=== PATIENT | male | born 1985 | race Two or more races ===

== ENCOUNTER 2020-07-20 07:38 | Outpatient (REF) | payer OTHER, SELFPAY ==
[2020-07-20 08:25] LABS: COVID-19 Test Negative (Negative); IDNOW Serial# 55D5AD1C
== END 2020-07-20 07:39 | disposition home or self-care (01) ==
LOC: HO.LAB 07:38
PROVIDERS: Visit Provider Internal Medicine
DX: Z20.822 Contact with and (suspected) exposure to COVID-19 (principal)
CPT/HCPCS: 36415; 87635; C9803

== ENCOUNTER 2021-06-01 09:24 | Emergency (ER) | payer OTHER, SELFPAY ==
--- NOTE | ~2021-06-01 | XR_ITS ---
EXAMINATION: XR FOOT, LEFT CLINICAL INFORMATION: Great toe wound COMPARISON: None TECHNIQUE: AP, lateral, and oblique views of the left foot. FINDINGS: There is flexion deformity of all DIP joints. No fracture, dislocation seen. The ankle mortise and subtalar joints are normal. There is diffuse osteopenia. There is moderate dorsal foot soft tissue swelling. XR/XR foot LT min 3V IMPRESSION: Moderate dorsal foot soft tissue swelling Diffuse osteopenia with moderate flexion deformity DIP joints of all digits. No visible acute fracture or dislocation seen.
[2021-06-01 09:58] VITALS: BP 124/92; PULSE 102; RESP 17; TEMP 37.2; O2SAT 96; BMI 23.4
--- NOTE | 2021-06-01 11:55 | ED_ITS ---
HPI - General Adult General Chief complaint: Extremity Problem Stated complaint: Foot pain Time Seen by Provider: 06/01/21 09:36 Source: family Mode of arrival: wheelchair Limitations: physical limitation History of Present Illness HPI narrative: Patient is a 36-year-old male with a history of spastic quadriplegic cerebral palsy, and epilepsy. Patient presents to the emergency department with his father, in addition to patient's sister who is involved in his care and available via telephone during exam. There is concern of increased muscle spasms over the past 2 days and patient appearing uncomfortable. In addition, there is report of a pressure ulcer to the left great toe for about 2 weeks. Reports that this has happened in the past due to footwear, and they have been alleviating pressure from the tip of the toe. He denies report of fever, has is temperature taken daily at the [facility]. Denies sick contacts or COVID-19 exposure. They do report a history of urinary tract infections, though they are infrequent, denies any odor or abnormal urinary concerns Related Data Home Medications Medication Instructions Recorded Confirmed baclofen See Rx Instructions INTRATHECAL 02/23/20 03/16/21 DAILY carbamazepine 100 mg chewable See Rx Instructions PO TID tab 02/23/20 03/16/21 tablet cyclobenzaprine 10 mg tablet 10 mg PO TID PRN 02/23/20 03/16/21 phenytoin sodium extended 100 mg 100 mg PO TID 02/23/20 03/16/21 capsule Previous Rx's Medication Instructions Recorded docusate sodium 100 mg capsule 200 mg PO BID #120 cap 01/18/21 polyethylene glycol 3350 17 gram 17 g PO DAILY 90 Days #90 ea 02/28/21 oral powder packet (Miralax) doxycycline monohydrate 100 mg 100 mg PO BID 7 Days #14 cap 06/01/21 capsule prednisone 20 mg tablet 40 mg PO DAILY 5 Days #10 tab 06/01/21 sodium di- and 1 tab PO QID 5 Days #20 tab 06/01/21 monophosphate-potassium phos monobasic 250 mg tablet (Phosphorous) Allergies Allergy/AdvReac Type Severity Reaction Status Date / Time Penicillins Allergy Mild UNKNOWN Verified 03/16/21 11:46 penicillin V Allergy Unknown Hives Verified 03/16/21 11:46 Review of Systems Review of Systems: Obtained by father and sister, patient non-verbal. Constitutional: No fever or shaking chills. Cardiovascular: No clutching of the chest, or pedal edema Respiratory: No increased work of breathing, cough, or sputum production. Gastrointestinal: No anorexia, vomiting ,constipation or diarrhea. No blood in stool. Genitourinary: No urinary frequency or motor. Musculoskeletal: Immobile, wheelchair-bound. Skin: Right great toe ulcer. [facility] Past Medical History Attestation statement: The following information was validated with the patient. (With patient's family) Source: old records reviewed and obtained from family Medical History Constipation Epilepsy Presence of intrathecal baclofen pump Spastic quadriplegic cerebral palsy Surgical History No pertinent past surgical history Social History Social History Housing: House Alcohol intake: never Patient Tobacco Use Status: Never used Tobacco Second Hand Smoke Exposure: No Use of substances other than those prescribed or required for medical reasons: No Advance Directives: No service: No Current occupational status: disabled Physical Exam ED Vital Signs: Vital Signs - 24 hr 06/01/21 09:58 06/01/21 13:05 06/01/21 14:02 Temperature 99.0 F 98.9 F Pulse Rate 102 H 94 Respiratory Rate 17 20 Blood Pressure 124/92 H Pulse Oximetry 96 95 06/01/21 16:00 Temperature 98.7 F Pulse Rate 95 Respiratory Rate 16 Blood Pressure 135/99 H Pulse Oximetry 97 BMI result Body Mass Index 23.4 Vital signs have been reviewed and appeared to be correct. Blood pressure with diastolic elevation 124/92 Heart rate had elevated at 102, 94 on repeat.? Respiration rate normal. Temperature normal.? Oxygen saturation normal. Appearance: Unable to assess orientation, non-verbal. No acute distress.? Eyes: Pupils equal, round and reactive to light.? ENT: Pharynx normal.?? Neck: Normal inspection.? Neck supple.?? CVS: Heart sounds normal. Normal heart rate and rhythm.? Pulses normal.?? Respiratory: No respiratory distress.? Lung sounds clear to auscultation bilaterally?? Abdomen: Soft and non-tender. Normoactive bowel sounds. No pulsatile mass.?RLQ inplanted device; baclofen pump without erythema, warmth, swelling.? Skin: Skin warm and dry.? Normal skin color.? Normal skin turgor.??Left great toe with dark red ulceration, 0.5cm round, with erythema and warmth of the left great toe and extending down the base to metatarsal Extremities: No lower extremity edema.? Neuro: Moves all extremities spontaneously. No focal neuro deficits. Non- ambulatory. Course Course Course Narrative: Patient is a 36-year-old male, nonverbal, presenting for evaluation of increased muscle spasticity and concern for left great toe ulcer. Will obtain CBC to evaluate for leukocytosis/ anemia, CMP to evaluate for abnormal electrolytes /abnormal renal function/ abnormal hepatic function. Uric acid level to assess for gout, inflammatory markers; sed rate and CRP. Urinalysis to evaluate for infection. X-ray of the left foot to exclude osteomyelitis. Patient is afebrile, mildly tachycardic with heart rate 102 though I suspect that this is secondary to pain and do not suspect sepsis at this time. However, will obtain blood cultures and lactic acid at this time. Reevaluation(s) Reevaluation #1: Based on history and physical exam I am concerned for cellulitis of the left foot great toe, given he has an allergy to penicillin will treat with doxycycline twice a day for 7 days. Unlikely to be osteomyelitis as he has no leukocytosis, he is afebrile, and no concern for osteomyelitis on x-ray. CBC is unremarkable no leukocytosis or anemia. ESR is 2, CRP is elevated 5.34 and Uric acid is low at 2.9, advise possibility of gout therefore will treat additionally with prednisone. Phosphorus is low at 2.5, will provide oral replacement. Calcium is normal. Magnesium is normal. Lactic acid is normal at 1.0. Urinalysis without concern for infection. COVID-19 testing was negative. I spoke with patient's father and his sister regarding findings, advised of treatment for cellulitis and possible gout and will need to follow up with primary care provider. Discussed reasons to return to the emergency department. Patient's father and sister are agreeable with plan of care all questions were answered. Time: 16:12 Medical Decision Making Medical Records Medical records reviewed: Yes I reviewed the patient's medical records. Lab Data Lab results reviewed: Yes I reviewed the patient's lab results. Result diagrams: 06/01/21 14:21 06/01/21 14:21 Labs: Lab Results 06/01/21 06/01/21 06/01/21 Range/Units 13:03 14:21 14:21 WBC 8.8 (4.8-10.8) X10*3/uL RBC 4.89 (4.60-5.80) X10*6/uL Hgb 14.0 (14.0-18.0) g/dl Hct 42.5 (42.0-52.0) % MCV 86.9 (80.0-98.0) fL MCH 28.6 (27.0-33.0) pg MCHC 32.9 (31.0-36.0) g/dl RDW 12.9 (11.0-16.0) % Plt Count 304 (160-400) X10*3/uL MPV 9.6 (9.4-12.4) fL Immature Gran % (Auto) 0.2 (0.0-0.4) % Neut % (Auto) 75.9 H (45-73) % Lymph % (Auto) 16.4 L (20-40) % [place] % (Auto) 7.2 (2-11) % Eos % (Auto) 0.0 (0-4) % Baso % (Auto) 0.3 (0-2) % Lymph # (Auto) 1.5 (1.2-4.9) X10*3/uL [place] # (Auto) 0.6 (0.1-1.2) X10*3/uL Eos # (Auto) 0.0 (0.0-0.4) X10*3/uL Baso # (Auto) 0.0 (0.0-0.2) X10*3/uL Abs Immat Gran (auto) 0.02 (0.00-0.03) X10*3/uL Absolute Neuts (auto) 6.7 (2.0-8.3) x10*3/uL Absolute Nucleated RBC 0.000 (0.0-0.012) X10*3/uL Nucleated RBC % (auto) 0.0 (0.0-0.2) /100WBC ESR 2 (0-15) MM/HR Sodium (135-145) mmol/L Potassium (3.3-5.1) mmol/L Chloride (96-108) mmol/L Carbon Dioxide (22-29) mmol/L Anion Gap (12-20) BUN (9-16) mg/dL Creatinine (0.5-1.4) mg/dL Estim Creat Clear Calc Estimated GFR Random Glucose (60-115) mg/dL Lactic Acid (0.5-2.0) mmol/L Uric Acid (3.4-7.0) mg/dL Calcium (8.4-10.2) mg/dL Phosphorus (2.7-4.5) mg/dL Magnesium (1.6-2.6) mg/dL Total Bilirubin (0.0-1.0) mg/dL AST (5-37) U/L ALT (0-40) U/L Alkaline Phosphatase (39-117) U/L C-Reactive Protein (< or = 0.50) mg/dL Total Protein (6.5-8.0) g/dL Albumin (3.5-5.0) g/dL Urine Color YELLOW Urine Appearance HAZY Urine pH 6.0 (5.0-8.0) Ur Specific [place] >= 1.030 H (1.005-1.025) Urine Protein 1+ H (NEG-TRACE) MG/DL Urine Glucose (UA) NEG (NEG) MG/DL Urine Ketones >=80 (NEG) MG/DL Urine Blood NEG (NEG) Urine Nitrite NEG (NEG) Ur Leukocyte Esterase NEG (NEG) Urine RBC 5-9 H (0) /HPF Urine WBC 1-4 (0-4) /HPF Ur Squamous Epith Cells 2+ /LPF Urine Bacteria TRACE /LPF Urine Mucus 1+ /LPF COVID-19 (JEANNINE) (Negative) COVID-19 Clin Com 06/01/21 06/01/21 06/01/21 Range/Units 14:21 14:21 14:21 WBC (4.8-10.8) X10*3/uL RBC (4.60-5.80) X10*6/uL Hgb (14.0-18.0) g/dl Hct (42.0-52.0) % MCV (80.0-98.0) fL MCH (27.0-33.0) pg MCHC (31.0-36.0) g/dl RDW (11.0-16.0) % Plt Count (160-400) X10*3/uL MPV (9.4-12.4) fL Immature Gran % (Auto) (0.0-0.4) % Neut % (Auto) (45-73) % Lymph % (Auto) (20-40) % [place] % (Auto) (2-11) % Eos % (Auto) (0-4) % Baso % (Auto) (0-2) % Lymph # (Auto) (1.2-4.9) X10*3/uL [place] # (Auto) (0.1-1.2) X10*3/uL Eos # (Auto) (0.0-0.4) X10*3/uL Baso # (Auto) (0.0-0.2) X10*3/uL Abs Immat Gran (auto) (0.00-0.03) X10*3/uL Absolute Neuts (auto) (2.0-8.3) x10*3/uL Absolute Nucleated RBC (0.0-0.012) X10*3/uL Nucleated RBC % (auto) (0.0-0.2) /100WBC ESR (0-15) MM/HR Sodium 138 (135-145) mmol/L Potassium 3.9 (3.3-5.1) mmol/L Chloride 103 (96-108) mmol/L Carbon Dioxide 20 L (22-29) mmol/L Anion Gap 19 (12-20) BUN 13 (9-16) mg/dL Creatinine 0.61 (0.5-1.4) mg/dL Estim Creat Clear Calc 116.1 Estimated GFR > 60 Random Glucose 90 (60-115) mg/dL Lactic Acid 1.0 (0.5-2.0) mmol/L Uric Acid 2.9 L (3.4-7.0) mg/dL Calcium 9.6 (8.4-10.2) mg/dL Phosphorus 2.5 L (2.7-4.5) mg/dL Magnesium 2.2 (1.6-2.6) mg/dL Total Bilirubin 0.6 (0.0-1.0) mg/dL AST 30 (5-37) U/L ALT 31 (0-40) U/L Alkaline Phosphatase 61 (39-117) U/L C-Reactive Protein 5.34 H (< or = 0.50) mg/dL Total Protein 7.4 (6.5-8.0) g/dL Albumin 4.4 (3.5-5.0) g/dL Urine Color Urine Appearance Urine pH (5.0-8.0) Ur Specific [place] (1.005-1.025) Urine Protein (NEG-TRACE) MG/DL Urine Glucose (UA) (NEG) MG/DL Urine Ketones (NEG) MG/DL Urine Blood (NEG) Urine Nitrite (NEG) Ur Leukocyte Esterase (NEG) Urine RBC (0) /HPF Urine WBC (0-4) /HPF Ur Squamous Epith Cells /LPF Urine Bacteria /LPF Urine Mucus /LPF COVID-19 (JEANNINE) Negative (Negative) COVID-19 Clin Com See Note 06/01/21 Range/Units 14:21 WBC (4.8-10.8) X10*3/uL RBC (4.60-5.80) X10*6/uL Hgb (14.0-18.0) g/dl Hct (42.0-52.0) % MCV (80.0-98.0) fL MCH (27.0-33.0) pg MCHC (31.0-36.0) g/dl RDW (11.0-16.0) % Plt Count (160-400) X10*3/uL MPV (9.4-12.4) fL Immature Gran % (Auto) (0.0-0.4) % Neut % (Auto) (45-73) % Lymph % (Auto) (20-40) % [place] % (Auto) (2-11) % Eos % (Auto) (0-4) % Baso % (Auto) (0-2) % Lymph # (Auto) (1.2-4.9) X10*3/uL [place] # (Auto) (0.1-1.2) X10*3/uL Eos # (Auto) (0.0-0.4) X10*3/uL Baso # (Auto) (0.0-0.2) X10*3/uL Abs Immat Gran (auto) (0.00-0.03) X10*3/uL Absolute Neuts (auto) (2.0-8.3) x10*3/uL Absolute Nucleated RBC (0.0-0.012) X10*3/uL Nucleated RBC % (auto) (0.0-0.2) /100WBC ESR (0-15) MM/HR Sodium (135-145) mmol/L Potassium (3.3-5.1) mmol/L Chloride (96-108) mmol/L Carbon Dioxide (22-29) mmol/L Anion Gap (12-20) BUN (9-16) mg/dL Creatinine (0.5-1.4) mg/dL Estim Creat Clear Calc Estimated GFR Random Glucose (60-115) mg/dL Lactic Acid (0.5-2.0) mmol/L Uric Acid (3.4-7.0) mg/dL Calcium Cancelled (8.4-10.2) mg/dL Phosphorus Cancelled (2.7-4.5) mg/dL Magnesium (1.6-2.6) mg/dL Total Bilirubin (0.0-1.0) mg/dL AST (5-37) U/L ALT (0-40) U/L Alkaline Phosphatase (39-117) U/L C-Reactive Protein (< or = 0.50) mg/dL Total Protein (6.5-8.0) g/dL Albumin (3.5-5.0) g/dL Urine Color Urine Appearance Urine pH (5.0-8.0) Ur Specific [place] (1.005-1.025) Urine Protein (NEG-TRACE) MG/DL Urine Glucose (UA) (NEG) MG/DL Urine Ketones (NEG) MG/DL Urine Blood (NEG) Urine Nitrite (NEG) Ur Leukocyte Esterase (NEG) Urine RBC (0) /HPF Urine WBC (0-4) /HPF Ur Squamous Epith Cells /LPF Urine Bacteria /LPF Urine Mucus /LPF COVID-19 (JEANNINE) (Negative) COVID-19 Clin Com Imaging Data left foot XR: Radiologist's impression: IMPRESSION: Moderate dorsal foot soft tissue swelling ? Diffuse osteopenia with moderate flexion deformity DIP joints of all digits. ? No visible acute fracture or dislocation seen. Discharge Plan Discharge Clinical Impression: Cellulitis of foot, Spastic quadriplegic cerebral palsy, Acquired hypophosph atemia Patient Disposition: Home, Self-Care Instructions: Cellulitis (ED), Hypophosphatemia (ED) Additional Instructions: Given given a new prescription for doxycycline this is an antibiotic to take twice a day for 7 days for treatment of cellulitis of the left foot. The area has been marked with a skin marker. As we discussed, there is a possibility of gout, therfore you were given a prescription for prednisone, this is a steroid, to take daily for 5 days. You should contact your primary care provider to schedule a follow-up appointment in 1-2 days for follow-up and evaluation. May return to the emergency department with any concerns of new or worsening symptoms. In addition, phosphorus level was low, therefore you were given oral replacement to take 4 times daily. Prescriptions: New Phosphorous 250 mg tablet 1 tab PO QID 5 Days Qty: 20 0RF doxycycline monohydrate 100 mg capsule 100 mg PO BID 7 Days Qty: 14 0RF prednisone 20 mg tablet 40 mg PO DAILY 5 Days Qty: 10 0RF No Action carbamazepine 100 mg tablet,chewable See Rx Instructions PO TID 0RF Rx Instructions: 4 tab in am, 3 tab in PM, 4 tab at HD PO 3 times a day; phenytoin sodium extended 100 mg capsule 100 mg PO TID 0RF baclofen 20,000 mcg/20mL (1,000 mcg/mL) solution See Rx Instructions intrathecal DAILY 0RF Rx Instructions: total of 8ml per day intrathecal daily; administer over 24 hrs cyclobenzaprine 10 mg tablet 10 mg PO TID PRN0RF docusate sodium 100 mg capsule 200 mg PO BID Qty: 120 2RF polyethylene glycol 3350 [Miralax] 17 gram powder in packet 17 g PO DAILY 90 Days Qty: 90 3RF Rx Instructions: 1 packet mixed with 8 ounces of fluid Orally Once a day
[2021-06-01 13:05] VITALS: TEMP 37.2
[2021-06-01 13:11] LABS: Appearance Urine HAZY; Color Urine YELLOW; Glucose Urine UA NEG (NEG); Leukocyte Esterase Urine NEG (NEG); Nitrite Urine NEG (NEG); Specific Gravity - Urine >= 1.030 (1.005-1.025); UACC Culture Trigger NO; Urine Blood NEG (NEG); Urine Ketones >=80 MG/DL (NEG); Urine Protein 1+ MG/DL (NEG-TRACE)
[2021-06-01 13:20] LABS: Bacteria Urine TRACE /LPF; Mucus Urine 1+ /LPF; Squamous Epithelial Cell Urine 2+ /LPF
[2021-06-01 14:02] VITALS: PULSE 94; RESP 20; O2SAT 95
[2021-06-01] MEDS: Acetaminophen 325 MG TABLET 650 MG PO (14:03)
[2021-06-01] MEDS: Ibuprofen 600 MG TABLET PO (14:04)
--- NOTE | 2021-06-01 14:24 | PC.NURSE ---
Pt difficult stick, labs obtained by this RN.sent. Unable to obtain second set of bld cx. d/t lack of blood flow when attempting labs. Dad at bedside. Pt asleep when resting, appears comfortable although medicated as charted
[2021-06-01 14:25] LABS: MANUAL DIFF FLAG NO
[2021-06-01 14:30] LABS: Basophils Percent Auto 0.3 % (0-2); Hematocrit 42.5 % (42.0-52.0); Imm Gran Abs Auto 0.02 X10*3/uL (0.00-0.03); Imm Gran Pct Auto 0.2 % (0.0-0.4); Lymphocytes Absolute Auto 1.5 X10*3/uL (1.2-4.9); Lymphocytes Percent Auto 16.4 % (20-40); Mean Corpuscular HGB Conc 32.9 g/dl (31.0-36.0); Mean Corpuscular Hemoglobin 28.6 pg (27.0-33.0); Mean Corpuscular Volume 86.9 fL (80.0-98.0); Mean Platelet Volume 9.6 fL (9.4-12.4); Monocytes Absolute Auto 0.6 X10*3/uL (0.1-1.2); Monocytes Percent Auto 7.2 % (2-11); Neutrophils Absolute Auto 6.7 x10*3/uL (2.0-8.3); Neutrophils Percent Auto 75.9 % (45-73); Platelet Count 304 X10*3/uL (160-400); Red Blood Count 4.89 X10*6/uL (4.60-5.80); Red Cell Distribution Width 12.9 % (11.0-16.0); White Blood Count 8.8 X10*3/uL (4.8-10.8)
[2021-06-01 14:42] LABS: COVID-19 Test Negative (Negative)
[2021-06-01 15:12] LABS: Erythrocyte Sedimentation Rate 2 MM/HR (0-15)
[2021-06-01 15:27] LABS: Alanine Aminotransferase 31 U/L (0-40); Albumin Level 4.4 g/dL (3.5-5.0); Alkaline Phosphatase 61 U/L (39-117); Anion Gap 19 (12-20); Aspartate Amino Transferase 30 U/L (5-37); Bilirubin Total 0.6 mg/dL (0.0-1.0); Blood Urea Nitrogen 13 mg/dL (9-16); C Reactive Protein 5.34 mg/dL (< or = 0.50); Calcium 9.6 mg/dL (8.4-10.2); Carbon Dioxide 20 mmol/L (22-29); Chloride 103 mmol/L (96-108); Creatinine Clr Calc Pharmacy 116.1; Estimated Glomerular Filt Rate > 60; Glucose Random 90 mg/dL (60-115); Magnesium 2.2 mg/dL (1.6-2.6); Phosphorus 2.5 mg/dL (2.7-4.5); Potassium 3.9 mmol/L (3.3-5.1); Sodium 138 mmol/L (135-145); Total Protein 7.4 g/dL (6.5-8.0); Uric Acid 2.9 mg/dL (3.4-7.0)
[2021-06-01 16:00] VITALS: BP 135/99; PULSE 95; RESP 16; TEMP 37.1; O2SAT 97
[2021-06-01] MEDS: Sodium,Potassium Phosphates POWD.PACK 1 PACKET PO (16:30)
== END 2021-06-01 16:35 | disposition home or self-care (01) ==
PROVIDERS: Nurse Practitioner Family; Emergency Provider Emergency Medicine; PCP Internal Medicine
DX: L03.116 Cellulitis of left lower limb (principal); M79.672 Pain in left foot; G80.0 Spastic quadriplegic cerebral palsy; E83.31 Familial hypophosphatemia; Z20.822 Contact with and (suspected) exposure to COVID-19; G40.909 Epilepsy, unspecified, not intractable, without status epilepticus; Z97.8 Presence of other specified devices; Z99.3 Dependence on wheelchair
CPT/HCPCS: 36415; 73630; 80053; 81001; 83605; 83735; 84100; 84550; 85025; 85652; 86140; 87040; 87635; 99284

== ENCOUNTER 2021-06-23 22:23 | Emergency (ER) | payer OTHER, SELFPAY ==
--- NOTE | ~2021-06-23 | CT_ITS ---
EXAMINATION: CT ABDOMEN AND PELVIS WITHOUT CONTRAST CLINICAL INFORMATION: Abdominal pain. Rule out small bowel obstruction. COMPARISON: Previous CT and [facility] March 2019 TECHNIQUE: Multidetector volumetric imaging was performed from the superior aspect of the liver through the pubic symphysis. Sagittal and coronal reformatted images were obtained on the technologist's workstation. This CT examination was performed using dose optimization techniques as appropriate, variously including the following: *Automated exposure control *Adjustment of mA and/or kV according to patient size (this includes techniques or standardized protocols for targeted exams where dose is matched to indication/reason for exam; i.e. extremities or head) *Use of iterative reconstruction technique DLP: 582 mGy-cm FINDINGS: LUNG BASES: The visualized lung bases are unremarkable. LIVER, GALLBLADDER, AND BILIARY TREE: The liver is normal in size, shape, and attenuation. No focal hepatic lesion or biliary ductal dilatation is present. The gallbladder is upper normal in size. There are gallstones. PANCREAS: Unremarkable. SPLEEN: Unremarkable. ADRENAL GLANDS: Unremarkable. KIDNEYS AND URETERS: The kidneys are normal in size, shape, and attenuation. No hydronephrosis, hydroureter, or calculi seen. No perinephric stranding. BLADDER: Unremarkable. GASTROINTESTINAL TRACT: The colon is dilated and filled with stool suggestive of severe constipation and fecal impaction. No evidence of small bowel obstruction is seen. The appendix is normal. The stomach is normal. ABDOMINAL WALL: There is a battery in the right lower quadrant abdominal wall and lead in the thoracic and lumbar spinal canal LYMPH NODES: Normal. VASCULAR: Unremarkable. PELVIC VISCERA: Unremarkable. OSSEOUS STRUCTURES: There is severe thoracolumbar scoliosis. There are gracile appearing bones. There are contractures of the hips CT/CT abdomen pelvis wo con IMPRESSION: Severe constipation and fecal impaction. No evidence of small bowel obstruction. Gallstones. Fleischner guidelines were followed.
--- NOTE | ~2021-06-23 | XR_ITS ---
EXAMINATION: XR FOOT, LEFT CLINICAL INFORMATION: Great toe infection COMPARISON: Previous x-ray most recent May 2021 TECHNIQUE: AP, lateral, and oblique views of the left foot. FINDINGS: There is a contracture of the foot. Bones are osteopenic. No fracture, dislocation or x-ray evidence of osteomyelitis is seen. No soft tissue foreign body is seen. XR/XR foot LT 2V IMPRESSION: Osteopenia and contracture. No change from prior exam.
[2021-06-24 00:14] VITALS: BP 132/88; PULSE 91; RESP 20; TEMP 36.8; O2SAT 94; BMI 23.4
[2021-06-24 06:12] VITALS: BP 154/99; PULSE 91; RESP 18; O2SAT 96
[2021-06-24 07:33] VITALS: BP 171/140; PULSE 110; RESP 19; TEMP 36.6; O2SAT 92
--- NOTE | 2021-06-24 07:34 | ED_ITS ---
HPI - General Adult General Chief complaint: General Medical Stated complaint: gen med Time Seen by Provider: 06/24/21 07:34 Source: patient and family ( Father) Mode of arrival: ambulatory Limitations: no limitations History of Present Illness HPI narrative: 36-year-old male with history of spastic quadriplegic cerebral palsy, patient is all was wheelchair ridden cared by his father and his sister, patient is on chronic baclofen pump. Patient was brought by his family because increase muscle spasm and patient in apparent discomfort, patient was seen recently in the emergency department had left great toe infection was started on doxycycline and father thinks it improved. father not sure of the baclofen pump is functioning are not. Related Data Home Medications Medication Instructions Recorded Confirmed baclofen See Rx Instructions INTRATHECAL 02/23/20 06/07/21 DAILY carbamazepine 100 mg chewable See Rx Instructions PO TID tab 02/23/20 06/07/21 tablet cyclobenzaprine 10 mg tablet 10 mg PO TID PRN 02/23/20 06/07/21 phenytoin sodium extended 100 mg 100 mg PO TID 02/23/20 06/07/21 capsule Previous Rx's Medication Instructions Recorded polyethylene glycol 3350 17 gram 17 g PO DAILY 90 Days #90 ea 02/28/21 oral powder packet (Miralax) prednisone 20 mg tablet 40 mg PO DAILY 5 Days #10 tab 06/01/21 sodium di- and 1 tab PO QID 5 Days #20 tab 06/01/21 monophosphate-potassium phos monobasic 250 mg tablet (Phosphorous) docusate sodium 100 mg capsule 200 mg PO BID #120 cap 06/06/21 doxycycline monohydrate 100 mg 100 mg PO BID 3 Days #6 cap 06/07/21 capsule Allergies Allergy/AdvReac Type Severity Reaction Status Date / Time Penicillins Allergy Mild UNKNOWN Verified 06/07/21 17:19 penicillin V Allergy Unknown Hives Verified 06/07/21 17:19 Review of Systems Review of Systems: Yes Unobtainable due to mental condition PMFSH Past Medical History Medical History Constipation Epilepsy Presence of intrathecal baclofen pump Spastic quadriplegic cerebral palsy Surgical History No pertinent past surgical history Social History Social History Housing: House Alcohol intake: unknown Patient Tobacco Use Status: Never used Tobacco Second Hand Smoke Exposure: No Use of substances other than those prescribed or required for medical reasons: Unable to respond Advance Directives: No Advance Directives Information Provided: Yes service: No Current occupational status: disabled Physical Exam ED Vital Signs: Vital Signs - 24 hr 06/24/21 00:14 06/24/21 06:12 06/24/21 07:33 Temperature 98.2 F 97.9 F Pulse Rate 91 91 110 H Respiratory Rate 20 18 19 Blood Pressure 132/88 154/99 H 171/140 H Pulse Oximetry 94 96 92 BMI result Body Mass Index 23.4 vital signs have been reviewed as appeared to be correct. Blood pressure elevated ( patient is uncomfortable). Heart rate elevated (patient in apparent discomfort ). Respiration rate normal. Temperature normal. Oxygen saturation normal. Appearance: Alert. acute distress and increase spastic contractions. Head: Normal external exam. Normocephalic. Atraumatic. No Solorzano signs noted. No raccoon eyes noted Eyes: PERRLA. EOMI. Conjunctiva and sclera normal. Eyelids normal. ENT: TM's Normal. Pharynx normal. Uvula midline. Moist mucous membranes. No trismus noted. No drooling noted. No muffled voice noted. Neck: Normal inspection. Neck supple. FROM. No adenopathy. Thyroid Normal. No meningeal signs. No neck mass noted. CVS: Normal heart rate and rhythm. Heart sound normal. No murmurs noted. Pulses normal throughout. Respiratory: No respiratory distress. Painless inspiration. Breath sounds normal. No wheezes/rales/rhonchi noted. Chest nontender. No accessory muscle usage noted or decreased air movement noted. Abdomen: Soft and nontender. Bowel sounds normal in all 4 quadrants. No distention noted. No organomegaly noted. No visible injury noted. Back: No CVA tenderness. Full range of motion noted. Skin: Skin warm and dry. Normal skin color. Normal skin turgor. No rashes/lesions/lacerations noted. Extremities: No lower extremity edema. mild left great toe tenderness and mild erythema , no swelling or deformity. Neuro: chronic spastic contractions Course Course Course Narrative: assessment and plan. 36-year-old male with cerebral palsy spastic quadriplegia came in for increases spasm. 1. Patient is on baclofen pump which was interrogated in the emergency department the pump is functioning. Patient was instructed to follow up with his doctor in [place] may need an increase of baclofen. 2. Patient show no evidence of infection. 3. Severe constipation on the CT patient received milk of magnesia and enema and will discharge. Medical Decision Making Lab Data Lab results reviewed: Yes I reviewed the patient's lab results. Result diagrams: 06/24/21 08:34 06/24/21 08:38 Labs: Lab Results 06/24/21 06/24/21 06/24/21 Range/Units 08:34 08:34 08:38 WBC 8.1 (4.8-10.8) X10*3/uL RBC 5.12 (4.60-5.80) X10*6/uL Hgb 14.5 (14.0-18.0) g/dl Hct 44.6 (42.0-52.0) % MCV 87.1 (80.0-98.0) fL MCH 28.3 (27.0-33.0) pg MCHC 32.5 (31.0-36.0) g/dl RDW 12.8 (11.0-16.0) % Plt Count 341 (160-400) X10*3/uL MPV 10.2 (9.4-12.4) fL Immature Gran % (Auto) 0.2 (0.0-0.4) % Neut % (Auto) 71.8 (45-73) % Lymph % (Auto) 21.4 (20-40) % [place] % (Auto) 5.8 (2-11) % Eos % (Auto) 0.6 (0-4) % Baso % (Auto) 0.2 (0-2) % Lymph # (Auto) 1.7 (1.2-4.9) X10*3/uL [place] # (Auto) 0.5 (0.1-1.2) X10*3/uL Eos # (Auto) 0.1 (0.0-0.4) X10*3/uL Baso # (Auto) 0.0 (0.0-0.2) X10*3/uL Abs Immat Gran (auto) 0.02 (0.00-0.03) X10*3/uL Absolute Neuts (auto) 5.8 (2.0-8.3) x10*3/uL Absolute Nucleated RBC 0.000 (0.0-0.012) X10*3/uL Nucleated RBC % (auto) 0.0 (0.0-0.2) /100WBC Sodium 143 (135-145) mmol/L Potassium 4.3 (3.3-5.1) mmol/L Chloride 107 (96-108) mmol/L Carbon Dioxide 23 (22-29) mmol/L Anion Gap 17 (12-20) BUN 13 (9-16) mg/dL Creatinine 0.60 (0.5-1.4) mg/dL Estim Creat Clear Calc 118.0 Estimated GFR > 60 Random Glucose 89 (60-115) mg/dL Lactic Acid 1.1 (0.5-2.0) mmol/L Calcium 9.8 (8.4-10.2) mg/dL Total Bilirubin 0.3 (0.0-1.0) mg/dL Direct Bilirubin 0.2 (0.0-0.5) mg/dL AST 20 (5-37) U/L ALT 26 (0-40) U/L Alkaline Phosphatase 68 (39-117) U/L Total Protein 7.3 (6.5-8.0) g/dL Albumin 4.4 (3.5-5.0) g/dL Lipase 19 (8-78) U/L Urine Color Urine Appearance Urine pH (5.0-8.0) Ur Specific [place] (1.005-1.025) Urine Protein (NEG-TRACE) MG/DL Urine Glucose (UA) (NEG) MG/DL Urine Ketones (NEG) MG/DL Urine Blood (NEG) Urine Nitrite (NEG) Ur Leukocyte Esterase (NEG) 06/24/21 Range/Units 11:36 WBC (4.8-10.8) X10*3/uL RBC (4.60-5.80) X10*6/uL Hgb (14.0-18.0) g/dl Hct (42.0-52.0) % MCV (80.0-98.0) fL MCH (27.0-33.0) pg MCHC (31.0-36.0) g/dl RDW (11.0-16.0) % Plt Count (160-400) X10*3/uL MPV (9.4-12.4) fL Immature Gran % (Auto) (0.0-0.4) % Neut % (Auto) (45-73) % Lymph % (Auto) (20-40) % [place] % (Auto) (2-11) % Eos % (Auto) (0-4) % Baso % (Auto) (0-2) % Lymph # (Auto) (1.2-4.9) X10*3/uL [place] # (Auto) (0.1-1.2) X10*3/uL Eos # (Auto) (0.0-0.4) X10*3/uL Baso # (Auto) (0.0-0.2) X10*3/uL Abs Immat Gran (auto) (0.00-0.03) X10*3/uL Absolute Neuts (auto) (2.0-8.3) x10*3/uL Absolute Nucleated RBC (0.0-0.012) X10*3/uL Nucleated RBC % (auto) (0.0-0.2) /100WBC Sodium (135-145) mmol/L Potassium (3.3-5.1) mmol/L Chloride (96-108) mmol/L Carbon Dioxide (22-29) mmol/L Anion Gap (12-20) BUN (9-16) mg/dL Creatinine (0.5-1.4) mg/dL Estim Creat Clear Calc Estimated GFR Random Glucose (60-115) mg/dL Lactic Acid (0.5-2.0) mmol/L Calcium (8.4-10.2) mg/dL Total Bilirubin (0.0-1.0) mg/dL Direct Bilirubin (0.0-0.5) mg/dL AST (5-37) U/L ALT (0-40) U/L Alkaline Phosphatase (39-117) U/L Total Protein (6.5-8.0) g/dL Albumin (3.5-5.0) g/dL Lipase (8-78) U/L Urine Color YELLOW Urine Appearance CLEAR Urine pH 5.5 (5.0-8.0) Ur Specific [place] 1.025 (1.005-1.025) Urine Protein NEG (NEG-TRACE) MG/DL Urine Glucose (UA) NEG (NEG) MG/DL Urine Ketones 5 (NEG) MG/DL Urine Blood NEG (NEG) Urine Nitrite NEG (NEG) Ur Leukocyte Esterase NEG (NEG) Imaging Data Left foot x-ray: Attestation: I personally reviewed and interpreted this imaging study as follows: Radiologist's impression: Osteopenia and contracture. No change from prior exam. Discharge Plan Discharge Clinical Impression: Spastic quadriplegic cerebral palsy, Constipation Patient Disposition: Home, Self-Care Instructions: Constipation (DC) Additional Instructions: come back if symptoms persist. Prescriptions: No Action carbamazepine 100 mg tablet,chewable See Rx Instructions PO TID 0RF Rx Instructions: 4 tab in am, 3 tab in PM, 4 tab at HD PO 3 times a day; phenytoin sodium extended 100 mg capsule 100 mg PO TID 0RF baclofen 20,000 mcg/20mL (1,000 mcg/mL) solution See Rx Instructions intrathecal DAILY 0RF Rx Instructions: total of 8ml per day intrathecal daily; administer over 24 hrs cyclobenzaprine 10 mg tablet 10 mg PO TID PRN0RF docusate sodium 100 mg capsule 200 mg PO BID Qty: 120 2RF Phosphorous 250 mg tablet 1 tab PO QID 5 Days Qty: 20 0RF prednisone 20 mg tablet 40 mg PO DAILY 5 Days Qty: 10 0RF polyethylene glycol 3350 [Miralax] 17 gram powder in packet 17 g PO DAILY 90 Days Qty: 90 3RF Rx Instructions: 1 packet mixed with 8 ounces of fluid Orally Once a day doxycycline monohydrate 100 mg capsule 100 mg PO BID 3 Days Qty: 6 0RF Rx Instructions: Take 1 capsule BID for 3 MORE DAYS (total of 10 days) Referrals: Physician,Unknown J [Primary Care Provider] - 2 days
[2021-06-24 08:42] LABS: MANUAL DIFF FLAG NO
[2021-06-24 08:54] LABS: Lactic Acid 1.1 mmol/L (0.5-2.0)
[2021-06-24 09:02] LABS: Basophils Percent Auto 0.2 % (0-2); Eosinophils Absolute Auto 0.1 X10*3/uL (0.0-0.4); Eosinophils Percent Auto 0.6 % (0-4); Hematocrit 44.6 % (42.0-52.0); Hemoglobin 14.5 g/dl (14.0-18.0); Imm Gran Abs Auto 0.02 X10*3/uL (0.00-0.03); Imm Gran Pct Auto 0.2 % (0.0-0.4); Lymphocytes Absolute Auto 1.7 X10*3/uL (1.2-4.9); Lymphocytes Percent Auto 21.4 % (20-40); Mean Corpuscular HGB Conc 32.5 g/dl (31.0-36.0); Mean Corpuscular Hemoglobin 28.3 pg (27.0-33.0); Mean Corpuscular Volume 87.1 fL (80.0-98.0); Mean Platelet Volume 10.2 fL (9.4-12.4); Monocytes Absolute Auto 0.5 X10*3/uL (0.1-1.2); Monocytes Percent Auto 5.8 % (2-11); Neutrophils Absolute Auto 5.8 x10*3/uL (2.0-8.3); Neutrophils Percent Auto 71.8 % (45-73); Platelet Count 341 X10*3/uL (160-400); Red Blood Count 5.12 X10*6/uL (4.60-5.80); Red Cell Distribution Width 12.8 % (11.0-16.0); White Blood Count 8.1 X10*3/uL (4.8-10.8)
[2021-06-24] MEDS: diazePAM 5 MG TABLET PO (09:02)
[2021-06-24] MEDS: Morphine Sulfate 2 MG/ML CARTRIDGE 1 MG IVPUSH ×2 (09:03→10:05)
[2021-06-24 09:05] LABS: Alanine Aminotransferase 26 U/L (0-40); Albumin Level 4.4 g/dL (3.5-5.0); Alkaline Phosphatase 68 U/L (39-117); Anion Gap 17 (12-20); Aspartate Amino Transferase 20 U/L (5-37); Bilirubin Direct 0.2 mg/dL (0.0-0.5); Bilirubin Total 0.3 mg/dL (0.0-1.0); Blood Urea Nitrogen 13 mg/dL (9-16); Calcium 9.8 mg/dL (8.4-10.2); Carbon Dioxide 23 mmol/L (22-29); Chloride 107 mmol/L (96-108); Estimated Glomerular Filt Rate > 60; Glucose Random 89 mg/dL (60-115); Lipase 19 U/L (8-78); Potassium 4.3 mmol/L (3.3-5.1); Sodium 143 mmol/L (135-145); Total Protein 7.3 g/dL (6.5-8.0)
[2021-06-24 11:48] LABS: Appearance Urine CLEAR; Color Urine YELLOW; Glucose Urine UA NEG (NEG); Leukocyte Esterase Urine NEG (NEG); Nitrite Urine NEG (NEG); PH 5.5 (5.0-8.0); Specific Gravity - Urine 1.025 (1.005-1.025); Urine Blood NEG (NEG); Urine Ketones 5 MG/DL (NEG); Urine Protein NEG (NEG-TRACE)
[2021-06-24] MEDS: Milk of Magnesia 30 ML ORAL.SUSP PO (13:09)
[2021-06-24] MEDS: Mineral OiL enema 133 ML ENEMA PR (13:30)
== END 2021-06-24 14:40 | disposition home or self-care (01) ==
PROVIDERS: Emergency Provider Emergency Medicine
DX: G80.0 Spastic quadriplegic cerebral palsy (principal); K59.00 Constipation, unspecified; Z97.8 Presence of other specified devices
CPT/HCPCS: 36415; 73620; 74176; 80048; 80076; 81003; 83605; 83690; 85025; 96374; 96376; 99284; J2270

== ENCOUNTER 2021-06-25 08:14 | Outpatient (REF) | payer OTHER, SELFPAY ==
[2021-06-25 08:52] LABS: MANUAL DIFF FLAG NO
[2021-06-25 09:03] LABS: Basophils Percent Auto 0.3 % (0-2); Eosinophils Absolute Auto 0.1 X10*3/uL (0.0-0.4); Eosinophils Percent Auto 0.9 % (0-4); Hematocrit 46.9 % (42.0-52.0); Hemoglobin 14.7 g/dl (14.0-18.0); Imm Gran Abs Auto 0.02 X10*3/uL (0.00-0.03); Imm Gran Pct Auto 0.3 % (0.0-0.4); Lymphocytes Absolute Auto 2.1 X10*3/uL (1.2-4.9); Lymphocytes Percent Auto 29.9 % (20-40); Mean Corpuscular HGB Conc 31.3 g/dl (31.0-36.0); Mean Corpuscular Hemoglobin 28.2 pg (27.0-33.0); Mean Platelet Volume 9.7 fL (9.4-12.4); Monocytes Absolute Auto 0.4 X10*3/uL (0.1-1.2); Monocytes Percent Auto 6.3 % (2-11); Neutrophils Absolute Auto 4.3 x10*3/uL (2.0-8.3); Neutrophils Percent Auto 62.3 % (45-73); Platelet Count 317 X10*3/uL (160-400); Red Blood Count 5.21 X10*6/uL (4.60-5.80); Red Cell Distribution Width 13.1 % (11.0-16.0); White Blood Count 6.9 X10*3/uL (4.8-10.8)
[2021-06-25 09:25] LABS: Alanine Aminotransferase 26 U/L (0-40); Albumin Level 4.3 g/dL (3.5-5.0); Alkaline Phosphatase 80 U/L (39-117); Anion Gap 22 (12-20); Aspartate Amino Transferase 22 U/L (5-37); Bilirubin Total 0.5 mg/dL (0.0-1.0); Calcium 9.2 mg/dL (8.4-10.2); Carbon Dioxide 18 mmol/L (22-29); Chloride 106 mmol/L (96-108); Estimated Glomerular Filt Rate > 60; Sodium 142 mmol/L (135-145)
[2021-06-25 09:26] LABS: Blood Urea Nitrogen 16 mg/dL (9-16); Cholesterol 142 mg/dL; HDL Cholesterol 48 mg/dL; LDL Cholesterol Calculated 77 mg/dl; Total Protein 7.2 g/dL (6.5-8.0); Triglycerides 89 mg/dL
[2021-06-25 09:37] LABS: Glucose Fasting 54 mg/dL (60-99)
[2021-06-25 09:44] LABS: Vitamin D 25-OH Total 20.6 ng/mL (>30)
[2021-06-25 10:09] LABS: Carbamazepine Tegretol 5.9 mcg/mL (5.0-12.0)
[2021-06-25 11:27] LABS: Phenytoin Dilantin 7.1 ug/mL (10.0-20.0)
== END 2021-06-25 08:15 | disposition home or self-care (01) ==
LOC: HO.LAB 08:14
PROVIDERS: PCP Internal Medicine; Visit Provider Internal Medicine
DX: Z00.00 Encounter for general adult medical examination without abnormal findings (principal); G40.909 Epilepsy, unspecified, not intractable, without status epilepticus; I10 Essential (primary) hypertension; E78.00 Pure hypercholesterolemia, unspecified; E55.9 Vitamin D deficiency, unspecified
CPT/HCPCS: 36415; 80053; 80061; 80156; 80185; 82306; 84443; 85025

== ENCOUNTER 2021-07-07 08:41 | Outpatient (REF) | payer OTHER, SELFPAY ==
[2021-07-07 09:02] LABS: Appearance Urine CLEAR; Color Urine YELLOW; Glucose Urine UA NEG (NEG); Leukocyte Esterase Urine NEG (NEG); Nitrite Urine NEG (NEG); PH 5.5 (5.0-8.0); Specific Gravity - Urine >= 1.030 (1.005-1.025); Urine Blood NEG (NEG); Urine Ketones NEG (NEG); Urine Protein NEG (NEG-TRACE)
== END 2021-07-07 08:42 | disposition home or self-care (01) ==
LOC: HO.LNP 08:41
PROVIDERS: Visit Provider Internal Medicine
DX: Z00.00 Encounter for general adult medical examination without abnormal findings (principal); I10 Essential (primary) hypertension; G40.909 Epilepsy, unspecified, not intractable, without status epilepticus
CPT/HCPCS: 81003

== ENCOUNTER 2021-07-30 07:21 | Outpatient (REF) | payer OTHER, SELFPAY ==
[2021-07-30 10:01] LABS: Phenytoin Dilantin 9.6 ug/mL (10.0-20.0)
== END 2021-07-30 07:22 | disposition home or self-care (01) ==
LOC: HO.LAB 07:21
PROVIDERS: PCP Internal Medicine; Visit Provider Psychiatry & Neurology Neurology
DX: R56.9 Unspecified convulsions (principal); Z79.899 Other long term (current) drug therapy
CPT/HCPCS: 36415; 80185

== ENCOUNTER 2021-11-30 20:00 | Outpatient (REF) | payer OTHER, SELFPAY ==
[2021-12-01 10:52] LABS: Appearance Urine Clear; Color Urine Yellow; Glucose Urine UA Negative (Negative); Leukocyte Esterase Urine Negative (Negative); Nitrite Urine Negative (Negative); PH 6.5 (5.0-8.0); Specific Gravity - Urine 1.025 (1.005-1.025); Urine Blood Negative (Negative); Urine Ketones Negative (Negative); Urine Protein Trace mg/dL (Neg-Trace)
== END 2021-11-30 20:01 | disposition home or self-care (01) ==
LOC: HO.10HDLNP 20:00
PROVIDERS: Visit Provider Physician Assistant
DX: R30.0 Dysuria (principal)
CPT/HCPCS: 81003

== ENCOUNTER 2022-03-25 08:02 | Outpatient (REF) | payer OTHER, SELFPAY ==
[2022-03-25 08:20] LABS: MANUAL DIFF FLAG NO
[2022-03-25 08:59] LABS: Basophils Percent Auto 0.5 % (0-2); Eosinophils Absolute Auto 0.1 X10*3/uL (0.0-0.4); Eosinophils Percent Auto 2.1 % (0-4); Hematocrit 42.8 % (42.0-52.0); Hemoglobin 14.1 g/dl (14.0-18.0); Imm Gran Abs Auto 0.01 X10*3/uL (0.00-0.03); Imm Gran Pct Auto 0.2 % (0.0-0.4); Lymphocytes Absolute Auto 1.8 X10*3/uL (1.2-4.9); Lymphocytes Percent Auto 41.1 % (20-40); Mean Corpuscular HGB Conc 32.9 g/dl (31.0-36.0); Mean Corpuscular Hemoglobin 28.8 pg (27.0-33.0); Mean Corpuscular Volume 87.3 fL (80.0-98.0); Monocytes Absolute Auto 0.3 X10*3/uL (0.1-1.2); Neutrophils Absolute Auto 2.1 x10*3/uL (2.0-8.3); Neutrophils Percent Auto 49.1 % (45-73); Platelet Count 238 X10*3/uL (160-400); Red Cell Distribution Width 12.9 % (11.0-16.0); White Blood Count 4.3 X10*3/uL (4.8-10.8)
[2022-03-25 09:19] LABS: Carbamazepine Tegretol 14.1 mcg/mL (5.0-12.0); Phenytoin Dilantin 8.1 ug/mL (10.0-20.0)
[2022-03-25 09:44] LABS: Alanine Aminotransferase 21 U/L (0-40); Albumin Level 4.4 g/dL (3.5-5.0); Alkaline Phosphatase 57 U/L (39-117); Anion Gap 13 (12-20); Aspartate Amino Transferase 16 U/L (5-37); Bilirubin Total 0.3 mg/dL (0.0-1.0); Blood Urea Nitrogen 13 mg/dL (9-16); C Reactive Protein 0.26 mg/dL (< or = 0.50); Calcium 9.3 mg/dL (8.4-10.2); Carbon Dioxide 25 mmol/L (22-29); Chloride 104 mmol/L (96-108); Estimated Glomerular Filt Rate > 60; Glucose Random 85 mg/dL (60-115); Potassium 4.2 mmol/L (3.3-5.1); Rheumatoid Factor < 13.0 IU/mL (<15.0); Sodium 138 mmol/L (135-145); TSH reflex Free T4 1.36 uIU/mL (0.32-4.0); Vitamin D 25-OH Total 25.1 ng/mL (>30)
[2022-03-25 09:53] LABS: Erythrocyte Sedimentation Rate 2 MM/HR (0-15)
[2022-03-27 12:39] LABS: Cyclic Citrullinated Peptide <16 UNITS
[2022-03-29 14:59] LABS: Anti Nuclear Antibody Pattern Nuclear, Nucleolar; Anti Nuclear Antibody Screen POSITIVE (NEGATIVE)
== END 2022-03-25 08:03 | disposition home or self-care (01) ==
LOC: HO.LAB 08:02
PROVIDERS: PCP Internal Medicine; Visit Provider Internal Medicine
DX: Z00.00 Encounter for general adult medical examination without abnormal findings (principal); E55.9 Vitamin D deficiency, unspecified; G40.909 Epilepsy, unspecified, not intractable, without status epilepticus; G80.0 Spastic quadriplegic cerebral palsy; M06.9 Rheumatoid arthritis, unspecified
CPT/HCPCS: 36415; 80053; 80156; 80185; 82306; 84443; 85025; 85652; 86038; 86039; 86140; 86200; 86431

== ENCOUNTER → 2022-06-30 08:37 | Outpatient (BNVA) | payer OTHER, SELFPAY | PROVIDERS: PCP Internal Medicine; Visit Provider Student in an Organized Health Care Education/Training Program | DX: R76.8 Other specified abnormal immunological findings in serum (principal) | CPT/HCPCS: 99202 ==

== ENCOUNTER 2022-07-01 08:05 | Outpatient (REF) | payer OTHER, SELFPAY ==
--- NOTE | ~2022-07-01 | XR_ITS ---
EXAMINATION: XR FOOT, RIGHT CLINICAL INFORMATION: Rheumatoid arthritis. COMPARISON: None available. TECHNIQUE: AP, lateral, and oblique views of the right foot. FINDINGS: Bony mineralization is mildly diminished. There are flexion contractures noted to varying degrees of each of the toes. There is a pes planus configuration. No fracture, dislocation or right ankle joint effusion is seen. No focal bone erosion is seen. There is mild swelling of the heel soft tissues, without gas or foreign body. XR/XR foot LT min 3V IMPRESSION: 1. Flexion contractures are seen of the toes. 2. There is a pes planus configuration. 3. No fracture, dislocation or right ankle joint effusion is seen. 4. No focal bone erosion is seen. 5. There is soft tissue swelling at the heel. EXAMINATION: XR FOOT, LEFT CLINICAL INFORMATION: Rheumatoid arthritis. COMPARISON: Radiographs dated 06/24/2021. TECHNIQUE: AP, lateral, and oblique views of the left foot. FINDINGS: Bony mineralization is diminished. As with the contralateral side, there are varying flexion contractures noted of the toes. A pes planus configuration is noted. There is no fracture, dislocation or left ankle joint effusion. No focal bone erosion is seen. There is mild swelling in the posterior soft tissues. IMPRESSION: 1. At the contralateral side, flexion contractures is seen of the left toes. 2. There is a pes planus configuration. 3. No fracture, dislocation or right ankle joint effusion is seen. 4. No focal bone erosion is seen. 5. There is swelling of the posterior soft tissues.
--- NOTE | ~2022-07-01 | XR_ITS ---
EXAMINATION: XR FOOT, RIGHT CLINICAL INFORMATION: Rheumatoid arthritis. COMPARISON: None available. TECHNIQUE: AP, lateral, and oblique views of the right foot. FINDINGS: Bony mineralization is mildly diminished. There are flexion contractures noted to varying degrees of each of the toes. There is a pes planus configuration. No fracture, dislocation or right ankle joint effusion is seen. No focal bone erosion is seen. There is mild swelling of the heel soft tissues, without gas or foreign body. XR/XR foot RT min 3V IMPRESSION: 1. Flexion contractures are seen of the toes. 2. There is a pes planus configuration. 3. No fracture, dislocation or right ankle joint effusion is seen. 4. No focal bone erosion is seen. 5. There is soft tissue swelling at the heel. EXAMINATION: XR FOOT, LEFT CLINICAL INFORMATION: Rheumatoid arthritis. COMPARISON: Radiographs dated 06/24/2021. TECHNIQUE: AP, lateral, and oblique views of the left foot. FINDINGS: Bony mineralization is diminished. As with the contralateral side, there are varying flexion contractures noted of the toes. A pes planus configuration is noted. There is no fracture, dislocation or left ankle joint effusion. No focal bone erosion is seen. There is mild swelling in the posterior soft tissues. IMPRESSION: 1. At the contralateral side, flexion contractures is seen of the left toes. 2. There is a pes planus configuration. 3. No fracture, dislocation or right ankle joint effusion is seen. 4. No focal bone erosion is seen. 5. There is swelling of the posterior soft tissues.
== END 2022-07-01 08:06 | disposition home or self-care (01) ==
LOC: HO.LAB 08:05
PROVIDERS: Visit Provider Student in an Organized Health Care Education/Training Program
DX: M06.9 Rheumatoid arthritis, unspecified (principal)
CPT/HCPCS: 73630

== ENCOUNTER 2022-07-04 12:05 | Outpatient (REF) | payer OTHER, SELFPAY ==
[2022-07-04 12:40] LABS: MANUAL DIFF FLAG NO
[2022-07-04 12:50] LABS: Basophils Percent Auto 0.4 % (0-2); Eosinophils Absolute Auto 0.1 X10*3/uL (0.0-0.4); Eosinophils Percent Auto 2.7 % (0-4); Hematocrit 41.7 % (42.0-52.0); Hemoglobin 13.7 g/dl (14.0-18.0); Imm Gran Abs Auto 0.01 X10*3/uL (0.00-0.03); Imm Gran Pct Auto 0.2 % (0.0-0.4); Lymphocytes Absolute Auto 2.4 X10*3/uL (1.2-4.9); Lymphocytes Percent Auto 46.5 % (20-40); Mean Corpuscular HGB Conc 32.9 g/dl (31.0-36.0); Mean Corpuscular Hemoglobin 28.8 pg (27.0-33.0); Mean Corpuscular Volume 87.8 fL (80.0-98.0); Mean Platelet Volume 9.6 fL (9.4-12.4); Monocytes Absolute Auto 0.4 X10*3/uL (0.1-1.2); Monocytes Percent Auto 7.6 % (2-11); Neutrophils Absolute Auto 2.2 x10*3/uL (2.0-8.3); Neutrophils Percent Auto 42.6 % (45-73); Platelet Count 319 X10*3/uL (160-400); Red Blood Count 4.75 X10*6/uL (4.60-5.80); Red Cell Distribution Width 13.2 % (11.0-16.0); White Blood Count 5.2 X10*3/uL (4.8-10.8)
[2022-07-04 13:20] LABS: Carbamazepine Tegretol 12.9 mcg/mL (5.0-12.0); Phenytoin Dilantin 9.4 ug/mL (10.0-20.0)
[2022-07-04 13:31] LABS: Erythrocyte Sedimentation Rate 2 MM/HR (0-15)
[2022-07-04 15:07] LABS: Alanine Aminotransferase 26 U/L (0-40); Albumin Level 4.2 g/dL (3.5-5.0); Alkaline Phosphatase 63 U/L (39-117); Anion Gap 11 (12-20); Aspartate Amino Transferase 20 U/L (5-37); Bilirubin Total 0.4 mg/dL (0.0-1.0); Blood Urea Nitrogen 12 mg/dL (9-16); C Reactive Protein 0.35 mg/dL (< or = 0.50); Calcium 9.3 mg/dL (8.4-10.2); Carbon Dioxide 27 mmol/L (22-29); Chloride 107 mmol/L (96-108); Estimated Glomerular Filt Rate > 60; Glucose Random 74 mg/dL (60-115); Potassium 4.6 mmol/L (3.3-5.1); Sodium 140 mmol/L (135-145); Total Protein 6.7 g/dL (6.5-8.0); Uric Acid 2.5 mg/dL (3.4-7.0)
[2022-07-04 15:41] LABS: Anion Gap 13 (12-20); Carbon Dioxide 24 mmol/L (22-29); Chloride 107 mmol/L (96-108); Potassium 4.9 mmol/L (3.3-5.1); Sodium 139 mmol/L (135-145)
[2022-07-05 04:48] LABS: HBS Num1 0.33 mIU/mL (0-7.99); HBc Num1 0.11 S/CO (0.00-0.79); HBsAGNum1 0.29 S/CO (0.00-0.99); Hepatitis B Core Antibody Nonreactive (Nonreactive); Hepatitis B Surface Antigen Negative (Negative); ~Hepatitis A Antibody IgM Nonreactive (Nonreactive); ~Hepatitis B Surface Antibody NONREACTIVE (Nonreactive); ~Hepatitis C Antibody Nonreactive (Nonreactive)
[2022-07-06 12:04] LABS: Complement C3 119 mg/dL (82-185)
[2022-07-06 13:47] LABS: Cardiolipin IgG Ab <2.0 GPL-U/mL; Cardiolipin IgM Ab <2.0 MPL-U/mL
[2022-07-06 13:53] LABS: Anti DNA DS Antibody <1 IU/mL; Antibody to SS-A Antigen <1.0 NEG AI (<1.0 NEG); Antibody to SS-B Antigen <1.0 NEG AI (<1.0 NEG); SM/Ribonucleoprotein Ab <1.0 NEG AI (<1.0 NEG); Smith Protein <1.0 NEG AI (<1.0 NEG)
[2022-07-07 06:34] LABS: TS Negative Control Passed; TS Panel A 0; TS Panel B 0; TS Positive Control Passed; TSpotTB Negative (Negative)
[2022-07-09 18:04] LABS: DNAds, Crithidia Antibody Negative (Negative)
[2022-07-09 20:38] LABS: Beta-2 Glycoprotein IgA <2.0 U/mL (<20.0); Beta-2 Glycoprotein IgG <2.0 U/mL (<20.0); Beta-2 Glycoprotein IgM <2.0 U/mL (<20.0)
[2022-07-12 06:18] LABS: Hexagonal Phase Neutralization Negative (Negative); PTT (LAC) Screen 43 sec (<=40)
[2022-07-18 23:18] LABS: Centromere Protein A Ab <11 SI (<11); Centromere Protein B Ab <11 SI (<11); Fibrillarin Ab <11 SI (<11); PM SCL 100 Ab <11 SI (<11); PM SCL 75 Ab <11 SI (<11); RNA Polymerase III RP11 Ab <11 SI (<11); RNA Polymerase III RP155 Ab <11 SI (<11); SCL-70 Extractable Nuclear Ab <11 SI (<11); Th-To Ab <11 SI (<11); U1 SNRNP RNP 70KD <11 SI (<11); U1 SNRNP RNP A <11 SI (<11); U1 SNRNP RNP C <11 SI (<11)
== END 2022-07-04 12:06 | disposition home or self-care (01) ==
LOC: HO.LAB 12:05
PROVIDERS: Absent Provider Psychiatry & Neurology Neurology; PCP Internal Medicine; Visit Provider Student in an Organized Health Care Education/Training Program
DX: Z11.7 Encounter for testing for latent tuberculosis infection (principal); Z11.59 Encounter for screening for other viral diseases; M06.9 Rheumatoid arthritis, unspecified; M32.9 Systemic lupus erythematosus, unspecified; M34.9 Systemic sclerosis, unspecified; D68.61 Antiphospholipid syndrome; M25.541 Pain in joints of right hand; R56.9 Unspecified convulsions
CPT/HCPCS: 36415; 80051; 80053; 80156; 80185; 82550; 84182; 84550; 85025; 85597; 85613; 85652; 85730; 86140; 86146; 86147; 86160; 86225; 86235; 86255; 86481; 86704; 86706; 86709; 86803; 87340

== ENCOUNTER 2022-07-20 14:43 | Outpatient (REF) | payer OTHER, SELFPAY | END 2022-07-20 14:44 | disposition home or self-care (01) | LOC: HO.LAB 14:43 | PROVIDERS: PCP Internal Medicine; Visit Provider Surgery | DX: L02.811 Cutaneous abscess of head [any part, except face] (principal); B95.62 Methicillin resistant Staphylococcus aureus infection as the cause of diseases classified elsewhere | CPT/HCPCS: 10061; 87070; 87077; 87186; 87205; 99202 ==

== ENCOUNTER → 2022-08-09 08:08 | Outpatient (BNVA) | payer OTHER, SELFPAY | PROVIDERS: PCP Internal Medicine; Visit Provider Student in an Organized Health Care Education/Training Program | DX: R76.8 Other specified abnormal immunological findings in serum (principal); G80.0 Spastic quadriplegic cerebral palsy; Z79.631 Long term (current) use of antimetabolite agent | CPT/HCPCS: 99212 ==

== ENCOUNTER 2022-11-18 09:56 | Outpatient (REF) | payer OTHER, SELFPAY ==
[2022-11-18 10:15] LABS: MANUAL DIFF FLAG NO
[2022-11-18 11:19] LABS: Basophils Percent Auto 0.5 % (0-2); Eosinophils Absolute Auto 0.1 X10*3/uL (0.0-0.4); Eosinophils Percent Auto 2.6 % (0-4); Hematocrit 40.9 % (42.0-52.0); Hemoglobin 13.3 g/dl (14.0-18.0); Imm Gran Abs Auto 0.01 X10*3/uL (0.00-0.03); Imm Gran Pct Auto 0.2 % (0.0-0.4); Lymphocytes Absolute Auto 1.7 X10*3/uL (1.2-4.9); Lymphocytes Percent Auto 39.6 % (20-40); Mean Corpuscular HGB Conc 32.5 g/dl (31.0-36.0); Mean Corpuscular Hemoglobin 30.6 pg (27.0-33.0); Mean Platelet Volume 10.5 fL (9.4-12.4); Monocytes Absolute Auto 0.3 X10*3/uL (0.1-1.2); Monocytes Percent Auto 7.7 % (2-11); Neutrophils Absolute Auto 2.1 x10*3/uL (2.0-8.3); Neutrophils Percent Auto 49.4 % (45-73); Platelet Count 284 X10*3/uL (160-400); Red Blood Count 4.35 X10*6/uL (4.60-5.80); Red Cell Distribution Width 12.7 % (11.0-16.0); White Blood Count 4.2 X10*3/uL (4.8-10.8)
[2022-11-18 11:59] LABS: Alanine Aminotransferase 35 U/L (0-40); Albumin Level 4.4 g/dL (3.5-5.0); Alkaline Phosphatase 58 U/L (39-117); Anion Gap 13 (12-20); Aspartate Amino Transferase 24 U/L (5-37); Bilirubin Total 0.3 mg/dL (0.0-1.0); Blood Urea Nitrogen 6 mg/dL (9-16); C Reactive Protein 0.47 mg/dL (< or = 0.50); Calcium 9.5 mg/dL (8.4-10.2); Carbon Dioxide 27 mmol/L (22-29); Chloride 104 mmol/L (96-108); Cholesterol 148 mg/dL; Estimated Glomerular Filt Rate > 60; Glucose Fasting 97 mg/dL (60-99); HDL Cholesterol 48 mg/dL; LDL Cholesterol Calculated 85 mg/dl; Potassium 3.8 mmol/L (3.3-5.1); Sodium 140 mmol/L (135-145); Total Protein 7.3 g/dL (6.5-8.0); Triglycerides 78 mg/dL
[2022-11-18 12:03] LABS: Vitamin D 25-OH Total 49.9 ng/mL (>30)
[2022-11-18 12:07] LABS: Erythrocyte Sedimentation Rate 1 MM/HR (0-15)
== END 2022-11-18 09:57 | disposition home or self-care (01) ==
LOC: HO.LAB 09:56
PROVIDERS: PCP Internal Medicine; Visit Provider Student in an Organized Health Care Education/Training Program
DX: Z00.00 Encounter for general adult medical examination without abnormal findings (principal); E78.00 Pure hypercholesterolemia, unspecified; M06.00 Rheumatoid arthritis without rheumatoid factor, unspecified site; E55.9 Vitamin D deficiency, unspecified; Z79.631 Long term (current) use of antimetabolite agent
CPT/HCPCS: 36415; 80053; 80061; 82306; 84443; 85025; 85652; 86140

== ENCOUNTER 2022-11-22 08:00 | Outpatient (AMB) | payer OTHER, SELFPAY ==
--- NOTE | 2022-11-22 08:07 | MHC.OFFVIS ---
Intake Vital Signs 11/22/22 08:07 Height 5 ft Intake Visit Reasons: RA Intake Note: Pt seen today for RA follow up. Fleet Administrative Assistant Required: No Accompanied by: Parents Allergies penicillin V Allergy (Unknown, Verified 11/22/22 08:09) Hives Medication List - Last Reconciled 11/22/22 by Rebecca Aggarwal MD [ADULT BRIEFS (Medium) - 8 units/day As directed up to 8 units per day] baclofen 20 mg PO QID PRN 30 days carbamazepine 4 tab in am, 3 tab in PM, 4 tab at HS PO 3 times a day; cholecalciferol (vitamin D3) 50 mcg PO DAILY 90 days [DISPOSABLE GLOVES (large) As directed] ibuprofen 200 mg PO Q6H PRN miscellaneous medical supply Disposable Gloves- Size: Large miscellaneous medical supply Disposable Under Pads miscellaneous medical supply Adult Briefs- Size:X-large- 8XDay phenytoin sodium extended 100 mg PO TID polyethylene glycol 3350 (Miralax) 17 grams PO DAILY 90 days starch (thickening) (Thick-It oral powder) Mix with all drinks throughout the day as needed orally sulfasalazine 1 g (2 x 500 mg) PO BID [UNDERPADS As directed] HPI HPI Comments History of Present Illness Details 37-year-old spastic quadriplegic cerebral palsy male with seronegative RA returns for follow-up. Has been taking sulfasalazine 2 tabs twice daily for the last 3 months. According to patient's family they believe that he has not been having joint pain, swelling or stiffness. Initial history: This is a 37-year-old male with spastic quadriplegic cerebral palsy who presents for evaluation of diffuse joint pain. Persist her about 1 year ago patient started having episodes of stiffness of his hands, he would flex his elbows, wrists and hands. She also noticed swelling and redness of his knees. They have been giving him ibuprofen with some improvement. He went to the emergency room last year after a wound to his left big toe. At that time he was prescribed antibiotics and prednisone with significant improvement. Her sister patient's PMR specialist told them that patient might have rheumatoid arthritis. There is no known family history of autoimmune rheumatic disease. [facility] Medical History Constipation Epilepsy Presence of intrathecal baclofen pump SARS-CoV-2 positive (~08/16/21) Scalp abscess Spastic quadriplegic cerebral palsy Surgical History History of incision and drainage Social History Housing: House Alcohol intake: current Alcohol intake frequency: does not drink Patient Tobacco Use Status: Never used Tobacco e-Cigarette/Vaping Use: Never Used Second Hand Smoke Exposure: No service: No Current occupational status: disabled Cognitive needs: Yes Hearing needs: No Vision needs: No Review of Systems Const Details: ROS is obtained from patient's family Musc Denies arthralgias, Denies joint swelling and Denies stiffness Physical Exam Const Other: Quadriplegic in a wheelchair Resp Effort & Inspection: normal respiratory effort Extrem Other: Patient is spastic quadriplegic in a wheelchair. Flexion contracture of his elbows, wrists, hands, fingers, feet Wrists are nontender to palpation today. Ankles are not warm or tender to palpation Normal nailfold capillaroscopy Assessment & Plan Assessment & Plan (1) Seronegative rheumatoid arthritis: Comment: -ve RF -ve CCP dx 08/2022 SSZ 08/29 effective MTX couldn't be used as there is concern of reduced efficacy of phenytoin went folic acid is given Code(s): M06.00 - Rheumatoid arthritis without rheumatoid factor, unspecified site Plan: This is a 37-year-old spastic quadriplegic cerebral palsy male with seronegative RA who returns for follow-up with his family. On sulfasalazine 1000 mg Twice daily. There is no synovitis on exam. RA well controlled. Continue sulfasalazine 1000 mg Twice daily Infectious screening: Hepatitis panel and T spot -ve 2022 Labs before next visit in 3 minutes (2) GARFIELD positive: Code(s): R76.8 - Other specified abnormal immunological findings in serum Plan: Positive GARFIELD 1-80 in a nucleolar pattern but comprehensive sub serology is negative and no signs of overlap with other connective tissue diseases. Plan I spent 12 minutes reviewing patient's chart, evaluating patient, ordering diagnostic workup, counseling patient's family and documenting in the chart Orders: Orders Comprehensive Met. Panel 3 Months M06.00 - Rheumatoid arthritis without rheumatoid factor, unspecified site C Reactive Protein 3 Months M06.00 - Rheumatoid arthritis without rheumatoid factor, unspecified site Complete Blood Count Auto Diff 3 Months M06.00 - Rheumatoid arthritis without rheumatoid factor, unspecified site Erythrocyte Sedimentation Rate 3 Months M06.00 - Rheumatoid arthritis without rheumatoid factor, unspecified site Coding Level of Care Code Est Pt Level 3 (77297) Diagnoses Seronegative rheumatoid arthritis M06.00 GARFIELD positive R76.8
== END 2022-11-22 08:23 | disposition home or self-care (01) ==
PROVIDERS: PCP Internal Medicine; Visit Provider Student in an Organized Health Care Education/Training Program
DX: M06.00 Rheumatoid arthritis without rheumatoid factor, unspecified site (principal); R76.8 Other specified abnormal immunological findings in serum
CPT/HCPCS: 99213

== ENCOUNTER → 2022-11-22 08:00 | Outpatient (BNVA) | payer OTHER, SELFPAY | PROVIDERS: PCP Internal Medicine; Visit Provider Student in an Organized Health Care Education/Training Program | DX: M06.00 Rheumatoid arthritis without rheumatoid factor, unspecified site (principal); R76.8 Other specified abnormal immunological findings in serum | CPT/HCPCS: 99212 ==

== ENCOUNTER 2023-01-17 14:22 | Outpatient (AMB) | payer OTHER, SELFPAY ==
--- NOTE | 2023-01-17 14:27 | MHC.OFFWIV ---
Intake Vital Signs 01/17/23 14:31 Height 5 ft BMI Reason not done Patient refused/unable BP 108/62 Blood Pressure Location Lt brachial Position Sitting Pulse 73 Pulse Source Pulse Oximeter Temp 97.0 F Temp Source Temporal Artery Scan Pulse Oximetry (%) 97 Oxygen Delivery Method Room Air Intake Visit Reasons: EP, cyst on back of neck Intake Note: pt is here for c/o cyst on back of neck Patient Tobacco Use Status: Never used Tobacco Allergies penicillin V Allergy (Unknown, Verified 01/17/23 14:28) Hives Do you need a note to return to daycare/school/sports/work: Yes HPI HPI Comments History of Present Illness Details This is a 37-year-old male with a past medical history of rheumatoid arthritis, cerebral palsy, dysphasia with cognitive disabilities presenting with his father for evaluation of a painful lesion on the back of his neck that has been present over the past 5 days. The patient's father, who provides the history, states that he has developed these abscesses several times before requiring incision and drainage. The father is not worried about his mentation, behavior and denies any fevers or chills. [facility] Medical History Scalp abscess SARS-CoV-2 positive (~08/16/21) Presence of intrathecal baclofen pump Constipation Epilepsy Spastic quadriplegic cerebral palsy Surgical History History of incision and drainage Social History Housing: House Alcohol intake: current Alcohol intake frequency: does not drink Patient Tobacco Use Status: Never used Tobacco e-Cigarette/Vaping Use: Never Used Second Hand Smoke Exposure: No service: No Current occupational status: disabled Cognitive needs: Yes Hearing needs: No Vision needs: No Review of Systems Const Details: ROS not possible to detail as this patient is non.verbal. Physical Exam Vital Signs: Last Vital Signs Temp 97.0 F 01/17/23 14:31 Pulse 73 01/17/23 14:31 BP 108/62 01/17/23 14:31 Pulse Ox 97 01/17/23 14:31 Oxygen Delivery Method Room Air 01/17/23 14:31 Patient is afebrile, calm and amenable to examination and procedure. Const General: cooperative, healthy appearing, comfortable and well groomed; No no acute distress Orientation/consciousness: Other orientation findings (non.verbal) Limitations: other limitations (cognitive delays) Skin Other: there is a 2.5cm x 2.0cm indurated raised flesh.colored lesion at the base of the posterior neck, right side with central crusting and central fluctuance; no active exudates. Office Procedures Incision and Drainage Incision and drainage performed by: Tania Vogt Informed consent given: Yes (by father) Consent signed: No Time out checklist: patient, procedure, site marked/identified, positioning of patient, supplies available, allergies confirmed and team agrees on procedure Time out staff in room: No (performed by provider only) Time out verified: Yes Location: posterior neck Anesthesia: local (2% lidocaine) Incision with: #11 blade Drainage quality: minimal-none (moderate purulent discharge expressed; 1/4 packing placed) Culture taken: No Lesion: fluctuance and induration Hemostasis: pressure Cavity management: irrigated Dressing: gauze Patient tolerated procedure: well Complications: No Additional details: Patient's father will bring the patient back for removal of the gauze packing and a reevaluation of this abscess in 48 - 72 hours. Assessment & Plan Assessment & Plan (1) Abscess of neck: Code(s): L02.11 - Cutaneous abscess of neck Plan: Patient will return in 48-72 hours for removal of the gauze packing and he will be prescribed Bactrim to take twice daily. The father is in agreement with this plan of care. Medications: New sulfamethoxazole-trimethoprim 800-160 mg (Bactrim DS) 1 tab PO BID 10 tabs 0RF Coding Level of Care Code Est Pt Level 4 (50131) Diagnoses Abscess of neck L02.11 Time Spent (min) 30
[2023-01-17 14:31] VITALS: BP 108/62; PULSE 73; TEMP 36.1; O2SAT 97
== END 2023-01-17 16:02 | disposition home or self-care (01) ==
PROVIDERS: PCP Internal Medicine; Visit Provider Physician Assistant
DX: L02.11 Cutaneous abscess of neck (principal)
CPT/HCPCS: 10061; 99214

== ENCOUNTER 2023-01-19 09:22 | Outpatient (AMB) | payer OTHER, SELFPAY ==
[2023-01-19 11:32] VITALS: BP 120/70; PULSE 91; O2SAT 91
--- NOTE | 2023-01-19 11:32 | MHC.OFFWIV ---
Intake Vital Signs 01/19/23 11:32 Height 5 ft BP 120/70 Blood Pressure Location Rt brachial Position Sitting Pulse 91 Pulse Source Pulse Oximeter Pulse Oximetry (%) 91 L Oxygen Delivery Method Room Air Intake Visit Reasons: EP, follow up cyst on back of neck-waiting room Intake Note: pt is here today for EP f/u cyst on back Patient Tobacco Use Status: Never used Tobacco Allergies penicillin V Allergy (Unknown, Verified 01/19/23 11:37) Hives HPI HPI Comments History of Present Illness Details This is a 37-year-old male who presents to the office today for wound check. He was seen at the walk-in clinic on 01/17/2023 for an abscess on the back of his neck. He had the abscess incised and drained 2 days ago and they were instructed to follow-up here for packing removal and wound check. Patient's parents have not noticed any behavioral changes or fever/ chills. He is still taking the antibiotics as prescribed. [facility] Medical History Scalp abscess SARS-CoV-2 positive (~08/16/21) Presence of intrathecal baclofen pump Constipation Epilepsy Spastic quadriplegic cerebral palsy Surgical History History of incision and drainage Social History Housing: House Alcohol intake: current Alcohol intake frequency: does not drink Patient Tobacco Use Status: Never used Tobacco e-Cigarette/Vaping Use: Never Used Second Hand Smoke Exposure: No service: No Current occupational status: disabled Cognitive needs: Yes Hearing needs: No Vision needs: No Review of Systems Const All systems reviewed & are unremarkable except as noted in HPI and below Reports no additional complaints Eyes Reports no additional complaints ENT Reports no additional complaints Card Reports no additional complaints Resp Reports no additional complaints GI Reports no additional complaints Reports no additional complaints Musc Reports no additional complaints Skin/Breast Reports system reviewed and no additional complaints, except as documented Neuro Reports no additional complaints Psych Reports no additional complaints Endo Reports no additional complaints Michael/Lymph Reports no additional complaints Aller/Immun Reports no additional complaints Physical Exam Vital Signs: Last Vital Signs Pulse 91 01/19/23 11:32 BP 120/70 01/19/23 11:32 Pulse Ox 91 L 01/19/23 11:32 Oxygen Delivery Method Room Air 01/19/23 11:32 Const Other: Vital signs reviewed. Constitutional: Non-toxic appearing. No acute distress. Well-developed and well-nourished. HEENT: Normocephalic and atraumatic. Tympanic membranes without erythema, edema, or bulging bilaterally. External auditory canals without erythema or edema bilaterally. Moist mucous membranes. No pharyngeal erythema or exudates. Skin: Open abscess at the back of his neck with purulent drainage. Neck: Full and painless range of motion. No cervical lymphadenopathy. Cardio: Regular rate and rhythm. No murmurs, gallops, or rubs. No lower extremity edema. No JVD. Pulmonary: No respiratory distress. No accessory muscle usage. Clear to auscultation bilaterally without wheezing, crackles, or rhonchi. Gastrointestinal: Soft, nontender, and nondistended in all 4 quadrants. Normoactive bowel sounds in all 4 quadrants. Genitourinary: No CVA tenderness. Musculoskeletal: Normal range of motion in joints throughout the body. No deformity or other signs of injury. Neuro: Alert and oriented x4. Cranial nerves 2-12 grossly intact. No focal deficits appreciated. Psych: Normal mood and affect. Assessment & Plan Assessment & Plan (1) Abscess of neck: Code(s): L02.11 - Cutaneous abscess of neck Plan This is a 37-year-old male presenting to the office with his parents for a wound check. He had an incision and drainage of an abscess of his neck 2 days ago. The dressing was removed and the packing was removed. The abscess still appears to be draining with a moderate amount of purulent drainage. I applied more gauze packing to allow the abscess to continue to draing and then applied gauze and Tegaderm over the wound. I recommended that they come back to the walk-in clinic in 72 hours for packing removal and wound check but they would prefer not to come back due to the prolonged wait time. I informed the parents that they can remove the packing on their own in 72 hours. If the abscess still appears to be draining, I recommended they come back for more gauze packing. If the abscess and the drainage appeared to have improved, I recommended they just continue with the oral antibiotic and complete the course. If he starts to develop any fever/chills or behavioral changes, they can always come back for further evaluation and management. Patient's parents verbalized their understanding and they are in agreement with the plan. Coding Level of Care Code Est Pt Level 3 (21623) Diagnoses Abscess of neck L02.11
== END 2023-01-19 12:10 | disposition home or self-care (01) ==
PROVIDERS: PCP Internal Medicine; Visit Provider Physician Assistant Medical
DX: L02.11 Cutaneous abscess of neck (principal)
CPT/HCPCS: 99024

== ENCOUNTER 2023-01-22 09:20 | Outpatient (AMB) | payer OTHER, SELFPAY ==
[2023-01-22 10:43] VITALS: BP 122/78; PULSE 92; TEMP 36.8; O2SAT 94
--- NOTE | 2023-01-22 10:43 | AM.OFFWIN_ITS ---
Intake Vital Signs 01/22/23 10:43 Height 5 ft BMI Reason not done Patient refused/unable BP 122/78 Blood Pressure Location Rt brachial Position Sitting Pulse 92 Pulse Source Pulse Oximeter Temp 98.3 F Temp Source Temporal Artery Scan Pulse Oximetry (%) 94 Oxygen Delivery Method Room Air Intake Visit Reasons: EP wound check/Packing cyst (Lobby) Intake Note: pt is here for wound check Patient Tobacco Use Status: Never used Tobacco Allergies penicillin V Allergy (Unknown, Verified 01/22/23 11:13) Hives Medication List - Last Reconciled 01/22/23 by Ismael Cooley MD [ADULT BRIEFS (Medium) - 8 units/day As directed up to 8 units per day] baclofen 20 mg PO QID PRN 30 days carbamazepine 4 tab in am, 3 tab in PM, 4 tab at HS PO 3 times a day; cholecalciferol (vitamin D3) 50 mcg PO DAILY 90 days [DISPOSABLE GLOVES (large) As directed] ibuprofen 200 mg PO Q6H PRN miscellaneous medical supply Disposable Gloves- Size: Large miscellaneous medical supply Disposable Under Pads miscellaneous medical supply Adult Briefs- Size:X-large- 8XDay phenytoin sodium extended 100 mg PO TID polyethylene glycol 3350 (Miralax) 17 grams PO DAILY 90 days starch (thickening) (Thick-It oral powder) Mix with all drinks throughout the day as needed orally sulfasalazine 1,000 mg (2 x 500 mg) PO BID [UNDERPADS As directed] Do you need a note to return to daycare/school/sports/work: Yes HPI EP wound check/Packing cyst (Lobby) HPI Details 37-year-old male presents to the office for a sick visit. Patient has cerebral palsy, wheelchair bound and the his mother is giving history. Patient had a balloon drained and a packing gauze was inserted Sunday last. He is here for a wound check. The gauze has fallen off. [facility] Medical History Scalp abscess SARS-CoV-2 positive (~08/16/21) Presence of intrathecal baclofen pump Constipation Epilepsy Spastic quadriplegic cerebral palsy Surgical History History of incision and drainage Social History Housing: House Alcohol intake: current Alcohol intake frequency: does not drink Patient Tobacco Use Status: Never used Tobacco e-Cigarette/Vaping Use: Never Used Second Hand Smoke Exposure: No service: No Current occupational status: disabled Cognitive needs: Yes Hearing needs: No Vision needs: No Physical Exam Vital Signs: Last Vital Signs Temp 98.3 F 01/22/23 10:43 Pulse 92 01/22/23 10:43 BP 122/78 01/22/23 10:43 Pulse Ox 94 01/22/23 10:43 Oxygen Delivery Method Room Air 01/22/23 10:43 Skin Other: Neck: Posterior surface: Wound area is healing. No induration or pain. No discharge from the open area. Assessment & Plan Assessment & Plan (1) Abscess of neck: Code(s): L02.11 - Cutaneous abscess of neck Plan: Continue antibiotic use. Keep the area dry. Coding Level of Care Code Est Pt Level 3 (99652) Diagnoses Abscess of neck L02.11
== END 2023-01-22 11:20 | disposition home or self-care (01) ==
PROVIDERS: PCP Internal Medicine; Visit Provider Internal Medicine
DX: L02.11 Cutaneous abscess of neck (principal)
CPT/HCPCS: 99024

== ENCOUNTER 2023-02-10 09:59 | Outpatient (REF) | payer OTHER, SELFPAY ==
[2023-02-10 10:13] LABS: MANUAL DIFF FLAG NO
[2023-02-10 11:16] LABS: Basophils Percent Auto 0.4 % (0-2); Eosinophils Absolute Auto 0.2 X10*3/uL (0.0-0.4); Eosinophils Percent Auto 3.6 % (0-4); Hematocrit 38.1 % (42.0-52.0); Hemoglobin 11.9 g/dl (14.0-18.0); Imm Gran Abs Auto 0.01 X10*3/uL (0.00-0.03); Imm Gran Pct Auto 0.2 % (0.0-0.4); Lymphocytes Absolute Auto 1.7 X10*3/uL (1.2-4.9); Lymphocytes Percent Auto 38.9 % (20-40); Mean Corpuscular HGB Conc 31.2 g/dl (31.0-36.0); Mean Corpuscular Hemoglobin 30.1 pg (27.0-33.0); Mean Corpuscular Volume 96.5 fL (80.0-98.0); Mean Platelet Volume 10.4 fL (9.4-12.4); Monocytes Absolute Auto 0.4 X10*3/uL (0.1-1.2); Monocytes Percent Auto 8.1 % (2-11); Neutrophils Absolute Auto 2.2 x10*3/uL (2.0-8.3); Neutrophils Percent Auto 48.8 % (45-73); Platelet Count 256 X10*3/uL (160-400); Red Blood Count 3.95 X10*6/uL (4.60-5.80); Red Cell Distribution Width 13.6 % (11.0-16.0); White Blood Count 4.5 X10*3/uL (4.8-10.8)
[2023-02-10 11:58] LABS: Alanine Aminotransferase 24 U/L (0-40); Albumin Level 4.1 g/dL (3.5-5.0); Alkaline Phosphatase 46 U/L (39-117); Anion Gap 10 (12-20); Aspartate Amino Transferase 21 U/L (5-37); Bilirubin Total 0.3 mg/dL (0.0-1.0); Blood Urea Nitrogen 14 mg/dL (9-16); C Reactive Protein 0.24 mg/dL (< or = 0.50); Carbon Dioxide 26 mmol/L (22-29); Chloride 110 mmol/L (96-108); Estimated Glomerular Filt Rate > 60; Glucose Random 83 mg/dL (60-115); Potassium 3.9 mmol/L (3.3-5.1); Sodium 142 mmol/L (135-145); Total Protein 6.7 g/dL (6.5-8.0)
[2023-02-10 13:25] LABS: Erythrocyte Sedimentation Rate 2 MM/HR (0-15)
== END 2023-02-10 10:00 | disposition home or self-care (01) ==
LOC: HO.LAB 09:59
PROVIDERS: PCP Internal Medicine; Visit Provider Student in an Organized Health Care Education/Training Program
DX: M06.00 Rheumatoid arthritis without rheumatoid factor, unspecified site (principal)
CPT/HCPCS: 36415; 80053; 85025; 85652; 86140

== ENCOUNTER 2023-02-14 08:23 | Outpatient (AMB) | payer OTHER, SELFPAY ==
--- NOTE | 2023-02-14 08:27 | MHC.OFFVIS ---
Intake Vital Signs 02/14/23 08:29 Height 5 ft Temp 97.0 F Temp Source Skin Intake Visit Reasons: RA Intake Note: Pt last seen 11/22/22, presents today for follow up and test results. Sulfasalazine 1000mg bid Servomechanism Designer Required: No Accompanied by: Dad, Sister Allergies penicillin V Allergy (Unknown, Verified 02/14/23 08:32) Hives Medication List - Last Reconciled 02/14/23 by Rebecca Aggarwal MD [ADULT BRIEFS (Medium) - 8 units/day As directed up to 8 units per day] baclofen 20 mg PO QID PRN 30 days carbamazepine 4 tab in am, 3 tab in PM, 4 tab at HS PO 3 times a day; cholecalciferol (vitamin D3) 50 mcg PO DAILY 90 days [DISPOSABLE GLOVES (large) As directed] ibuprofen 200 mg PO Q6H PRN miscellaneous medical supply Disposable Gloves- Size: Large miscellaneous medical supply Disposable Under Pads miscellaneous medical supply Adult Briefs- Size:X-large- 8XDay phenytoin sodium extended 100 mg PO TID polyethylene glycol 3350 (Miralax) 17 grams PO DAILY 90 days starch (thickening) (Thick-It oral powder) Mix with all drinks throughout the day as needed orally sulfasalazine 1,000 mg (2 x 500 mg) PO BID [UNDERPADS As directed] HPI HPI Comments History of Present Illness Details 37-year-old spastic quadriplegic cerebral palsy male with seronegative RA returns for follow-up who with his father and sister. On sulfasalazine 1000 mg Twice daily.. According to patient's family they believe that he has not been having significant joint pain, swelling or stiffness. He takes ibuprofen 200 mg every 1 or 2 weeks. Per sister she mentions that times patient's feet change color into white and blue. Initial history: This is a 37-year-old male with spastic quadriplegic cerebral palsy who presents for evaluation of diffuse joint pain. Persist her about 1 year ago patient started having episodes of stiffness of his hands, he would flex his elbows, wrists and hands. She also noticed swelling and redness of his knees. They have been giving him ibuprofen with some improvement. He went to the emergency room last year after a wound to his left big toe. At that time he was prescribed antibiotics and prednisone with significant improvement. Her sister patient's PMR specialist told them that patient might have rheumatoid arthritis. There is no known family history of autoimmune rheumatic disease. [facility] Medical History Scalp abscess SARS-CoV-2 positive (~08/16/21) Presence of intrathecal baclofen pump Constipation Epilepsy Spastic quadriplegic cerebral palsy Surgical History History of incision and drainage Social History Housing: House Alcohol intake: current Alcohol intake frequency: does not drink Patient Tobacco Use Status: Never used Tobacco e-Cigarette/Vaping Use: Never Used Second Hand Smoke Exposure: No service: No Current occupational status: disabled Cognitive needs: Yes Hearing needs: No Vision needs: No Review of Systems Const Details: ROS is obtained from patient's family Musc Denies arthralgias, Denies joint swelling and Denies stiffness Physical Exam Vital Signs: Last Vital Signs Temp 97.0 F 02/14/23 08:29 Const Other: Quadriplegic in a wheelchair Resp Effort & Inspection: normal respiratory effort Extrem Other: Patient is spastic quadriplegic in a wheelchair. Flexion contracture of his elbows, wrists, hands, fingers, feet Wrists are nontender to palpation today. Ankles are not warm or tender to palpation. Negative MCP squeeze test. Negative MTP squeeze test Normal nailfold capillaroscopy Assessment & Plan Assessment & Plan (1) Seronegative rheumatoid arthritis: Comment: -ve RF -ve CCP dx 08/2022 SSZ 08/29 effective MTX couldn't be used as there is concern of reduced efficacy of phenytoin went folic acid is given Code(s): M06.00 - Rheumatoid arthritis without rheumatoid factor, unspecified site Plan: This is a 37-year-old spastic quadriplegic cerebral palsy male with seronegative RA who returns for follow-up with his family. On sulfasalazine 1000 mg Twice daily. There is no synovitis on exam. RA well controlled. Continue sulfasalazine 1000 mg Twice daily Infectious screening: Hepatitis panel and T spot -ve 2022 Labs before next visit in 3 months (2) GARFIELD positive: Code(s): R76.8 - Other specified abnormal immunological findings in serum Plan: Positive GARFIELD 1-80 in a nucleolar pattern but comprehensive sub serology is negative and no signs of overlap with other connective tissue diseases. Patient's sister mentions that patient's toes change color in to white and blue in the cold. I explained that this can be Raynaud's phenomenon. I asked sister to take pictures. Keep feet warm Plan I spent 26 minutes reviewing patient's chart, evaluating patient, ordering diagnostic workup, counseling patient's family and documenting in the chart Orders: Orders Complete Blood Count Auto Diff 3 Months M06.00 - Rheumatoid arthritis without rheumatoid factor, unspecified site C Reactive Protein 3 Months M06.00 - Rheumatoid arthritis without rheumatoid factor, unspecified site Erythrocyte Sedimentation Rate 3 Months M06.00 - Rheumatoid arthritis without rheumatoid factor, unspecified site Comprehensive Met. Panel 3 Months M06.00 - Rheumatoid arthritis without rheumatoid factor, unspecified site Coding Level of Care Code Est Pt Level 4 (78237) Diagnoses Seronegative rheumatoid arthritis M06.00 GARFIELD positive R76.8
[2023-02-14 08:29] VITALS: TEMP 36.1
== END 2023-02-14 08:47 | disposition home or self-care (01) ==
PROVIDERS: PCP Internal Medicine; Visit Provider Student in an Organized Health Care Education/Training Program
DX: M06.00 Rheumatoid arthritis without rheumatoid factor, unspecified site (principal); R76.8 Other specified abnormal immunological findings in serum
CPT/HCPCS: 99214

== ENCOUNTER → 2023-02-14 08:23 | Outpatient (BNVA) | payer OTHER, SELFPAY | PROVIDERS: PCP Internal Medicine; Visit Provider Student in an Organized Health Care Education/Training Program | DX: M06.00 Rheumatoid arthritis without rheumatoid factor, unspecified site (principal); R76.8 Other specified abnormal immunological findings in serum | CPT/HCPCS: 99212 ==

== ENCOUNTER 2023-03-15 08:45 | Outpatient (AMB) | payer OTHER, SELFPAY ==
[2023-03-15 08:52] VITALS: BP 118/76; PULSE 64; O2SAT 95
--- NOTE | 2023-03-15 08:52 | A.OFFPC_ITS ---
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 Accompanied by: Self / Same As Patient Allergies penicillin V Allergy (Unknown, Verified 03/15/23 09:20) Hives Medication List - Last Reconciled 03/15/23 by Williams Cotter MD [ADULT BRIEFS (Medium) - 8 units/day As directed up to 8 units per day] baclofen 20 mg PO QID PRN 30 days carbamazepine 4 tab in am, 3 tab in PM, 4 tab at HS PO 3 times a day; cholecalciferol (vitamin D3) 50 mcg PO DAILY 90 days [DISPOSABLE GLOVES (large) As directed] ibuprofen 200 mg PO Q6H PRN miscellaneous medical supply Disposable Gloves- Size: Large miscellaneous medical supply Disposable Under Pads miscellaneous medical supply Adult Briefs- Size:X-large- 8XDay phenytoin sodium extended 100 mg PO TID polyethylene glycol 3350 (Miralax) 17 grams PO DAILY 90 days starch (thickening) (Thick-It oral powder) Mix with all drinks throughout the day as needed orally sulfasalazine 1,000 mg (2 x 500 mg) PO BID [UNDERPADS As directed] Tobacco use date assessed: 03/15/23 Dental Screening Dental Screen Date: 03/15/23 Did you have a dental visit in the last 12 months?: Yes Did you have a dental problem in the last 6 months where you did not have access to dental care?: No Was dental information given to patient?: Patient has dentist HPI Annual Exam HPI Details Patient is brought in today for his annual physical examination His information is obtained primarily from his family members as patient is unable to communicate His family states that he's had loose stools/diarrhea for the past 2 weeks or more States that his loose stool was initially brownish but has been clear and watery lately and he has about 1 to 2 episodes of loose stools a day His family states that he often appears to be in pain lately over his abdomen and his stomach feels distended when they try to examine his stomach Patient has not had any nausea or vomiting States that he's had a mild cold lately, with his nose draining clear mucus at times He's had no fever lately and has not had any fever or chills He does not appear to have had any headaches, chest pains or increased SOB lately Has had no follow up labs done recently [facility] Medical History (Updated 03/15/23 @ 09:47 by Williams Cotter MD) Seronegative rheumatoid arthritis Scalp abscess SARS-CoV-2 positive (~08/16/21) Presence of intrathecal baclofen pump Constipation Epilepsy Spastic quadriplegic cerebral palsy Surgical History History of incision and drainage Social History Housing: House Alcohol intake: current Alcohol intake frequency: does not drink Patient Tobacco Use Status: Never used Tobacco e-Cigarette/Vaping Use: Never Used Second Hand Smoke Exposure: No service: No Current occupational status: disabled Cognitive needs: Yes Hearing needs: No Vision needs: No Questionnaire PHQ-9 Over the last 2 weeks, how often have you been bothered by any of the following problems? 1. Little interest or pleasure in doing things: not at all 2. Feeling down, depressed, or hopeless: not at all 3. Trouble falling or staying asleep, or sleeping too much: not at all 4. Feeling tired or having little energy: not at all 5. Poor appetite or overeating: not at all 6. Feeling bad about yourself - or that you are a failure or have let yourself or your family down: not at all 7. Trouble concentrating on things, such as reading the newspaper or watching television: not at all 8. Moving or speaking so slowly that other people could have noticed. Or the opposite - being so fidgety or restless that you have been moving around a lot more than usual: not at all 9. Thoughts that you would be better off or of hurting yourself in some way: not at all Total score: 0 Depression Screening Interpretation: Negative Depression Screening Done: Yes 90404 - PHQ-9 Billing: Yes Source: Developed by Drs. Quan Quinn, Magdalena Hyman, Paul Shipley and colleagues, with an educational deana from [employer]. Thrive Questionnaire Date Thrive assessed: 12/07/23 I am a: Parent/Caregiver What is your living situation today?: I have a steady place to live Within the past 12 months, did the food you bought not last and you didn't have the money to get more?: Never true Within the past 12 months, did you worry whether your food would run out before you got money to buy more?: Never true Do you have trouble paying for medicines?: No Do you have trouble getting transportation to medical appointments?: No Do you have trouble paying your heating and electricity bill?: No Do you have trouble taking care of your child, family member or friend?: No Do you have trouble with day-to-day activities such as bathing, preparing meals, shopping, managing finances, etc.?: No Are you currently unemployed and looking for a job?: No Are you interested in more education?: No Please select the resources that you would like help with: None Currently or been in a relationship where the following occur: no concerns reported AUDIT C Alcohol Use Questionnaire (AUDIT-C) 1. How often do you have a drink containing alcohol?: Never Total Score: 0 Score Reviewed/Action Taken: Yes CURT-7 AMB Questionnaire CURT-7 Date CURT - 7 assessed: 03/15/23 Feeling nervous, anxious, or on edge: 0 = Not at all Not being able to stop or control worryin = Not at all Worrying too much about different things: 0 = Not at all Trouble relaxin = Not at all Being so restless that it is hard to sit still: 0 = Not at all Becoming easily annoyed or irritable: 0 = Not at all Feeling afraid as if something awful might happen: 0 = Not at all Total CURT-7 score (0-4 normal; 5-9 mild; 10-14 moderate; 15-21 severe): 0 Source: Developed by Drs. Quan Quinn, Magdalena Hyman, Paul Shipley and colleagues, with an educational deana from [employer]. Review of Systems Const Details: ROS is limited and obtained primarily from patient's family as patient is unable to provide any information due to his significant cognitive impairment Denies chills, Denies fever(s) and Denies headache(s) Eyes Denies eye discharge ENT Denies dysphagia, Denies headache(s), Denies hearing loss, Reports nasal congestion, Reports nasal discharge, Denies sinus pain and Denies sore throat Card Denies chest pain, Denies palpitations and Denies dyspnea Resp Denies cough and Denies dyspnea GI Reports abdominal pain (on and off), Denies hematochezia, Denies dysphagia, Denies heartburn, Reports diarrhea (over past 2 weeks), Reports loose stools (over past 2 weeks), Denies nausea and Denies vomiting Denies dysuria Musc Denies arthralgias and Denies joint swelling Neuro Denies headache(s) Endo Denies palpitations Physical exam (Primary Care) Vital Signs: Last Vital Signs Pulse 64 03/15/23 08:52 BP 118/76 03/15/23 08:52 Pulse Ox 95 03/15/23 08:52 Oxygen Delivery Method Room Air 03/15/23 08:52 Tobacco/Smoking Status: Tobacco use Status Tobacco use date assessed 03/15/23 03/15/23 08:59 Patient Tobacco Use Status Never used Tobacco 03/15/23 08:59 e-Cigarette/Vaping Use Never Used 03/15/23 08:59 PHQ-9: PHQ-9 Score PHQ-9: Total score 0 03/15/23 09:23 Depression Screening Interpretation: Negative Thrive Assessment: Date of Thrive Assessment Date Thrive assessed 03/15/23 03/15/23 08:59 Currently or been in a relationship where the following occur: no concerns reported Const Other: Physical exam is limited due to patient's wheelchair-bound condition and inability to cooperate with exam - has significant cognitive impairment General: no acute distress Orientation/consciousness: Other orientation findings ((+) significant cognitive impairment) Limitations: physical limitations and wheelchair HENMT Ears: TM's normal bilaterally and EAC's normal General nose exam: Nasal discharge present clear Throat: Yes posterior oropharynx normal and Yes tonsils normal Neck Neck: Yes no lymphadenopathy Resp Auscultation: no crackles, no rales, rhonchi (occasional) upper bilaterally and no wheezes Cardio Rate: regular rate Rhythm: regular rhythm Heart sounds: no murmurs GI Palpation (GI): Soft to palpation, no guarding and not rigid Back/Spine/Pelvis Other: Wheelchair-bound Skin Rashes: no rashes Neuro Other: (+) significant cognitive impairment - unable to assess neurologically Extrem Other: (+) spastic and atrophic upper and lower extremities; no joint swelling noted General: Yes no pedal edema Results Reviewed Results Reviewed: Laboratory Tests 02/10/23 10:12 WBC 4.5 L Hgb 11.9 L Hct 38.1 L Plt Count 256 ESR 2 Sodium 142 Potassium 3.9 Creatinine 0.57 Estimated GFR > 60 Random Glucose 83 Calcium 9.0 AST 21 ALT 24 C-Reactive Protein 0.24 Assessment and Plan Assessment & Plan (1) Annual physical exam: Code(s): Z00.00 - Encounter for general adult medical examination without abnormal findings Plan: Check labs Results of some of his labs done a few weeks ago reviewed (2) Diarrhea: Code(s): R19.7 - Diarrhea, unspecified Qualifiers: Diarrhea type: unspecified type Qualified Code(s): R19.7 - Diarrhea, unspecified Plan: Will send patient for some additional labs as well as stool work ups ANDREA for further evaluation (3) Abdominal distention: Code(s): R14.0 - Abdominal distension (gaseous) Plan: Will send him for abdominal x-rays for further evaluation (4) Respiratory infection: Code(s): J98.8 - Other specified respiratory disorders Plan: Will send patient for a viral respiratory panel and chest x-rays for further evaluation Will consider Abx Tx depending on how his labs and imaging studies come out (5) Spastic quadriplegic cerebral palsy: Code(s): G80.0 - Spastic quadriplegic cerebral palsy Plan: Continue Baclofen 10 mg QID PRN; patient also has an intrathecal Baclofen pump and continues to follow up with the intrathecal clinic and with neurosurgery in [place] ([facility]) regularly (6) Epilepsy: Code(s): G40.909 - Epilepsy, unspecified, not intractable, without status epilepticus Qualifiers: Epilepsy type: unspecified Intractability: not intractable Status epilepticus: without status epilepticus Qualified Code(s): G40.909 - Epilepsy, unspecified, not intractable, without status epilepticus Plan: Continue Carbamazepine 100 mg 4 tablets daily in AM, 3 tablets daily in PM and 4 tablets daily at night AND Dilantin ER 100 mg TID Will check his serum levels of Phenytoin and Tegretol for follow up Follow up with neurology as scheduled (7) Seronegative rheumatoid arthritis: Comment: -ve RF -ve CCP dx 08/2022 SSZ 08/29 effective MTX couldn't be used as there is concern of reduced efficacy of phenytoin went folic acid is given Code(s): M06.00 - Rheumatoid arthritis without rheumatoid factor, unspecified site Plan: Continue Sulfasalazine 500 mg 2 tablets BID - per rheumatology, appears to be doing well on Rx Follow up with rheumatology as scheduled (8) Dysphagia: Code(s): R13.10 - Dysphagia, unspecified Qualifiers: Dysphagia type: unspecified Qualified Code(s): R13.10 - Dysphagia, unspecified Plan: Swallow evaluation done at [facility] a few months ago reportedly came back normal but he was recommended to have his liquids thickened as a precautionary measure Rx for Thick-It powder to use with all of his daily oral liquids as needed / as instructed is refilled today Plan Follow up in 6 months Orders: Orders Complete Blood Count Auto Diff 03/15/23 R14.0 - Abdominal distension (gaseous), R19.7 - Diarrhea, unspecified Comprehensive Met. Panel 03/15/23 R14.0 - Abdominal distension (gaseous), R19.7 - Diarrhea, unspecified Magnesium 03/15/23 E83.42 - Hypomagnesemia Endomysial IgA rflx Titer 03/15/23 R14.0 - Abdominal distension (gaseous), R19.7 - Diarrhea, unspecified Immunoglobulin A 03/15/23 R14.0 - Abdominal distension (gaseous), R19.7 - Diarrhea, unspecified Transglutaminase Ab IgG 03/15/23 R14.0 - Abdominal distension (gaseous), R19.7 - Diarrhea, unspecified Giardia Ag Stool EIA 03/15/23 R14.0 - Abdominal distension (gaseous), R19.7 - Diarrhea, unspecified Routine Culture w Gram Stain 03/15/23 R14.0 - Abdominal distension (gaseous), R19.7 - Diarrhea, unspecified XR chest 2V 03/15/23 J98.8 - Other specified respiratory disorders IRON PROFILE 03/15/23 D50.9 - Iron deficiency anemia, unspecified Vitamin B12 and Folate 03/15/23 E53.8 - Deficiency of other specified B group vitamins TSH reflex Free T4 03/15/23 G80.0 - Spastic quadriplegic cerebral palsy, R19.7 - Diarrhea, unspecified, R76.8 - Other specified abnormal immunological findings in serum Vitamin D 25-OH Total 03/15/23 E55.9 - Vitamin D deficiency, unspecified Phenytoin Dilantin 03/15/23 G40.909 - Epilepsy, unspecified, not intractable, without status epilepticus Carbamazepine Tegretol 03/15/23 G40.909 - Epilepsy, unspecified, not intractable, without status epilepticus Hemoglobin A1c 03/15/23 R73.9 - Hyperglycemia, unspecified XR abdomen 3V 03/15/23 R14.0 - Abdominal distension (gaseous), R19.7 - Diarrhea, unspecified Ova and Parasite 03/15/23 R14.0 - Abdominal distension (gaseous), R19.7 - Diarrhea, unspecified Leukocytes Stool Qualitative 03/15/23 R14.0 - Abdominal distension (gaseous), R19.7 - Diarrhea, unspecified SARS-CoV2/FLU/RSV 03/15/23 J98.8 - Other specified respiratory disorders, R19.7 - Diarrhea, unspecified Medications: Refilled starch (thickening) (Thick-It oral powder) Mix with all drinks throughout the day as needed orally 6,120 grams 12RF dysphagia/aspiration G40.909 - Epilepsy, unspecified, not intractable, without status epilepticus, G80.0 - Spastic quadriplegic cerebral palsy, R13.10 - Dysphagia, unspecified Coding Level of Care Code Est Pt Prev Care 40-64y(24309) Diagnoses Annual physical exam Z00.00 Diarrhea, unspecified type R19.7 Diarrhea type: unspecified type Abdominal distention R14.0 Respiratory infection J98.8 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 Nonintractable epilepsy without status epilepticus, unspecified epilepsy type G40.909 Epilepsy type: unspecified Intractability: not intractable Status epilepticus: without status epilepticus Seronegative rheumatoid arthritis M06.00 Dysphagia, unspecified type R13.10 Dysphagia type: unspecified
== END 2023-03-15 09:48 | disposition home or self-care (01) ==
PROVIDERS: Visit Provider Internal Medicine
DX: Z00.00 Encounter for general adult medical examination without abnormal findings (principal); G80.0 Spastic quadriplegic cerebral palsy; G40.909 Epilepsy, unspecified, not intractable, without status epilepticus; M06.00 Rheumatoid arthritis without rheumatoid factor, unspecified site; R19.7 Diarrhea, unspecified; R14.0 Abdominal distension (gaseous); J98.8 Other specified respiratory disorders; R13.10 Dysphagia, unspecified
CPT/HCPCS: 99396

== ENCOUNTER 2023-03-15 09:56 | Outpatient (REF) | payer OTHER, SELFPAY ==
[2023-03-15 10:35] LABS: MANUAL DIFF FLAG NO
[2023-03-15 11:20] LABS: Influenza A PCR NEGATIVE (Negative); Influenza B PCR NEGATIVE (Negative); Resp Syncy Virus RNA Qual PCR NEGATIVE (Negative); SARS COV2 PCR INHOUSE POSITIVE (Negative)
[2023-03-15 11:27] LABS: Basophils Percent Auto 0.5 % (0-2); Eosinophils Absolute Auto 0.2 X10*3/uL (0.0-0.4); Eosinophils Percent Auto 3.9 % (0-4); Hematocrit 40.2 % (42.0-52.0); Hemoglobin 12.9 g/dl (14.0-18.0); Imm Gran Abs Auto 0.01 X10*3/uL (0.00-0.03); Imm Gran Pct Auto 0.3 % (0.0-0.4); Lymphocytes Absolute Auto 1.5 X10*3/uL (1.2-4.9); Lymphocytes Percent Auto 37.4 % (20-40); Mean Corpuscular HGB Conc 32.1 g/dl (31.0-36.0); Mean Corpuscular Volume 93.5 fL (80.0-98.0); Mean Platelet Volume 10.4 fL (9.4-12.4); Monocytes Absolute Auto 0.3 X10*3/uL (0.1-1.2); Monocytes Percent Auto 8.8 % (2-11); Neutrophils Absolute Auto 1.9 x10*3/uL (2.0-8.3); Neutrophils Percent Auto 49.1 % (45-73); Platelet Count 289 X10*3/uL (160-400); Red Cell Distribution Width 12.6 % (11.0-16.0); White Blood Count 3.9 X10*3/uL (4.8-10.8)
[2023-03-15 11:34] LABS: Estimated Average Glucose 71 mg/dL; Hemoglobin A1c % 4.1 % (<6.0)
[2023-03-15 11:49] LABS: Alanine Aminotransferase 26 U/L (0-40); Albumin Level 4.2 g/dL (3.5-5.0); Alkaline Phosphatase 65 U/L (39-117); Anion Gap 11 (12-20); Aspartate Amino Transferase 24 U/L (5-37); Bilirubin Total 0.3 mg/dL (0.0-1.0); Blood Urea Nitrogen 11 mg/dL (9-16); Calcium 9.2 mg/dL (8.4-10.2); Carbon Dioxide 26 mmol/L (22-29); Chloride 106 mmol/L (96-108); Estimated Glomerular Filt Rate > 60; Glucose Random 92 mg/dL (60-115); Iron 116 mcg/dL (45-160); Magnesium 2.2 mg/dL (1.6-2.6); Percent Iron Saturation 64 % (15-50); Potassium 4.2 mmol/L (3.3-5.1); Sodium 139 mmol/L (135-145); Total Iron Binding Capacity 180 mcg/dL (228-428); Total Protein 7.1 g/dL (6.5-8.0); Unsaturated Iron Binding 64 ug/dL
[2023-03-15 11:58] LABS: Carbamazepine Tegretol 10.6 mcg/mL (5.0-12.0); Phenytoin Dilantin 9.4 ug/mL (10.0-20.0)
[2023-03-15 12:08] LABS: TSH reflex Free T4 1.51 uIU/mL (0.32-4.0); Vitamin D 25-OH Total 51.1 ng/mL (>30)
[2023-03-15 12:34] LABS: Vitamin B12 760 pg/mL (200-900)
[2023-03-19 13:29] LABS: Immunoglobulin A 198 mg/dL (47-310)
[2023-03-20 18:35] LABS: Transglutaminase Ab IgG 1.1 U/mL
[2023-03-21 13:53] LABS: Endomysial IgA Antibody Negative (Negative)
== END 2023-03-15 09:57 | disposition home or self-care (01) ==
LOC: HO.LAB 09:56
PROVIDERS: PCP Internal Medicine; Visit Provider Internal Medicine
DX: R19.7 Diarrhea, unspecified (principal); R14.0 Abdominal distension (gaseous); J98.8 Other specified respiratory disorders; E55.9 Vitamin D deficiency, unspecified; E53.8 Deficiency of other specified B group vitamins; R76.8 Other specified abnormal immunological findings in serum; G80.0 Spastic quadriplegic cerebral palsy; G40.909 Epilepsy, unspecified, not intractable, without status epilepticus; E83.42 Hypomagnesemia; D50.9 Iron deficiency anemia, unspecified; R73.9 Hyperglycemia, unspecified; Z11.52 Encounter for screening for COVID-19
CPT/HCPCS: 0241U; 80053; 80156; 80185; 82306; 82607; 82746; 82784; 83036; 83540; 83735; 84443; 85025; 86231; 86364

== ENCOUNTER 2023-03-20 12:49 | Outpatient (REF) | payer OTHER, SELFPAY ==
[2023-03-20 13:51] LABS: Leukocytes Stool Qualitative NEGATIVE (NEGATIVE)
== END 2023-03-20 12:50 | disposition home or self-care (01) ==
LOC: HO.LNP 12:49
PROVIDERS: Visit Provider Internal Medicine
DX: R19.7 Diarrhea, unspecified (principal); R14.0 Abdominal distension (gaseous)
CPT/HCPCS: 87177; 87209; 89055

== ENCOUNTER 2023-04-18 13:43 | Emergency (ER) | payer OTHER, SELFPAY | END 2023-04-18 15:31 | disposition left against medical advice (07) | PROVIDERS: Emergency Provider Emergency Medicine; PCP Internal Medicine | DX: R19.7 Diarrhea, unspecified (principal); Z53.21 Procedure and treatment not carried out due to patient leaving prior to being seen by health care provider ==

== ENCOUNTER 2023-04-18 14:27 | Outpatient (AMB) | payer OTHER, SELFPAY ==
--- NOTE | 2023-04-18 14:36 | MHC.OFFWIV ---
Intake Vital Signs 04/18/23 14:38 Height 5 ft BMI Reason not done Patient refused/unable BP 100/62 Blood Pressure Location Lt femoral Position Sitting Pulse 102 H Pulse Source Pulse Oximeter Temp 99.8 F Temp Source Temporal Artery Scan Pulse Oximetry (%) 91 L Oxygen Delivery Method Room Air Intake Visit Reasons: EP, mucus in stool Patient Tobacco Use Status: Never used Tobacco Allergies penicillin V Allergy (Unknown, Verified 04/18/23 14:36) Hives HPI EP, mucus in stool HPI Details 38-year-old male comes to the office for a sick visit. He has spastic quadriplegia and cerebral palsy. Patient is brought in via wheelchair by his family members. They reporting change in bowel habit over the past week. Patient has had slimy stool. Family member had a video of the same. Whitish coating on the stool. Appetite is normal. He is sleeping well. Does not appear to be agitated and is at baseline state. [facility], [facility] Medical History (Updated 03/15/23 @ 09:47 by Williams Cotter MD) Seronegative rheumatoid arthritis Scalp abscess SARS-CoV-2 positive (~08/16/21) Presence of intrathecal baclofen pump Constipation Epilepsy Spastic quadriplegic cerebral palsy Surgical History History of incision and drainage Social History Housing: House Alcohol intake: current Alcohol intake frequency: does not drink Patient Tobacco Use Status: Never used Tobacco e-Cigarette/Vaping Use: Never Used Second Hand Smoke Exposure: No Advance Directives: No Advance Directives Information Provided: No service: No Current occupational status: disabled Cognitive needs: Yes Hearing needs: No Vision needs: No Physical Exam Vital Signs: Last Vital Signs Temp 99.8 F 04/18/23 14:38 Pulse 102 H 04/18/23 14:38 BP 100/62 04/18/23 14:38 Pulse Ox 91 L 04/18/23 14:38 Oxygen Delivery Method Room Air 04/18/23 14:38 Const Other: Wheelchair-bound. Does not respond to any verbal commands. GI Other: Abdomen: Bowel sounds are well heard. No areas of tenderness. Assessment & Plan Assessment & Plan (1) Abdominal distention: Code(s): R14.0 - Abdominal distension (gaseous) Plan: X-ray and blood work ordered. Change in stool pattern could be due to a variety of things. Will rule out infection. If symptoms worsen a GI consult may be warranted. Orders: Orders XR abdomen 1V Today R14.0 - Abdominal distension (gaseous) Basic Metabolic Panel Today R14.0 - Abdominal distension (gaseous) Complete Blood Count no Diff Today R14.0 - Abdominal distension (gaseous) Erythrocyte Sedimentation Rate Today R14.0 - Abdominal distension (gaseous) Thyroid Stimulating Hormone Today R14.0 - Abdominal distension (gaseous) Coding Level of Care Code Est Pt Level 3 (77323) Diagnoses Abdominal distention R14.0
[2023-04-18 14:38] VITALS: BP 100/62; PULSE 102; TEMP 37.7; O2SAT 91
== END 2023-04-18 15:35 | disposition home or self-care (01) ==
PROVIDERS: PCP Internal Medicine; Visit Provider Internal Medicine
DX: R14.0 Abdominal distension (gaseous) (principal)
CPT/HCPCS: 99213

== ENCOUNTER 2023-04-18 15:23 | Outpatient (REF) | payer OTHER, SELFPAY ==
--- NOTE | ~2023-04-18 | XR_ITS ---
EXAMINATION: XR ABDOMEN KUB CLINICAL INDICATION: Abdominal distention. COMPARISON: Abdomen radiograph from 03/31/2019. Abdomen CT from 06/24/2021. TECHNIQUE: AP view of the abdomen. FINDINGS: Again noted is gaseous distention of loops of bowel. There is prominent fecal material in the colon and extending to the rectum, suspicious for constipation. Note that abdomen CT from 06/24/2021 was interpreted as having features of constipation. No evidence of pneumatosis intestinalis or pneumoperitoneum. No radiographic evidence of urinary tract calculi. Chronic dextroscoliosis of the thoracolumbar spine. Dysplastic pelvic bones. 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 No acute osseous injury. XR/XR abdomen 1V IMPRESSION: There is gaseous distention of bowel. This was worse on the abdomen CT from 06/24/2021. Prominent fecal material in the colon and rectum suggests likelihood of constipation. No overt bowel obstruction. No pneumoperitoneum.
[2023-04-18 17:49] LABS: Hematocrit 37.4 % (42.0-52.0); Hemoglobin 11.9 g/dl (14.0-18.0); Mean Corpuscular HGB Conc 31.8 g/dl (31.0-36.0); Mean Corpuscular Hemoglobin 29.8 pg (27.0-33.0); Mean Corpuscular Volume 93.5 fL (80.0-98.0); Mean Platelet Volume 10.1 fL (9.4-12.4); Platelet Count 328 X10*3/uL (160-400); Red Cell Distribution Width 13.3 % (11.0-16.0); White Blood Count 7.9 X10*3/uL (4.8-10.8)
[2023-04-18 18:24] LABS: Anion Gap 13 (12-20); Blood Urea Nitrogen 9 mg/dL (9-16); Calcium 9.3 mg/dL (8.4-10.2); Carbon Dioxide 25 mmol/L (22-29); Chloride 107 mmol/L (96-108); Estimated Glomerular Filt Rate > 60; Glucose Random 107 mg/dL (60-115); Potassium 3.2 mmol/L (3.3-5.1); Sodium 142 mmol/L (135-145)
[2023-04-18 18:34] LABS: Thyroid Stimulating Hormone 3.04 uIU/mL (0.32-4.0)
[2023-04-18 19:03] LABS: Erythrocyte Sedimentation Rate 5 MM/HR (0-15)
== END 2023-04-18 15:24 | disposition home or self-care (01) ==
LOC: HO.HMGCX 15:23
PROVIDERS: PCP Internal Medicine; Visit Provider Internal Medicine
DX: R14.0 Abdominal distension (gaseous) (principal)
CPT/HCPCS: 36415; 74018; 80048; 84443; 85027; 85652

== ENCOUNTER 2023-04-28 09:48 | Outpatient (AMB) | payer OTHER, SELFPAY ==
--- NOTE | 2023-04-28 09:49 | AM.OFFWIN_ITS ---
Intake Vital Signs 04/28/23 09:50 Height 5 ft BMI Reason not done Patient refused/unable BP 102/62 Blood Pressure Location Lt brachial Position Sitting Pulse 76 Pulse Source Pulse Oximeter Temp 97.8 F Temp Source Oral Pulse Oximetry (%) 98 Intake Visit Reasons: EST/pink eye? (lobby) Intake Note: pt is here for c/o possible pink eye Patient Tobacco Use Status: Never used Tobacco Allergies penicillin V Allergy (Unknown, Verified 04/28/23 10:00) Hives Medication List - Last Reconciled 04/28/23 by Delia Lopez CNP [ADULT BRIEFS (Medium) - 8 units/day As directed up to 8 units per day] baclofen 20 mg PO QID PRN 30 days carbamazepine 4 tab in am, 3 tab in PM, 4 tab at HS PO 3 times a day; cholecalciferol (vitamin D3) 50 mcg PO DAILY 90 days [DISPOSABLE GLOVES (large) As directed] ibuprofen 200 mg PO Q6H PRN miscellaneous medical supply Disposable Gloves- Size: Large miscellaneous medical supply Disposable Under Pads miscellaneous medical supply Adult Briefs- Size:X-large- 8XDay phenytoin sodium extended 100 mg PO TID polyethylene glycol 3350 (Miralax) 17 grams PO DAILY 90 days quetiapine 25 mg PO BEDTIME starch (thickening) (Thick-It oral powder) Mix with all drinks 3 to 5 times throughout the day as needed orally sulfasalazine 1,000 mg (2 x 500 mg) PO BID [UNDERPADS As directed] ziprasidone HCl 80 mg PO BID Do you need a note to return to daycare/school/sports/work: No HPI HPI Comments History of Present Illness Details 38-year-old male comes to the office to be cleared to return to [facility] after being treated 1 week for reported bilateral pink eye. Patient is brought in by his family via wheelchair. He has spastic quadriplegia and cerebral palsy. Family member reports client has normal appetite, has been sleeping well, normal bowel movements, and no further eye irritation or drainage. [facility] Medical History Seronegative rheumatoid arthritis Scalp abscess SARS-CoV-2 positive (~08/16/21) Presence of intrathecal baclofen pump Constipation Epilepsy Spastic quadriplegic cerebral palsy Surgical History History of incision and drainage Social History Housing: House Alcohol intake: current Alcohol intake frequency: does not drink Patient Tobacco Use Status: Never used Tobacco e-Cigarette/Vaping Use: Never Used Second Hand Smoke Exposure: No service: No Current occupational status: disabled Cognitive needs: Yes Hearing needs: No Vision needs: No Review of Systems Const All systems reviewed & are unremarkable except as noted in HPI and below Physical Exam Vital Signs: Last Vital Signs Temp 97.8 F 04/28/23 09:50 Pulse 76 04/28/23 09:50 BP 102/62 04/28/23 09:50 Pulse Ox 98 04/28/23 09:50 Const Other: Wheelchair-bound. Does not respond to any verbal commands. Eyes Eyelids: Yes eyelids normal Conjunctivae: conjunctivae normal Sclerae: sclerae normal Corneas: corneas normal GI Other: Abdomen: Bowel sounds are well heard. No areas of tenderness. Assessment & Plan Assessment & Plan (1) Conjunctivitis due to adenovirus, both eyes: Code(s): B30.1 - Conjunctivitis due to adenovirus Plan: 38 year old male with cerebral palsy and wheel chair gallegos seen today in walk in clinic to be cleared to return to group care after 1 week treatment with bilateral conjunctivitis. Family member endorses patient is eating well, sleeping well, and having normal bowel movements. Patient is non verbal, e yelids, conjunctive, and sclera with no redness, swelling, or discharge. Abdomen soft, non tender w/ normal bowel sounds. Patient has been medically cleared to return to group care, note written and provided to family member. Coding Level of Care Code Est Pt Level 2 (96088) Diagnoses Conjunctivitis due to adenovirus, both eyes B30.1
[2023-04-28 09:50] VITALS: BP 102/62; PULSE 76; TEMP 36.6; O2SAT 98
== END 2023-04-28 13:03 | disposition home or self-care (01) ==
PROVIDERS: PCP Internal Medicine; Visit Provider Nurse Practitioner Acute Care
DX: B30.1 Conjunctivitis due to adenovirus (principal)
CPT/HCPCS: 99051; 99212

== ENCOUNTER 2023-04-30 13:21 | Outpatient (AMB) | payer OTHER, SELFPAY ==
[2023-04-30 13:55] VITALS: BP 110/70; PULSE 72; O2SAT 97
--- NOTE | 2023-04-30 13:55 | MHC.OFFWIV ---
Intake Vital Signs 04/30/23 13:55 Height 5 ft BMI Reason not done Patient refused/unable BP 110/70 Blood Pressure Location Lt brachial Position Sitting Pulse 72 Pulse Source Pulse Oximeter Pulse Oximetry (%) 97 Intake Visit Reasons: EP Bumps on back of head/painful Intake Note: pt is here for c.o bumps on back of head, pt states they are painful. Patient Tobacco Use Status: Never used Tobacco Allergies penicillin V Allergy (Unknown, Verified 04/30/23 13:59) Hives Do you need a note to return to daycare/school/sports/work: Yes HPI EP Bumps on back of head/painful HPI Details 38 yr old male, quadriplegic and in a wheelchair, brought to the office by his mother and a male counselor camp. Mother is reporting, he has an infection in the scalp. She reports patient is agitated at times [facility] Medical History Seronegative rheumatoid arthritis Scalp abscess SARS-CoV-2 positive (~08/16/21) Presence of intrathecal baclofen pump Constipation Epilepsy Spastic quadriplegic cerebral palsy Surgical History History of incision and drainage Social History Housing: House Alcohol intake: current Alcohol intake frequency: does not drink Patient Tobacco Use Status: Never used Tobacco e-Cigarette/Vaping Use: Never Used Second Hand Smoke Exposure: No service: No Current occupational status: disabled Cognitive needs: Yes Hearing needs: No Vision needs: No Physical Exam Vital Signs: Last Vital Signs Pulse 72 04/30/23 13:55 BP 110/70 04/30/23 13:55 Pulse Ox 97 04/30/23 13:55 Const Other: Pt is sleeping. Not responding to verbal or touch stimuli ( this is baseline) Neck Other: Anterior cervical and submandibular lymphnodes are palpable on the right side Skin Other: Scalp: Occipital area, 4 mc erythmeatous area, no pustules. Assessment & Plan Assessment & Plan (1) Cellulitis of scalp: Code(s): L03.811 - Cellulitis of head [any part, except face] Plan: Bactrim antibiotic called in. IF sx do not improve, to follow up here. Coding Level of Care Code Est Pt Level 3 (21127) Diagnoses Cellulitis of scalp L03.811
== END 2023-04-30 15:08 | disposition home or self-care (01) ==
PROVIDERS: PCP Internal Medicine; Visit Provider Internal Medicine
DX: L03.811 Cellulitis of head [any part, except face] (principal)
CPT/HCPCS: 99213

== ENCOUNTER 2023-05-16 08:20 | Outpatient (AMB) | payer OTHER, SELFPAY ==
--- NOTE | 2023-05-16 08:24 | A.OFFVIS_ITS ---
Intake Vital Signs 3 05/16/23 08:30 Height 5 ft Intake Visit Reasons: Abdominal distension, Diarrhea Intake Note: New patient for abdominal distension, diarrhea. Patient cc: BM with drool, constipation, gasses, swallowing problems with liquid and some acid reflex. City Councilman Required: No City Councilman Name: [facility] Interpeter Accompanied by: Mother Allergies penicillin V Allergy (Unknown, Verified 05/16/23 08:24) Hives HPI Abdominal distension, Diarrhea 2 HPI0 Details 38-year-old male here for initial evalua tion of bloating and diarrhea. He is referred by Williams Cotter of [facility] primary care. PMX Epilepsy Seronegative rheumatoid arthritis Intrathecal baclofen pump Cerebral palsy with spastic quadriplegia History of cellulitis great left toe History of constipation Cellulitis of the scalp Dysphagia Parallel it ileus-multiple episodes since 2008 * SURGICAL HISTORY Intrathecal pump insertion Incision and drainage of scalp abscess Sigmoid plexi Colonoscopy-2019, Konrad= normal Exploratory laparotomy x2 * ALLERGIES Penicillin * [facility] LABS: Laboratory Tests 03/15/23 03/15/23 04/18/23 10:34 10:34 17:00 WBC Hgb Hct 37.4 L MCV 93.5 MCH 29.8 Sodium 142 Potassium 3.2 L Estimated GFR > 60 Total Bilirubin 0.3 AST 24 ALT 26 Alkaline Phosphata se 65 TSH 1.51 04/18/23 04/18/23 17:00 17:00 WBC 7.9 Hgb 11.9 L Hct MCV MCH Sodium Potassium Estimated GFR Total Bilirubin AST ALT Alkaline Phosphata se TSH 3.04 COLONOSCOPY IN 2019, KON[facility] (PATIENT WAS AN INPATIENT FOR AN ILEUS AT THE TIME) Findings: Terminal Ileum Not evaluated Cecum Partially evaluated due to unprepped colon Ascending Colon Partially evaluated due to unprepped colon Transverse Colon - Partially evaluated due to unprepped colon Descending Colon Partially evaluated due to unprepped colon Sigmoid Colon Moderate diverticulosis and Partially evaluated due to unprepped colon Rectum Normal Ano-rectum - Small internal hemorrhoids Colon preparation: Poor since procedure was performed with no prep Impression and Post Procedure Diagnosis: Colonoscopy Findings: Moderate amount of solid and semi solid stool throughout the colon which was flushed and suctioned. Random biopsies were obtained from the colon. Moderate diverticulosis seen in the sigmoid colon Small hemorrhoids on antegrade withdrawl. Plan: Await pathology results Start on a clear liquid diet today and advance diet as tolerated. Miralax 17 gram twice daily for a week and then once a day. Repeat Colonoscopy not indicated since patient is bed bound due to cerebral palsy. Above findings were reviewed with the patient's dad. BIOPSIES SHOWED: Colon, random, biopsy: Colonic mucosa within normal limits. TODAY'S VISIT [place] #Kassidy Jones The patient is accompanied by his mother who is the primary caregiver in [place] speaking. He usually uses Miralax for CIC. His mother tries to give him a lot of vegetables in his pureed food. He also avoids red meats and eats a lot of yogurt. He still has a LOT of bloating. About 2 weeks ago he started having more difficulty with BM's and also was passing a lot of mucus rectally. He was seen at the Urgent Care at our [facility] location and he was sent to the ER here. In the past senna has been used, and this worked, but it caused him a lot of cramping. They have also used dulcolax suppositories when he does not have BM's for 5 days. This also will cause cramping. He has a brother who also has CP but has no troubles with his BM's. No FHX of CRC or stomach cancer. Will start with Linzess to address the cramping and the CIC. At the next appointment consider repeating his TSH since it was creeping up to the upper of the normal limit to see if there is any possibility of thyroid disease contributing to the severe constipation. Might want to also add a thyroid peroxidase antibody test. ROV 2 weeks. [facility] Medical History (Updated 05/16/23 @ 08:53 by ORION Ramirez) Diarrhea Constipation Respiratory infection Abscess of neck Scalp abscess Cellulitis of scalp Arthralgia COVID-19 Cellulitis of great toe of left foot Encounter for medical clearance for patient hold Annual physical exam Small bowel obstruction due to adhesions Paralytic ileus Seronegative rheumatoid arthritis SARS-CoV-2 positive (~08/16/21) Presence of intrathecal baclofen pump Epilepsy Spastic quadriplegic cerebral palsy Surgical History H/O colonoscopy History of intestinal surgery H/O exploratory laparotomy History of incision and drainage Social History Housing: House Alcohol intake: current Alcohol intake frequency: does not drink Patient Tobacco Use Status: Never used Tobacco e-Cigarette/Vaping Use: Never Used Second Hand Smoke Exposure: No service: No Current occupational status: disabled Cognitive needs: Yes Hearing needs: No Vision needs: No Review of Systems Const Denies fatigue, Denies fever(s), Denies night sweats, Denies poor appetite, Reports weakness and Denies weight loss ENT Reports Normal hearing present, Denies dental pain, Denies dysphagia, Denies hearing loss, Denies mouth pain, Denies odynophagia, Denies throat swelling, Denies tongue swelling and Reports other (Dentition adequate) Card Reports no additional complaints Resp Reports no additional complaints GI Details: Denies abdominal pain, Denies melena, Reports bloating, Denies hematochezia, Reports constipation, Reports GI cramping, Denies dysphagia, Denies excessive flatus, Denies early satiety, Denies heartburn, Denies diarrhea, Denies nausea, Denies odynophagia, Denies vomiting and Denies hematemesis Musc Reports atrophy, Reports deformity and Reports limited range of motion Skin/Breast Denies pruritus, Denies lesions, Denies rash and Denies jaundice Neuro Reports Normal hearing present, Reports lack of coordination, Reports Sensory deficit (Neuro) and Reports weakness Endo Denies fatigue Aller/Immun Denies throat swelling and Denies tongue swelling Physical Exam Const General: cooperative, no acute distress, well developed and well groomed Nutritional Appearance: average body habitus and well nourished Orientation/consciousness: oriented to person, oriented to place and oriented to time Limitations: language barrier, physical limitations, wheelchair and other limitations (Legally blind and nonverbal) HEENT Head: Yes normocephalic and Yes atraumatic Eyes General: appearance normal, both eyes and all related structures Pupils: Equal, round and reactive pupils present Neck Neck: Yes normal visual inspection and Yes no lymphadenopathy Thyroid: Thyroid normal Resp Effort & Inspection: normal respiratory effort and able to speak in complete sentences Auscultation: clear to auscultation bilaterally Cardio Rate: regular rate Rhythm: regular rhythm Heart sounds: Normal, physiologic split S2 sound present Peripheral pulses: radial pulses present and posterior tibial pulses present GI Inspection: Yes distended (Mild this time) and No Abdominal panniculus present Palpation (GI): Soft to palpation, nontender, no guarding, not rigid and No hepatosplenomegaly present Percussion: Yes normal to percussion Auscultation: normal bowel sounds Rectal Exam - Male: Yes deferred Abdomen image: 2 1. Surgical scar Skin General skin exam: no rashes or lesions noted, turgor normal, skin not dry, no jaundice, No spider nevi and no striae Rashes: no rashes Nails: normal Neuro General: oriented to person, oriented to place and oriented to time Cranial nerves: Yes Equal, round and reactive pupils present and Yes Normal hearing present Sensory Exam: Sensory deficit (Neuro) Extrem Other: contractures of all 4 limbs ovarian degrees General: No clubbing, No cyanosis, No edema and Yes muscle atrophy Psych Appearance: grossly normal and well kempt Mental Status: other Speech and movement: Mute speech present Affect: normal affect Attitude: cooperative Thought process: Other thought process findings present Thought content: other Insight: Poor insight present (Psych) Judgement: Poor judgement present (Psych) Results Reviewed Results Reviewed: Laboratory Tests 03/15/23 03/15/23 04/18/23 10:34 10:34 17:00 WBC Hgb Hct 37.4 L MCV 93.5 MCH 29.8 Sodium 142 Potassium 3.2 L Estimated GFR > 60 Total Bilirubin 0.3 AST 24 ALT 26 Alkaline Phosphatase 65 TSH 1.51 04/18/23 04/18/23 17:00 17:00 WBC 7.9 Hgb 11.9 L Hct MCV MCH Sodium Potassium Estimated GFR Total Bilirubin AST ALT Alkaline Phosphatase TSH 3.04 COLONOSCOPY IN [facility] [place] (PATIENT WAS AN INPATIENT FOR AN ILEUS AT THE TIME) Findings: Terminal Ileum Not evaluated Cecum Partially evaluated due to unprepped colon Ascending Colon Partially evaluated due to unprepped colon Transverse Colon - Partially evaluated due to unprepped colon Descending Colon Partially evaluated due to unprepped colon Sigmoid Colon Moderate diverticulosis and Partially evaluated due to unprepped colon Rectum Normal Ano-rectum - Small internal hemorrhoids Colon preparation: Poor since procedure was performed with no prep Impression and Post Procedure Diagnosis: Colonoscopy Findings: Moderate amount of solid and semi solid stool throughout the colon which was flushed and suctioned. Random biopsies were obtained from the colon. Moderate diverticulosis seen in the sigmoid colon Small hemorrhoids on antegrade withdrawl. Plan: Await pathology results Start on a clear liquid diet today and advance diet as tolerated. Miralax 17 gram twice daily for a week and then once a day. Repeat Colonoscopy not indicated since patient is bed bound due to cerebral palsy. Above findings were reviewed with the patient's dad. BIOPSIES SHOWED: Colon, random, biopsy: Colonic mucosa within normal limits Assessment & Plan Assessment & Plan (1) Abdominal distention: Code(s): R14.0 - Abdominal distension (gaseous) (2) Spastic quadriplegic cerebral palsy: Code(s): G80.0 - Spastic quadriplegic cerebral palsy (3) Paralytic ileus: Comment: Multiple recurring from [id number] Code(s): K56.0 - Paralytic ileus (4) Small bowel obstruction due to adhesions: Comment: Two thousand nine, with laparoscopy x2 any adhesions removed including a central band adhesion Code(s): K56.50 - Intestinal adhesions [bands], unspecified as to partial versus complete obstruction (5) Legally blind: Code(s): H54.8 - Legal blindness, as defined in [place] (6) Nonverbal: Code(s): R47.01 - Aphasia (7) Chronic idiopathic constipation: Code(s): K59.04 - Chronic idiopathic constipation Plan [place] #Kassidy Live This is a fairly complex patient who has a long history going back to 2009 of paralytic ileus and near bowel obstructions with a couple of laparoscopies and at least 1 sigmoid a plexi. He was seen for the same and another ileus [place] [address] Gillette and at that time had an unremarkable colonoscopy. Obviously has many things contribute to this probably including genetics (since his mother also suffers from constipation), immobility, inability to drink well due to dysphagia or to chew/eat high-fiber foods. The patient is accompanied by his mother who is the primary caregiver in [place] speaking. He usually uses Miralax for CIC. This obviously isn't working very well since he still go many days in between bowel movements. It is also very difficult to give to him because of his dysphagia of liquids. His mother tries to give him a lot of vegetables in his pureed food. He also avoids red meats and eats a lot of yogurt. He still has a LOT of bloating. In the past senna has been used, and this worked, but it caused him a lot of cramping. They have also used dulcolax suppositories when he does not have BM's for 5 days. This also will cause cramping. About 2 weeks ago he started having more difficulty with BM's and also was passing a lot of mucus rectally. He was seen at the Urgent Care at our [facility] location and he was sent to the ER here. He has a brother who also has CP but has no troubles with his BM's. No FHX of CRC or stomach cancer. Will start with Linzess to address the cramping and the CIC. At the next appointment consider repeating his TSH since it was creeping up to the upper of the normal limit to see if there is any possibility of thyroid disease contributing to the severe constipation. Might want to also add a thyroid peroxidase antibody test. ROV 2 weeks. Medications: New 2 linaclotide (Linzess) 72 mcg PO QAM 30 caps 3RF K59.04 - Chronic idiopathic constipation Coding Level of Care Code New Pt Level 3 (74116) Diagnoses Abdominal distention R14.0 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 Paralytic ileus K56.0 Small bowel obstruction due to adhesions K56.50 Legally blind H54.8 Nonverbal R47.01 Chronic idiopathic constipation K59.04
== END 2023-05-16 09:03 | disposition home or self-care (01) ==
PROVIDERS: PCP Internal Medicine; Visit Provider Nurse Practitioner
DX: R14.0 Abdominal distension (gaseous) (principal); G80.0 Spastic quadriplegic cerebral palsy; K56.0 Paralytic ileus; K56.50 Intestinal adhesions [bands], unspecified as to partial versus complete obstruction; H54.8 Legal blindness, as defined in USA; R47.01 Aphasia; K59.04 Chronic idiopathic constipation
CPT/HCPCS: 99203

== ENCOUNTER → 2023-05-16 08:20 | Outpatient (BNVA) | payer OTHER, SELFPAY | PROVIDERS: PCP Internal Medicine; Visit Provider Nurse Practitioner | DX: K56.0 Paralytic ileus (principal); K56.50 Intestinal adhesions [bands], unspecified as to partial versus complete obstruction; K59.04 Chronic idiopathic constipation; R14.0 Abdominal distension (gaseous); R47.01 Aphasia; H54.8 Legal blindness, as defined in USA; G80.0 Spastic quadriplegic cerebral palsy | CPT/HCPCS: 99202 ==

== ENCOUNTER 2023-05-30 08:05 | Outpatient (AMB) | payer OTHER, SELFPAY ==
[2023-05-30 08:09] VITALS: BP 106/53; PULSE 63
--- NOTE | 2023-05-30 08:09 | A.OFFVIS_ITS ---
Intake Vital Signs 05/30/23 08:09 Height 5 ft BMI Reason not done Patient refused/unable BP 106/53 L Blood Pressure Location Lt brachial Position Sitting Pulse 63 Pulse Source Pulse Oximeter Intake Visit Reasons: 2 week follow up Intake Note: Pt presents to the office today for a 2 week follow up. Pts sister states that he had a very large bowel movement on sunday but has not had one since then. Pt sister denies any vomiting. Accompanied by: Sister Allergies penicillin V Allergy (Unknown, Verified 05/30/23 08:13) Hives HPI 2 week follow up HPI Details Assessment & Plan (1) Abdominal distention: Code(s): R14.0 - Abdominal distension (gaseous) (2) Spastic quadriplegic cerebral palsy: Code(s): G80.0 - Spastic quadriplegic cerebral palsy (3) Paralytic ileus: Comment: Multiple recurring from [id number] Code(s): K56.0 - Paralytic ileus (4) Small bowel obstruction due to adhes ions: Comment: Two thousand nine, with laparoscopy x2 any adhesions removed including a central band adhesion Code(s): K56.50 - Intestinal adhesions [bands], unspecified as to partial versus complete obstruction (5) Legally blind: Code(s): H54.8 - Legal blindness, as defined in [place] (6) Nonverbal: Code(s): R47.01 - Aphasia (7) Chronic idiopathic constipation: Code(s): K59.04 - Chronic idiopathic constipation Plan [place] #Kassidy Live This is a fairly complex patient who has a long history going back to 2008 of paralytic ileus and near bowel obstructions with a couple of laparoscopies and at least 1 sigmoid a plexi. He was seen for the same and another ileus in [address] Gillette and at that time had an unremarkable colonoscopy. Obviously has many things contribute to this probably including genetics (since his mother also suffers from constipation), immobility, inability to drink well due to dysphagia or to chew/eat high-fiber foods. The patient is accompanied by his mother who is the primary caregiver in [place] speaking. He usually uses Miralax for CIC. This obviously isn't working very well since he still go many days in between bowel movements. It is also very difficult to give to him because of his dysphagia of liquids. His mother tries to give him a lot of vegetables in his pureed food. He also avoids red meats and eats a lot of yogurt. He still has a LOT of bloating. In the past senna has been used, and this worked, but it caused him a lot of cramping. They have also used dulcolax suppositories when he does not have BM's for 5 days. This also will cause cramping. About 2 weeks ago he started having more difficulty with BM's and also was passing a lot of mucus rectally. He was seen at the Urgent Care at our [facility] location and he was sent to the ER here. He has a brother who also has CP but has no troubles with his BM's. No FHX of CRC or stomach cancer. Will start with Linzess to address the cramping and the CIC. At the next appointment consider repeating his TSH since it was creeping up to the upper of the normal limit to see if there is any possibility of thyroid disease contributing to the severe constipation. Might want to also add a thyroid peroxidase antibody test. ROV 2 weeks. Medications: New linaclotide (Linze ss) 72 mcg PO QAM 30 caps 3RF K59.04 - Chronic i diopathic constipa tion TODAY'S VISIT [place] #family member translates - sister primary caregiver. With the Linzess 72mcg he did not move his bowels well. He had one extremely lar ge BM but it was formed and not overly hard. He seems to be tolerating the medicine w/o any non verbal signs of cramping or upset stomach. They try their best to give him water in the morning, sometimes it is more difficult given his behavoral variablities. Increase Linzess to 145mcg and ROV 2 weeks. [facility] Medical History Diarrhea Constipation Respiratory infection Abscess of neck Scalp abscess Cellulitis of scalp Arthralgia COVID-19 Cellulitis of great toe of left foot Encounter for medical clearance for patient hold Annual physical exam Small bowel obstruction due to adhesions Paralytic ileus Seronegative rheumatoid arthritis SARS-CoV-2 positive (~08/16/21) Presence of intrathecal baclofen pump Epilepsy Spastic quadriplegic cerebral palsy Surgical History H/O colonoscopy History of intestinal surgery H/O exploratory laparotomy History of incision and drainage Social History Housing: House Alcohol intake: current Alcohol intake frequency: does not drink Patient Tobacco Use Status: Never used Tobacco e-Cigarette/Vaping Use: Never Used Second Hand Smoke Exposure: No service: No Current occupational status: disabled Cognitive needs: Yes Hearing needs: No Vision needs: No Review of Systems Const Denies fatigue, Denies fever(s), Denies night sweats, Denies poor appetite and Denies weight loss Eyes Reports loss of vision ENT Reports Normal hearing present, Denies dental pain, Denies dysphagia, Denies hearing loss, Denies mouth pain, Denies odynophagia, Denies throat swelling, Denies tongue swelling and Reports other (Dentition adequate) Card Reports no additional complaints Resp Reports no additional complaints GI Details: Denies abdominal pain, Denies melena, Reports bloating, Denies hematochezia, Reports constipation, Denies GI cramping, Denies dysphagia, Denies excessive flatus, Denies early satiety, Denies heartburn, Denies diarrhea, Denies nausea, Denies odynophagia, Denies vomiting and Denies hematemesis Musc Reports atrophy, Reports deformity, Reports arthralgias and Reports limited range of motion Skin/Breast Details: Reported decubitus on buttocks Denies pruritus, Denies lesions, Denies rash and Denies jaundice Neuro Reports Normal hearing present, Denies Abnormal speech present, Reports lack of coordination, Reports loss of vision and Reports Sensory deficit (Neuro) Endo Denies fatigue Aller/Immun Denies throat swelling and Denies tongue swelling Physical Exam Vital Signs: Last Vital Signs Pulse 63 05/30/23 08:09 BP 106/53 L 05/30/23 08:09 Const General: cooperative, no acute distress, well developed and well groomed Nutritional Appearance: average body habitus and well nourished Orientation/consciousness: oriented to person, oriented to place and oriented to time Limitations: language barrier, physical limitations, wheelchair and other limitations HEENT Head: Yes normocephalic and Yes atraumatic Eyes General: appearance normal, both eyes and all related structures Pupils: Equal, round and reactive pupils present Neck Neck: Yes normal visual inspection and Yes no lymphadenopathy Thyroid: Thyroid normal Resp Effort & Inspection: normal respiratory effort and able to speak in complete sentences Auscultation: clear to auscultation bilaterally Cardio Rate: regular rate Rhythm: regular rhythm Heart sounds: Normal, physiologic split S2 sound present Peripheral pulses: radial pulses present and posterior tibial pulses present GI Inspection: No distended and No Abdominal panniculus present Palpation (GI): Soft to palpation, nontender, no guarding, not rigid and No hepatosplenomegaly present Percussion: Yes normal to percussion Auscultation: normal bowel sounds Rectal Exam - Male: Yes deferred Skin General skin exam: no rashes or lesions noted, turgor normal, skin not dry, no jaundice, No spider nevi and no striae Rashes: no rashes Nails: normal Neuro General: oriented to person, oriented to place and oriented to time Cranial nerves: Yes Equal, round and reactive pupils present and Yes Normal hearing present Speech: No Abnormal speech present Sensory Exam: Sensory deficit (Neuro) Extrem General: Yes clubbing, No cyanosis, No edema and Yes Dysmorphic Psych Appearance: well kempt Mental Status: other Speech and movement: Other speech and movement exam findings present (Psych) Affect: Other affect and mood findings present Attitude: Other attitude/behavior findings present (Psych) Thought process: Other thought process findings present Thought content: other Insight: Poor insight present (Psych) Judgement: Poor judgement present (Psych) Assessment & Plan Assessment & Plan (1) Chronic idiopathic constipation: Code(s): K59.04 - Chronic idiopathic constipation (2) Small bowel obstruction due to adhesions: Comment: Two thousand nine, with laparoscopy x2 any adhesions removed including a central band adhesion Code(s): K56.50 - Intestinal adhesions [bands], unspecified as to partial versus complete obstruction (3) Paralytic ileus: Comment: Multiple recurring from [id number] Code(s): K56.0 - Paralytic ileus (4) Legally blind: Code(s): H54.8 - Legal blindness, as defined in [place] (5) Spastic quadriplegic cerebral palsy: Code(s): G80.0 - Spastic quadriplegic cerebral palsy Plan [place] #family member translates - sister primary caregiver. With the Linzess 72mcg he did not move his bowels well. He had one extremely large BM but it was formed and not overly hard. He seems to be tolerating the medicine w/o any non verbal signs of cramping or upset stomach. They try their best to give him water in the morning, sometimes it is more difficult given his behavoral variablities. Increase Linzess to 145mcg and ROV 2 weeks. Medications: New linaclotide (Linzess) 145 mcg PO QAM 30 caps 3RF K56.0 - Paralytic ileus, K56.50 - Intestinal adhesions [bands], unspecified as to partial versus complete obstruction, K59.04 - Chronic idiopathic constipation On Hold linaclotide (Linzess) Hold Comment: Doctor's Order 72 mcg PO QAM 30 caps 3RF K59.04 - Chronic idiopathic constipation Coding Level of Care Code Est Pt Level 3 (83515) Diagnoses Chronic idiopathic constipation K59.04 Small bowel obstruction due to adhesions K56.50 Paralytic ileus K56.0 Legally blind H54.8 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
== END 2023-05-30 08:34 | disposition home or self-care (01) ==
PROVIDERS: PCP Internal Medicine; Visit Provider Nurse Practitioner
DX: K59.04 Chronic idiopathic constipation (principal); K56.50 Intestinal adhesions [bands], unspecified as to partial versus complete obstruction; K56.0 Paralytic ileus; H54.8 Legal blindness, as defined in USA; G80.0 Spastic quadriplegic cerebral palsy
CPT/HCPCS: 99213

== ENCOUNTER → 2023-05-30 08:05 | Outpatient (BNVA) | payer OTHER, SELFPAY | PROVIDERS: PCP Internal Medicine; Visit Provider Nurse Practitioner | DX: K59.04 Chronic idiopathic constipation (principal); K56.50 Intestinal adhesions [bands], unspecified as to partial versus complete obstruction; K56.0 Paralytic ileus; H54.8 Legal blindness, as defined in USA; G80.0 Spastic quadriplegic cerebral palsy | CPT/HCPCS: 99212 ==

== ENCOUNTER 2023-06-02 07:41 | Outpatient (REF) | payer OTHER, SELFPAY ==
[2023-06-02 07:58] LABS: MANUAL DIFF FLAG NO
[2023-06-02 09:10] LABS: Basophils Percent Auto 0.7 % (0-2); Eosinophils Absolute Auto 0.2 X10*3/uL (0.0-0.4); Eosinophils Percent Auto 3.3 % (0-4); Hematocrit 38.1 % (42.0-52.0); Imm Gran Abs Auto 0.02 X10*3/uL (0.00-0.03); Imm Gran Pct Auto 0.4 % (0.0-0.4); Lymphocytes Absolute Auto 1.7 X10*3/uL (1.2-4.9); Lymphocytes Percent Auto 37.1 % (20-40); Mean Corpuscular HGB Conc 31.5 g/dl (31.0-36.0); Mean Corpuscular Hemoglobin 29.9 pg (27.0-33.0); Mean Corpuscular Volume 94.8 fL (80.0-98.0); Mean Platelet Volume 9.9 fL (9.4-12.4); Monocytes Absolute Auto 0.4 X10*3/uL (0.1-1.2); Monocytes Percent Auto 9.8 % (2-11); Neutrophils Absolute Auto 2.2 x10*3/uL (2.0-8.3); Neutrophils Percent Auto 48.7 % (45-73); Platelet Count 280 X10*3/uL (160-400); Red Blood Count 4.02 X10*6/uL (4.60-5.80); Red Cell Distribution Width 14.6 % (11.0-16.0); White Blood Count 4.5 X10*3/uL (4.8-10.8)
[2023-06-02 09:33] LABS: Alanine Aminotransferase 28 U/L (0-40); Albumin Level 3.9 g/dL (3.5-5.0); Alkaline Phosphatase 53 U/L (39-117); Anion Gap 11 (12-20); Aspartate Amino Transferase 16 U/L (5-37); Bilirubin Total 0.2 mg/dL (0.0-1.0); Blood Urea Nitrogen 12 mg/dL (9-16); C Reactive Protein 0.34 mg/dL (< or = 0.50); Calcium 9.2 mg/dL (8.4-10.2); Carbon Dioxide 27 mmol/L (22-29); Chloride 107 mmol/L (96-108); Estimated Glomerular Filt Rate > 60; Glucose Random 83 mg/dL (60-115); Potassium 3.9 mmol/L (3.3-5.1); Sodium 141 mmol/L (135-145); Total Protein 6.4 g/dL (6.5-8.0)
[2023-06-02 10:29] LABS: Erythrocyte Sedimentation Rate 3 MM/HR (0-15)
== END 2023-06-02 07:42 | disposition home or self-care (01) ==
LOC: HO.LAB 07:41
PROVIDERS: PCP Internal Medicine; Visit Provider Student in an Organized Health Care Education/Training Program
DX: M06.00 Rheumatoid arthritis without rheumatoid factor, unspecified site (principal)
CPT/HCPCS: 36415; 80053; 85025; 85652; 86140

== ENCOUNTER 2023-06-05 08:24 | Outpatient (AMB) | payer OTHER, SELFPAY ==
[2023-06-05 08:27] VITALS: BP 108/64; TEMP 36.6
--- NOTE | 2023-06-05 08:27 | A.OFFVIS_ITS ---
Intake Vital Signs 06/05/23 08:27 Height 5 ft BMI Reason not done Patient refused/unable BP 108/64 Blood Pressure Location Rt brachial Position Sitting Temp 97.9 F Temp Source Skin Intake Visit Reasons: RA Intake Note: Patient last seen 02/14/23 presents today for follow up and test results. He is accompanied by his father who is requesting refill for sulfasalazine. 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 On sulfasalazine 1000 mg Twice daily. Per patient's father, he states that patient has not been having significant joint pain, swelling or stiffness. Patient is in good spirits today Initial history: This is a 37-year-old male with spastic quadriplegic cerebral palsy who presents for evaluation of diffuse joint pain. Persist her about 1 year ago patient started having episodes of stiffness of his hands, he would flex his elbows, wrists and hands. She also noticed swelling and redness of his knees. They have been giving him ibuprofen with some improvement. He went to the emergency room last year after a wound to his left big toe. At that time he was prescribed antibiotics and prednisone with significant improvement. Her sister patient's PMR specialist told them that patient might have rheumatoid arthritis. There is no known family history of autoimmune rheumatic disease. [facility] Medical History Diarrhea Constipation Respiratory infection Abscess of neck Scalp abscess Cellulitis of scalp Arthralgia COVID-19 Cellulitis of great toe of left foot Encounter for medical clearance for patient hold Annual physical exam Small bowel obstruction due to adhesions Paralytic ileus Seronegative rheumatoid arthritis SARS-CoV-2 positive (~08/16/21) Presence of intrathecal baclofen pump Epilepsy Spastic quadriplegic cerebral palsy Surgical History H/O colonoscopy History of intestinal surgery H/O exploratory laparotomy History of incision and drainage Social History Housing: House Alcohol intake: current Alcohol intake frequency: does not drink Patient Tobacco Use Status: Never used Tobacco e-Cigarette/Vaping Use: Never Used Second Hand Smoke Exposure: No service: No Current occupational status: disabled Cognitive needs: Yes Hearing needs: No Vision needs: No Review of Systems Const Details: ROS is obtained from patient's family Musc Denies arthralgias, Denies joint swelling and Denies stiffness Physical Exam Vital Signs: Last Vital Signs Temp 97.9 F 06/05/23 08:27 BP 108/64 06/05/23 08:27 Const Other: Quadriplegic in a wheelchair Resp Effort & Inspection: normal respiratory effort Extrem Other: Patient is spastic quadriplegic in a wheelchair. Flexion contracture of his elbows, wrists, hands, fingers, feet Wrists are nontender to palpation today. Knees are not warm, swollen or tender, Ankles are not warm or tender to palpation. Negative MCP squeeze test. 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 On sulfasalazine 1000 mg Twice daily. There is no synovitis on exam. RA well controlled. Continue sulfasalazine 1000 mg Twice daily Infectious screening: Hepatitis panel and T spot -ve 2022 Labs before next visit in 4 months (2) GARFIELD positive: Code(s): R76.8 - Other specified abnormal immunological findings in serum Plan: Positive GARFIELD 1-80 in a nucleolar pattern but comprehensive sub serology is nega tive and no signs of overlap with other connective tissue diseases. Plan I spent 26 minutes reviewing patient's chart, evaluating patient, ordering d iagnostic workup, counseling patient's father and documenting in the chart Orders: Orders Complete Blood Count Auto Diff 4 Months M06.00 - Rheumatoid arthritis without rheumatoid factor, unspecified site Comprehensive Met. Panel 4 Months M06.00 - Rheumatoid arthritis without rheumatoid factor, unspecified site C Reactive Protein 4 Months M06.00 - Rheumatoid arthritis without rheumatoid factor, unspecified site Erythrocyte Sedimentation Rate 4 Months M06.00 - Rheumatoid arthritis without rheumatoid factor, unspecified site Medications: Refilled sulfasalazine 1,000 mg (2 x 500 mg) PO BID 360 tabs 1RF M06.00 - Rheumatoid arthritis without rheumatoid factor, unspecified site Coding Level of Care Code Est Pt Level 4 (43349) Diagnoses Seronegative rheumatoid arthritis M06.00 GARFIELD positive R76.8
== END 2023-06-05 08:50 | disposition home or self-care (01) ==
PROVIDERS: PCP Internal Medicine; Visit Provider Student in an Organized Health Care Education/Training Program
DX: M06.00 Rheumatoid arthritis without rheumatoid factor, unspecified site (principal); R76.8 Other specified abnormal immunological findings in serum
CPT/HCPCS: 99214

== ENCOUNTER → 2023-06-05 08:24 | Outpatient (BNVA) | payer OTHER, SELFPAY | PROVIDERS: PCP Internal Medicine; Visit Provider Student in an Organized Health Care Education/Training Program | DX: M06.00 Rheumatoid arthritis without rheumatoid factor, unspecified site (principal); R76.8 Other specified abnormal immunological findings in serum | CPT/HCPCS: 99212 ==

== ENCOUNTER 2023-07-23 09:14 | Outpatient (AMB) | payer OTHER, SELFPAY ==
--- NOTE | 2023-07-23 10:33 | MHC.OFFWIV ---
Intake Vital Signs 07/23/23 10:34 Height 5 ft BP 108/70 Blood Pressure Location Lt brachial Position Sitting Pulse 61 Pulse Source Pulse Oximeter Temp 98.5 F Temp Source Temporal Artery Scan Pulse Oximetry (%) 94 Oxygen Delivery Method Room Air Intake Visit Reasons: Scalp rash w/pus (lobby) Intake Note: pt is here today for scalp rash with pus started Patient Tobacco Use Status: Never used Tobacco Allergies penicillin V Allergy (Unknown, Verified 07/23/23 10:39) Hives Do you need a note to return to daycare/school/sports/work: No HPI HPI Comments History of Present Illness Details 38 y/o male patient who presents to [facility] with c/o Rash on his Scalp that is filled with Pus. Pt was Treated for similar condition few months back, with I&D. He was also given Bactrim. This is a chronic on going issue. Pt accompanied by family who provides History, Pt is non-verbal. [facility] Medical History Diarrhea Constipation Respiratory infection Abscess of neck Scalp abscess Cellulitis of scalp Arthralgia COVID-19 Cellulitis of great toe of left foot Encounter for medical clearance for patient hold Annual physical exam Small bowel obstruction due to adhesions Paralytic ileus Seronegative rheumatoid arthritis SARS-CoV-2 positive (~08/16/21) Presence of intrathecal baclofen pump Epilepsy Spastic quadriplegic cerebral palsy Surgical History H/O colonoscopy History of intestinal surgery H/O exploratory laparotomy History of incision and drainage Social History Housing: House Alcohol intake: current Alcohol intake frequency: does not drink Patient Tobacco Use Status: Never used Tobacco e-Cigarette/Vaping Use: Never Used Second Hand Smoke Exposure: No service: No Current occupational status: disabled Cognitive needs: Yes Hearing needs: No Vision needs: No Review of Systems Const All systems reviewed & are unremarkable except as noted in HPI and below Physical Exam Vital Signs: Last Vital Signs Temp 98.5 F 07/23/23 10:34 Pulse 61 07/23/23 10:34 BP 108/70 07/23/23 10:34 Pulse Ox 94 07/23/23 10:34 Oxygen Delivery Method Room Air 07/23/23 10:34 Const Limitations: behavioral limitations, wheelchair and other limitations (Patient is non- verbal) HEENT Head: Yes scalp lesion (follicular papules, pustules, fluctuant nodules, and abscesses on the scalp) Skin Full body images: 1. follicular papules, pustules, fluctuant nodules, and abscesses on the scalp. Alopecia occipital region. Assessment & Plan Assessment & Plan (1) Rash and nonspecific skin eruption: Code(s): R21 - Rash and other nonspecific skin eruption Plan: DDx's : Allergic contact dermatitis, atopic dermatitis, seborrheic dermatitis, psoriasis, dermatomyositis,, Folliculitis, Cellulitis and dermatitis herpetiformis Advised Family to call Dermatology at [facility] in [place]. Contact Infor given to Mother. Will start him on Bactrim, this seemed to worked last visit. Medications: New sulfamethoxazole-trimethoprim 800-160 mg (Bactrim DS) 1 tab PO BID 7 days 14 tabs 0RF R21 - Rash and other nonspecific skin eruption Coding Level of Care Code Est Pt Level 3 (73283) Diagnoses Rash and nonspecific skin eruption R21 Time Spent (min) 15
[2023-07-23 10:34] VITALS: BP 108/70; PULSE 61; TEMP 36.9; O2SAT 94
== END 2023-07-23 11:21 | disposition home or self-care (01) ==
PROVIDERS: PCP Internal Medicine; Visit Provider Nurse Practitioner Family
DX: R21 Rash and other nonspecific skin eruption (principal)
CPT/HCPCS: 99213

== ENCOUNTER 2023-08-25 09:38 | Outpatient (AMB) | payer OTHER, SELFPAY ==
--- NOTE | 2023-08-25 09:47 | MHC.OFFWIV ---
Intake Vital Signs 08/25/23 09:50 BMI Reason not done Patient refused/unable BP 90/60 Blood Pressure Location Rt brachial Position Sitting Pulse 69 Pulse Source Pulse Oximeter Temp 98.1 F Temp Source Oral Pulse Oximetry (%) 94 Oxygen Delivery Method Room Air Intake Visit Reasons: EP Skin rash/puss Intake Note: Pt is here today c/o rash, skin eruptions concurrent on head. Patient Tobacco Use Status: Never used Tobacco Allergies penicillin V Allergy (Unknown, Verified 09/17/23 09:51) Hives Do you need a note to return to daycare/school/sports/work: Yes HPI EP Skin rash/puss HPI Details Patient is a wheelchair-bound 38-year-old male with history being a spastic quadriplegic with cerebral palsy, who comes to the walk-in clinic with his family member who reports persistent scalp lesions despite multiple visits, and recently completing Bactrim course which resolved symptoms for a few weeks. He has had no change in mental status, or behavior in general per family, although he has been agitated in the past from this, but apparently recently he has no fever or chills, nausea vomiting or diarrhea, or apparent weakness or dizziness or other known symptoms. History is limited due to patient being nonverbal. Reviewed past medical history. [facility] Medical History Diarrhea Constipation Respiratory infection Abscess of neck Scalp abscess Cellulitis of scalp Arthralgia COVID-19 Cellulitis of great toe of left foot Encounter for medical clearance for patient hold Annual physical exam Small bowel obstruction due to adhesions Paralytic ileus Seronegative rheumatoid arthritis SARS-CoV-2 positive (~08/16/21) Presence of intrathecal baclofen pump Epilepsy Spastic quadriplegic cerebral palsy Surgical History H/O colonoscopy History of intestinal surgery H/O exploratory laparotomy History of incision and drainage Social History Housing: House Alcohol intake: current Alcohol intake frequency: does not drink Patient Tobacco Use Status: Never used Tobacco e-Cigarette/Vaping Use: Never Used Second Hand Smoke Exposure: No service: No Current occupational status: disabled Cognitive needs: Yes Hearing needs: No Vision needs: No Review of Systems Const Unobtainable due to mental condition Physical Exam Vital Signs: Last Vital Signs Temp 98.1 F 08/25/23 09:50 Pulse 69 08/25/23 09:50 BP 90/60 08/25/23 09:50 Pulse Ox 94 08/25/23 09:50 Oxygen Delivery Method Room Air 08/25/23 09:50 Skin Other: Lesions to the left restorationism area into the right occipital area, with pustules that are mildly erythematous and edematous underlying. No apparent tenderness with palpation today. No streaking, induration or fluctuance Assessment & Plan Assessment & Plan (1) Folliculitis: Code(s): L73.9 - Follicular disorder, unspecified Plan Patient is a wheelchair-bound 38-year-old male with history being a spastic quadriplegic with cerebral palsy, who comes to the walk-in clinic with his family member who reports persistent scalp lesions despite multiple visits, and recently completing Bactrim course which resolved symptoms for a few weeks. Per mother, patient advised to follow up with a electronic resources librarian they been having a finding accept insurance. They were told that he needed a biopsy of 1 of the lesions for diagnosis. To me, this looks like recurrent folliculitis. He has his hair shaved short by his family for ease of maintenance, and it is possible that he is getting ingrown hairs as the hairs are growing out. Family has been doing a good job of keeping the head support pillow on his wheelchair clean, and they regularly wash they cover. I advised that they can work with trying to avoid shaving his hair down completely, and I wrote him for a course of benzoyl peroxide wash to use for maintenance as well as with flare-ups. I wrote him for a course of doxycycline which hopefully will work better than the Bactrim did. He might benefit from course of prophylactic maintenance medication, which will likely need to discuss with a electronic resources librarian as primary care advised it. Family knows to bring him back in if symptoms persist or worsen, or they will try to continue with dermatology follow-up as able. Medications: New benzoyl peroxide 6% Use sparingly to the affected area only, and wash off. 1 appl topical DAILY 340.2 grams 0RF YADIRA Pantoja doxycycline hyclate 100 mg PO BID 14 tabs 0RF 7 days YADIRA Pantoja On Hold linaclotide (Linzess) Hold Comment: Doctor's Order 145 mcg PO QAM 30 caps 3RF Bee ORION Ashraf K56.0 - Paralytic ileus, K56.50 - Intestinal adhesions [bands], unspecified as to partial versus complete obstruction, K59.04 - Chronic idiopathic constipation Coding Level of Care Code Est Pt Level 4 (57488) Diagnoses Folliculitis L73.9
[2023-08-25 09:50] VITALS: BP 90/60; PULSE 69; TEMP 36.7; O2SAT 94
== END 2023-08-25 11:32 | disposition home or self-care (01) ==
PROVIDERS: PCP Internal Medicine; Visit Provider Physician Assistant Medical
DX: L73.9 Follicular disorder, unspecified (principal)
CPT/HCPCS: 99051; 99214

== ENCOUNTER 2023-08-31 15:01 | Outpatient (AMB) | payer OTHER, SELFPAY ==
[2023-08-31 15:03] VITALS: BP 107/69; PULSE 66
--- NOTE | 2023-08-31 15:03 | MHC.OFFVIS ---
Vital Signs 08/31/23 15:03 Height 5 ft BMI Reason not done Patient refused/unable BP 107/69 Blood Pressure Location Rt brachial Position Sitting Pulse 66 Intake Visit Reasons: 2 week follow up PT N/S last appt Intake Note: Demarcus returns to in office visit today in 2 weeks follow up of [facility]. CC: Patient nonverbal with his father in office who states that patient continues having constipation. Graphic Design Intern Required: Yes Accompanied by: Father Allergies penicillin V Allergy (Unknown, Verified 09/17/23 09:51) Hives HPI HPI 2 week follow up PT N/S last appt: Details: Assessment & Plan (1) Chronic idiopathic constipation: Code(s): K59.04 - Chronic idiopathic constipation (2) Small bowel obstruction due to adhesions: Comment: Two thousand nine, with laparoscopy x2 any adhesions removed including a central band adhesion Code(s): K56.50 - Intestinal adhesions [bands], unspecified as to partial versus complete obstruction (3) Paralytic ileus: Comment: Multiple recurring from [id number] Code(s): K56.0 - Paralytic ileus (4) Legally blind: Code(s): H54.8 - Legal blindness, as defined in [place] (5) Spastic quadriplegic cerebral palsy: Code(s): G80.0 - Spastic quadriplegic cerebral palsy Plan [place] #family member translates - sister primary caregiver. With the Linzess 72mcg he did not move his bowels well. He had one extremely large BM but it was formed and not overly hard. He seems to be tolerating the medicine w/o any non verbal signs of cramping or upset stomach. They try their best to give him water in the morning, sometimes it is more difficult given his behavoral variablities. Increase Linzess to 145mcg and ROV 2 weeks. Medications: New linaclotide (Linzess) 145 mcg PO QAM 30 caps 3RF K56.0 - Paralytic ileus, K56.50 - Intestinal adhesions [bands], unspecified as to partial versus complete obstruction, K59.04 - Chronic idiopathic constipation On Hold linaclotide (Linzess) Hold Comment: Doctor's Order 72 mcg PO QAM 30 caps 3RF K59.04 - Chronic idiopathic constipation TODAY'S VISIT [place] # sister translates as patient is developmentally delayed His primary caregiver feels that the 145 micro g dose of Linzess helps but it has not moving his bowels completely. With this in mind we will increase it to 290 micro g. Return office visit in 4 weeks to evaluate and adjust therapy PFSH Medical History Diarrhea Constipation Respiratory infection Abscess of neck Scalp abscess Cellulitis of scalp Arthralgia COVID-19 Cellulitis of great toe of left foot Encounter for medical clearance for patient hold Annual physical exam Small bowel obstruction due to adhesions Paralytic ileus Seronegative rheumatoid arthritis SARS-CoV-2 positive (~08/16/21) Presence of intrathecal baclofen pump Epilepsy Spastic quadriplegic cerebral palsy Surgical History H/O colonoscopy History of intestinal surgery H/O exploratory laparotomy History of incision and drainage Social History Housing: House Alcohol intake: current Alcohol intake frequency: does not drink Patient Tobacco Use Status: Never used Tobacco e-Cigarette/Vaping Use: Never Used Second Hand Smoke Exposure: No service: No Current occupational status: disabled Cognitive needs: Yes Hearing needs: No Vision needs: No Review of Systems Const Denies fatigue, Denies fever(s), Denies night sweats, Denies poor appetite, Reports weakness and Denies weight loss ENT Reports Normal hearing present, Denies dental pain, Denies dysphagia, Denies hearing loss, Denies mouth pain, Denies odynophagia, Denies throat swelling, Denies tongue swelling and Reports other (Dentition adequate) Card Reports no additional complaints Resp Reports no additional complaints GI Details: Denies abdominal pain, Denies melena, Denies bloating, Denies hematochezia, Reports constipation, Denies GI cramping, Denies dysphagia, Denies excessive flatus, Denies early satiety, Denies heartburn, Denies diarrhea, Denies nausea, Denies odynophagia, Denies vomiting and Denies hematemesis Musc Reports abnormal gait and Reports deformity Skin/Breast Denies pruritus, Denies lesions, Denies rash and Denies jaundice Neuro Reports Normal hearing present, Denies Abnormal speech present, Reports abnormal gait and Reports weakness Endo Denies fatigue Aller/Immun Denies throat swelling and Denies tongue swelling Physical Exam Vital Signs: Last Vital Signs Pulse 66 08/31/23 15:03 BP 107/69 08/31/23 15:03 Const General: cooperative, no acute distress, well developed and well groomed Nutritional Appearance: well nourished Orientation/consciousness: oriented to person, oriented to place and oriented to time Limitations: language barrier, wheelchair and other limitations HEENT Head: Yes normocephalic and Yes atraumatic Eyes General: appearance normal, both eyes and all related structures Pupils: Equal, round and reactive pupils present Neck Neck: Yes normal visual inspection and Yes no lymphadenopathy Thyroid: Thyroid normal Resp Effort & Inspection: normal respiratory effort and able to speak in complete sentences Auscultation: clear to auscultation bilaterally Cardio Rate: regular rate Rhythm: regular rhythm Heart sounds: Normal, physiologic split S2 sound present Peripheral pulses: radial pulses present and posterior tibial pulses present GI Inspection: No distended and No Abdominal panniculus present Palpation (GI): Soft to palpation, nontender, no guarding, not rigid and No hepatosplenomegaly present Percussion: Yes normal to percussion Auscultation: normal bowel sounds Rectal Exam - Male: Yes deferred Skin General skin exam: no rashes or lesions noted, turgor normal, skin not dry, no jaundice, No spider nevi and no striae Rashes: no rashes Nails: normal Neuro General: oriented to person, oriented to place and oriented to time Cranial nerves: Yes Equal, round and reactive pupils present and Yes Normal hearing present Speech: No Abnormal speech present Extrem General: Yes normal to inspection, No clubbing, No cyanosis and No edema Psych Appearance: grossly normal and well kempt Mental Status: mental status grossly normal Speech and movement: Normal speech and movement present Affect: normal affect Attitude: cooperative Thought process: Normal thought process present and not confabulating Thought content: Normal thought content present Insight: Limited insight present (Psych) and Poor insight present (Psych) Judgement: Limited judgement present (Psych) and Poor judgement present (Psych) Assessment & Plan Assessment & Plan (1) Chronic idiopathic constipation: Code(s): K59.04 - Chronic idiopathic constipation Category: Medical (2) Nonverbal: Code(s): R47.01 - Aphasia Category: Medical (3) Small bowel obstruction due to adhesions: Comment: Two thousand nine, with laparoscopy x2 any adhesions removed including a central band adhesion Code(s): K56.50 - Intestinal adhesions [bands], unspecified as to partial versus complete obstruction Category: Medical (4) Paralytic ileus: Comment: Multiple recurring from [id number] Code(s): K56.0 - Paralytic ileus Category: Medical Plan [place] # sister translates as patient is developmentally delayed His primary caregiver feels that the 145 micro g dose of Linzess helps but it has not moving his bowels completely. With this in mind we will increase it to 290 micro g. Return office visit in 4 weeks to evaluate and adjust therapy Medications: New linaclotide (Linzess) 290 mcg PO QAM 30 caps 6RF 30 days Discontinued linaclotide Discontinued Reason: Doctor's Order 72 mcg PO QAM 30 caps 3RF K59.04 - Chronic idiopathic constipation On Hold linaclotide (Linzess) Hold Comment: Doctor's Order 145 mcg PO QAM 30 caps 3RF K56.0 - Paralytic ileus, K56.50 - Intestinal adhesions [bands], unspecified as to partial versus complete obstruction, K59.04 - Chronic idiopathic constipation Coding Level of Care Code Est Pt Level 3 (31629) Diagnoses Chronic idiopathic constipation K59.04 Nonverbal R47.01 Small bowel obstruction due to adhesions K56.50 Paralytic ileus K56.0
== END 2023-08-31 15:20 | disposition home or self-care (01) ==
PROVIDERS: PCP Internal Medicine; Visit Provider Nurse Practitioner
DX: K59.04 Chronic idiopathic constipation (principal); R47.01 Aphasia; K56.50 Intestinal adhesions [bands], unspecified as to partial versus complete obstruction; K56.0 Paralytic ileus
CPT/HCPCS: 99213

== ENCOUNTER → 2023-08-31 15:01 | Outpatient (BNVA) | payer OTHER, SELFPAY | PROVIDERS: PCP Internal Medicine; Visit Provider Nurse Practitioner | DX: K59.04 Chronic idiopathic constipation (principal); K56.50 Intestinal adhesions [bands], unspecified as to partial versus complete obstruction; K56.0 Paralytic ileus; R47.01 Aphasia | CPT/HCPCS: 99212 ==

== ENCOUNTER 2023-09-17 08:54 | Outpatient (AMB) | payer OTHER, SELFPAY ==
--- NOTE | 2023-09-17 09:13 | A.OFFPC_ITS ---
Vital Signs 09/17/23 09:15 Height 5 ft BMI Reason not done Patient refused/unable BP 100/62 Blood Pressure Location Lt brachial Position Sitting Pulse 52 Pulse Source Pulse Oximeter Pulse Oximetry (%) 94 Oxygen Delivery Method Room Air Intake Visit Reasons: 6 MON FUP- NEEDS PHQ9 Intake Note: Patient is here to follow up on Epilepsy, Cerebral Palsy, RA. Audio Visual Facilities Engineer Required: No Manager Social Responsibility: Present Accompanied by: Father Allergies penicillin V Allergy (Unknown, Verified 09/17/23 09:51) Hives Medication List - Last Reconciled 09/17/23 by Williams Cotter MD [ADULT BRIEFS (Medium) - 8 units/day As directed up to 8 units per day] baclofen 20 mg PO QID PRN 30 days benzoyl peroxide 5% 1 appl topical DAILY carbamazepine mg PO carbamazepine 4 tablets in AM, 3 tablets in PM and 4 tablets at bedtime daily 30 days cholecalciferol (vitamin D3) 50 mcg PO DAILY 90 days [DISPOSABLE GLOVES (large) As directed] ibuprofen 200 mg PO Q6H PRN 30 days linaclotide (Linzess) 290 mcg PO QAM 30 days linaclotide (Linzess) 145 mcg PO QAM miscellaneous medical supply Adult Briefs- Size:X-large- 8XDay phenytoin sodium extended 100 mg PO TID 30 days quetiapine 25 mg PO BEDTIME starch (thickening) (Thick-It oral powder) Mix with all drinks 3 to 5 times throughout the day as needed orally [UNDERPADS As directed] ziprasidone HCl 80 mg PO BID Tobacco use date assessed: 09/17/23 Dental Screening Dental Screen Date: 09/17/23 Did you have a dental visit in the last 12 months?: No Did you have a dental problem in the last 6 months where you did not have access to dental care?: No Was dental information given to patient?: No HPI 6 MON FUP- NEEDS PHQ9 HPI Details Patient is brought in today by his father for his follow up visit States that patient appears to be experiencing recurrent abdominal pain and discomfort, as evidenced by his moaning and groaning every so often for the past few days He was seen by GI a couple of weeks ago and was started additionally on Linzess 290 mcg QD for his increasing constipation but his family states that his symptoms do not seem to have improved much despite this and all of the other meds that he has been on, including enemas PRN They are concerned that patient may end up with bowel obstruction again as he's had in the past His father states that patient has been doing okay otherwise He has not had any fever or chills lately They have not noticed any SOB on the patient's part and he has not been throwing up recently States that he eats fairly well except for when he is in distress, during which his oral intake would decline He also has had no seizures lately and needs a few of his Rx refilled His follow up labs done back in March 2023 after his annual physical exam also mostly came out okay [facility] Medical History Diarrhea Constipation Respiratory infection Abscess of neck Scalp abscess Cellulitis of scalp Arthralgia COVID-19 Cellulitis of great toe of left foot Encounter for medical clearance for patient hold Annual physical exam Small bowel obstruction due to adhesions Paralytic ileus Seronegative rheumatoid arthritis SARS-CoV-2 positive (~08/16/21) Presence of intrathecal baclofen pump Epilepsy Spastic quadriplegic cerebral palsy Surgical History H/O colonoscopy History of intestinal surgery H/O exploratory laparotomy History of incision and drainage Social History Housing: House Alcohol intake: current Alcohol intake frequency: does not drink Patient Tobacco Use Status: Never used Tobacco e-Cigarette/Vaping Use: Never Used Second Hand Smoke Exposure: No service: No Current occupational status: disabled Cognitive needs: Yes Hearing needs: No Vision needs: No Questionnaire PHQ-9 Over the last 2 weeks, how often have you been bothered by any of the following problems? 1. Little interest or pleasure in doing things: not at all 2. Feeling down, depressed, or hopeless: not at all 3. Trouble falling or staying asleep, or sleeping too much: not at all 4. Feeling tired or having little energy: not at all 5. Poor appetite or overeating: not at all 6. Feeling bad about yourself - or that you are a failure or have let yourself or your family down: not at all 7. Trouble concentrating on things, such as reading the newspaper or watching television: not at all 8. Moving or speaking so slowly that other people could have noticed. Or the opposite - being so fidgety or restless that you have been moving around a lot more than usual: not at all 9. Thoughts that you would be better off or of hurting yourself in some way: not at all Total score: 0 Depression Screening Interpretation: Negative Depression Screening Done: Yes 10189 - PHQ-9 Billing: Yes Source: Developed by Drs. Quan Quinn, Magdalena Hyman, Paul Shipley and colleagues, with an educational deana from [employer]. Thrive Questionnaire Date Thrive assessed: 09/17/23 I am a: Patient What is your living situation today?: I have a steady place to live Within the past 12 months, did the food you bought not last and you didn't have the money to get more?: Never true Within the past 12 months, did you worry whether your food would run out before you got money to buy more?: Never true Do you have trouble paying for medicines?: No Do you have trouble getting transportation to medical appointments?: No Do you have trouble paying your heating and electricity bill?: No Do you have trouble taking care of your child, family member or friend?: No Do you have trouble with day-to-day activities such as bathing, preparing meals, shopping, managing finances, etc.?: No Are you currently unemployed and looking for a job?: No Are you interested in more education?: No Currently or been in a relationship where the following occur: no concerns reported THRIVE Score: 0 AUDIT C Alcohol Use Questionnaire (AUDIT-C) 1. How often do you have a drink containing alcohol?: Never Total Score: 0 Score Reviewed/Action Taken: Yes CURT-7 AMB Questionnaire CURT-7 Date CURT - 7 assessed: 09/17/23 Feeling nervous, anxious, or on edge: 0 = Not at all Not being able to stop or control worryin = Not at all Worrying too much about different things: 0 = Not at all Trouble relaxin = Not at all Being so restless that it is hard to sit still: 0 = Not at all Becoming easily annoyed or irritable: 0 = Not at all Feeling afraid as if something awful might happen: 0 = Not at all Total CURT-7 score (0-4 normal; 5-9 mild; 10-14 moderate; 15-21 severe): 0 Source: Developed by Drs. Quan Quinn, Magdalena Hyman, Paul Shipley and colleagues, with an educational deana from [employer]. Review of Systems Const Details: ROS is limited and obtained primarily from patient's family as patient is unable to provide any information due to his significant cognitive impairment Denies chills and Denies fever(s) ENT Denies dysphagia, Reports nasal discharge and Denies sore throat Card Denies chest pain, Denies palpitations and Denies dyspnea Resp Denies cough and Denies dyspnea GI Reports abdominal pain (on and off - likely due to his increasing constipation), Denies hematochezia, Reports constipation (increasing), Denies dysphagia, Denies heartburn, Denies nausea and Denies vomiting Denies dysuria and Reports urinary incontinence Musc Denies arthralgias and Denies joint swelling Skin/Breast Denies rash Endo Denies palpitations Physical exam (Primary Care) Vital Signs: Last Vital Signs Pulse 52 09/17/23 09:15 BP 100/62 09/17/23 09:15 Pulse Ox 94 09/17/23 09:15 Oxygen Delivery Method Room Air 09/17/23 09:15 Tobacco/Smoking Status: Tobacco use Status Tobacco use date assessed 09/17/23 09/17/23 09:23 Patient Tobacco Use Status Never used Tobacco 09/17/23 09:23 e-Cigarette/Vaping Use Never Used 09/17/23 09:23 PHQ-9: PHQ-9 Score PHQ-9: Total score 0 09/17/23 09:23 Depression Screening Interpretation: Negative Thrive Assessment: Date of Thrive Assessment Date Thrive assessed 09/17/23 09/17/23 09:23 Currently or been in a relationship where the following occur: no concerns reported Const Other: Physical exam is limited due to patient's wheelchair-bound condition and inability to cooperate with exam - has significant cognitive impairment General: no acute distress Orientation/consciousness: Other orientation findings ((+) significant cognitive impairment) Limitations: physical limitations and wheelchair HENMT Mouth: Normal oral and palatal mucosa present Throat: Yes posterior oropharynx normal and Yes tonsils normal Neck Neck: Yes no lymphadenopathy Thyroid: Thyroid normal Resp Auscultation: clear to auscultation bilaterally, no crackles, no rales and no wheezes Cardio Rate: regular rate Rhythm: regular rhythm Heart sounds: no murmurs GI Palpation (GI): Soft to palpation (but abdomen feels distended), no guarding and not rigid Back/Spine/Pelvis Other: Is wheelchair-bound Skin Rashes: no rashes Neuro Other: (+) significant cognitive impairment - unable to assess neurologically Extrem Other: (+) spastic and atrophic upper and lower extremities; no joint swelling noted General: Yes no pedal edema Assessment and Plan Assessment & Plan (1) Chronic idiopathic constipation: Code(s): K59.04 - Chronic idiopathic constipation Plan: Patient's family states that patient has not experienced any significant improvement of his constipation (still has on and off small caliber stools every few days and patient continues to moan and groan every so often and appears to be in pain over his abdomen) despite being started on Linzess by GI a couple of weeks ago and they are concerned that he may be developing again bowel obstruction, which he's had in the past Will send him for abdominal x-rays ANDREA for further evaluation and advised that we will check back with them if there are any concerning findings on his x-rays Have reminded them that he has an upcoming appointment with gastroenterology in less than 2 weeks on 09/28/2023 (2) Spastic quadriplegic cerebral palsy: Code(s): G80.0 - Spastic quadriplegic cerebral palsy Plan: Continue Baclofen 10 mg QID PRN; patient also has an intrathecal Baclofen pump a nd continues to follow up with the intrathecal clinic and with neurosurgery in [place] ([facility]) regularly (3) Epilepsy: Code(s): G40.909 - Epilepsy, unspecified, not intractable, without status epilepticus Qualifiers: Epilepsy type: unspecified Intractability: not intractable Status epilepticus: without status epilepticus Qualified Code(s): G40.909 - Epilepsy, unspecified, not intractable, without status epilepticus Plan: Continue Carbamazepine 100 mg 4 tablets daily in AM, 3 tablets daily in PM and 4 tablets daily at night AND Dilantin ER 100 mg TID Follow up with neurology as scheduled (4) Seronegative rheumatoid arthritis: Comment: -ve RF -ve CCP dx 08/2022 SSZ 08/29 effective MTX couldn't be used as there is concern of reduced efficacy of phenytoin went folic acid is given Code(s): M06.00 - Rheumatoid arthritis without rheumatoid factor, unspecified site Plan: Continue Sulfasalazine 500 mg 2 tablets BID - per rheumatology, appears to be doing well on Rx Follow up with rheumatology as scheduled Plan To return in 6 months for his next annual physical examination Orders: Orders XR abdomen min 2V Today K59.04 - Chronic idiopathic constipation Medications: New carbamazepine 4 tablets in AM, 3 tablets in PM and 4 tablets at bedtime daily 330 tabs 12RF 30 days Changed From ibuprofen 200 mg PO Q6H PRN To ibuprofen Take with food 200 mg PO Q6H PRN 120 tabs 5RF fever or pain 30 days From phenytoin sodium extended 100 mg PO TID To phenytoin sodium extended 100 mg PO TID 90 caps 5RF 30 days Refilled cholecalciferol (vitamin D3) 50 mcg PO DAILY 90 caps 3RF 90 days E55.9 - Vitamin D deficiency, unspecified Coding Level of Care Code Est Pt Level 4 (16007) Diagnoses Chronic idiopathic constipation K59.04 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 Nonintractable epilepsy without status epilepticus, unspecified epilepsy type G40.909 Epilepsy type: unspecified Intractability: not intractable Status epilepticus: without status epilepticus Seronegative rheumatoid arthritis M06.00
[2023-09-17 09:15] VITALS: BP 100/62; PULSE 52; O2SAT 94
== END 2023-09-17 09:54 | disposition home or self-care (01) ==
PROVIDERS: PCP Internal Medicine; Visit Provider Internal Medicine
DX: K59.04 Chronic idiopathic constipation (principal); G80.0 Spastic quadriplegic cerebral palsy; G40.909 Epilepsy, unspecified, not intractable, without status epilepticus; M06.00 Rheumatoid arthritis without rheumatoid factor, unspecified site
CPT/HCPCS: 99214

== ENCOUNTER 2023-09-17 10:01 | Outpatient (REF) | payer OTHER, SELFPAY ==
--- NOTE | ~2023-09-17 | XR_ITS ---
EXAMINATION: XR ABDOMEN KUB CLINICAL INDICATION: Chronic idiopathic constipation, rule out bowel obstruction. Patient's father stated abdominal pain for 10 days. COMPARISON: April 18, 2023 TECHNIQUE: 2 AP views of the abdomen. FINDINGS: Severe S-shaped thoracolumbar scoliosis with dysplastic pelvic bones redemonstrated. Degenerative changes on limited views of the bilateral hips and in the spine. Redemonstration of gaseous distention of multiple loops of bowel. Large amount of stool in the colon. Redemonstration of small radiodense device overlying the central abdomen. XR/XR abdomen 1V IMPRESSION: Redemonstration of gaseous distention of multiple loops of bowel. Large amount of stool in the colon.
== END 2023-09-17 10:02 | disposition home or self-care (01) ==
LOC: HO.XRAY 10:01
PROVIDERS: PCP Internal Medicine; Visit Provider Internal Medicine
DX: K59.04 Chronic idiopathic constipation (principal)
CPT/HCPCS: 74018

== ENCOUNTER 2023-09-28 15:56 | Outpatient (AMB) | payer OTHER, SELFPAY ==
--- NOTE | 2023-09-28 15:58 | MHC.OFFVIS ---
Vital Signs 09/28/23 16:09 BMI Reason not done Patient refused/unable BP 98/80 Blood Pressure Location Lt brachial Position Sitting Pulse 71 Intake Visit Reasons: 4 weeks follow up Intake Note: Demarcus presents to in office visit today in follow up of CIC. CC: Patient's father states that the patient was taking to [place] for follow up on medication pump and his Baclofen was decreased to see if it helps with his constipation. He was given an enema during the weekend and 2 days after he had a BM. 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 Accompanied by: Father Allergies penicillin V Allergy (Unknown, Verified 09/28/23 16:06) Hives HPI HPI 4 weeks follow up: Details: Assessment & Plan (1) Chronic idiopathic constipation: Code(s): K59.04 - Chronic idiopathic constipation Category: Medical (2) Nonverbal: Code(s): R47.01 - Aphasia Category: Medical (3) Small bowel obstruction due to adhesions: Comment: Two thousand nine, with laparoscopy x2 any adhesions removed including a central band adhesion Code(s): K56.50 - Intestinal adhesions [bands], unspecified as to partial versus complete obstruction Category: Medical (4) Paralytic ileus: Comment: Multiple recurring from [id number] Code(s): K56.0 - Paralytic ileus Category: Medical Plan [place] # sister translates as patient is developmentally delayed His primary caregiver feels that the 145 micro g dose of Linzess helps but it has not moving his bowels completely. With this in mind we will increase it to 290 micro g. 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 He still is not moving his bowels well with LInzess 290. Will add bisacodyl 2 tabs qhs with this to see if we can titrate. ROV 4 weeks. [facility] Medical History Diarrhea Constipation Respiratory infection Abscess of neck Scalp abscess Cellulitis of scalp Arthralgia COVID-19 Cellulitis of great toe of left foot Encounter for medical clearance for patient hold Annual physical exam Small bowel obstruction due to adhesions Paralytic ileus Seronegative rheumatoid arthritis SARS-CoV-2 positive (~08/16/21) Presence of intrathecal baclofen pump Epilepsy Spastic quadriplegic cerebral palsy Surgical History H/O colonoscopy History of intestinal surgery H/O exploratory laparotomy History of incision and drainage Social History Housing: House Alcohol intake: current Alcohol intake frequency: does not drink Patient Tobacco Use Status: Never used Tobacco e-Cigarette/Vaping Use: Never Used Second Hand Smoke Exposure: No service: No Current occupational status: disabled Cognitive needs: Yes Hearing needs: No Vision needs: No Review of Systems Const Denies fatigue, Denies fever(s), Denies night sweats, Denies poor appetite and Denies weight loss ENT Reports Normal hearing present, Denies dental pain, Denies dysphagia, Denies hearing loss, Denies mouth pain, Denies odynophagia, Denies throat swelling, Denies tongue swelling and Reports other (Dentition adequate) Card Reports no additional complaints Resp Reports no additional complaints GI Details: Denies abdominal pain, Denies melena, Denies bloating, Denies hematochezia, Reports constipation, Denies GI cramping, Denies dysphagia, Denies excessive flatus, Denies early satiety, Denies heartburn, Denies diarrhea, Denies nausea, Denies odynophagia, Denies vomiting and Denies hematemesis Musc Reports abnormal gait, Reports atrophy and Reports deformity Skin/Breast Denies pruritus, Denies lesions, Denies rash and Denies jaundice Neuro Reports Normal hearing present, Denies Abnormal speech present, Reports abnormal gait and Reports lack of coordination Endo Denies fatigue Aller/Immun Denies throat swelling and Denies tongue swelling Physical Exam Vital Signs: Last Vital Signs Pulse 71 09/28/23 16:09 BP 98/80 09/28/23 16:09 Const General: cooperative, no acute distress, well developed and well groomed Nutritional Appearance: average body habitus and well nourished Orientation/consciousness: oriented to person Limitations: language barrier, physical limitations, wheelchair and other limitations HEENT Head: Yes normocephalic and Yes atraumatic Eyes General: appearance normal, both eyes and all related structures Pupils: Equal, round and reactive pupils present Neck Neck: Yes normal visual inspection and Yes no lymphadenopathy Thyroid: Thyroid normal Resp Effort & Inspection: normal respiratory effort and able to speak in complete sentences Auscultation: clear to auscultation bilaterally Cardio Rate: regular rate Rhythm: regular rhythm Heart sounds: Normal, physiologic split S2 sound present Peripheral pulses: radial pulses present and posterior tibial pulses present GI Inspection: No distended and No Abdominal panniculus present Palpation (GI): Soft to palpation, nontender, no guarding, not rigid and No hepatosplenomegaly present Percussion: Yes normal to percussion Auscultation: normal bowel sounds Rectal Exam - Male: Yes deferred Skin General skin exam: no rashes or lesions noted, turgor normal, skin not dry, no jaundice, No spider nevi and no striae Rashes: no rashes Nails: normal Neuro General: oriented to person Cranial nerves: Yes Equal, round and reactive pupils present and Yes Normal hearing present Speech: No Abnormal speech present Extrem General: No clubbing, No cyanosis, No edema and Yes Dysmorphic Psych Appearance: grossly normal and well kempt Mental Status: other Speech and movement: Mute speech present Affect: normal affect Attitude: cooperative Thought process: Other thought process findings present Thought content: other Insight: Poor insight present (Psych) Judgement: Poor judgement present (Psych) Assessment & Plan Assessment & Plan (1) Chronic idiopathic constipation: Code(s): K59.04 - Chronic idiopathic constipation Category: Medical (2) Nonverbal: Code(s): R47.01 - Aphasia Category: Medical (3) Small bowel obstruction due to adhesions: Comment: Two thousand nine, with laparoscopy x2 any adhesions removed including a central band adhesion Code(s): K56.50 - Intestinal adhesions [bands], unspecified as to partial versus complete obstruction Category: Medical (4) Paralytic ileus: Comment: Multiple recurring from [id number] Code(s): K56.0 - Paralytic ileus Category: Medical Plan [place] #sister translates per pt rquest He is here today with 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 He still is not moving his bowels well with LInzess 290. Will add bisacodyl 2 tabs qhs with this to see if we can titrate. ROV 4 weeks. Medications: New bisacodyl (Dulcolax (bisacodyl)) 10 mg (2 x 5 mg) PO BEDTIME 60 tabs 6RF 30 days Coding Level of Care Code Est Pt Level 3 (17576) Diagnoses Chronic idiopathic constipation K59.04 Nonverbal R47.01 Small bowel obstruction due to adhesions K56.50 Paralytic ileus K56.0
[2023-09-28 16:09] VITALS: BP 98/80; PULSE 71
== END 2023-09-28 16:14 | disposition home or self-care (01) ==
PROVIDERS: PCP Internal Medicine; Visit Provider Nurse Practitioner
DX: K59.04 Chronic idiopathic constipation (principal); R47.01 Aphasia; K56.50 Intestinal adhesions [bands], unspecified as to partial versus complete obstruction; K56.0 Paralytic ileus
CPT/HCPCS: 99213

== ENCOUNTER → 2023-09-28 15:56 | Outpatient (BNVA) | payer OTHER, SELFPAY | PROVIDERS: PCP Internal Medicine; Visit Provider Nurse Practitioner | DX: K59.04 Chronic idiopathic constipation (principal); R47.01 Aphasia; K56.50 Intestinal adhesions [bands], unspecified as to partial versus complete obstruction; K56.0 Paralytic ileus | CPT/HCPCS: 99212 ==

== ENCOUNTER 2023-10-02 16:06 | Outpatient (REF) | payer OTHER, SELFPAY ==
[2023-10-02 16:26] LABS: MANUAL DIFF FLAG NO
[2023-10-02 17:20] LABS: Basophils Percent Auto 0.5 % (0-2); Eosinophils Absolute Auto 0.1 X10*3/uL (0.0-0.4); Eosinophils Percent Auto 1.2 % (0-4); Hematocrit 39.7 % (42.0-52.0); Hemoglobin 12.8 g/dl (14.0-18.0); Imm Gran Abs Auto 0.03 X10*3/uL (0.00-0.03); Imm Gran Pct Auto 0.5 % (0.0-0.4); Lymphocytes Absolute Auto 1.6 X10*3/uL (1.2-4.9); Lymphocytes Percent Auto 23.8 % (20-40); Mean Corpuscular HGB Conc 32.2 g/dl (31.0-36.0); Mean Corpuscular Hemoglobin 30.4 pg (27.0-33.0); Mean Corpuscular Volume 94.3 fL (80.0-98.0); Mean Platelet Volume 9.8 fL (9.4-12.4); Monocytes Absolute Auto 0.9 X10*3/uL (0.1-1.2); Monocytes Percent Auto 13.1 % (2-11); Neutrophils Percent Auto 60.9 % (45-73); Platelet Count 262 X10*3/uL (160-400); Red Blood Count 4.21 X10*6/uL (4.60-5.80); Red Cell Distribution Width 12.7 % (11.0-16.0); White Blood Count 6.6 X10*3/uL (4.8-10.8)
[2023-10-02 17:41] LABS: Alanine Aminotransferase 26 U/L (0-40); Albumin Level 4.1 g/dL (3.5-5.0); Alkaline Phosphatase 63 U/L (39-117); Anion Gap 13 (12-20); Aspartate Amino Transferase 21 U/L (5-37); Bilirubin Total 0.3 mg/dL (0.0-1.0); Blood Urea Nitrogen 9 mg/dL (9-16); C Reactive Protein 6.25 mg/dL (< or = 0.50); Calcium 9.4 mg/dL (8.4-10.2); Carbon Dioxide 24 mmol/L (22-29); Chloride 104 mmol/L (96-108); Estimated Glomerular Filt Rate > 60; Glucose Random 101 mg/dL (60-115); Potassium 3.9 mmol/L (3.3-5.1); Sodium 137 mmol/L (135-145); Total Protein 7.3 g/dL (6.5-8.0)
[2023-10-02 18:21] LABS: Erythrocyte Sedimentation Rate 7 MM/HR (0-15)
== END 2023-10-02 16:07 | disposition home or self-care (01) ==
LOC: HO.LAB 16:06
PROVIDERS: PCP Internal Medicine; Visit Provider Student in an Organized Health Care Education/Training Program
DX: M06.00 Rheumatoid arthritis without rheumatoid factor, unspecified site (principal)
CPT/HCPCS: 36415; 80053; 85025; 85652; 86140

== ENCOUNTER 2023-10-04 15:40 | Outpatient (AMB) | payer OTHER, SELFPAY ==
--- NOTE | 2023-10-04 15:43 | MHC.OFFVIS ---
Vital Signs 10/04/23 15:47 Height 5 ft Pulse 70 Pulse Source Pulse Oximeter Temp 97.3 F Temp Source Temporal Artery Scan Pulse Oximetry (%) 94 Oxygen Delivery Method Room Air Intake Visit Reasons: RA/cm Intake Note: Patient presents for RA. Analytical Laboratory Technician Required: Yes Analytical Laboratory Technician Name: [id number] Allergies penicillin V Allergy (Unknown, Verified 10/04/23 15:46) Hives Medication List - Last Reconciled 10/04/23 by Rebecca Aggarwal MD [ADULT BRIEFS (Medium) - 8 units/day As directed up to 8 units per day] baclofen 20 mg PO QID PRN 30 days benzoyl peroxide 5% 1 appl topical DAILY bisacodyl (Dulcolax (bisacodyl)) 10 mg (2 x 5 mg) PO BEDTIME 30 days carbamazepine mg PO carbamazepine 4 tablets in AM, 3 tablets in PM and 4 tablets at bedtime daily 30 days cholecalciferol (vitamin D3) 50 mcg PO DAILY 90 days [DISPOSABLE GLOVES (large) As directed] ibuprofen 200 mg PO Q6H PRN 30 days linaclotide (Linzess) 290 mcg PO QAM 30 days linaclotide (Linzess) 145 mcg PO QAM miscellaneous medical supply Adult Briefs- Size:X-large- 8XDay phenytoin sodium extended 100 mg PO TID 30 days quetiapine 25 mg PO BEDTIME starch (thickening) (Thick-It oral powder) Mix with all drinks 3 to 5 times throughout the day as needed orally [UNDERPADS As directed] ziprasidone HCl 80 mg PO BID HPI Comments Details: 38-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 On sulfasalazine 1000 mg Twice daily. Father states that patient's stomach quite distended today. He states that patient is fecal output has reduced recently. He vomited today at his daycare. Initial history: This is a 37-year-old male with spastic quadriplegic cerebral palsy who presents for evaluation of diffuse joint pain. Persist her about 1 year ago patient started having episodes of stiffness of his hands, he would flex his elbows, wrists and hands. She also noticed swelling and redness of his knees. They have been giving him ibuprofen with some improvement. He went to the emergency room last year after a wound to his left big toe. At that time he was prescribed antibiotics and prednisone with significant improvement. Her sister patient's PMR specialist told them that patient might have rheumatoid arthritis. There is no known family history of autoimmune rheumatic disease. [facility] Medical History Diarrhea Constipation Respiratory infection Abscess of neck Scalp abscess Cellulitis of scalp Arthralgia COVID-19 Cellulitis of great toe of left foot Encounter for medical clearance for patient hold Annual physical exam Small bowel obstruction due to adhesions Paralytic ileus Seronegative rheumatoid arthritis SARS-CoV-2 positive (~08/16/21) Presence of intrathecal baclofen pump Epilepsy Spastic quadriplegic cerebral palsy Surgical History H/O colonoscopy History of intestinal surgery H/O exploratory laparotomy History of incision and drainage Social History Housing: House Alcohol intake: current Alcohol intake frequency: does not drink Patient Tobacco Use Status: Never used Tobacco e-Cigarette/Vaping Use: Never Used Second Hand Smoke Exposure: No service: No Current occupational status: disabled Cognitive needs: Yes Hearing needs: No Vision needs: No Review of Systems Const Details: ROS is obtained from patient's family GI Details: Stomach distention Reports constipation and Reports vomiting Musc Denies arthralgias, Denies joint swelling and Denies stiffness Physical Exam Vital Signs: Last Vital Signs Pulse 70 10/04/23 15:47 Pulse Ox 94 10/04/23 15:47 Oxygen Delivery Method Room Air 10/04/23 15:47 Const Other: Quadriplegic in a wheelchair Resp Effort & Inspection: normal respiratory effort GI Other: Significant abdominal distention, resonant to percussion Extrem Other: Patient is spastic quadriplegic in a wheelchair. Flexion contracture of his elbows, wrists, hands, fingers, feet Wrists are nontender to palpation today. Knees are not warm, swollen or tender, Ankles are not warm or tender to palpation. Negative MCP squeeze test. 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 On sulfasalazine 1000 mg Twice daily. There is no synovitis on exam. RA well controlled. However patient seems to be having another episode of bowel obstruction. Advised patient's father take him to the ER. His inflammatory markers are elevated but those are likely related to the current acute process rather than RA Restart sulfasalazine 1000 mg Twice daily once bowel function stabilizes Infectious screening: Hepatitis panel and T spot -ve 2022 Labs before next visit in 4 months (2) GARFIELD positive: Code(s): R76.8 - Other specified abnormal immunological findings in serum Category: Medical Plan: Positive GARFIELD 1-80 in a nucleolar pattern but comprehensive sub serology is negative and no signs of overlap with other connective tissue diseases. (3) Small bowel obstruction due to adhesions: Comment: Two thousand nine, with laparoscopy x2 any adhesions removed including a central band adhesion Code(s): K56.50 - Intestinal adhesions [bands], unspecified as to partial versus complete obstruction Category: Medical (4) Paralytic ileus: Comment: Multiple recurring from [id number] Code(s): K56.0 - Paralytic ileus Category: Medical Plan I spent 26 minutes reviewing patient's chart, evaluating patient, ordering diagnostic workup, counseling patient's father and documenting in the chart Orders: Orders Erythrocyte Sedimentation Rate 4 Months M06.00 - Rheumatoid arthritis without rheumatoid factor, unspecified site Complete Blood Count Auto Diff 4 Months M06.00 - Rheumatoid arthritis without rheumatoid factor, unspecified site Comprehensive Met. Panel 4 Months M06.00 - Rheumatoid arthritis without rheumatoid factor, unspecified site C Reactive Protein 4 Months M06.00 - Rheumatoid arthritis without rheumatoid factor, unspecified site Coding Level of Care Code Est Pt Level 4 (09546) Diagnoses Seronegative rheumatoid arthritis M06.00 GARFIELD positive R76.8 Small bowel obstruction due to adhesions K56.50 Paralytic ileus K56.0
[2023-10-04 15:47] VITALS: PULSE 70; TEMP 36.3; O2SAT 94
== END 2023-10-04 16:02 | disposition home or self-care (01) ==
PROVIDERS: PCP Internal Medicine; Visit Provider Student in an Organized Health Care Education/Training Program
DX: M06.00 Rheumatoid arthritis without rheumatoid factor, unspecified site (principal); R76.8 Other specified abnormal immunological findings in serum; K56.50 Intestinal adhesions [bands], unspecified as to partial versus complete obstruction; K56.0 Paralytic ileus
CPT/HCPCS: 99214

== ENCOUNTER → 2023-10-04 15:40 | Outpatient (BNVA) | payer OTHER, SELFPAY | PROVIDERS: PCP Internal Medicine; Visit Provider Student in an Organized Health Care Education/Training Program | DX: M06.00 Rheumatoid arthritis without rheumatoid factor, unspecified site (principal); R76.8 Other specified abnormal immunological findings in serum; K56.50 Intestinal adhesions [bands], unspecified as to partial versus complete obstruction; K56.0 Paralytic ileus | CPT/HCPCS: 99212 ==

== ENCOUNTER 2023-10-04 16:05 | Inpatient (IN) | payer OTHER, SELFPAY ==
--- NOTE | ~2023-10-04 | XR_ITS ---
EXAMINATION: XR ABDOMEN KUB CLINICAL INDICATION: Follow-up obstruction COMPARISON: 09/17/2023 TECHNIQUE: AP view of the abdomen. FINDINGS: Redemonstration of diffusely dilated bowel loops throughout the abdomen suggesting bowel obstruction or an ileus, overall appearance has not changed. There is severe dextroscoliosis. There is no air under the diaphragm. Included lung bases are clear. XR/XR KUB IMPRESSION: Redemonstration of diffusely dilated bowel loops throughout the abdomen suggesting bowel obstruction or an ileus, overall appearance has not changed.
--- NOTE | ~2023-10-04 | CT_ITS ---
EXAMINATION: CT ABDOMEN AND PELVIS WITHOUT CONTRAST CLINICAL INFORMATION: Abdominal distention. Concern for constipation. COMPARISON: CT scan abdomen pelvis June 24, 2021. Plain film abdomen study September 17, 2023 TECHNIQUE: Multidetector volumetric imaging was performed from the superior aspect of the liver through the pubic symphysis. Sagittal and coronal reformatted images were obtained on the technologist's workstation. This CT examination was performed using dose optimization techniques as appropriate, variously including the following: *Automated exposure control *Adjustment of mA and/or kV according to patient size (this includes techniques or standardized protocols for targeted exams where dose is matched to indication/reason for exam; i.e. extremities or head) *Use of iterative reconstruction technique DLP: 477 mGy-cm FINDINGS: LUNG BASES: The visualized lung bases are unremarkable. LIVER, GALLBLADDER, AND BILIARY TREE: The liver is normal in size, shape, and attenuation. No focal hepatic lesion or biliary ductal dilatation is present. Multiple gallstones layering dependently in the gallbladder. No edema around the gallbladder. No bile duct dilatation. PANCREAS: Unremarkable. SPLEEN: Unremarkable. ADRENAL GLANDS: Unremarkable. KIDNEYS AND URETERS: The kidneys are normal in size, shape, and attenuation. No hydronephrosis, hydroureter, or calculi seen. No perinephric stranding. BLADDER: Unremarkable. GASTROINTESTINAL TRACT: Marked distention of bowel loops in the abdomen and pelvis. There are scattered nondifferential air-fluid levels in the bowel loops. The severity of the bowel distention is slightly greater than the prior study June 24, 2021. No transition point. Bowel distended down to the pelvis at the level the rectum. No bowel wall thickening or edema. Moderate volume of scattered stool in the colon. No evidence of constipation. Most of the stool is in the right colon. The appendix is not visualized. No pneumoperitoneum. ABDOMINAL WALL: No significant hernia is appreciated. LYMPH NODES: Normal. VASCULAR: Unremarkable. PELVIC VISCERA: Unremarkable. OSSEOUS STRUCTURES: No acute osseous abnormality. Dextroscoliosis thoracolumbar spine. There is a neural generator over the right hip. Probe extends into the central canal extending toward the chest. CT/CT abdomen pelvis wo IV con IMPRESSION: 1. Marked distention of bowel loops in the abdomen and pelvis. The severity of the bowel distention is slightly greater than the prior study June 24, 2021. No transition point. No bowel wall thickening or edema. 2. Cholelithiasis. No acute change of the gallbladder wall or bile duct dilatation. Fleischner guidelines were followed.
[2023-10-04 17:07] VITALS: BP 165/11; PULSE 121; RESP 16; TEMP 37; O2SAT 94; BMI 18.3
--- NOTE | 2023-10-04 17:45 | ED_ITS ---
HPI - General Adult General Chief complaint: Abdominal Pain Stated complaint: vomiting, high bp, abd bloating Time Seen by Provider: 10/04/23 17:45 History of Present Illness ED Provider: Shyam REED narrative: The patient is a 38-year-old with a history of severe spastic quadriplegic cerebral palsy. He has a baclofen pump. He has a history of problems with constipation. He went to a day program today. Apparently was vomiting at the day program. They also noted that his abdomen was very distended. His father brought him to the emergency room. Related Data Home Medications ?Medication ?Instructions ?Recorded ?Confirmed miscellaneous medical supply ea miscellaneous 10/03/21 09/17/23 carbamazepine 200 mg tablet mg PO 04/30/23 09/17/23 quetiapine 25 mg tablet 25 mg PO BEDTIME 08/31/23 09/17/23 ziprasidone HCl 80 mg capsule 80 mg PO BID 08/31/23 09/17/23 Previous Rx's ?Medication ?Instructions ?Recorded ADULT BRIEFS (Medium) - 8 units/day #240 ea 12/21/21 DISPOSABLE GLOVES (large) #400 ea 12/21/21 UNDERPADS #120 ea 12/21/21 baclofen 20 mg tablet 20 mg PO QID PRN muscle spasms 30 10/06/22 days #120 tabs starch (thickening) (Thick-It oral See Rx Instructions PO .COMPLEX 03/19/23 powder) dysphagia/aspiration #6,120 grams linaclotide 145 mcg capsule 145 mcg PO QAM #30 caps 05/30/23 (Linzess) benzoyl peroxide 5 % topical 1 appl topical DAILY #142 grams 08/29/23 cleanser linaclotide 290 mcg capsule 290 mcg PO QAM 30 days #30 caps 08/31/23 (Linzess) carbamazepine 100 mg chewable See Rx Instructions .Route 09/17/23 tablet .COMPLEX 30 days #330 tabs cholecalciferol (vitamin D3) 50 50 mcg PO DAILY 90 days #90 caps 09/17/23 mcg (2,000 unit) capsule ibuprofen 200 mg tablet 200 mg PO Q6H PRN fever or pain 30 09/17/23 days #120 tabs phenytoin sodium extended 100 mg 100 mg PO TID 30 days #90 caps 09/17/23 capsule bisacodyl 5 mg tablet,delayed 10 mg (2 x 5 mg) PO BEDTIME 30 09/28/23 release (Dulcolax (bisacodyl)) days #60 tabs Allergies Allergy/AdvReac Type Severity Reaction Status Date / Time penicillin V Allergy Unknown Hives Verified 10/04/23 17:10 Review of Systems 2 Review of Systems: Yes Unobtainable due to mental status PMFSH Past Medical History Medical History Diarrhea Constipation Respiratory infection Abscess of neck Scalp abscess Cellulitis of scalp Arthralgia COVID-19 Cellulitis of great toe of left foot Encounter for medical clearance for patient hold Annual physical exam Small bowel obstruction due to adhesions Paralytic ileus Seronegative rheumatoid arthritis SARS-CoV-2 positive (~08/16/21) Presence of intrathecal baclofen pump Epilepsy Spastic quadriplegic cerebral palsy Surgical History H/O colonoscopy History of intestinal surgery H/O exploratory laparotomy History of incision and drainage Social History Social History Housing: House Unable to assess alcohol history related to: Unable to respond Alcohol intake: current Alcohol intake frequency: does not drink Patient Tobacco Use Status: Never used Tobacco e-Cigarette/Vaping Use: Never Used Second Hand Smoke Exposure: No Use of substances other than those prescribed or required for medical reasons: Unable to respond Advance Directives: No Advance Directives Information Provided: Yes Do you have a plan to hurt others: No Plan service: No Current occupational status: disabled Cognitive needs: Yes Hearing needs: No Vision needs: No Physical Exam ED Vital Signs: Vital Signs - 24 hr 10/04/23 17:07 10/04/23 19:32 10/04/23 20:27 Temperature 98.6 F 99.0 F Pulse Rate 121 H 119 H 125 H Respiratory Rate 16 18 18 Blood Pressure 165/11 H 140/98 H Pulse Oximetry 94 95 95 Oxygen Delivery Method Room Air Room Air Room Air BMI result Body Mass Index 18.3 Const Other: The patient is a chronically ill-appearing 38-year-old who seems awake. He is nonverbal. Not showing obvious signs of distress HENMT Other: Face is symmetrical. Mucous membranes not obviously dry Eyes Other: Pupils are round equal, conjunctivae clear, no scleral icterus Neck Other: No JVD, moving his neck easily Resp Effort & Inspection: normal respiratory effort Auscultation: clear to auscultation bilaterally Cardio Rate: tachycardic Rhythm: regular rhythm Heart sounds: S1 normal heart sound present and S2 normal heart sound present GI Other: Abdomen is protuberant and distended. The abdomen is not rigid or firm and he does not seem obviously tender with palpation. There is an implanted foreign body under the skin of the right lower quadrant consistent with a baclofen pump. Skin Other: Skin is dry and unremarkable Neuro Other: The patient seems awake. He is nonverbal. Extremities seem atrophied. Extrem Other: Extremities are atrophied. No peripheral edema. Medications Administered Discontinued Medications Generic Name Dose Route Start Last Admin Trade Name Freq PRN Reason Stop Dose Admin Sodium Chloride 1,000 mls @ 999 mls/hr 10/04/23 21:45 10/04/23 21:53 Ns IV 10/04/23 22:45 999 mls/hr .Q1H1M CHELI Administration Sodium Biphosphate/Sodium Phosphate 133 ml 10/04/23 18:00 10/04/23 18:35 Sodium Phosphate,Mccormick-Dibasic 133 Ml Enema [place] 10/04/23 18:01 133 ml ONCE ONE Administration Medical Decision Making Medical Decision Making [facility] Narrative: The patient is a 38-year-old with severe spastic quadriplegia cerebral palsy. He has chronic bowel problems. He has a baclofen pump. He is on Linzess. The patient was at a day program today where he had vomiting and his abdomen seemed more distended than usual. He came to the emergency room. My initial impression was that the patient was probably constipated. This seems to be a chronic problem of his in the past. A digital rectal exam however showed no fecal impaction. A Fleet enema had no effect. Therefore labs and a CT of the abdomen and pelvis were done. [place] [address]. Also his hemoglobin is higher than previous suggesting hemoconcentration. Additionally his BUN is elevated suggesting dehydration. IV fluids were ordered. The CT scan shows diffuse distention of the patient's bowels including his stomach, small bowel, and colon. He does not seem markedly constipated. There is no transition zone. The radiologist does not feel this pattern fits with an Cyndie syndrome or a bowel obstruction. The radiologist seems to feel that this is a worsening of his chronic bowel distention. I reviewed the images with the on-call surgeon in the on-call steel manager. The patient will be admitted for hydration and further evaluation. Lab Data 10/04/23 20:34 10/04/23 20:34 Labs: Lab Results 10/04/23 Range/Units 20:34 WBC 14.7 H (4.8-10.8) X10*3/uL RBC 5.10 D (4.60-5.80) X10*6/uL Hgb 15.5 D (14.0-18.0) g/dl Hct 46.5 (42.0-52.0) % MCV 91.2 (80.0-98.0) fL MCH 30.4 (27.0-33.0) pg MCHC 33.3 (31.0-36.0) g/dl RDW 12.8 (11.0-16.0) % Plt Count 429 H D (160-400) X10*3/uL MPV 9.5 (9.4-12.4) fL Immature Gran % (Auto) 0.6 H (0.0-0.4) % Neut % (Auto) 83.0 H (45-73) % Lymph % (Auto) 9.1 L (20-40) % Mccormick % (Auto) 7.0 (2-11) % Eos % (Auto) 0.1 (0-4) % Baso % (Auto) 0.2 (0-2) % Lymph # (Auto) 1.3 (1.2-4.9) X10*3/uL Mccormick # (Auto) 1.0 (0.1-1.2) X10*3/uL Eos # (Auto) 0.0 (0.0-0.4) X10*3/uL Baso # (Auto) 0.0 (0.0-0.2) X10*3/uL Abs Immat Gran (auto) 0.09 H (0.00-0.03) X10*3/uL Absolute Neuts (auto) 12.2 H (2.0-8.3) x10*3/uL Absolute Nucleated RBC 0.000 (0.0-0.012) X10*3/uL Nucleated RBC % (auto) 0.0 (0.0-0.2) /100WBC Sodium 140 (135-145) mmol/L Potassium 3.6 (3.3-5.1) mmol/L Chloride 106 (96-108) mmol/L Carbon Dioxide 20 L (22-29) mmol/L Anion Gap 18 (12-20) BUN 26 H (9-16) mg/dL Creatinine 0.65 (0.5-1.4) mg/dL Estim Creat Clear Calc 100.0 Estimated GFR > 60 Random Glucose 123 H (60-115) mg/dL Calcium 9.9 (8.4-10.2) mg/dL Total Bilirubin 0.5 (0.0-1.0) mg/dL Direct Bilirubin 0.2 (0.0-0.5) mg/dL AST 16 (5-37) U/L ALT 21 (0-40) U/L Alkaline Phosphatase 88 (39-117) U/L Total Protein 8.8 H (6.5-8.0) g/dL Albumin 4.9 (3.5-5.0) g/dL Lipase 13 (8-78) U/L Discharge Plan Discharge Clinical Impression: Vomiting, Abdominal distension, Acute dehydration Patient Disposition: Admitted As Inpatient Print Language: Italian
[2023-10-04] MEDS: Sodium Phosphate,Mono-Dibasic 133 ML ENEMA PR (18:35)
[2023-10-04 19:32] VITALS: PULSE 119; RESP 18; TEMP 37.2; O2SAT 95
[2023-10-04 20:27] VITALS: BP 140/98; PULSE 125; RESP 18; O2SAT 95
[2023-10-04 20:38] LABS: MANUAL DIFF FLAG NO
[2023-10-04 20:59] LABS: Alanine Aminotransferase 21 U/L (0-40); Albumin Level 4.9 g/dL (3.5-5.0); Alkaline Phosphatase 88 U/L (39-117); Anion Gap 18 (12-20); Aspartate Amino Transferase 16 U/L (5-37); Bilirubin Direct 0.2 mg/dL (0.0-0.5); Bilirubin Total 0.5 mg/dL (0.0-1.0); Blood Urea Nitrogen 26 mg/dL (9-16); Calcium 9.9 mg/dL (8.4-10.2); Carbon Dioxide 20 mmol/L (22-29); Chloride 106 mmol/L (96-108); Estimated Glomerular Filt Rate > 60; Glucose Random 123 mg/dL (60-115); Lipase 13 U/L (8-78); Potassium 3.6 mmol/L (3.3-5.1); Sodium 140 mmol/L (135-145); Total Protein 8.8 g/dL (6.5-8.0)
[2023-10-04 21:03] LABS: Basophils Percent Auto 0.2 % (0-2); Eosinophils Percent Auto 0.1 % (0-4); Hematocrit 46.5 % (42.0-52.0); Hemoglobin 15.5 g/dl (14.0-18.0); Imm Gran Abs Auto 0.09 X10*3/uL (0.00-0.03); Imm Gran Pct Auto 0.6 % (0.0-0.4); Lymphocytes Absolute Auto 1.3 X10*3/uL (1.2-4.9); Lymphocytes Percent Auto 9.1 % (20-40); Mean Corpuscular HGB Conc 33.3 g/dl (31.0-36.0); Mean Corpuscular Hemoglobin 30.4 pg (27.0-33.0); Mean Corpuscular Volume 91.2 fL (80.0-98.0); Mean Platelet Volume 9.5 fL (9.4-12.4); Neutrophils Absolute Auto 12.2 x10*3/uL (2.0-8.3); Platelet Count 429 X10*3/uL (160-400); Red Cell Distribution Width 12.8 % (11.0-16.0); White Blood Count 14.7 X10*3/uL (4.8-10.8)
[2023-10-04] MEDS: 0.9 % Sodium Chloride 1,000 ML 999 ML IV (21:53)
[2023-10-05] VITALS (7 sets, daily range): BP systolic 120–158; BP diastolic 60–95; PULSE 63–118; RESP 14–20; TEMP 36.2–37.2; O2SAT 94–96; BMI 18.3
--- NOTE | 2023-10-05 04:21 | P.HPHOSP_ITS ---
History of Present Illness Date of Service: 10/05/23 Attending physician on admission: Mike Sigala Chief Complaint: Vomiting HPI provided by patient's father. Demarcus Joseph is a 38 years old man with past medical history significant for epilepsy, cerebral palsy, RA, chronic idiopathic constipation, intestinal surgery and exploratory laparotomy was brought to the emergency department after he started to have several episodes of vomiting while visiting his outpatient program. His abdomen was also noted to be more distended than usual. Father said that the symptoms started yesterday and that his last bowel movement was last Sunday. Father also mentioned that the patient has a baclofen pump and that the dosing was decreased recently (about a week ago) because it was causing the patient to much constipation. No fevers, chills or fever report. Father stated that patient has not had further events of vomiting since admission to the emergency department. In the ED, he was found to have stable vital signs. Blood workup showed leukocytosis of 14.7. Hemoglobin and platelets are elevated. There are no remarkable electrolyte imbalances. Creatinine is normal and glucose 123. LFTs and lipase are normal. Abdomen pelvis CT scan showed marked distention of the bowel loops in the abdomen and pelvis (greater than prior) without transition point, wall thickening or edema. It ultrasound cholelithiasis without acute changes of the gallbladder wall or CBD dilatation. ED tx: Fleet enema, NS 1 L bolus. Review of Systems 2 Review of Systems: Yes Unobtainable due to mental condition and Unobtainable due to mental status PMFSH Medical History Diarrhea Constipation Respiratory infection Abscess of neck Scalp abscess Cellulitis of scalp Arthralgia COVID-19 Cellulitis of great toe of left foot Encounter for medical clearance for patient hold Annual physical exam Small bowel obstruction due to adhesions Paralytic ileus Seronegative rheumatoid arthritis SARS-CoV-2 positive (~08/16/21) Presence of intrathecal baclofen pump Epilepsy Spastic quadriplegic cerebral palsy Surgical History H/O colonoscopy History of intestinal surgery H/O exploratory laparotomy History of incision and drainage Social History Housing: House Unable to assess alcohol history related to: Unable to respond Alcohol intake: current Alcohol intake frequency: does not drink Patient Tobacco Use Status: Never used Tobacco e-Cigarette/Vaping Use: Never Used Second Hand Smoke Exposure: No service: No Current occupational status: disabled Cognitive needs: Yes Hearing needs: No Vision needs: No Meds Allergies Allergy/AdvReac Type Severity Reaction Status Date / Time penicillin V Allergy Unknown Hives Verified 10/04/23 17:10 Active Medications: Current Medications Heparin Sodium (Porcine) (Heparin Sodium,Porcine 5,000 Unit/Ml Vial) 5,000 unit SUBCUT Q8H [facility] Lactated Ringer's (Lr) 1,000 mls @ 100 mls/hr IVCONT .Q10H [facility] Melatonin (Melatonin 3 Mg Tablet) 6 mg PO BEDTIME PRN PRN Reason: Insomnia Ondansetron HCl (Ondansetron Hcl 4 Mg/2 Ml Vial) 4 mg IVPUSH Q4H PRN PRN Reason: Nausea and Vomiting Sodium Chloride (0.9 % Sodium Chloride Flush 3 Ml Syringe) 3 ml IVFLUSH QSHIFT [facility] Home Medications ?Medication ?Instructions ?Recorded ?Confirmed ?Last Taken ?Type miscellaneous medical supply ea miscellaneous 10/03/21 09/17/23 Unknown History carbamazepine 200 mg tablet mg PO 04/30/23 09/17/23 Unknown History quetiapine 25 mg tablet 25 mg PO BEDTIME 08/31/23 09/17/23 Unknown History ziprasidone HCl 80 mg capsule 80 mg PO BID 08/31/23 09/17/23 Unknown History phenytoin sodium extended 100 mg 100 mg PO TID 10/05/23 10/05/23 Unknown History capsule Physical Exam 2 Vital Signs and Narrative: Vital Signs: Last Vital Signs Temp 99.0 F 10/05/23 00:00 Pulse 88 10/05/23 00:00 Resp 18 10/05/23 00:00 BP 158/83 H 10/05/23 00:00 Pulse Ox 95 10/05/23 00:00 O2 Del Method Room Air 10/05/23 00:00 BMI result Body Mass Index 18.3 Constitutional - Awake and Alert. Looks uncomfortable. Chronically ill. HEENT - Dry oral mucosa. Heart - Tachycardic. Lungs - Normal lung expansion. Poor respiratory effort, No respiratory distress. Tachypnea. Decreased breath sound at bases. No wheezing. No rhonchi. Abdomen - Distended. Minimally depressible. Absent bowel sounds. Baclofen pump right upper quadrant. Extremities - no edema. Musculoskeletal - atrophy. Generalized muscular contraction Skin - Warm/Dry Neurological - Awake. Psychological - No agitation. Results Labs 10/04/23 20:34 10/04/23 20:34 Labs: Laboratory Results - last 24 hr 10/04/23 20:34 MCV 91.2 MCH 30.4 MCHC 33.3 RDW 12.8 Plt Count 429 H D MPV 9.5 Immature Gran % (Auto) 0.6 H Neut % (Auto) 83.0 H Lymph % (Auto) 9.1 L Bond % (Auto) 7.0 Eos % (Auto) 0.1 Baso % (Auto) 0.2 Lymph # (Auto) 1.3 Bond # (Auto) 1.0 Eos # (Auto) 0.0 Baso # (Auto) 0.0 Abs Immat Gran (auto) 0.09 H Absolute Neuts (auto) 12.2 H Absolute Nucleated RBC 0.000 Nucleated RBC % (auto) 0.0 Anion Gap 18 Estim Creat Clear Calc 100.0 Estimated GFR > 60 Random Glucose 123 H Calcium 9.9 Total Bilirubin 0.5 Direct Bilirubin 0.2 AST 16 ALT 21 Alkaline Phosphatase 88 Total Protein 8.8 H Albumin 4.9 Lipase 13 Imaging Radiologist's Impressions: Impressions Abdomen/Pelvis CT 10/04/23 19:02 IMPRESSION: 1. Marked distention of bowel loops in the abdomen and pelvis. The severity of the bowel distention is slightly greater than the prior study June 24, 2021. No transition point. No bowel wall thickening or edema. 2. Cholelithiasis. No acute change of the gallbladder wall or bile duct dilatation. Fleischner guidelines were followed. Assessment and Plan (1) Abdominal distension: Status: Acute (2) Chronic idiopathic constipation: Status: Acute Plan Demarcus Joseph is a 38 y/o man chronic idiopathic constipation, intestinal surgery and exploratory laparotomy admitted with: * Abdominal distension, likely ileus. Admit to hospitalist service. NPO. Start IV fluids. Pain control with Tylenol and Toradol IV scheduled. Antiemetic therapy as needed. Avoid opiates. If patient persists with nausea and/or significant abdominal distention -will consider NG tube insertion. * Spastic quadriplegic cerebral palsy. Continue baclofen as needed. Patient also has a intrathecal baclofen pump (dose recently decreased due to constipation). * Epilepsy. Continue carbamazepine and phenytoin. * RA. Continue sulfasalazine. DVT prophylaxis: Heparin Code status: Full (d/w father) Patient will need hospitalization for at least 2 midnight for abdominal distention management with IV fluids and pain control; and likely NG tube placement. Quality Stroke Does the patient have a stroke diagnosis?: No VTE Prior VTE?: No VTE Risk Level:: Medical - moderate - high VTE Device Contraindication: Treatment Not Indicated VTE Drug Contraindication: N/A - Med Ordered
[2023-10-05] MEDS: Ketorolac Tromethamine 30 MG/ML VIAL IVPUSH (04:24)
[2023-10-05] MEDS: Acetaminophen 1,000 MG/100 ML PIGGYBACK 400 MG IV ×4 (04:24→21:29)
[2023-10-05] MEDS: Lactated Ringers 1,000 ML 100 ML IVCONT ×2 (04:43→13:44)
--- NOTE | 2023-10-05 05:11 | PC.NURSE ---
Patient is alert, cognitively impaired, non-verbal, no s/s of pain/discomfort noted. Patient medicated per JUN. 22 G IV line is patent. 1 L LR currently infusing at 100 mL. Patient had 1 episode of urinary incontinence at ED, bed linens changed, miki care provided. Patient is NPO. Plan of care ongoing.
--- NOTE | 2023-10-05 08:36 | PM.CNGS ---
History of Present Illness Consult details Consult date: 10/05/23 <Katherine Johnson PA-C - Last Filed: 10/05/23 13:18> Narrative: Demarcus Joseph is a 38 year old nonverbal man with PMH significant for epilepsy, spastic quadraplegic cerebral palsy, RA, chronic idiopathic constipation who was brought to the ED after he had several episodes of vomiting while visiting his outpatient program. His abdomen was noted to be more distended than usual. Last reported BM was last Sunday. He has a baclofen pump in place and dosing was recently decreased due to severe constipation. No fevers, chills reported. No further episodes of vomiting since admission reported. Work up in the ED significant for leukocytosis of 14.7. CT scan abd/pelvis showed marked distention of bowel loops extending down to the level of the rectum without wall thickening or edema or transition point. The severity of the bowel distention is slightly greater than the prior study June 2021. He was admitted to the medical service for further treatment. General surgery consult was obtained for evaluation. He had two exploratory laparotomies, lysis of adhesions, small bowel detorsion for small bowel volvulus in 2008. <Katherine Johnson PA-C - Last Filed: 10/05/23 13:18> Review of Systems Review of Systems: Yes Unobtainable due to mental condition <Katherine Johnson PA-C - Last Filed: 10/05/23 13:18> PMFSH Past Medical History Medical History: Medical History Diarrhea Constipation Respiratory infection Abscess of neck Scalp abscess Cellulitis of scalp Arthralgia COVID-19 Cellulitis of great toe of left foot Encounter for medical clearance for patient hold Annual physical exam Small bowel obstruction due to adhesions Paralytic ileus Seronegative rheumatoid arthritis SARS-CoV-2 positive (~08/16/21) Presence of intrathecal baclofen pump Epilepsy Spastic quadriplegic cerebral palsy <Katherine Johnson PA-C - Last Filed: 10/05/23 13:18> Surgical History Surgical History: Surgical History H/O colonoscopy History of intestinal surgery H/O exploratory laparotomy History of incision and drainage <Katherine Johnson PA-C - Last Filed: 10/05/23 13:18> Social History Social History: Social History Household Members: Family Housing: House Do you presently have visiting nurse or other home services: No ([employer]) Unable to assess alcohol history related to: Unable to respond Alcohol intake: current Alcohol intake frequency: does not drink Patient Tobacco Use Status: Never used Tobacco e-Cigarette/Vaping Use: Never Used Second Hand Smoke Exposure: No service: No Current occupational status: disabled Cognitive needs: Yes Hearing needs: No Vision needs: No <Katherine Johnson PA-C - Last Filed: 10/05/23 13:18> Meds Allergies/Adverse reactions: Allergies Allergy/AdvReac Type Severity Reaction Status Date / Time penicillin V Allergy Unknown Hives Verified 10/04/23 17:10 <Katherine Johnson PA-C - Last Filed: 10/05/23 13:18> Active Medications: Current Medications Heparin Sodium (Porcine) (Heparin Sodium,Porcine 5,000 Unit/Ml Vial) 5,000 unit SUBCUT Q8H [facility] Lactated Ringer's (Lr) 1,000 mls @ 100 mls/hr IVCONT .Q10H [facility] Last Admin: 10/05/23 04:43 Dose: 100 mls/hr Acetaminophen (Ofirmev) 1,000 mg in 100 mls @ 400 mls/hr IV Q6H [facility] Ketorolac Tromethamine (Ketorolac Tromethamine 15 Mg/Ml Vial) 15 mg IVPUSH Q6H [facility] Stop: 10/05/23 22:01 Melatonin (Melatonin 3 Mg Tablet) 6 mg PO BEDTIME PRN PRN Reason: Insomnia Ondansetron HCl (Ondansetron Hcl 4 Mg/2 Ml Vial) 4 mg IVPUSH Q4H PRN PRN Reason: Nausea and Vomiting Sodium Chloride (0.9 % Sodium Chloride Flush 3 Ml Syringe) 3 ml IVFLUSH QSHIFT [facility] <Katherine Johnson PA-C - Last Filed: 10/05/23 13:18> Home medications: Home Medications ?Medication ?Instructions ?Recorded ?Confirmed ?Last Taken ?Type bisacodyl 5 mg tablet,delayed 10 mg PO BEDTIME PRN Constipation 10/05/23 10/05/23 Unknown History release (Dulcolax (bisacodyl)) carbamazepine 200 mg tablet 300 mg PO DAILY@1500 10/05/23 10/05/23 Unknown History carbamazepine 200 mg tablet 400 mg PO BID 10/05/23 10/05/23 Unknown History cetirizine 10 mg tablet 10 mg PO DAILY 10/05/23 10/05/23 Unknown History linaclotide 290 mcg capsule 290 mcg PO DAILY 10/05/23 10/05/23 Unknown History (Linzess) phenytoin sodium extended 100 mg 100 mg PO TID 10/05/23 10/05/23 Unknown History capsule sulfasalazine 500 mg tablet 1,000 mg PO BID 10/05/23 10/05/23 Unknown History <JORGE L Murguia Last Filed: 10/05/23 13:18> Physical Exam Vital Signs: Vital Signs: Last Vital Signs Temp 97.4 F 10/05/23 07:47 Pulse 107 H 10/05/23 07:47 Resp 20 10/05/23 07:47 BP 143/91 H 10/05/23 07:47 Pulse Ox 94 10/05/23 07:47 O2 Del Method Room Air 10/05/23 07:47 BMI result Body Mass Index 18.3 <Katherine Johnson PA-C Last Filed: 10/05/23 13:18> Const: General: awake <JORGE L Murguia Last Filed: 10/05/23 13:18> Resp: Effort & Inspection: normal respiratory effort <JORGE L Murguia Last Filed: 10/05/23 13:18> GI: Other: midline scar baclofen pump in RLQ <JORGE L Murguia Last Filed: 10/05/23 13:18> Inspection: Yes distended (significantly distended but soft ) <JORGE L Murguia Last Filed: 10/05/23 13:18> Palpation (GI): Soft to palpation <JORGE L Murguia Last Filed: 10/05/23 13:18> Percussion: Yes tympanic to percussion <JORGE L Murguia Last Filed: 10/05/23 13:18> Abdomen image: 1. 2. baclofen <JORGE L Murguia Last Filed: 10/05/23 13:18> Extrem: Other: b/l UE and LE contracted <JORGE L Murguia Last Filed: 10/05/23 13:18> Results Labs Result diagrams: 10/05/23 10:56 10/05/23 10:56 <Katherine Johnson PA-C - Last Filed: 10/05/23 13:18> Labs: Abnormal lab results 10/04/23 Range/Units 20:34 WBC 14.7 H (4.8-10.8) X10*3/uL Plt Count 429 H D (160-400) X10*3/uL Immature Gran % (Auto) 0.6 H (0.0-0.4) % Neut % (Auto) 83.0 H (45-73) % Lymph % (Auto) 9.1 L (20-40) % Abs Immat Gran (auto) 0.09 H (0.00-0.03) X10*3/uL Absolute Neuts (auto) 12.2 H (2.0-8.3) x10*3/uL Carbon Dioxide 20 L (22-29) mmol/L BUN 26 H (9-16) mg/dL Random Glucose 123 H (60-115) mg/dL Total Protein 8.8 H (6.5-8.0) g/dL Short CBC 10/04/23 Range/Units 20:34 WBC 14.7 H (4.8-10.8) X10*3/uL Hgb 15.5 D (14.0-18.0) g/dl Hct 46.5 (42.0-52.0) % Plt Count 429 H D (160-400) X10*3/uL BMP 10/04/23 20:34 Sodium 140 Potassium 3.6 Chloride 106 Carbon Dioxide 20 L BUN 26 H Creatinine 0.65 Calcium 9.9 Liver Function 10/04/23 Range/Units 20:34 Total Bilirubin 0.5 (0.0-1.0) mg/dL Direct Bilirubin 0.2 (0.0-0.5) mg/dL AST 16 (5-37) U/L ALT 21 (0-40) U/L Alkaline Phosphatase 88 (39-117) U/L Albumin 4.9 (3.5-5.0) g/dL All other labs normal. <Katherine Johnson PA-C - Last Filed: 10/05/23 13:18> Imaging Abdomen CT scan report/results: report reviewed and image reviewed <Katherine Johnson PA-C - Last Filed: 10/05/23 13:18> Assessment and Plan (1) [place] syndrome: Status: Acute <Katherine Johnson PA-C - Last Filed: 10/05/23 13:18> Demarcus Joseph is a 38 year old nonverbal man with PMH significant for epilepsy, spastic quadraplegic cerebral palsy, RA, chronic idiopathic constipation with significantly dilated bowel extending to rectum, slightly increased from prior imaging, consistent with pseudoobstruction. Consulted GI for possible colonoscopic decompression- they felt it was likely chronic in nature but would benefit from rectal tube to help decompress. Rectal tube was inserted at bedside. Can begin bowel regimen. His abdomen is significantly distended but soft and without pertioneal signs. Can hold off on NGT as he has not vomited since admission. Will continue to follow. <Katherine Johnson PA-C - Last Filed: 10/05/23 13:18> Demarcus Joseph is a 38 year old nonverbal man with PMH significant for epilepsy, spastic quadraplegic cerebral palsy, RA, chronic idiopathic constipation with significantly dilated bowel extending to rectum, slightly increased from prior imaging, consistent with pseudoobstruction. Consulted GI for possible colonoscopic decompression- they felt it was likely chronic in nature but would benefit from rectal tube to help decompress. Rectal tube was inserted at bedside. Can begin bowel regimen. His abdomen is significantly distended but soft and without pertioneal signs. Can hold off on NGT as he has not vomited since admission. Will continue to follow. Patient seen and examined independently. Review of the CT findings as well. Appreciate GI input. Agree with the above assessment and plan. We will continue to monitor. <Rob Augustine MD - Last Filed: 10/05/23 14:13> Procedures Date of Service Date of Service: 10/05/23 <Katherine Johnson PA-C - Last Filed: 10/05/23 13:18> 10/05/23 <Rob Augustine MD - Last Filed: 10/05/23 14:13>
--- NOTE | 2023-10-05 08:37 | MHC.CM.PN ---
Addendum entered by Natividad Larsen RN 10/05/23 09:29: Mother provided guardianship paperwork. Guardians are : mother Letitia and father Demarcus. Copy placed in physical chart. Original Note: Patient lives at home w/ family (mother, father, sister). Mom, Letitia, reports that she is guardian. Documentation requested. She will bring this today. Dx cerabal palsy, nonverbal and dependent for care at baseline. Patient is cared for by family and has [employer] SYSTEM[employer] ANALYST through [employer] 50 hrs/wk. DME in the home includes: hospital bed, wheel chair, norma lift, shower chair. PCP Williams Cotter MD DP: Per mother, goal is home w/ family and resumption of ACCOUNTING SYSTEMS ANALYST services. Open to [facility] if skilled services are ordered, prefers [facility]. Will require BLS transport home. CM will continue to follow.
--- NOTE | 2023-10-05 08:54 | PHA.MEDREC ---
Pharmacy Consult ? Medication Reconciliation Pharmacy has completed the medication reconciliation, pt sleeping and unable to confirm meds. Called mother Letitia but sister Ada picked up and confirmed meds per Rx bottles in front of her. Sister stated pt has a twin brother and some meds at their pharmacy got mixed up and were not actually his but filled under his name. Ada confirmed all maintenance meds and added prn meds as left on list.
[2023-10-05] MEDS: Heparin Sodium,Porcine 5,000 UNIT/ML VIAL 5000 UNIT SUBCUT ×2 (09:30→16:01)
[2023-10-05] MEDS: Ketorolac Tromethamine 15 MG/ML VIAL IVPUSH ×3 (09:30→21:29)
[2023-10-05 11:04] LABS: MANUAL DIFF FLAG NO
[2023-10-05 11:06] LABS: Basophils Percent Auto 0.3 % (0-2); Eosinophils Absolute Auto 0.1 X10*3/uL (0.0-0.4); Eosinophils Percent Auto 1.4 % (0-4); Hematocrit 41.7 % (42.0-52.0); Hemoglobin 13.8 g/dl (14.0-18.0); Imm Gran Abs Auto 0.07 X10*3/uL (0.00-0.03); Imm Gran Pct Auto 0.7 % (0.0-0.4); Lymphocytes Absolute Auto 1.8 X10*3/uL (1.2-4.9); Mean Corpuscular HGB Conc 33.1 g/dl (31.0-36.0); Mean Corpuscular Hemoglobin 30.6 pg (27.0-33.0); Mean Corpuscular Volume 92.5 fL (80.0-98.0); Mean Platelet Volume 9.4 fL (9.4-12.4); Neutrophils Percent Auto 69.6 % (45-73); Platelet Count 331 X10*3/uL (160-400); Red Blood Count 4.51 X10*6/uL (4.60-5.80); White Blood Count 10.1 X10*3/uL (4.8-10.8)
[2023-10-05 11:26] LABS: Anion Gap 15 (12-20); Blood Urea Nitrogen 22 mg/dL (9-16); Calcium 8.8 mg/dL (8.4-10.2); Carbon Dioxide 23 mmol/L (22-29); Chloride 107 mmol/L (96-108); Estimated Glomerular Filt Rate > 60; Glucose Random 96 mg/dL (60-115); Potassium 3.6 mmol/L (3.3-5.1); Sodium 141 mmol/L (135-145)
--- NOTE | 2023-10-05 11:37 | MHC.CLN ---
NUTRITION CONSULT FOR CP. PATIENT IS NPO. VISITED WITH PATIENT'S MOTHER IN ROOM. SHE PREPARES ALL OF HIS FOOD. MODIFIES CONSISTENCY TO ALMOST PUREE . DISLIKES ENSURE SUPPLEMENT. LIKES ICE CREAM. ATTENDS DAY PROGRAM AND FAMILY PROVIDES FOOD. MOTHER REPORTS THAT PATIENT EATS WELL WITH HER, BUT HAS LOST WEIGHT. HX CHRONIC CONSTIPATION. QUALIFIES MODERATELY MALNOURISHED IN THE CONTEXT OF CHRONIC ILLNESS. RECOMMEND ADD MAGIC CUP TID WHEN ABLE. PROVIDES 870 KCALS, 27 G PROTEIN. FOLLOW FOR GI STATUS, DIET ADVANCEMENT AND INTAKE. SEE CLINICAL NUTRITION ASSESSMENT 10/05/23.
[2023-10-05] MEDS: carBAMazepine 200 MG TABLET 400 MG PO ×2 (11:41→21:25)
[2023-10-05] MEDS: Phenytoin Sodium Extended 100 MG CAPSULE PO ×3 (11:41→21:25)
--- NOTE | 2023-10-05 11:45 | PC.NURSE ---
PO medication okay to give with small amount of applesauce per Dr Escobar.
--- NOTE | 2023-10-05 12:28 | PM.EVENT ---
Event Note Date of Service: 10/05/23 Event Note: Seen and evaluated this morning Rectal tube placed by surgery start seizure medications IVF fluids monitor distention and repeat Time Spent With Patient Time: Total time managing care of this patient today ____ minutes.
[2023-10-05] MEDS: carBAMazepine 200 MG TABLET 300 MG PO (14:02)
--- NOTE | 2023-10-05 15:17 | PC.NURSE ---
Pt voided on his own.
--- NOTE | 2023-10-05 16:34 | PM.GICN ---
History of Present Illness Data of Consult Service Date: 10/05/23 Requesting physician: Rob Augustine Primary Care Provider: Williams Cotter MD [facility] Reason for consult: abdo distention 38 year old nonverbal man with PMH significant for epilepsy, spastic quadraplegic cerebral palsy, RA, chronic idiopathic constipation who I am seeing for assessment for distention. Patient was admitted after having vomiting episodes at an outpatient program. His abdomen was thought to be more distended than normal. Apparently since admission no emesis was been seen. Ct revealed marked distention of bowel loops extending down to the level of the rectum without wall thickening or edema or transition point Of note--He had two exploratory laparotomies, lysis of adhesions, small bowel detorsion for small bowel volvulus in 2008. Review of Systems Review of Systems: Yes Unobtainable due to mental condition PMFSH Past Medical History Medical History Diarrhea Constipation Respiratory infection Abscess of neck Scalp abscess Cellulitis of scalp Arthralgia COVID-19 Cellulitis of great toe of left foot Encounter for medical clearance for patient hold Annual physical exam Small bowel obstruction due to adhesions Paralytic ileus Seronegative rheumatoid arthritis SARS-CoV-2 positive (~08/16/21) Presence of intrathecal baclofen pump Epilepsy Spastic quadriplegic cerebral palsy Surgical History Surgical History H/O colonoscopy History of intestinal surgery H/O exploratory laparotomy History of incision and drainage Social History Social History Household Members: Family Housing: House Do you presently have visiting nurse or other home services: No ([employer]) Unable to assess alcohol history related to: Unable to respond Alcohol intake: current Alcohol intake frequency: does not drink Patient Tobacco Use Status: Never used Tobacco e-Cigarette/Vaping Use: Never Used Second Hand Smoke Exposure: No service: No Current occupational status: disabled Cognitive needs: Yes Hearing needs: No Vision needs: No Meds Allergies Allergy/AdvReac Type Severity Reaction Status Date / Time penicillin V Allergy Unknown Hives Verified 10/04/23 17:10 Active Medications: Current Medications Carbamazepine (Carbamazepine 200 Mg Tablet) 400 mg PO BID [facility] Last Admin: 10/05/23 11:41 Dose: 400 mg Carbamazepine (Carbamazepine 200 Mg Tablet) 300 mg PO DAILY@1500 [facility] Last Admin: 10/05/23 14:02 Dose: 300 mg Heparin Sodium (Porcine) (Heparin Sodium,Porcine 5,000 Unit/Ml Vial) 5,000 unit SUBCUT Q8H [facility] Last Admin: 10/05/23 16:01 Dose: 5,000 unit Lactated Ringer's (Lr) 1,000 mls @ 100 mls/hr IVCONT .Q10H [facility] Last Admin: 10/05/23 13:44 Dose: 100 mls/hr Acetaminophen (Ofirmev) 1,000 mg in 100 mls @ 400 mls/hr IV Q6H [facility] Last Infusion: 10/05/23 15:23 Dose: Infused Ketorolac Tromethamine (Ketorolac Tromethamine 15 Mg/Ml Vial) 15 mg IVPUSH Q6H [facility] Stop: 10/05/23 22:01 Last Admin: 10/05/23 15:00 Dose: 15 mg Melatonin (Melatonin 3 Mg Tablet) 6 mg PO BEDTIME PRN PRN Reason: Insomnia Ondansetron HCl (Ondansetron Hcl 4 Mg/2 Ml Vial) 4 mg IVPUSH Q4H PRN PRN Reason: Nausea and Vomiting Phenytoin Sodium (Phenytoin Sodium Extended 100 Mg Capsule) 100 mg PO TID [facility] Last Admin: 10/05/23 14:01 Dose: 100 mg Sodium Chloride (0.9 % Sodium Chloride Flush 3 Ml Syringe) 3 ml IVFLUSH QSHIFT [facility] Last Admin: 10/05/23 13:05 Dose: Not Given Home Medications ?Medication ?Instructions ?Recorded ?Confirmed ?Last Taken ?Type bisacodyl 5 mg tablet,delayed 10 mg PO BEDTIME PRN Constipation 10/05/23 10/05/23 Unknown History release (Dulcolax (bisacodyl)) carbamazepine 200 mg tablet 300 mg PO DAILY@1500 10/05/23 10/05/23 Unknown History carbamazepine 200 mg tablet 400 mg PO BID 10/05/23 10/05/23 Unknown History cetirizine 10 mg tablet 10 mg PO DAILY 10/05/23 10/05/23 Unknown History linaclotide 290 mcg capsule 290 mcg PO DAILY 10/05/23 10/05/23 Unknown History (Linzess) phenytoin sodium extended 100 mg 100 mg PO TID 10/05/23 10/05/23 Unknown History capsule sulfasalazine 500 mg tablet 1,000 mg PO BID 10/05/23 10/05/23 Unknown History Physical Exam Vital Signs: Vital Signs: Last Vital Signs Temp 98.1 F 10/05/23 15:27 Pulse 92 10/05/23 15:27 Resp 18 10/05/23 15:27 BP 137/84 10/05/23 15:27 Pulse Ox 94 10/05/23 15:27 O2 Del Method Room Air 10/05/23 15:27 BMI result Body Mass Index 18.3 EXAM: GENERAL: The patient is non verbal, contracted limbs VITAL SIGNS:see workflow HEENT: Nonicteric sclerae, PERRLA, EOMI. Oropharynx clear. Moist mucous membranes. Conjunctivae appear well perfused. No thyroid mass. CHEST: Chest wall is nontender. HEART: Regular rate and rhythm without murmurs. LUNGS: Clear to auscultation bilaterally. ABDOMEN: Soft, positive bowel sounds but reduced--distended and tympanic, nontender, no organomegaly.no flank tenderness SKIN: No rash, no excessive bruising, petechiae, or purpura. NEUROLOGIC: contracted limbs Psych: non verbal Results Labs 10/05/23 10:56 10/05/23 10:56 Labs: Short CBC 10/04/23 10/05/23 Range/Units 20:34 10:56 WBC 14.7 H 10.1 (4.8-10.8) X10*3/uL Hgb 15.5 D 13.8 L (14.0-18.0) g/dl Hct 46.5 41.7 L (42.0-52.0) % Plt Count 429 H D 331 (160-400) X10*3/uL BMP 10/04/23 10/05/23 20:34 10:56 Sodium 140 141 Potassium 3.6 3.6 Chloride 106 107 Carbon Dioxide 20 L 23 BUN 26 H 22 H Creatinine 0.65 0.58 Calcium 9.9 8.8 D Liver Function 10/04/23 Range/Units 20:34 Total Bilirubin 0.5 (0.0-1.0) mg/dL Direct Bilirubin 0.2 (0.0-0.5) mg/dL AST 16 (5-37) U/L ALT 21 (0-40) U/L Alkaline Phosphatase 88 (39-117) U/L Albumin 4.9 (3.5-5.0) g/dL Imaging CT scan - abdomen: Attestation: I personally reviewed and interpreted this imaging study as follows: (distended loops of large bowel, similar to prior few years back) Assessment and Plan (1) [place] syndrome: Status: Acute Plan 1/ Possible pseudo obstruction given sparse bowel sounds and CP which can increase risk for this PLAN: 1/ Check lytes incl Mag, Ca, K and optimize 2/ periodic check on lactic acid 3/ KUB tomorrow, place rectal tube, if surgeyr agrees can also place NGT--hold opiates and bowel slowing meds if can Procedures Date of Service Date of Service: 10/05/23
[2023-10-06] MEDS: Lactated Ringers 1,000 ML 100 ML IVCONT ×3 (00:04→18:34)
[2023-10-06] MEDS: Heparin Sodium,Porcine 5,000 UNIT/ML VIAL 5000 UNIT SUBCUT ×3 (00:06→16:09)
[2023-10-06 03:36] VITALS: BP 101/59; PULSE 68; RESP 16; TEMP 36.6; O2SAT 97
[2023-10-06 06:41] LABS: Hematocrit 33.3 % (42.0-52.0); Hemoglobin 10.8 g/dl (14.0-18.0); Mean Corpuscular HGB Conc 32.4 g/dl (31.0-36.0); Mean Corpuscular Volume 95.7 fL (80.0-98.0); Mean Platelet Volume 9.7 fL (9.4-12.4); Platelet Count 277 X10*3/uL (160-400); Red Blood Count 3.48 X10*6/uL (4.60-5.80); Red Cell Distribution Width 13.1 % (11.0-16.0); White Blood Count 8.5 X10*3/uL (4.8-10.8)
[2023-10-06 06:53] LABS: Anion Gap 14 (12-20); Blood Urea Nitrogen 16 mg/dL (9-16); Calcium 8.2 mg/dL (8.4-10.2); Carbon Dioxide 23 mmol/L (22-29); Chloride 109 mmol/L (96-108); Creatinine Clr Calc Pharmacy 138.2; Estimated Glomerular Filt Rate > 60; Glucose Random 60 mg/dL (60-115); Potassium 3.4 mmol/L (3.3-5.1); Sodium 143 mmol/L (135-145)
[2023-10-06 07:49] VITALS: BP 121/67; PULSE 74; RESP 12; TEMP 36.7; O2SAT 100
[2023-10-06] MEDS: 0.9 % Sodium Chloride Flush 3 ML SYRINGE IVFLUSH ×2 (08:13→14:55)
[2023-10-06] MEDS: Phenytoin Sodium Extended 100 MG CAPSULE PO ×3 (08:14→22:10)
[2023-10-06] MEDS: carBAMazepine 200 MG TABLET 400 MG PO ×2 (08:14→22:10)
[2023-10-06] MEDS: Acetaminophen 1,000 MG/100 ML PIGGYBACK 400 MG IV ×3 (10:20→22:11)
[2023-10-06 12:00] VITALS: BP 118/59; PULSE 61; RESP 18; TEMP 36.5; O2SAT 99
--- NOTE | 2023-10-06 13:13 | P.PNIM_ITS ---
Subjective Subjective Date of Service: 10/06/23 Interval History: Seen and evaluated this morning not passing gas or stool yet Physical Exam 2 Vital Signs: Vital Signs: Last Vital Signs Temp 97.7 F 10/06/23 12:00 Pulse 61 10/06/23 12:00 Resp 18 10/06/23 12:00 BP 118/59 L 10/06/23 12:00 Pulse Ox 99 10/06/23 12:00 O2 Del Method Room Air 10/06/23 12:00 BMI result Body Mass Index 18.3 Const: Other: Constitutional : interactive, not in distress Cardiovascular : no JVP, no lower extremity edema Respiratory : bilateral chest movement, not in resp distress Gastrointestinal: soft, lax, Non tender, minimal bowels sounds, mildly distended Skin : Warm, Dry Neurological : Alert & oriented , No focal deficit Objective Data Active Medications Carbamazepine (Carbamazepine 200 Mg Tablet) 400 mg PO BID [facility] Last Admin: 10/06/23 08:14 Dose: 400 mg Documented By: ANNY Carbamazepine (Carbamazepine 200 Mg Tablet) 300 mg PO DAILY@1500 [facility] Last Admin: 10/05/23 14:02 Dose: 300 mg Documented By: FREDA Heparin Sodium (Porcine) (Heparin Sodium,Porcine 5,000 Unit/Ml Vial) 5,000 unit SUBCUT Q8H [facility] Last Admin: 10/06/23 08:12 Dose: 5,000 unit Documented By: ANNY Lactated Ringer's (Lr) 1,000 mls @ 100 mls/hr IVCONT .Q10H [facility] Last Admin: 10/06/23 08:22 Dose: 100 mls/hr Documented By: ANNY Acetaminophen (Ofirmev) 1,000 mg in 100 mls @ 400 mls/hr IV Q6H [facility] Last Infusion: 10/06/23 10:43 Dose: Infused Documented By: ANNY Melatonin (Melatonin 3 Mg Tablet) 6 mg PO BEDTIME PRN PRN Reason: Insomnia Ondansetron HCl (Ondansetron Hcl 4 Mg/2 Ml Vial) 4 mg IVPUSH Q4H PRN PRN Reason: Nausea and Vomiting Phenytoin Sodium (Phenytoin Sodium Extended 100 Mg Capsule) 100 mg PO TID [facility] Last Admin: 10/06/23 08:14 Dose: 100 mg Documented By: ANNY Sodium Chloride (0.9 % Sodium Chloride Flush 3 Ml Syringe) 3 ml IVFLUSH QSHIFT [facility] Last Admin: 10/06/23 08:13 Dose: 3 ml Documented By: ANNY Labs 10/06/23 06:04 10/06/23 06:04 Labs: Laboratory Results - last 24 hr 10/06/23 06:04 MCV 95.7 MCH 31.0 MCHC 32.4 RDW 13.1 Plt Count 277 MPV 9.7 Absolute Nucleated RBC 0.000 Nucleated RBC % (auto) 0.0 Anion Gap 14 Estim Creat Clear Calc 138.2 Estimated GFR > 60 Random Glucose 60 Calcium 8.2 L D Assessment and Plan (1) Acute dehydration: Status: Acute (2) Abdominal distension: Status: Acute (3) Paralytic ileus: Status: Acute Plan Demarcus Joseph is a 38 y/o man chronic idiopathic constipation, intestinal surgery and exploratory laparotomy admitted with: Abdominal distension, likely ileus. NPO IV fluids Pain control with Tylenol and Toradol IV Zofran as needed. repeat XR showing SBO still surgery input appreciated failed rectal tube and enema for now Spastic quadriplegic cerebral palsy. Continue baclofen as needed. Patient also has a intrathecal baclofen pump (dose recently decreased due to constipation). Epilepsy. Continue carbamazepine and phenytoin. RA. Continue sulfasalazine. DVT prophylaxis: Heparin Patient will need hospitalization overnight for small bowel obstruction management with IV fluids and pain control Quality Stroke Does the patient have a stroke diagnosis?: No VTE Prior VTE?: No VTE Risk Level:: Medical - moderate - high VTE Device Contraindication: Treatment Not Indicated VTE Drug Contraindication: N/A - Med Ordered
[2023-10-06] MEDS: carBAMazepine 200 MG TABLET 300 MG PO (14:54)
--- NOTE | 2023-10-06 14:54 | P.PNGS_ITS ---
Subjective Subjective Date of Service: 10/06/23 Interval history: Patient was evaluated. Mother was present. No new issues or complaints. No output from rectal tube. White blood cell count 9. KUB per radiologist unchanged Physical Exam 2 Vital Signs: Vital Signs: Last Vital Signs Temp 97.7 F 10/06/23 12:00 Pulse 61 10/06/23 12:00 Resp 18 10/06/23 12:00 BP 118/59 L 10/06/23 12:00 Pulse Ox 99 10/06/23 12:00 O2 Del Method Room Air 10/06/23 12:00 BMI result Body Mass Index 18.3 Const: Other: Patient is severely mentally handicapped, minimally communicative GI: Other: Abdomen marked markedly distended but softer when compared to yesterday. Less tense. No gross evidence of guarding, rebound, or rigidity. Objective Data Active Medications Carbamazepine (Carbamazepine 200 Mg Tablet) 400 mg PO BID [facility] Last Admin: 10/06/23 08:14 Dose: 400 mg Documented By: ANNY Carbamazepine (Carbamazepine 200 Mg Tablet) 300 mg PO DAILY@1500 [facility] Last Admin: 10/05/23 14:02 Dose: 300 mg Documented By: FREDA Heparin Sodium (Porcine) (Heparin Sodium,Porcine 5,000 Unit/Ml Vial) 5,000 unit SUBCUT Q8H [facility] Last Admin: 10/06/23 08:12 Dose: 5,000 unit Documented By: ANNY Lactated Ringer's (Lr) 1,000 mls @ 100 mls/hr IVCONT .Q10H [facility] Last Admin: 10/06/23 08:22 Dose: 100 mls/hr Documented By: ANNY Acetaminophen (Ofirmev) 1,000 mg in 100 mls @ 400 mls/hr IV Q6H [facility] Last Infusion: 10/06/23 10:43 Dose: Infused Documented By: ANNY Melatonin (Melatonin 3 Mg Tablet) 6 mg PO BEDTIME PRN PRN Reason: Insomnia Ondansetron HCl (Ondansetron Hcl 4 Mg/2 Ml Vial) 4 mg IVPUSH Q4H PRN PRN Reason: Nausea and Vomiting Phenytoin Sodium (Phenytoin Sodium Extended 100 Mg Capsule) 100 mg PO TID [facility] Last Admin: 10/06/23 08:14 Dose: 100 mg Documented By: ANNY Sodium Chloride (0.9 % Sodium Chloride Flush 3 Ml Syringe) 3 ml IVFLUSH QSHIFT [facility] Last Admin: 10/06/23 08:13 Dose: 3 ml Documented By: ANNY Labs 10/06/23 06:04 10/06/23 06:04 Labs: Laboratory Results - last 24 hr 10/06/23 06:04 MCV 95.7 MCH 31.0 MCHC 32.4 RDW 13.1 Plt Count 277 MPV 9.7 Absolute Nucleated RBC 0.000 Nucleated RBC % (auto) 0.0 Anion Gap 14 Estim Creat Clear Calc 138.2 Estimated GFR > 60 Random Glucose 60 Calcium 8.2 L D Procedures Date of Service Date of Service: 10/06/23 Progress Note: A&P Assessment and plan (1) [place] syndrome: Status: Acute (2) Abdominal distension: Status: Acute (3) Chronic idiopathic constipation: Status: Acute Plan At present, continue current plan of purgatives, minimizing narcotics, laxatives etc.. No acute surgical issues at this time. Time Spent With Patient Time: Total time managing care of this patient today ____ minutes. Quality Stroke Does the patient have a stroke diagnosis?: No VTE Prior VTE?: No VTE Risk Level:: Medical - moderate - high VTE Device Contraindication: Treatment Not Indicated VTE Drug Contraindication: N/A - Med Ordered
[2023-10-06 16:27] VITALS: BP 117/58; PULSE 68; RESP 12; O2SAT 92
--- NOTE | 2023-10-06 17:17 | PC.NURSE ---
Addendum entered by Alejandrina Miller RN 10/06/23 18:38: no results from SSE,Dr. Escobar notified Original Note: rectal tube removed,patient tolerated it well,SSE administered,will monitorpt ,mother at the bedside.
[2023-10-06 20:00] VITALS: BP 146/65; PULSE 52; RESP 14; TEMP 36.2; O2SAT 95
[2023-10-06 23:51] VITALS: BP 126/59; PULSE 62; RESP 16; TEMP 36.2; O2SAT 96
[2023-10-07] MEDS: Heparin Sodium,Porcine 5,000 UNIT/ML VIAL 5000 UNIT SUBCUT ×3 (01:18→16:28)
[2023-10-07 04:00] VITALS: BP 132/62; PULSE 58; RESP 16; TEMP 36.5; O2SAT 97
[2023-10-07] MEDS: Lactated Ringers 1,000 ML 100 ML IVCONT (06:00)
[2023-10-07 06:54] LABS: Hematocrit 33.4 % (42.0-52.0); Hemoglobin 10.5 g/dl (14.0-18.0); Mean Corpuscular HGB Conc 31.4 g/dl (31.0-36.0); Mean Corpuscular Hemoglobin 30.7 pg (27.0-33.0); Mean Corpuscular Volume 97.7 fL (80.0-98.0); Platelet Count 273 X10*3/uL (160-400); Red Blood Count 3.42 X10*6/uL (4.60-5.80); Red Cell Distribution Width 13.1 % (11.0-16.0); White Blood Count 6.8 X10*3/uL (4.8-10.8)
[2023-10-07 07:23] LABS: Anion Gap 18 (12-20); Blood Urea Nitrogen 4 mg/dL (9-16); Calcium 8.6 mg/dL (8.4-10.2); Carbon Dioxide 15 mmol/L (22-29); Chloride 110 mmol/L (96-108); Creatinine Clr Calc Pharmacy 127.4; Estimated Glomerular Filt Rate > 60; Glucose Random 52 mg/dL (60-115); Potassium 3.5 mmol/L (3.3-5.1); Sodium 139 mmol/L (135-145)
[2023-10-07] MEDS: Dextrose 10 % 250 ML 750 ML IV (07:43)
[2023-10-07 07:44] VITALS: BP 135/63; PULSE 75; RESP 18; TEMP 36.1; O2SAT 94
[2023-10-07] MEDS: Dextrose 5 % and Lactated Ring 1,000 ML 100 ML IVCONT ×2 (07:50→16:27)
[2023-10-07] MEDS: 0.9 % Sodium Chloride Flush 3 ML SYRINGE IVFLUSH ×2 (07:53→15:55)
[2023-10-07 07:59] LABS: Glucose, Whole Blood 200 mg/dL (60-115)
[2023-10-07] MEDS: Phenytoin Sodium Extended 100 MG CAPSULE PO ×3 (10:08→22:04)
[2023-10-07] MEDS: carBAMazepine 200 MG TABLET 400 MG PO ×2 (10:08→22:04)
--- NOTE | 2023-10-07 10:54 | PC.NURSE ---
lactulose not available for enema,pharmacy notified
[2023-10-07] MEDS: Acetaminophen 1,000 MG/100 ML PIGGYBACK 400 MG IV ×3 (10:56→22:05)
[2023-10-07] MEDS: Lactulose 320 GM/480 ML SOLUTION 200 GM PR ×2 (11:45→22:04)
--- NOTE | 2023-10-07 12:01 | PC.NURSE ---
lactulose enema administered ,patient tolerated it well.will monitor
[2023-10-07 12:42] VITALS: BP 161/78; PULSE 59; RESP 18; TEMP 36.2; O2SAT 96
--- NOTE | 2023-10-07 13:26 | PM.PNGS ---
Subjective Subjective Date of Service: 10/07/23 Interval history: Patient evaluated with mother present. She states that he is essentially the same. No flatus or stool. She also states that he has had a similar episode of this prolonged ileus a few years ago which lasted approximately 10 days. Spoke with patient's hospitalist. He is trying to arrange to have the baclofen pump stopped. I think this will also help the patient regarding his pseudo obstruction/ileus Physical Exam Vital Signs: Vital Signs: Last Vital Signs Temp 97.2 F 10/07/23 12:42 Pulse 59 10/07/23 12:42 Resp 18 10/07/23 12:42 BP 161/78 H 10/07/23 12:42 Pulse Ox 96 10/07/23 12:42 O2 Del Method Room Air 10/07/23 12:42 BMI result Body Mass Index 18.3 GI: Other: Abdomen distended but soft status quo from yesterday. No gross evidence of guarding, rebound, or rigidity. Difficult exam secondary to the patient's marked delay handicap status. Objective Data Active Medications Carbamazepine (Carbamazepine 200 Mg Tablet) 400 mg PO BID [facility] Last Admin: 10/07/23 10:08 Dose: 400 mg Documented By: ANNY Carbamazepine (Carbamazepine 200 Mg Tablet) 300 mg PO DAILY@1500 [facility] Last Admin: 10/06/23 14:54 Dose: 300 mg Documented By: ANNY Heparin Sodium (Porcine) (Heparin Sodium,Porcine 5,000 Unit/Ml Vial) 5,000 unit SUBCUT Q8H [facility] Last Admin: 10/07/23 10:07 Dose: 5,000 unit Documented By: ANNY Acetaminophen (Ofirmev) 1,000 mg in 100 mls @ 400 mls/hr IV Q6H [facility] Last Infusion: 10/07/23 11:37 Dose: Infused Documented By: ANNY Dextrose (D10) 250 mls @ 750 mls/hr IV Q15M PRN PRN Reason: per Hypoglycemia Standing Ord. Last Infusion: 10/07/23 08:07 Dose: Infused Documented By: ANNY Dextrose/Lactated Ringer's (D5lr) 1,000 mls @ 100 mls/hr IVCONT .Q10H [facility] Last Admin: 10/07/23 07:50 Dose: 100 mls/hr Documented By: ANNY Melatonin (Melatonin 3 Mg Tablet) 6 mg PO BEDTIME PRN PRN Reason: Insomnia Ondansetron HCl (Ondansetron Hcl 4 Mg/2 Ml Vial) 4 mg IVPUSH Q4H PRN PRN Reason: Nausea and Vomiting Phenytoin Sodium (Phenytoin Sodium Extended 100 Mg Capsule) 100 mg PO TID [facility] Last Admin: 10/07/23 10:08 Dose: 100 mg Documented By: ANNY Sodium Chloride (0.9 % Sodium Chloride Flush 3 Ml Syringe) 3 ml IVFLUSH QSHIFT [facility] Last Admin: 10/07/23 07:53 Dose: 3 ml Documented By: ANNY Labs 10/07/23 05:55 10/07/23 05:55 Labs: Laboratory Results - last 24 hr 10/07/23 10/07/23 05:55 07:56 MCV 97.7 MCH 30.7 MCHC 31.4 RDW 13.1 Plt Count 273 MPV 10.0 Absolute Nucleated RBC 0.000 Nucleated RBC % (auto) 0.0 Anion Gap 18 Estim Creat Clear Calc 127.4 Estimated GFR > 60 POC Glucose 200 H Random Glucose 52 L* Calcium 8.6 Procedures Date of Service Date of Service: 10/07/23 Progress Note: A&P Assessment and plan (1) [place] syndrome: Status: Acute Plan Continue current plan. Consider GI consult if patient has persistent distention for consideration of colonoscopic decompression Time Spent With Patient Time: Total time managing care of this patient today ____ minutes. Quality Stroke Does the patient have a stroke diagnosis?: No VTE Prior VTE?: No VTE Risk Level:: Medical - moderate - high VTE Device Contraindication: Treatment Not Indicated VTE Drug Contraindication: N/A - Med Ordered
--- NOTE | 2023-10-07 14:33 | HO.PM.IMPN ---
Subjective Subjective Date of Service: 10/07/23 Interval History: Seen and evaluated this morning passed small amout of stool with enema no signs of discomfort, sleeping quietly Review of Systems Review of Systems: Yes all other systems are reviewed and are negative Physical Exam Vital Signs: Vital Signs: Last Vital Signs Temp 97.2 F 10/07/23 12:42 Pulse 59 10/07/23 12:42 Resp 18 10/07/23 12:42 BP 161/78 H 10/07/23 12:42 Pulse Ox 96 10/07/23 12:42 O2 Del Method Room Air 10/07/23 12:42 BMI result Body Mass Index 18.3 Const: Other: Constitutional : interactive, not in distress Cardiovascular : no JVP, no lower extremity edema Respiratory : bilateral chest movement, not in resp distress Gastrointestinal: soft, lax, Non tender, no significant bowels sounds, mildly distended Skin : Warm, Dry Neurological : Alert & oriented , No focal deficit Objective Data Active Medications Carbamazepine (Carbamazepine 200 Mg Tablet) 400 mg PO BID [facility] Last Admin: 10/07/23 10:08 Dose: 400 mg Documented By: ANNY Carbamazepine (Carbamazepine 200 Mg Tablet) 300 mg PO DAILY@1500 [facility] Last Admin: 10/06/23 14:54 Dose: 300 mg Documented By: ANNY Heparin Sodium (Porcine) (Heparin Sodium,Porcine 5,000 Unit/Ml Vial) 5,000 unit SUBCUT Q8H [facility] Last Admin: 10/07/23 10:07 Dose: 5,000 unit Documented By: ANNY Acetaminophen (Ofirmev) 1,000 mg in 100 mls @ 400 mls/hr IV Q6H [facility] Last Infusion: 10/07/23 11:37 Dose: Infused Documented By: ANNY Dextrose (D10) 250 mls @ 750 mls/hr IV Q15M PRN PRN Reason: per Hypoglycemia Standing Ord. Last Infusion: 10/07/23 08:07 Dose: Infused Documented By: ANNY Dextrose/Lactated Ringer's (D5lr) 1,000 mls @ 100 mls/hr IVCONT .Q10H [facility] Last Admin: 10/07/23 07:50 Dose: 100 mls/hr Documented By: ANNY Melatonin (Melatonin 3 Mg Tablet) 6 mg PO BEDTIME PRN PRN Reason: Insomnia Ondansetron HCl (Ondansetron Hcl 4 Mg/2 Ml Vial) 4 mg IVPUSH Q4H PRN PRN Reason: Nausea and Vomiting Phenytoin Sodium (Phenytoin Sodium Extended 100 Mg Capsule) 100 mg PO TID [facility] Last Admin: 10/07/23 10:08 Dose: 100 mg Documented By: ANNY Sodium Chloride (0.9 % Sodium Chloride Flush 3 Ml Syringe) 3 ml IVFLUSH QSHIFT [facility] Last Admin: 10/07/23 07:53 Dose: 3 ml Documented By: ANNY Labs 10/07/23 05:55 10/07/23 05:55 Labs: Laboratory Results - last 24 hr 10/07/23 10/07/23 05:55 07:56 MCV 97.7 MCH 30.7 MCHC 31.4 RDW 13.1 Plt Count 273 MPV 10.0 Absolute Nucleated RBC 0.000 Nucleated RBC % (auto) 0.0 Anion Gap 18 Estim Creat Clear Calc 127.4 Estimated GFR > 60 POC Glucose 200 H Random Glucose 52 L* Calcium 8.6 Assessment and Plan (1) [place] syndrome: Status: Acute (2) Acute dehydration: Status: Acute (3) Abdominal distension: Status: Acute Plan Demarcus Joseph is a 38 y/o man chronic idiopathic constipation, intestinal surgery and exploratory laparotomy admitted with: Abdominal distension, likely ileus. NPO IV fluids Pain control with Tylenol IV Zofran as needed. repeated KUB showing SBO still surgery input appreciated start Lactulose enema tid GI suggest using Neostigmine To get in touch with primary team regarding Baclofen pump Spastic quadriplegic cerebral palsy. Continue baclofen as needed. Patient also has a intrathecal baclofen pump (dose recently decreased due to constipation). Epilepsy. Continue carbamazepine and phenytoin. RA. Continue sulfasalazine. DVT prophylaxis: Heparin Patient will need hospitalization overnight for small bowel obstruction management with IV fluids and pain control Quality Stroke Does the patient have a stroke diagnosis?: No VTE Prior VTE?: No VTE Risk Level:: Medical - moderate - high VTE Device Contraindication: Treatment Not Indicated VTE Drug Contraindication: N/A - Med Ordered
--- NOTE | 2023-10-07 15:33 | PC.NURSE ---
last lactulose enema was administered at 1145,per pharmacist Daysi we should hold 1500 dose
[2023-10-07 15:36] VITALS: BP 164/75; PULSE 56; RESP 18; TEMP 36.1; O2SAT 98
[2023-10-07] MEDS: carBAMazepine 200 MG TABLET 300 MG PO (15:54)
[2023-10-07 17:52] LABS: C Reactive Protein 16.86 mg/dL (< or = 0.50); Magnesium 1.9 mg/dL (1.6-2.6); Phosphorus 2.2 mg/dL (2.7-4.5)
[2023-10-07 18:00] LABS: Carbamazepine Tegretol 10.5 mcg/mL (5.0-12.0)
[2023-10-07 18:21] LABS: TSH reflex Free T4 0.15 uIU/mL (0.32-4.0)
[2023-10-07 18:51] LABS: Free T4 (Free Thyroxine) 0.85 ng/dL (0.71-1.85)
[2023-10-07 19:43] VITALS: BP 144/67; PULSE 59; RESP 17; TEMP 36.1; O2SAT 96
[2023-10-07 23:39] VITALS: BP 165/78; PULSE 61; RESP 17; TEMP 36.5; O2SAT 96
[2023-10-08] MEDS: Heparin Sodium,Porcine 5,000 UNIT/ML VIAL 5000 UNIT SUBCUT ×3 (02:21→16:09)
[2023-10-08] MEDS: Dextrose 5 % and Lactated Ring 1,000 ML 100 ML IVCONT ×2 (02:22→14:32)
[2023-10-08 02:43] VITALS: BP 140/86; PULSE 59; RESP 17; TEMP 36.4; O2SAT 97
[2023-10-08] MEDS: Acetaminophen 1,000 MG/100 ML PIGGYBACK 400 MG IV ×4 (04:56→22:09)
[2023-10-08 06:14] LABS: Hematocrit 34.9 % (42.0-52.0); Hemoglobin 11.7 g/dl (14.0-18.0); Mean Corpuscular HGB Conc 33.5 g/dl (31.0-36.0); Mean Corpuscular Hemoglobin 30.6 pg (27.0-33.0); Mean Corpuscular Volume 91.4 fL (80.0-98.0); Mean Platelet Volume 9.4 fL (9.4-12.4); Platelet Count 310 X10*3/uL (160-400); Red Blood Count 3.82 X10*6/uL (4.60-5.80); Red Cell Distribution Width 12.7 % (11.0-16.0); White Blood Count 5.8 X10*3/uL (4.8-10.8)
[2023-10-08 06:24] LABS: Lactic Acid 0.9 mmol/L (0.5-2.0)
[2023-10-08 06:32] LABS: Alanine Aminotransferase 20 U/L (0-40); Albumin Level 3.3 g/dL (3.5-5.0); Alkaline Phosphatase 84 U/L (39-117); Anion Gap 12 (12-20); Aspartate Amino Transferase 21 U/L (5-37); Bilirubin Total 0.5 mg/dL (0.0-1.0); Blood Urea Nitrogen < 3 mg/dL (9-16); Calcium 8.9 mg/dL (8.4-10.2); Carbon Dioxide 26 mmol/L (22-29); Chloride 105 mmol/L (96-108); Creatinine Clr Calc Pharmacy 144.4; Estimated Glomerular Filt Rate > 60; Glucose Random 117 mg/dL (60-115); Magnesium 1.5 mg/dL (1.6-2.6); Potassium 2.9 mmol/L (3.3-5.1); Sodium 140 mmol/L (135-145)
[2023-10-08] MEDS: Potassium Chloride/H20 10 MEQ/100 ML PIGGYBACK 100 MEQ IV ×4 (07:13→11:24)
[2023-10-08 07:18] VITALS: BP 133/72; PULSE 62; RESP 12; TEMP 36.7; O2SAT 96
[2023-10-08] MEDS: Phenytoin Sodium Extended 100 MG CAPSULE PO ×3 (07:20→20:10)
[2023-10-08] MEDS: 0.9 % Sodium Chloride Flush 3 ML SYRINGE IVFLUSH ×2 (07:20→16:10)
[2023-10-08] MEDS: carBAMazepine 200 MG TABLET 400 MG PO ×2 (07:20→20:10)
--- NOTE | 2023-10-08 08:16 | P.PNGS_ITS ---
Subjective Subjective Date of Service: 10/08/23 Interval history: Had small bowel movement yesterday. Physical Exam 2 Vital Signs: Vital Signs: Last Vital Signs Temp 98.0 F 10/08/23 07:18 Pulse 62 10/08/23 07:18 Resp 12 10/08/23 07:18 BP 133/72 10/08/23 07:18 Pulse Ox 96 10/08/23 07:18 O2 Del Method Room Air 10/08/23 07:18 BMI result Body Mass Index 18.3 Const: General: no acute distress GI: Inspection: Yes distended Palpation (GI): Soft to palpation, nontender and not rigid Percussion: Yes tympanic to percussion Objective Data Active Medications Carbamazepine (Carbamazepine 200 Mg Tablet) 400 mg PO BID [facility] Last Admin: 10/08/23 07:20 Dose: 400 mg Documented By: ANNY Carbamazepine (Carbamazepine 200 Mg Tablet) 300 mg PO DAILY@1500 [facility] Last Admin: 10/07/23 15:54 Dose: 300 mg Documented By: ANNY Heparin Sodium (Porcine) (Heparin Sodium,Porcine 5,000 Unit/Ml Vial) 5,000 unit SUBCUT Q8H [facility] Last Admin: 10/08/23 07:22 Dose: 5,000 unit Documented By: ANNY Acetaminophen (Ofirmev) 1,000 mg in 100 mls @ 400 mls/hr IV Q6H [facility] Last Infusion: 10/08/23 05:59 Dose: Infused Documented By: MARIFER Dextrose (D10) 250 mls @ 750 mls/hr IV Q15M PRN PRN Reason: per Hypoglycemia Standing Ord. Last Infusion: 10/07/23 08:07 Dose: Infused Documented By: ANNY Dextrose/Lactated Ringer's (D5lr) 1,000 mls @ 100 mls/hr IVCONT .Q10H [facility] Last Admin: 10/08/23 02:22 Dose: 100 mls/hr Documented By: MARIFER Potassium Chloride (Potassium Chloride/H20) 10 meq in 100 mls @ 100 mls/hr IV Q1H [facility] Stop: 10/08/23 10:44 Last Admin: 10/08/23 07:13 Dose: 100 mls/hr Documented By: ANNY Potassium Chloride (Potassium Chloride/H20) 10 meq in 100 mls @ 100 mls/hr IV Q1H [facility] Stop: 10/08/23 09:44 Magnesium Sulfate (Magnesium Sulfate/H2o) 2 gm in 50 mls @ 25 mls/hr IV ONCE ONE Stop: 10/08/23 09:30 Lactulose (Lactulose 320 Gm/480 Ml Solution) 200 gm PA TID [facility] Last Admin: 10/07/23 22:04 Dose: 200 gm Documented By: MARIFER Melatonin (Melatonin 3 Mg Tablet) 6 mg PO BEDTIME PRN PRN Reason: Insomnia Ondansetron HCl (Ondansetron Hcl 4 Mg/2 Ml Vial) 4 mg IVPUSH Q4H PRN PRN Reason: Nausea and Vomiting Phenytoin Sodium (Phenytoin Sodium Extended 100 Mg Capsule) 100 mg PO TID [facility] Last Admin: 10/08/23 07:20 Dose: 100 mg Documented By: ANNY Sodium Chloride (0.9 % Sodium Chloride Flush 3 Ml Syringe) 3 ml IVFLUSH QSHIFT [facility] Last Admin: 10/08/23 07:20 Dose: 3 ml Documented By: ANNY Labs 10/08/23 06:03 10/08/23 06:03 Labs: Laboratory Results - last 24 hr 10/07/23 10/07/23 10/08/23 05:55 17:28 06:03 MCV 91.4 D MCH 30.6 MCHC 33.5 RDW 12.7 Plt Count 310 MPV 9.4 Absolute Nucleated RBC 0.000 Nucleated RBC % (auto) 0.0 Anion Gap 12 Estim Creat Clear Calc 144.4 Estimated GFR > 60 Random Glucose 117 H Lactic Acid 0.9 Calcium 8.9 Phosphorus 2.2 L Magnesium 1.9 1.5 L Total Bilirubin 0.5 AST 21 ALT 20 Alkaline Phosphatase 84 C-Reactive Protein 16.86 H Total Protein 6.0 L Albumin 3.3 L TSH 0.15 L Free T4 0.85 Carbamazepine 10.5 Procedures Date of Service Date of Service: 10/08/23 Progress Note: A&P Assessment and plan (1) Abdominal distension: Status: Acute (2) Medina syndrome: Status: Acute Plan Abdomen is unchanged, softly distended. Distention virtually unchanged but had small BM yesterday. Correct lytes. GI had discussed neostigmine but family wanted to hold off. Time Spent With Patient Time: Total time managing care of this patient today ____ minutes. Quality Stroke Does the patient have a stroke diagnosis?: No VTE Prior VTE?: No VTE Risk Level:: Medical - moderate - high VTE Device Contraindication: Treatment Not Indicated VTE Drug Contraindication: N/A - Med Ordered
[2023-10-08] MEDS: Lactulose 320 GM/480 ML SOLUTION 200 GM PR ×2 (09:38→16:09)
[2023-10-08 11:46] LABS: Potassium 3.7 mmol/L (3.3-5.1)
--- NOTE | 2023-10-08 11:49 | MHC.CLN ---
Addendum entered by Danielle Carr RD 10/08/23 12:05: DIET ADVANCED TO CLEAR LIQUIDS. Original Note: F/U TODAY IS DAY 4 NPO. HX CHRONIC CONSTIPATION. IF UNABLE TO ADVANCE DIET, MAY BENEFIT FROM PARENTERAL NUTRITION. FOLLOW FOR GI STATUS, DIET ADVANCEMENT AND INTAKE.
--- NOTE | 2023-10-08 12:07 | MHC.CM.PN ---
PER MD ROUNDS PATIENT IS NOT MEDICALLY CLEARED FOR DC. NO CHANGE TO DC PLAN. CM WILL CONTINUE TO FOLLOW.
--- NOTE | 2023-10-08 12:15 | HO.PM.IMPN ---
Subjective Subjective Date of Service: 10/08/23 Interval History: Seen and evaluated this morning no significant bowel movements no signs of discomfort sleeping quietly Physical Exam Vital Signs: Vital Signs: Last Vital Signs Temp 98.0 F 10/08/23 07:18 Pulse 62 10/08/23 07:18 Resp 12 10/08/23 07:18 BP 133/72 10/08/23 07:18 Pulse Ox 96 10/08/23 07:18 O2 Del Method Room Air 10/08/23 07:18 BMI result Body Mass Index 18.3 Const: Other: Constitutional : interactive, not in distress Cardiovascular : no JVP, no lower extremity edema Respiratory : bilateral chest movement, not in resp distress Gastrointestinal: soft, lax, Non tender, has some sounds in upper abdomen significant bowels sounds, mildly distended Skin : Warm, Dry Neurological : Alert & oriented , No focal deficit Objective Data Active Medications Carbamazepine (Carbamazepine 200 Mg Tablet) 400 mg PO BID [facility] Last Admin: 10/08/23 07:20 Dose: 400 mg Documented By: ANNY Carbamazepine (Carbamazepine 200 Mg Tablet) 300 mg PO DAILY@1500 [facility] Last Admin: 10/07/23 15:54 Dose: 300 mg Documented By: ANNY Heparin Sodium (Porcine) (Heparin Sodium,Porcine 5,000 Unit/Ml Vial) 5,000 unit SUBCUT Q8H [facility] Last Admin: 10/08/23 07:22 Dose: 5,000 unit Documented By: ANNY Acetaminophen (Ofirmev) 1,000 mg in 100 mls @ 400 mls/hr IV Q6H [facility] Last Infusion: 10/08/23 10:17 Dose: Infused Documented By: ANNY Dextrose (D10) 250 mls @ 750 mls/hr IV Q15M PRN PRN Reason: per Hypoglycemia Standing Ord. Last Infusion: 10/07/23 08:07 Dose: Infused Documented By: ANNY Dextrose/Lactated Ringer's (D5lr) 1,000 mls @ 75 mls/hr IVCONT .[id number] [facility] Last Admin: 10/08/23 02:22 Dose: 100 mls/hr Documented By: MARIFER Lactulose (Lactulose 320 Gm/480 Ml Solution) 200 gm UT TID [facility] Last Admin: 10/08/23 09:38 Dose: 200 gm Documented By: ANNY Melatonin (Melatonin 3 Mg Tablet) 6 mg PO BEDTIME PRN PRN Reason: Insomnia Ondansetron HCl (Ondansetron Hcl 4 Mg/2 Ml Vial) 4 mg IVPUSH Q4H PRN PRN Reason: Nausea and Vomiting Phenytoin Sodium (Phenytoin Sodium Extended 100 Mg Capsule) 100 mg PO TID [facility] Last Admin: 10/08/23 07:20 Dose: 100 mg Documented By: ANNY Sodium Chloride (0.9 % Sodium Chloride Flush 3 Ml Syringe) 3 ml IVFLUSH QSHIFT [facility] Last Admin: 10/08/23 07:20 Dose: 3 ml Documented By: ANNY Labs 10/08/23 06:03 10/08/23 11:11 Labs: Laboratory Results - last 24 hr 10/07/23 10/07/23 10/08/23 05:55 17:28 06:03 MCV 91.4 D MCH 30.6 MCHC 33.5 RDW 12.7 Plt Count 310 MPV 9.4 Absolute Nucleated RBC 0.000 Nucleated RBC % (auto) 0.0 Anion Gap 12 Estim Creat Clear Calc 144.4 Estimated GFR > 60 Random Glucose 117 H Lactic Acid 0.9 Calcium 8.9 Phosphorus 2.2 L Magnesium 1.9 1.5 L Total Bilirubin 0.5 AST 21 ALT 20 Alkaline Phosphatase 84 C-Reactive Protein 16.86 H Total Protein 6.0 L Albumin 3.3 L TSH 0.15 L Free T4 0.85 Carbamazepine 10.5 Assessment and Plan (1) Cyndie syndrome: Status: Acute (2) Abdominal distension: Status: Acute (3) Acute hypokalemia: Status: Acute (4) Hypomagnesemia: Status: Acute Plan Demarcus Joseph is a 38 y/o man chronic idiopathic constipation, intestinal surgery and exploratory laparotomy admitted with: Abdominal distension, likely ileus. repeated KUB showing SBO 10/05 surgery input appreciated , no surgery GI suggest using Neostigmine and starting diet start clears and monitor tolerance start Erythromycin PO His HCP wants to hold on Neostigmine for now continue IV fluids Pain control with Tylenol IV Zofran as needed. Continue Lactulose enema tid To get in touch with primary team regarding Baclofen pump Acute hypoklemia IV replacement improved to 3.7 acute hypomagnesemia replacement given Spastic quadriplegic cerebral palsy. Continue baclofen as needed. Patient also has a intrathecal baclofen pump (dose recently decreased due to constipation). Epilepsy. Continue carbamazepine and phenytoin. RA. Continue sulfasalazine. DVT prophylaxis: Heparin Patient will need hospitalization overnight for small bowel obstruction management with IV fluids and pain control Quality Stroke Does the patient have a stroke diagnosis?: No VTE Prior VTE?: No VTE Risk Level:: Medical - moderate - high VTE Device Contraindication: Treatment Not Indicated VTE Drug Contraindication: N/A - Med Ordered
[2023-10-08] MEDS: Magnesium Sulfate/H2O 2 GM/50 ML PIGGYBACK IV (12:44)
--- NOTE | 2023-10-08 12:58 | PC.NURSE ---
K level 3.[address] Escobar,only bags of IV potassium suppose to be administered which is completed at present,Dr. Escobar notified
--- NOTE | 2023-10-08 14:37 | PM.GIPN ---
Subjective Subjective Date of Service: 10/08/23 Interval History: non verbal abdomen distended bowel sounds pos low K and Mag, crp elevated Critical Care Time (minutes): 0 Physical Exam Vital Signs: Vital Signs: Last Vital Signs Temp 98.0 F 10/08/23 07:18 Pulse 62 10/08/23 07:18 Resp 12 10/08/23 07:18 BP 133/72 10/08/23 07:18 Pulse Ox 96 10/08/23 07:18 O2 Del Method Room Air 10/08/23 07:18 BMI result Body Mass Index 18.3 EXAM: GENERAL: The patient is non verbal, VITAL SIGNS:see workflow HEENT: Nonicteric sclerae, PERRLA, EOMI. Oropharynx clear. Moist mucous membranes. Conjunctivae appear well perfused. No thyroid mass. CHEST: Chest wall is nontender. HEART: Regular rate and rhythm without murmurs. LUNGS: Clear to auscultation bilaterally. ABDOMEN: Soft-distended, positive bowel sounds, nontender, no organomegaly.no flank tenderness SKIN: No rash, no excessive bruising, petechiae, or purpura. NEUROLOGIC: Contractures Psych: normal affect Objective Data Labs 10/08/23 06:03 10/08/23 11:11 Labs: Laboratory Results - last 24 hr 10/07/23 10/07/23 10/08/23 05:55 17:28 06:03 WBC 5.8 RBC 3.82 L Hgb 11.7 L Hct 34.9 L MCV 91.4 D MCH 30.6 MCHC 33.5 RDW 12.7 Plt Count 310 MPV 9.4 Absolute Nucleated RBC 0.000 Nucleated RBC % (auto) 0.0 Sodium 140 Potassium 2.9 L* Chloride 105 Carbon Dioxide 26 Anion Gap 12 BUN < 3 L Creatinine 0.45 L Estim Creat Clear Calc 144.4 Estimated GFR > 60 Random Glucose 117 H Lactic Acid 0.9 Calcium 8.9 Phosphorus 2.2 L Magnesium 1.9 1.5 L Total Bilirubin 0.5 AST 21 ALT 20 Alkaline Phosphatase 84 C-Reactive Protein 16.86 H Total Protein 6.0 L Albumin 3.3 L TSH 0.15 L Free T4 0.85 Carbamazepine 10.5 10/08/23 11:11 WBC RBC Hgb Hct MCV MCH MCHC RDW Plt Count MPV Absolute Nucleated RBC Nucleated RBC % (auto) Sodium Potassium 3.7 D Chloride Carbon Dioxide Anion Gap BUN Creatinine Estim Creat Clear Calc Estimated GFR Random Glucose Lactic Acid Calcium Phosphorus Magnesium Total Bilirubin AST ALT Alkaline Phosphatase C-Reactive Protein Total Protein Albumin TSH Free T4 Carbamazepine Procedures Date of Service Date of Service: 10/08/23 Progress Note: A&P Assessment and plan (1) Blakeslee syndrome: Status: Acute Plan 1/ Distended abdomen, pos bowel sounds, passing some stool today, low lytes, CRP v high--no evidence of ischemic bowel PLAN: 1/ consider checking lactate 2/ replenish k, mag, phos and ionizied Ca is pending 3/ consider neostigmine, 4/ if crp remians high, check for dvt, sacral ulcers etc, Time Spent With Patient Time: Total time managing care of this patient today ____ minutes. Quality Stroke Does the patient have a stroke diagnosis?: No VTE Prior VTE?: No VTE Risk Level:: Medical - moderate - high VTE Device Contraindication: Treatment Not Indicated VTE Drug Contraindication: N/A - Med Ordered
[2023-10-08] MEDS: Erythromycin Base 250 MG TABLET PO ×2 (14:41→20:10)
[2023-10-08] MEDS: carBAMazepine 200 MG TABLET 300 MG PO (14:41)
[2023-10-08 16:00] VITALS: BP 156/95; PULSE 65; RESP 20; TEMP 36.4; O2SAT 94
[2023-10-08 19:15] VITALS: BP 175/99; PULSE 75; RESP 17; TEMP 36.4; O2SAT 94
[2023-10-08 20:17] VITALS: BP 159/98; PULSE 68; RESP 18
[2023-10-08 23:18] VITALS: BP 165/93; PULSE 66; RESP 17; TEMP 36.8; O2SAT 96
[2023-10-09] MEDS: Heparin Sodium,Porcine 5,000 UNIT/ML VIAL 5000 UNIT SUBCUT ×3 (01:01→17:47)
[2023-10-09] MEDS: Dextrose 5 % and Lactated Ring 1,000 ML 100 ML IVCONT (01:02)
[2023-10-09] MEDS: Erythromycin Base 250 MG TABLET PO ×4 (02:42→20:31)
[2023-10-09 03:01] VITALS: BP 164/100; PULSE 70; RESP 17; TEMP 36.5; O2SAT 96
[2023-10-09] MEDS: Acetaminophen 1,000 MG/100 ML PIGGYBACK 400 MG IV ×4 (03:55→22:00)
[2023-10-09 06:00] VITALS: BP 169/97; PULSE 67
[2023-10-09 06:24] LABS: Lactic Acid 0.9 mmol/L (0.5-2.0)
[2023-10-09 06:26] LABS: C Reactive Protein 8.17 mg/dL (< or = 0.50); Magnesium 1.8 mg/dL (1.6-2.6)
[2023-10-09 06:39] LABS: Anion Gap 12 (12-20); Blood Urea Nitrogen < 3 mg/dL (9-16); Carbon Dioxide 29 mmol/L (22-29); Chloride 101 mmol/L (96-108); Creatinine Clr Calc Pharmacy 154.7; Estimated Glomerular Filt Rate > 60; Glucose Random 117 mg/dL (60-115); Potassium 3.1 mmol/L (3.3-5.1); Sodium 139 mmol/L (135-145)
[2023-10-09 07:38] VITALS: BP 136/88; PULSE 50; RESP 14; TEMP 36.8; O2SAT 98
[2023-10-09] MEDS: Potassium Chloride/H20 10 MEQ/100 ML PIGGYBACK 100 MEQ IV ×2 (07:59→09:27)
[2023-10-09] MEDS: Phenytoin Sodium Extended 100 MG CAPSULE PO ×3 (09:03→20:31)
[2023-10-09] MEDS: carBAMazepine 200 MG TABLET 400 MG PO ×2 (09:04→20:32)
[2023-10-09] MEDS: Lactulose 320 GM/480 ML SOLUTION 200 GM PR ×3 (12:05→22:00)
[2023-10-09 12:59] LABS: Calcium, Ionized 5.1 mg/dL (4.7-5.5)
--- NOTE | 2023-10-09 15:01 | P.PNIM_ITS ---
Subjective Subjective Date of Service: 10/09/23 Interval History: Seen and evaluated this morning improved bowel sounds with minimal bowel movements no signs of discomfort sleeping quietly tolerating diet Review of Systems Review of Systems: Yes all other systems are reviewed and are negative Physical Exam 2 Vital Signs: Vital Signs: Last Vital Signs Temp 98.2 F 10/09/23 07:38 Pulse 50 10/09/23 07:38 Resp 14 10/09/23 07:38 BP 136/88 10/09/23 07:38 Pulse Ox 98 10/09/23 07:38 O2 Del Method Room Air 10/09/23 07:38 BMI result Body Mass Index 18.3 Const: Other: Constitutional : interactive, not in distress Cardiovascular : no JVP, no lower extremity edema Respiratory : bilateral chest movement, not in resp distress Gastrointestinal: soft, lax, Non tender, improved bowels sounds, mildly distended Skin : Warm, Dry Neurological : Alert & oriented , No focal deficit Objective Data Active Medications Carbamazepine (Carbamazepine 200 Mg Tablet) 400 mg PO BID [facility] Last Admin: 10/09/23 09:04 Dose: 400 mg Documented By: ZARIA Carbamazepine (Carbamazepine 200 Mg Tablet) 300 mg PO DAILY@1500 [facility] Last Admin: 10/08/23 14:41 Dose: 300 mg Documented By: ANNY Erythromycin (Erythromycin Base 250 Mg Tablet) 250 mg PO Q6H [facility] Stop: 10/09/23 20:01 Last Admin: 10/09/23 13:31 Dose: 250 mg Documented By: ZARIA Heparin Sodium (Porcine) (Heparin Sodium,Porcine 5,000 Unit/Ml Vial) 5,000 unit SUBCUT Q8H [facility] Last Admin: 10/09/23 09:03 Dose: 5,000 unit Documented By: ZARIA Acetaminophen (Ofirmev) 1,000 mg in 100 mls @ 400 mls/hr IV Q6H [facility] Last Infusion: 10/09/23 10:57 Dose: Infused Documented By: ZARIA Dextrose (D10) 250 mls @ 750 mls/hr IV Q15M PRN PRN Reason: per Hypoglycemia Standing Ord. Last Infusion: 10/07/23 08:07 Dose: Infused Documented By: ANNY Dextrose/Lactated Ringer's (D5lr) 1,000 mls @ 75 mls/hr IVCONT .[id number] [facility] Last Infusion: 10/09/23 11:09 Dose: Infused Documented By: ZARIA Lactulose (Lactulose 320 Gm/480 Ml Solution) 200 gm HI TID [facility] Last Admin: 10/09/23 12:05 Dose: 200 gm Documented By: ZARIA Melatonin (Melatonin 3 Mg Tablet) 6 mg PO BEDTIME PRN PRN Reason: Insomnia Ondansetron HCl (Ondansetron Hcl 4 Mg/2 Ml Vial) 4 mg IVPUSH Q4H PRN PRN Reason: Nausea and Vomiting Phenytoin Sodium (Phenytoin Sodium Extended 100 Mg Capsule) 100 mg PO TID [facility] Last Admin: 10/09/23 09:03 Dose: 100 mg Documented By: ZARIA Sodium Chloride (0.9 % Sodium Chloride Flush 3 Ml Syringe) 3 ml IVFLUSH QSHIFT [facility] Last Admin: 10/09/23 09:04 Dose: Not Given Documented By: ZARIA Non-Admin Reason: IV Running Labs 10/08/23 06:03 10/09/23 05:39 Labs: Laboratory Results - last 24 hr 10/07/23 10/09/23 18:17 05:39 Anion Gap 12 Estim Creat Clear Calc 154.7 Estimated GFR > 60 Random Glucose 117 H Lactic Acid 0.9 Calcium 9.0 Ionized Calcium 5.1 Magnesium 1.8 C-Reactive Protein 8.17 H Assessment and Plan (1) Hypomagnesemia: Status: Acute (2) Acute hypokalemia: Status: Acute (3) [place]field syndrome: Status: Acute Plan Demarcus Joseph is a 38 y/o man chronic idiopathic constipation, intestinal surgery and exploratory laparotomy admitted with: Abdominal distension, likely ileus. repeated KUB showing SBO 10/05 surgery input appreciated , no surgery continue clears and monitor tolerance continue Erythromycin PO His HCP wants to hold on Neostigmine for now continue IV fluids Pain control with Tylenol IV Zofran as needed. Continue Lactulose enema tid unable to get in touch with primary team regarding Baclofen pump GI following Acute hypoklemia IV replacement improved acute hypomagnesemia replacement given Spastic quadriplegic cerebral palsy. Continue baclofen as needed. Patient also has a intrathecal baclofen pump (dose recently decreased due to constipation). Epilepsy. Continue carbamazepine and phenytoin. RA. Continue sulfasalazine. DVT prophylaxis: Heparin Patient will need hospitalization overnight for small bowel obstruction management with IV fluids and pain control Quality Stroke Does the patient have a stroke diagnosis?: No VTE Prior VTE?: No VTE Risk Level:: Medical - moderate - high VTE Device Contraindication: Treatment Not Indicated VTE Drug Contraindication: N/A - Med Ordered
[2023-10-09] MEDS: carBAMazepine 200 MG TABLET 300 MG PO (15:07)
[2023-10-09 15:56] VITALS: BP 126/87; PULSE 74; RESP 16; TEMP 36.2; O2SAT 98
[2023-10-09] MEDS: Dextrose 5 % and Lactated Ring 1,000 ML 75 ML IVCONT (18:21)
[2023-10-09 19:58] VITALS: BP 135/85; PULSE 80; RESP 16; TEMP 36.6; O2SAT 97
[2023-10-09 22:58] LABS: Phenytoin, Free/Unbound 0.5 mg/L (1.0-2.0)
[2023-10-09 23:59] VITALS: BP 139/82; PULSE 77; RESP 16; TEMP 36.1; O2SAT 100
[2023-10-10] MEDS: Heparin Sodium,Porcine 5,000 UNIT/ML VIAL 5000 UNIT SUBCUT ×3 (00:17→17:44)
[2023-10-10] MEDS: Erythromycin Base 250 MG TABLET PO ×4 (02:26→19:45)
[2023-10-10] MEDS: Dextrose 5 % and Lactated Ring 1,000 ML 75 ML IVCONT (02:26)
[2023-10-10 04:00] VITALS: BP 133/61; PULSE 57; RESP 18; TEMP 36; O2SAT 100
[2023-10-10] MEDS: Acetaminophen 1,000 MG/100 ML PIGGYBACK 400 MG IV ×2 (04:30→10:35)
[2023-10-10 05:00] VITALS: RESP 18
[2023-10-10 07:11] LABS: Anion Gap 11 (12-20); Blood Urea Nitrogen 3 mg/dL (9-16); Calcium 8.8 mg/dL (8.4-10.2); Carbon Dioxide 26 mmol/L (22-29); Chloride 104 mmol/L (96-108); Creatinine Clr Calc Pharmacy 147.7; Estimated Glomerular Filt Rate > 60; Glucose Random 102 mg/dL (60-115); Magnesium 1.8 mg/dL (1.6-2.6); Potassium 3.2 mmol/L (3.3-5.1); Sodium 138 mmol/L (135-145)
[2023-10-10 07:47] VITALS: BP 136/83; PULSE 51; RESP 12; TEMP 36.1; O2SAT 98
--- NOTE | 2023-10-10 09:12 | PM.PNGS ---
Subjective Subjective Date of Service: 10/10/23 Interval history: Had multiple BMs yesterday. Physical Exam Vital Signs: Vital Signs: Last Vital Signs Temp 97 F 10/10/23 07:47 Pulse 51 10/10/23 07:47 Resp 12 10/10/23 07:47 BP 136/83 10/10/23 07:47 Pulse Ox 98 10/10/23 07:47 O2 Del Method Room Air 10/10/23 07:47 BMI result Body Mass Index 18.3 Const: General: no acute distress GI: Other: abdomen is much less distended, soft, nontender Objective Data Active Medications Carbamazepine (Carbamazepine 200 Mg Tablet) 400 mg PO BID [facility] Last Admin: 10/09/23 20:32 Dose: 400 mg Documented By: FOREST Carbamazepine (Carbamazepine 200 Mg Tablet) 300 mg PO DAILY@1500 [facility] Last Admin: 10/09/23 15:07 Dose: 300 mg Documented By: GRAZIC Erythromycin (Erythromycin Base 250 Mg Tablet) 250 mg PO Q6H [facility] Stop: 10/11/23 02:01 Last Admin: 10/10/23 02:26 Dose: 250 mg Documented By: FOREST Heparin Sodium (Porcine) (Heparin Sodium,Porcine 5,000 Unit/Ml Vial) 5,000 unit SUBCUT Q8H [facility] Last Admin: 10/10/23 00:17 Dose: 5,000 unit Documented By: FOREST Acetaminophen (Ofirmev) 1,000 mg in 100 mls @ 400 mls/hr IV Q6H [facility] Last Admin: 10/10/23 08:17 Dose: Not Given Documented By: FLOYDEMA Non-Admin Reason: Physician Held Med Dextrose (D10) 250 mls @ 750 mls/hr IV Q15M PRN PRN Reason: per Hypoglycemia Standing Ord. Last Infusion: 10/07/23 08:07 Dose: Infused Documented By: ANNY Potassium Chloride (Potassium Chloride/H20) 10 meq in 100 mls @ 100 mls/hr IV Q1H [facility] Stop: 10/10/23 09:59 Lactulose (Lactulose 320 Gm/480 Ml Solution) 200 gm CA TID [facility] Last Admin: 10/10/23 08:09 Dose: Not Given Documented By: COTEMA Non-Admin Reason: Physician Held Med Melatonin (Melatonin 3 Mg Tablet) 6 mg PO BEDTIME PRN PRN Reason: Insomnia Ondansetron HCl (Ondansetron Hcl 4 Mg/2 Ml Vial) 4 mg IVPUSH Q4H PRN PRN Reason: Nausea and Vomiting Phenytoin Sodium (Phenytoin Sodium Extended 100 Mg Capsule) 100 mg PO TID [facility] Last Admin: 10/09/23 20:31 Dose: 100 mg Documented By: FOREST Sodium Chloride (0.9 % Sodium Chloride Flush 3 Ml Syringe) 3 ml IVFLUSH QSHIFT [facility] Last Admin: 10/10/23 07:40 Dose: Not Given Documented By: COTEMA Non-Admin Reason: IV Running Labs 10/08/23 06:03 10/10/23 05:55 Labs: Laboratory Results - last 24 hr 10/07/23 10/07/23 10/10/23 17:28 18:17 05:55 Anion Gap 11 L Estim Creat Clear Calc 147.7 Estimated GFR > 60 Random Glucose 102 Calcium 8.8 Ionized Calcium 5.1 Magnesium 1.8 Free Phenytoin 0.5 L Procedures Date of Service Date of Service: 10/10/23 Progress Note: A&P Assessment and plan (1) Cyndie syndrome: Status: Acute (2) Spastic quadriplegic cerebral palsy: Status: Acute Plan Now having bowel movements. Abdominal exam is improved this morning with less distention, remains soft. Can advance diet as tolerated. Stable for dc if tolerating his usual diet without recurrent symptoms. Good bowel regimen for home. Time Spent With Patient Time: Total time managing care of this patient today ____ minutes. Quality Stroke Does the patient have a stroke diagnosis?: No VTE Prior VTE?: No VTE Risk Level:: Medical - moderate - high VTE Device Contraindication: Treatment Not Indicated VTE Drug Contraindication: N/A - Med Ordered
[2023-10-10] MEDS: carBAMazepine 200 MG TABLET 400 MG PO ×2 (09:28→19:45)
[2023-10-10] MEDS: Potassium Chloride/H20 10 MEQ/100 ML PIGGYBACK 100 MEQ IV ×2 (09:28→10:35)
[2023-10-10] MEDS: Phenytoin Sodium Extended 100 MG CAPSULE PO ×3 (09:28→19:44)
[2023-10-10] MEDS: Lactulose 20 GM/30 ML SOLUTION PO ×2 (10:35→19:45)
--- NOTE | 2023-10-10 10:42 | MHC.CLN ---
F/U DIET ADVANCED TODAY TO REGULAR, PUREE. ADDING MAGIC CUP TID. PROVIDES 870 KCALS, 27 G PROTEIN. REQUIRES TOTAL ASSIST WITH FEEDING. MONITOR FOR PO TOLERANCE AND INTAKE.
--- NOTE | 2023-10-10 10:53 | MHC.CM.PN ---
Per MD rounds patient not medically cleared for this time. Potential for dc later today if tolerating diet. CM will continue to follow.
--- NOTE | 2023-10-10 11:23 | P.PNIM_ITS ---
Subjective Subjective Date of Service: 10/10/23 Interval History: Seen and evaluated this morning improved bowel sounds with 2 bowel movements overnight and no reports of vomiting no signs of discomfort sleeping quietly tolerating diet Review of Systems Review of Systems: Yes Unobtainable due to mental condition Physical Exam 2 Vital Signs: Vital Signs: Last Vital Signs Temp 97 F 10/10/23 07:47 Pulse 51 10/10/23 07:47 Resp 12 10/10/23 07:47 BP 136/83 10/10/23 07:47 Pulse Ox 98 10/10/23 07:47 O2 Del Method Room Air 10/10/23 07:47 BMI result Body Mass Index 18.3 Const: Other: Constitutional : interactive, not in distress Cardiovascular : no JVP, no lower extremity edema Respiratory : bilateral chest movement, not in resp distress Gastrointestinal: soft, lax, Non tender, having slow bowels sounds, mildly distended Skin : Warm, Dry Neurological : Alert & oriented , No focal deficit Objective Data Active Medications Carbamazepine (Carbamazepine 200 Mg Tablet) 400 mg PO BID [facility] Last Admin: 10/10/23 09:28 Dose: 400 mg Documented By: COTEMA Carbamazepine (Carbamazepine 200 Mg Tablet) 300 mg PO DAILY@1500 [facility] Last Admin: 10/09/23 15:07 Dose: 300 mg Documented By: GRAZIC Erythromycin (Erythromycin Base 250 Mg Tablet) 250 mg PO Q6H [facility] Stop: 10/11/23 02:01 Last Admin: 10/10/23 09:28 Dose: 250 mg Documented By: COTEMA Heparin Sodium (Porcine) (Heparin Sodium,Porcine 5,000 Unit/Ml Vial) 5,000 unit SUBCUT Q8H [facility] Last Admin: 10/10/23 09:28 Dose: 5,000 unit Documented By: COTEMA Acetaminophen (Ofirmev) 1,000 mg in 100 mls @ 400 mls/hr IV Q6H [facility] Last Infusion: 10/10/23 10:59 Dose: Infused Documented By: COTEMA Dextrose (D10) 250 mls @ 750 mls/hr IV Q15M PRN PRN Reason: per Hypoglycemia Standing Ord. Last Infusion: 10/07/23 08:07 Dose: Infused Documented By: BEIT Lactulose (Lactulose 20 Gm/30 Ml Solution) 20 gm PO BID [facility] Last Admin: 10/10/23 10:35 Dose: 20 gm Documented By: COTEMA Melatonin (Melatonin 3 Mg Tablet) 6 mg PO BEDTIME PRN PRN Reason: Insomnia Ondansetron HCl (Ondansetron Hcl 4 Mg/2 Ml Vial) 4 mg IVPUSH Q4H PRN PRN Reason: Nausea and Vomiting Phenytoin Sodium (Phenytoin Sodium Extended 100 Mg Capsule) 100 mg PO TID [facility] Last Admin: 10/10/23 09:28 Dose: 100 mg Documented By: COTEMA Sodium Chloride (0.9 % Sodium Chloride Flush 3 Ml Syringe) 3 ml IVFLUSH QSHIFT [facility] Last Admin: 10/10/23 07:40 Dose: Not Given Documented By: COTEMA Non-Admin Reason: IV Running Labs 10/08/23 06:03 10/10/23 05:55 Labs: Laboratory Results - last 24 hr 10/07/23 10/07/23 10/10/23 17:28 18:17 05:55 Anion Gap 11 L Estim Creat Clear Calc 147.7 Estimated GFR > 60 Random Glucose 102 Calcium 8.8 Ionized Calcium 5.1 Magnesium 1.8 Free Phenytoin 0.5 L Assessment and Plan (1) Hypomagnesemia: Status: Acute (2) Acute hypokalemia: Status: Acute (3) Cyndie syndrome: Status: Acute (4) Acute dehydration: Status: Acute (5) Abdominal distension: Status: Acute Plan Demarcus Joseph is a 38 y/o man chronic idiopathic constipation, intestinal surgery and exploratory laparotomy admitted with: 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 start PO Lactulose bid Got in touch with primary team regarding Baclofen pump, [facility] [phone] Dr Rodarte , will follow up with the patient after discharge Acute hypoklemia IV replacement improved , folllow BMP acute hypomagnesemia replacement given Spastic quadriplegic cerebral palsy. Continue baclofen as needed. Patient also has a intrathecal baclofen pump (dose recently decreased due to constipation). Epilepsy. Continue carbamazepine and phenytoin. RA. Continue sulfasalazine. DVT prophylaxis: Heparin Patient will need hospitalization overnight for small bowel obstruction management with surgery following, advancing diet and pain control Quality Stroke Does the patient have a stroke diagnosis?: No VTE Prior VTE?: No VTE Risk Level:: Medical - moderate - high VTE Device Contraindication: Treatment Not Indicated VTE Drug Contraindication: N/A - Med Ordered
[2023-10-10 13:12] LABS: Anion Gap 11 (12-20); Blood Urea Nitrogen 4 mg/dL (9-16); Calcium 9.1 mg/dL (8.4-10.2); Carbon Dioxide 27 mmol/L (22-29); Chloride 106 mmol/L (96-108); Creatinine Clr Calc Pharmacy 144.4; Estimated Glomerular Filt Rate > 60; Glucose Random 105 mg/dL (60-115); Potassium 3.7 mmol/L (3.3-5.1); Sodium 140 mmol/L (135-145)
--- NOTE | 2023-10-10 15:50 | P.PNGI_ITS ---
Subjective Subjective Date of Service: 10/10/23 Interval History: Abdo still distended but has been passing stools managing clears no vomiting lytes being replenished Critical Care Time (minutes): 0 Physical Exam 2 Vital Signs: Vital Signs: Last Vital Signs Temp 97 F 10/10/23 07:47 Pulse 51 10/10/23 07:47 Resp 12 10/10/23 07:47 BP 136/83 10/10/23 07:47 Pulse Ox 98 10/10/23 07:47 O2 Del Method Room Air 10/10/23 07:47 BMI result Body Mass Index 18.3 EXAM: GENERAL: The patient is frail, contracted limbs, non verbal VITAL SIGNS:see workflow HEENT: Nonicteric sclerae, PERRLA, EOMI. Oropharynx clear. Moist mucous membranes. Conjunctivae appear well perfused. No thyroid mass. CHEST: Chest wall is nontender. HEART: Regular rate and rhythm without murmurs. LUNGS: Clear to auscultation bilaterally. ABDOMEN: Soft but distended and tympanic, positive bowel sounds, nontender, no organomegaly.no flank tenderness SKIN: No rash, no excessive bruising, petechiae, or purpura. NEUROLOGIC: Contracted spastic limbs Psych: non verbal Objective Data Labs 10/08/23 06:03 10/10/23 12:55 Labs: Laboratory Results - last 24 hr 10/07/23 10/10/23 10/10/23 17:28 05:55 12:55 Sodium 138 140 Potassium 3.2 L 3.7 Chloride 104 106 Carbon Dioxide 26 27 Anion Gap 11 L 11 L BUN 3 L 4 L Creatinine 0.44 L 0.45 L Estim Creat Clear Calc 147.7 144.4 Estimated GFR > 60 > 60 Random Glucose 102 105 Calcium 8.8 9.1 Magnesium 1.8 Free Phenytoin 0.5 L Procedures Date of Service Date of Service: 10/10/23 Progress Note: A&P Assessment and plan (1) Abdominal distension: Status: Acute Plan 1/ Abdo distention s/p ogilive, with low lytes and baclofen pump, bowel sounds pos and receiving erythromycin PLAN: 1/ cont with erythromycin, but beware of tachyphylaxis, can lose effect after few days, watch QTc 2/ replenish lytes as doing 3/ hold on colonoscopy for the moment 4/ recheck CRP Time Spent With Patient Time: Total time managing care of this patient today ____ minutes. Quality Stroke Does the patient have a stroke diagnosis?: No VTE Prior VTE?: No VTE Risk Level:: Medical - moderate - high VTE Device Contraindication: Treatment Not Indicated VTE Drug Contraindication: N/A - Med Ordered
[2023-10-10] MEDS: carBAMazepine 200 MG TABLET 300 MG PO (15:56)
[2023-10-10] MEDS: 0.9 % Sodium Chloride Flush 3 ML SYRINGE IVFLUSH ×2 (15:56→19:45)
[2023-10-10 16:00] VITALS: BP 110/74; PULSE 82; RESP 18; TEMP 36.1; O2SAT 95
[2023-10-10 16:13] LABS: C Reactive Protein 4.38 mg/dL (< or = 0.50)
[2023-10-10 19:44] VITALS: BP 130/78; PULSE 67; RESP 14; TEMP 36.3; O2SAT 98
[2023-10-10 23:08] VITALS: BP 137/85; PULSE 78; RESP 14; TEMP 36.6; O2SAT 96
[2023-10-11] MEDS: Heparin Sodium,Porcine 5,000 UNIT/ML VIAL 5000 UNIT SUBCUT ×4 (01:03→23:17)
[2023-10-11] MEDS: Erythromycin Base 250 MG TABLET PO ×3 (01:03→14:23)
[2023-10-11 02:28] VITALS: BP 134/74; PULSE 79; RESP 16; TEMP 36.3; O2SAT 94
[2023-10-11 06:29] LABS: Anion Gap 13 (12-20); Blood Urea Nitrogen 8 mg/dL (9-16); Calcium 8.8 mg/dL (8.4-10.2); Carbon Dioxide 25 mmol/L (22-29); Chloride 108 mmol/L (96-108); Creatinine Clr Calc Pharmacy 154.7; Estimated Glomerular Filt Rate > 60; Glucose Random 90 mg/dL (60-115); Potassium 3.5 mmol/L (3.3-5.1); Sodium 142 mmol/L (135-145)
[2023-10-11 07:59] VITALS: BP 135/73; PULSE 63; RESP 18; TEMP 36.6; O2SAT 94
[2023-10-11] MEDS: carBAMazepine 200 MG TABLET 400 MG PO ×2 (08:52→19:50)
[2023-10-11] MEDS: Lactulose 20 GM/30 ML SOLUTION PO ×2 (08:52→19:49)
[2023-10-11] MEDS: Phenytoin Sodium Extended 100 MG CAPSULE PO ×3 (08:53→19:50)
[2023-10-11] MEDS: 0.9 % Sodium Chloride Flush 3 ML SYRINGE IVFLUSH ×3 (08:53→19:50)
--- NOTE | 2023-10-11 10:27 | PM.PNGS ---
Subjective Subjective Date of Service: 10/11/23 Physical Exam Vital Signs: Vital Signs: Last Vital Signs Temp 98 F 10/11/23 07:59 Pulse 63 10/11/23 07:59 Resp 18 10/11/23 07:59 BP 135/73 10/11/23 07:59 Pulse Ox 94 10/11/23 07:59 O2 Del Method Room Air 10/11/23 07:59 BMI result Body Mass Index 18.3 Objective Data Active Medications Carbamazepine (Carbamazepine 200 Mg Tablet) 400 mg PO BID ON [facility] OF [facility] Last Admin: 10/11/23 08:52 Dose: 400 mg Documented By: COTEMA Carbamazepine (Carbamazepine 200 Mg Tablet) 300 mg PO DAILY@1500 [facility] OF [facility] Last Admin: 10/10/23 15:56 Dose: 300 mg Documented By: COTEMA Erythromycin (Erythromycin Base 250 Mg Tablet) 250 mg PO Q6H ON [facility] OF [facility] Stop: 10/12/23 14:01 Last Admin: 10/11/23 08:53 Dose: 250 mg Documented By: COTEMA Heparin Sodium (Porcine) (Heparin Sodium,Porcine 5,000 Unit/Ml Vial) 5,000 unit SUBCUT Q8H ON [facility] OF [facility] Last Admin: 10/11/23 08:53 Dose: 5,000 unit Documented By: FLOYDEMA Dextrose (D10) 250 mls @ 750 mls/hr IV Q15M PRN PRN Reason: per Hypoglycemia Standing Ord. Last Infusion: 10/07/23 08:07 Dose: Infused Documented By: BEIT Lactulose (Lactulose 20 Gm/30 Ml Solution) 20 gm PO BID ON [facility] OF [facility] Last Admin: 10/11/23 08:52 Dose: 20 gm Documented By: FLOYDEMA Melatonin (Melatonin 3 Mg Tablet) 6 mg PO BEDTIME PRN PRN Reason: Insomnia Ondansetron HCl (Ondansetron Hcl 4 Mg/2 Ml Vial) 4 mg IVPUSH Q4H PRN PRN Reason: Nausea and Vomiting Phenytoin Sodium (Phenytoin Sodium Extended 100 Mg Capsule) 100 mg PO TID ON LICENSE OF [facility] Last Admin: 10/11/23 08:53 Dose: 100 mg Documented By: COTEMA Sodium Chloride (0.9 % Sodium Chloride Flush 3 Ml Syringe) 3 ml IVFLUSH QSHIFT ON LICENSE OF [facility] Last Admin: 10/11/23 08:53 Dose: 3 ml Documented By: COTEMA Labs 10/08/23 06:03 07/04/24 06:07 Labs: Laboratory Results - last 24 hr 10/10/23 10/11/23 12:55 06:07 Anion Gap 11 L 13 Estim Creat Clear Calc 144.4 154.7 Estimated GFR > 60 > 60 Random Glucose 105 90 Calcium 9.1 8.8 C-Reactive Protein 4.38 H Procedures Date of Service Date of Service: 10/11/23 Progress Note: A&P Time Spent With Patient Time: Total time managing care of this patient today ____ minutes. Quality Stroke Does the patient have a stroke diagnosis?: No VTE Prior VTE?: No VTE Risk Level:: Medical - moderate - high VTE Device Contraindication: Treatment Not Indicated VTE Drug Contraindication: N/A - Med Ordered
[2023-10-11] MEDS: carBAMazepine 200 MG TABLET 300 MG PO (14:25)
[2023-10-11] MEDS: polyethylene glycoL 3350 17 GM POWD.PACK PO (15:23)
--- NOTE | 2023-10-11 15:28 | PM.DS ---
DS: Providers Provider Date of Service: 10/12/23 Date of admission: 10/05/23 03:03 Date of discharge: 10/12/23 Primary care physician: Williams Cotter MD Consults: 10/05/23 03:08 Consult to General Surgery Routine Consulting Provider: [facility] Reason for consultation: SBO Has provider been notified: Yes 10/05/23 04:45 Consult to General Surgery Routine Consulting Provider: [facility] Reason for consultation: Abdominal distention Has provider been notified: Yes 10/05/23 07:37 Consult to Gastroenterology Routine Consulting Provider: Ming Hunter Reason for consultation: massively dilated bowel Attending physician on discharge: Senthil Salazar Discharging clinician: Pam Sethi DS: Diagnosis Discharge Diagnosis (1) Abdominal distension: Status: Acute DS: Summary Hospital Course Hospital Course: From H&P on the day of admission Demarcus Joseph is a 38 years old man with past medical history significant for epilepsy, cerebral palsy, RA, chronic idiopathic constipation, intestinal surgery and exploratory laparotomy was brought to the emergency department after he started to have several episodes of vomiting while visiting his outpatient program. His abdomen was also noted to be more distended than usual. Father said that the symptoms started yesterday and that his last bowel movement was last Sunday. Father also mentioned that the patient has a baclofen pump and that the dosing was decreased recently (about a week ago) because it was causing the patient to much constipation. No fevers, chills or fever report. Father stated that patient has not had further events of vomiting since admission to the emergency department. In the ED, he was found to have stable vital signs. Blood workup showed leukocytosis of 14.7. Hemoglobin and platelets are elevated. There are no remarkable electrolyte imbalances. Creatinine is normal and glucose 123. LFTs and lipase are normal. Abdomen pelvis CT scan showed marked distention of the bowel loops in the abdomen and pelvis (greater than prior) without transition point, wall thickening or edema. It ultrasound cholelithiasis without acute changes of the gallbladder wall or CBD dilatation. 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 surgery input appreciated, no surgery. Initially treated with Erythromycin PO and lactulose. He began having bowel movement and abdominal distention resolved. Got in touch with primary team regarding Baclofen pump, [facility] [phone] Dr Rodarte, will follow up with the patient after discharge Hypokalemia/hypomagnesemia Replaced and improved Time Attestation Discharge Coordination Time (in mins): 32 Quality: Safe Use of Opioids Does Pt have an Active Cancer Diagnosis on the Problem List?: No Quality: Stroke Does the patient have a stroke diagnosis?: No Physical Exam Vital Signs: Vital Signs: Last Vital Signs Temp 98 F 10/11/23 07:59 Pulse 63 10/11/23 07:59 Resp 18 10/11/23 07:59 BP 135/73 10/11/23 07:59 Pulse Ox 94 10/11/23 07:59 O2 Del Method Room Air 10/11/23 07:59 BMI result Body Mass Index 18.3 Const: Other: awake, alert, appears comfortable, unable to assess orientation General: alert and awake Nutritional Appearance: average body habitus Resp: Other: ara and unlabored Cardio: Rate: regular rate GI: Inspection: No distended Palpation (GI): Soft to palpation and nontender Skin: Other: warm/dry DS: Data Data Completed and Pending Labs on day of discharge: Laboratory Results - last 24 hr 10/10/23 10/11/23 12:55 06:07 Sodium 142 Potassium 3.5 Chloride 108 Carbon Dioxide 25 Anion Gap 13 BUN 8 L Creatinine 0.42 L Estim Creat Clear Calc 154.7 Estimated GFR > 60 Random Glucose 90 Calcium 8.8 C-Reactive Protein 4.38 H Discharge Plan Discharge Anticipated Discharge Date/Time: 10/12/23 09:53 Patient Disposition: Home Health Service Discharge Diagnosis: ileus Referrals: Williams Cotter MD [Primary Care Provider] - 1 Week Discharge Medications: New lactulose 20 gram/30 mL Solution 20 g PO BID Qty: 1200 0RF Continued baclofen 20 mg tablet 20 mg PO QID PRN (Reason: muscle spasms) 30 Days Qty: 120 3RF Thick-It Powder See Rx Instructions PO .COMPLEX Qty: 6120 12RF Rx Instructions: Mix with all drinks 3 to 5 times throughout the day as needed orally benzoyl peroxide 5 % cleanser 1 appl topical DAILY Qty: 142 0RF phenytoin sodium extended 100 mg capsule 100 mg PO TID sulfasalazine 500 mg tablet 1,000 mg PO BID carbamazepine 200 mg tablet 400 mg PO BID carbamazepine 200 mg tablet 300 mg PO DAILY@1500 bisacodyl [Dulcolax (bisacodyl)] 5 mg tablet,delayed release (DR/EC) 10 mg PO BEDTIME PRN (Reason: Constipation) Linzess 290 mcg capsule 290 mcg PO DAILY cetirizine 10 mg Tablet 10 mg PO DAILY ibuprofen 200 mg tablet 200 mg PO Q6H PRN (Reason: fever or pain) 30 Days Qty: 120 5RF Rx Instructions: Take with food cholecalciferol (vitamin D3) 50 mcg (2,000 unit) capsule 50 mcg PO DAILY 90 Days Qty: 90 3RF No Action (DME) ADULT BRIEFS (Medium) - 8 units/day XL See Rx Instructions .Route .MEDSUPPLY Qty: 240 12RF Rx Instructions: As directed up to 8 units per day (DME) DISPOSABLE GLOVES (large) LARGE See Rx Instructions .Route .MEDSUPPLY Qty: 400 12RF Rx Instructions: As directed (DME) UNDERPADS See Rx Instructions .Route .MEDSUPPLY Qty: 120 12RF Rx Instructions: As directed Discharge Orders: Discharge Order (Routine); Ordered 10/12/23 Ordered By: Pam Sethi Activity on Discharge: As tolerated Stand Alone Forms: Patient Portal Discharge page Print Language: Burmese Care Plan Goals: See below Health Concerns: Ileus Hypokalemia, hypomagnesemia Plan of Treatment: use bowel regimen to prevent constipation - lactulose twice daily as well as home dose of linzess and use prn dulcolax if no bm in one day. if constipation continues to be an issue may need to reduce dose of baclofen or add additional laxative. discuss with PCP or GI call to schedule follow up appointment with PCP call to schedule follow up with Dr. Rodarte for possible adjustment in baclofen Assessment: See discharge summary
[2023-10-11 15:39] VITALS: BP 164/88; PULSE 79; RESP 18; TEMP 36.1; O2SAT 96
--- NOTE | 2023-10-11 15:39 | HO.PM.IMPN ---
Subjective Subjective Date of Service: 10/11/23 Interval History: Seen and examined this morning Follow-up for SBO/ileus Had bowel movement yesterday. So far no bowel movement today Tolerating regular Physical Exam Vital Signs: Vital Signs: Last Vital Signs Temp 98 F 10/11/23 07:59 Pulse 63 10/11/23 07:59 Resp 18 10/11/23 07:59 BP 135/73 10/11/23 07:59 Pulse Ox 94 10/11/23 07:59 O2 Del Method Room Air 10/11/23 07:59 BMI result Body Mass Index 18.3 GI: Other: abdomen softly distended Extrem: Other: spastic upper/lower extremities Objective Data Active Medications Carbamazepine (Carbamazepine 200 Mg Tablet) 400 mg PO BID [facility] Last Admin: 10/11/23 08:52 Dose: 400 mg Documented By: COTEMA Carbamazepine (Carbamazepine 200 Mg Tablet) 300 mg PO DAILY@1500 [facility] Last Admin: 10/11/23 14:25 Dose: 300 mg Documented By: COTEMA Docusate Sodium (Docusate Sodium 100 Mg Capsule) 100 mg PO BID [facility] Heparin Sodium (Porcine) (Heparin Sodium,Porcine 5,000 Unit/Ml Vial) 5,000 unit SUBCUT Q8H [facility] Last Admin: 10/11/23 15:23 Dose: 5,000 unit Documented By: FLOYDEMA Dextrose (D10) 250 mls @ 750 mls/hr IV Q15M PRN PRN Reason: per Hypoglycemia Standing Ord. Last Infusion: 10/07/23 08:07 Dose: Infused Documented By: BEIT Lactulose (Lactulose 20 Gm/30 Ml Solution) 20 gm PO BID [facility] Last Admin: 10/11/23 08:52 Dose: 20 gm Documented By: FLOYDEMA Melatonin (Melatonin 3 Mg Tablet) 6 mg PO BEDTIME PRN PRN Reason: Insomnia Ondansetron HCl (Ondansetron Hcl 4 Mg/2 Ml Vial) 4 mg IVPUSH Q4H PRN PRN Reason: Nausea and Vomiting Phenytoin Sodium (Phenytoin Sodium Extended 100 Mg Capsule) 100 mg PO TID [facility] Last Admin: 10/11/23 14:23 Dose: 100 mg Documented By: COTEMA Polyethylene Glycol (Polyethylene Glycol 3350 17 Gm Powd.Pack) 17 gm PO DAILY [facility] Last Admin: 10/11/23 15:23 Dose: 17 gm Documented By: COTEMA Sodium Chloride (0.9 % Sodium Chloride Flush 3 Ml Syringe) 3 ml IVFLUSH QSHIFT [facility] Last Admin: 10/11/23 15:24 Dose: 3 ml Documented By: COTEMA Labs 10/08/23 06:03 10/11/23 06:07 Labs: Laboratory Results - last 24 hr 10/10/23 10/11/23 12:55 06:07 Anion Gap 13 Estim Creat Clear Calc 154.7 Estimated GFR > 60 Random Glucose 90 Calcium 8.8 C-Reactive Protein 4.38 H Assessment and Plan (1) [place] syndrome: Status: Acute (2) Chronic idiopathic constipation: Status: Acute Plan Demarcus Joseph is a 38 y/o man chronic idiopathic constipation, intestinal surgery and exploratory laparotomy admitted with: Abdominal distension 2/2 paralytic ileus w Cyndie syndrome overall Improving last repeated KUB was showing SBO 10/05 surgery input appreciated, no surgery, continue conservative management diet advanced, tolerating regular diet s/p Erythromycin PO continue PO Lactulose bid start coalce, mirlax; enema prn. no bm today Got in touch with primary team regarding Baclofen pump, [facility] [phone] Dr Rodarte, will follow up with the patient after discharge Acute hypokalemia improved with replacement acute hypomagnesemia replacement given Spastic quadriplegic cerebral palsy. Continue baclofen as needed. Patient also has a intrathecal baclofen pump (dose recently decreased due to constipation). Epilepsy. Continue carbamazepine and phenytoin. RA. sulfasalazine on hold, resume upon discharge DVT prophylaxis: Heparin ongoing inpatient stay for small bowel obstruction management with surgery following, advancing diet and pain control Quality Stroke Does the patient have a stroke diagnosis?: No VTE Prior VTE?: No VTE Risk Level:: Medical - moderate - high VTE Device Contraindication: Treatment Not Indicated VTE Drug Contraindication: N/A - Med Ordered
[2023-10-11] MEDS: Docusate Sodium 100 MG CAPSULE PO (19:50)
[2023-10-11 19:51] VITALS: BP 133/68; PULSE 82; RESP 18; TEMP 36.5; O2SAT 93
[2023-10-11 23:26] VITALS: BP 135/78; PULSE 82; RESP 18; TEMP 36.3; O2SAT 97
[2023-10-12 03:52] VITALS: BP 139/76; PULSE 79; RESP 18; TEMP 36.5; O2SAT 94
[2023-10-12 07:38] VITALS: BP 143/89; PULSE 78; RESP 17; TEMP 37; O2SAT 96
[2023-10-12] MEDS: Heparin Sodium,Porcine 5,000 UNIT/ML VIAL 5000 UNIT SUBCUT (08:41)
[2023-10-12] MEDS: Phenytoin Sodium Extended 100 MG CAPSULE PO (08:42)
[2023-10-12] MEDS: Lactulose 20 GM/30 ML SOLUTION PO (08:42)
[2023-10-12] MEDS: polyethylene glycoL 3350 17 GM POWD.PACK PO (08:42)
[2023-10-12] MEDS: Docusate Sodium 100 MG CAPSULE PO (08:42)
[2023-10-12] MEDS: carBAMazepine 200 MG TABLET 400 MG PO (08:42)
[2023-10-12] MEDS: 0.9 % Sodium Chloride Flush 3 ML SYRINGE IVFLUSH (08:48)
--- NOTE | 2023-10-12 10:35 | MHC.CLN ---
F/U DIET=REGULAR, PUREE. MAGIC CUP TID PROVIDES 870 KCALS, 27 G PROTEIN. MOST RECENT INTAKE 25-100% WITH MOST MEALS 100% REQUIRES TOTAL ASSIST WITH FEEDING. MONITOR FOR PO TOLERANCE AND INTAKE.
--- NOTE | 2023-10-12 10:42 | MHC.CM.PN ---
CM MET WITH PTS PARENTS/GUARDIANS, BEDSIDE TO DISCUSS DC PLAN PT WILL DC HOME TODAY WITH [facility] OF [employer] PTS MOTHER CONFIRMS THEY WILL TRANSPORT HIM
--- NOTE | 2023-10-12 11:10 | P.CDIM_ITS ---
PROVIDER RESPONSE TEXT: To clarify, the appropriate diagnosis supported by the clinical indicators: Moderate Protein Calorie Malnutrition QUERY TEXT: PHYSICIAN'S DOCUMENTATION REQUEST Date of Query: 10/12/2023 10:53 AM EDT Patient Name: Demarcus Valerio Admit Date: 10/05/2023 Dear Pam Sethi, A review of the medical record indicates additional documentation may be needed. Please review below and update the documentation accordingly. Clinical Indicators: Height: ( ) Weight: ( ) BMI: ( ) 18.3 Other Clinical Notes Supporting Significance of the BMI: Per Nutrition Note 10/01/23: qualifies as Moderately malnourished in the context of chronic illness Mild depletion body fat and muscle mass If possible, please provide an associated diagnosis related to the abnormal BMI, such as: Underweight Weight loss Cachexia Anorexia Moderate Protein Calorie Malnutrition Other (explain) Clinically unable to determine (explain) Thank you, Skye Blevins RN Use of terms such as suspected, likely, concern for, or probable (associated with a specific diagnosi s that is being evaluated, monitored, or treated as if it exists) are acceptable and can be coded in the inpatient se tting, when documented at the time of discharge. Please use your independent medical judgment in providing your response. THIS QUERY IS PART OF THE PERMANENT MEDICAL RECORD
== END 2023-10-12 10:56 | disposition home or self-care (01) | DRG 254 ==
LOC: HO.ED 23:30 → HO.EDOVER 10-05 03:09 → HO.S3 10-05 03:45
PROVIDERS: Internal Medicine Gastroenterology; Student in an Organized Health Care Education/Training Program; Admitting Provider Internal Medicine; Emergency Provider Emergency Medicine; PCP Internal Medicine; Visit Provider Physician Assistant Medical
DX: K59.81 Ogilvie syndrome (principal); E44.0 Moderate protein-calorie malnutrition; G80.0 Spastic quadriplegic cerebral palsy; E86.0 Dehydration; E83.42 Hypomagnesemia; E87.6 Hypokalemia; G40.909 Epilepsy, unspecified, not intractable, without status epilepticus; K59.04 Chronic idiopathic constipation; M06.00 Rheumatoid arthritis without rheumatoid factor, unspecified site; Z68.1 Body mass index [BMI] 19.9 or less, adult; Z97.8 Presence of other specified devices; Z79.899 Other long term (current) drug therapy
CPT/HCPCS: 36415; 74018; 74176; 80048; 80053; 80076; 80156; 80186; 82330; 82947; 83605; 83690; 83735; 84100; 84132; 84439; 84443; 85025; 85027; 86140; 99285; J0131; J1644; J1885; J3475; J3480; J7120

== ENCOUNTER → 2023-10-05 03:03 | Outpatient (BNV) | payer OTHER, SELFPAY | PROVIDERS: Admitting Provider Internal Medicine; Emergency Provider Emergency Medicine; PCP Internal Medicine; Visit Provider Internal Medicine Gastroenterology | DX: R14.0 Abdominal distension (gaseous) (principal) | CPT/HCPCS: 99222; 99232 ==

== ENCOUNTER → 2023-10-05 03:03 | Outpatient (BNV) | payer OTHER, SELFPAY | PROVIDERS: Admitting Provider Internal Medicine; Emergency Provider Emergency Medicine; PCP Internal Medicine; Visit Provider Internal Medicine | DX: E83.42 Hypomagnesemia (principal); E87.6 Hypokalemia; K59.81 Ogilvie syndrome; E86.0 Dehydration; R14.0 Abdominal distension (gaseous) | CPT/HCPCS: 99223; 99232; 99233; 99239; 99499 ==

== ENCOUNTER → 2023-10-05 03:03 | Outpatient (BNV) | payer OTHER, SELFPAY | PROVIDERS: Admitting Provider Internal Medicine; Emergency Provider Emergency Medicine; PCP Internal Medicine; Visit Provider Physician Assistant Surgical | DX: K59.81 Ogilvie syndrome (principal); G80.0 Spastic quadriplegic cerebral palsy | CPT/HCPCS: 99222; 99232 ==

== ENCOUNTER 2023-10-26 09:14 | Outpatient (AMB) | payer OTHER, SELFPAY ==
--- NOTE | 2023-10-26 09:36 | AM.OFFWIN_ITS ---
Intake Vital Signs 3 10/26/23 09:40 Height 5 ft 3 in BMI Reason not done Patient refused/unable BP 108/76 Blood Pressure Location Rt brachial Position Sitting Pulse 90 Pulse Source Pulse Oximeter Temp 99.1 F Temp Source Temporal Artery Scan Pulse Oximetry (%) 95 Oxygen Delivery Method Room Air Intake Visit Reasons: EP Cyst Intake Note: pt here c/o cysts on head and 1 on testicle per mother Patient Tobacco Use Status: Never used Tobacco Allergies penicillin V Allergy (Unknown, Verified 10/26/23 09:38) Hives Do you need a note to return to daycare/school/sports/work: No HPI HPI Comments 2 History of Present Illness0 Details 38 y/o male patient who presents to walk in clinic with c/o chronic frequent scalp abscesses. Accompanied by parents. [facility] Medical History Diarrhea Constipation Respiratory infection Abscess of neck Scalp abscess Cellulitis of scalp Arthralgia COVID-19 Cellulitis of great toe of left foot Encounter for medical clearance for patient hold Annual physical exam Small bowel obstruction due to adhesions Paralytic ileus Seronegative rheumatoid arthritis SARS-CoV-2 positive (~08/16/21) Presence of intrathecal baclofen pump Epilepsy Spastic quadriplegic cerebral palsy Surgical History H/O colonoscopy History of intestinal surgery H/O exploratory laparotomy History of incision and drainage Social History Household Members: Family Housing: House Do you presently have visiting nurse or other home services: No ([employer]) Unable to assess alcohol history related to: Unable to respond Alcohol intake: current Alcohol intake frequency: does not drink Comment: pt is bed/chair bound Patient Tobacco Use Status: Never used Tobacco e-Cigarette/Vaping Use: Never Used Second Hand Smoke Exposure: No service: No Current occupational status: disabled Cognitive needs: Yes Hearing needs: No Vision needs: No Review of Systems Const All systems reviewed & are unremarkable except as noted in HPI and below Physical Exam Vital Signs: Last Vital Signs Temp 99.1 F 10/26/23 09:40 Pulse 90 10/26/23 09:40 BP 108/76 10/26/23 09:40 Pulse Ox 95 10/26/23 09:40 Oxygen Delivery Method Room Air 10/26/23 09:40 Const General: no acute distress Limitations: behavioral limitations and wheelchair Skin General skin exam: dry skin and erythema Lesions: lesion noted (small red abscess left sided scalp) Full body images: 2 1. follicular papules, pustules, fluctuant nodules, and abscesses on the scalp. Alopecia occipital region. Psych Other: non verbal, wheelchair bound Assessment & Plan Assessment & Plan (1) Scalp abscess: Code(s): L02.811 - Cutaneous abscess of head [any part, except face] Plan: Bactrim as prescribed F/U with Derm as scheduled in 12/2023. Medications: New 2 sulfamethoxazole-trimethoprim 800-160 mg (Bactrim DS) 1 tab PO BID 5 days 10 tabs 0RF L02.811 - Cutaneous abscess of head [any part, except face] Coding Level of Care Code Est Pt Level 3 (91363) Diagnoses Scalp abscess L02.811 Time Spent (min) 15
[2023-10-26 09:40] VITALS: BP 108/76; PULSE 90; TEMP 37.3; O2SAT 95
== END 2023-10-26 10:16 | disposition home or self-care (01) ==
PROVIDERS: PCP Internal Medicine; Visit Provider Nurse Practitioner Family
DX: L02.811 Cutaneous abscess of head [any part, except face] (principal)
CPT/HCPCS: 99213

== ENCOUNTER 2023-11-01 16:16 | Outpatient (AMB) | payer OTHER, SELFPAY ==
--- NOTE | 2023-11-01 16:19 | A.OFFVIS_ITS ---
Vital Signs 11/01/23 16:25 Height 4 ft 11 in Weight 125 lb BMI 25.2 BP 93/60 Blood Pressure Location Rt brachial Position Sitting Pulse 67 Intake Visit Reasons: 4 week follow up titrate CIC meds Intake Note: Demarcus harriet in the office as a 4 week follow up. CC: Small intestine is not working - states that he was in the ED for a week admitted in the ED. After that he was discharged - he got bloating in his abdomen. He was put on linzess and lactulose. He is having issues with constipation. Production Support Consultant Required: No Allergies penicillin V Allergy (Unknown, Verified 11/01/23 16:24) Hives HPI HPI 4 week follow up titrate CIC meds: Details: Assessment & Plan (1) Chronic idiopathic constipation: Code(s): K59.04 - Chronic idiopathic constipation Category: Medical (2) Nonverbal: Code(s): R47.01 - Aphasia Category: Medical (3) Small bowel obstruction due to adhesions: Comment: Two thousand nine, with laparoscopy x2 any adhesions removed including a central band adhesion Code(s): K56.50 - Intestinal adhesions [bands], unspecified as to partial versus complete obstruction Category: Medical (4) Paralytic ileus: Comment: Multiple recurring from [id number] Code(s): K56.0 - Paralytic ileus Category: Medical Plan Hungarian #sister translates per pt rquest He is here today with his father who is his main access analyst. He still is not moving his bowels well with LInzess 290. Will add bisacodyl 2 tabs qhs with this to see if we can titrate. ROV 4 weeks. Medications: New bisacodyl (Dulcolax (bisacodyl)) 10 mg (2 x 5 mg) PO BEDTIME 60 tabs 6RF 30 days INPATIENT GI CONSULT-HAS SON Plan 1/ Abdo distention s/p ogilive, with low lytes and baclofen pump, bowel sounds pos and receiving erythromycin PLAN: 1/ cont with erythromycin, but beware of tachyphylaxis, can lose effect after few days, watch QTc 2/ replenish lytes as doing 3/ hold on colonoscopy for the moment 4/ recheck CRP Time Spent With Patient Time: Total time managing care of this patient today ____ minutes. HPI Reason for consult: abdo distention 38 year old nonverbal man with PMH significant for epilepsy, spastic quadraplegic cerebral palsy, RA, chronic idiopathic constipation who I am seeing for assessment for distention. Patient was admitted after having vomiting episodes at an outpatient program. His abdomen was thought to be more distended than normal. Apparently since admission no emesis was been seen. Ct revealed marked distention of bowel loops extending down to the level of the rectum without wall thickening or edema or transition point Of note--He had two exploratory laparotomies, lysis of adhesions, small bowel detorsion for small bowel volvulus in 2008. On 10/25/23 @ 16:48 Fidencio Wetzel Wrote To AndriyJuly FYI-This patient is coming for f/u on 10/31. He was admitted to [facility] from 10/04-10/11 with abd distention. VIEW OF 10/2023 INPATIENT NOTES Plan of Treatment: use bowel regimen to prevent constipation - lactulose twice daily as well as home dose of linzess and use prn dulcolax if no bm in one day. if constipation continues to be an issue may need to reduce dose of baclofen or add additional laxative. discuss with PCP or GI call to schedule follow up appointment with PCP call to schedule follow up with Dr. Rodarte for possible adjustment in baclofen TODAY'S VISIT He is here today with his mother and his brother who are the primary caretakers. So far he has been doing well there was only once they had to give him a suppository because they were fearful he had not moved his bowels. He is continuing with the Linzess 290 micro g, bisacodyl, lactulose, and his suppositories. Because the problem seems to be mostly with the small-bowel we might consider a dose of Reglan going forward if we can keep this problem [place]. Because he seems to have bowel obstructions occurring at about six-month intervals bring him back in 3 months and of course they should call me sooner if he has any worsening symptoms. [facility] Medical History (Updated 11/01/23 @ 16:20 by ORION Ramirez) Chronic idiopathic constipation Cyndie syndrome Diarrhea Constipation Respiratory infection Abscess of neck Scalp abscess Cellulitis of scalp Arthralgia COVID-19 Cellulitis of great toe of left foot Encounter for medical clearance for patient hold Annual physical exam Small bowel obstruction due to adhesions Paralytic ileus Seronegative rheumatoid arthritis SARS-CoV-2 positive (~08/16/21) Presence of intrathecal baclofen pump Epilepsy Spastic quadriplegic cerebral palsy Surgical History H/O colonoscopy History of intestinal surgery H/O exploratory laparotomy History of incision and drainage Social History Household Members: Family Housing: House Do you presently have visiting nurse or other home services: No ([employer]) Unable to assess alcohol history related to: Unable to respond Alcohol intake: current Alcohol intake frequency: does not drink Comment: pt is bed/chair bound Patient Tobacco Use Status: Never used Tobacco e-Cigarette/Vaping Use: Never Used Second Hand Smoke Exposure: No service: No Current occupational status: disabled Cognitive needs: Yes Hearing needs: No Vision needs: No Review of Systems Const Denies fatigue, Denies fever(s), Denies night sweats, Denies poor appetite and Denies weight loss ENT Reports Normal hearing present, Denies dental pain, Denies dysphagia, Denies hearing loss, Denies mouth pain, Denies odynophagia, Denies throat swelling, Denies tongue swelling and Reports other (Dentition adequate) Card Reports no additional complaints Resp Reports no additional complaints GI Details: Denies abdominal pain, Denies melena, Reports bloating, Denies hematochezia, Reports constipation, Denies GI cramping, Denies dysphagia, Denies excessive flatus, Denies early satiety, Denies heartburn, Denies diarrhea, Denies nausea, Denies odynophagia, Denies vomiting and Denies hematemesis Musc Reports deformity, Reports muscle weakness and Reports stiffness Skin/Breast Denies pruritus, Denies lesions, Denies rash and Denies jaundice Neuro Reports Normal hearing present and Denies Abnormal speech present Endo Denies fatigue Aller/Immun Denies throat swelling and Denies tongue swelling Physical Exam Const General: cooperative, no acute distress, well developed and well groomed Nutritional Appearance: average body habitus and well nourished Orientation/consciousness: oriented to person Limitations: language barrier, physical limitations, wheelchair and other limitations HEENT Head: Yes normocephalic and Yes atraumatic Eyes General: appearance normal, both eyes and all related structures Pupils: Equal, round and reactive pupils present Neck Neck: Yes normal visual inspection and Yes no lymphadenopathy Thyroid: Thyroid normal Resp Effort & Inspection: normal respiratory effort and able to speak in complete sentences Auscultation: clear to auscultation bilaterally Cardio Rate: regular rate Rhythm: regular rhythm Heart sounds: Normal, physiologic split S2 sound present Peripheral pulses: radial pulses present and posterior tibial pulses present GI Inspection: No distended and No Abdominal panniculus present Palpation (GI): Soft to palpation, nontender, no guarding, not rigid and No hepatosplenomegaly present Percussion: Yes normal to percussion Auscultation: normal bowel sounds Rectal Exam - Male: Yes deferred Skin General skin exam: no rashes or lesions noted, turgor normal, skin not dry, no jaundice, No spider nevi and no striae Rashes: no rashes Nails: normal Neuro General: oriented to person Cranial nerves: Yes Equal, round and reactive pupils present and Yes Normal hearing present Speech: No Abnormal speech present Extrem General: Yes normal to inspection, No clubbing, No cyanosis and No edema Psych Appearance: grossly normal and well kempt Mental Status: mental status grossly normal Speech and movement: Normal speech and movement present Affect: normal affect Attitude: cooperative Thought process: Normal thought process present and not confabulating Thought content: Normal thought content present Insight: Limited insight present (Psych) Judgement: Limited judgement present (Psych) Assessment & Plan Assessment & Plan (1) Small bowel obstruction due to adhesions: Comment: Two thousand nine, with laparoscopy x2 any adhesions removed including a central band adhesion Code(s): K56.50 - Intestinal adhesions [bands], unspecified as to partial versus complete obstruction Category: Medical (2) Paralytic ileus: Comment: Multiple recurring from [id number] Code(s): K56.0 - Paralytic ileus Category: Medical (3) Chronic idiopathic constipation: Code(s): K59.04 - Chronic idiopathic constipation Category: Medical Plan He is here today with his mother and his brother who are the primary caretakers. So far he has been doing well there was only once they had to give him a suppository because they were fearful he had not moved his bowels. He is continuing with the Linzess 290 micro g, bisacodyl, lactulose, and his suppositories. Because the problem seems to be mostly with the small-bowel we might consider a dose of Reglan going forward if we can keep this problem [place]. Because he seems to have bowel obstructions occurring at about six-month intervals bring him back in 3 months and of course they should call me sooner if he has any worsening symptoms Medications: New linaclotide (Linzess) 290 mcg PO DAILY 30 caps 6RF bisacodyl (Dulcolax (bisacodyl)) 10 mg (2 x 5 mg) PO BEDTIME PRN 60 tabs 6RF Constipation Refilled lactulose 20 grams (30 mL) PO BID 1,200 mL 12RF Coding Level of Care Code Est Pt Level 3 (82238) Diagnoses Small bowel obstruction due to adhesions K56.50 Paralytic ileus K56.0 Chronic idiopathic constipation K59.04
[2023-11-01 16:25] VITALS: BP 93/60; PULSE 67; BMI 25.2
== END 2023-11-01 16:34 | disposition home or self-care (01) ==
PROVIDERS: PCP Internal Medicine; Visit Provider Nurse Practitioner
DX: K56.50 Intestinal adhesions [bands], unspecified as to partial versus complete obstruction (principal); K56.0 Paralytic ileus; K59.04 Chronic idiopathic constipation
CPT/HCPCS: 99213

== ENCOUNTER → 2023-11-01 16:16 | Outpatient (BNVA) | payer OTHER, SELFPAY | PROVIDERS: PCP Internal Medicine; Visit Provider Nurse Practitioner | DX: K59.04 Chronic idiopathic constipation (principal); K56.50 Intestinal adhesions [bands], unspecified as to partial versus complete obstruction; K56.0 Paralytic ileus | CPT/HCPCS: 99212 ==

== ENCOUNTER 2023-11-07 12:22 | Outpatient (AMB) | payer OTHER, SELFPAY ==
[2023-11-07 12:34] VITALS: BP 96/62; PULSE 64; O2SAT 94
--- NOTE | 2023-11-07 12:34 | MHC.PC.OV ---
Vital Signs 11/07/23 12:34 Height 4 ft 11 in BMI Reason not done Patient refused/unable BP 96/62 Blood Pressure Location Rt brachial Position Sitting Pulse 64 Pulse Source Pulse Oximeter Pulse Oximetry (%) 94 Oxygen Delivery Method Room Air Intake Visit Reasons: [facility] 7 Hypokalemia, hypomagnesemia, Ileus Transformation Specialist Required: Yes Transformation Specialist Language: Kazakh Allergies penicillin V Allergy (Unknown, Verified 11/07/23 13:42) Hives Medication List - Last Reconciled 11/07/23 by Williams Cotter MD [ADULT BRIEFS (Medium) - 8 units/day As directed up to 8 units per day] baclofen 20 mg PO QID PRN 30 days benzoyl peroxide 5% 1 appl topical DAILY bisacodyl (Dulcolax (bisacodyl)) 10 mg (2 x 5 mg) PO BEDTIME PRN carbamazepine 400 mg PO BID carbamazepine 300 mg PO DAILY@1500 cetirizine 10 mg PO DAILY cholecalciferol (vitamin D3) 50 mcg PO DAILY 90 days [DISPOSABLE GLOVES (large) As directed] ibuprofen 200 mg PO Q6H PRN 30 days lactulose 20 grams (30 mL) PO BID linaclotide (Linzess) 290 mcg PO DAILY nut.tx.impaired digest fxn (Ensure Clear Therapeutic) Drink 1 box orally QD; 30 days phenytoin sodium extended 100 mg PO TID quetiapine 25 mg PO BEDTIME starch (thickening) (Thick-It oral powder) Mix with all drinks 3 to 5 times throughout the day as needed orally sulfasalazine 1,000 mg PO BID [UNDERPADS As directed] ziprasidone HCl 80 mg PO BID Tobacco use date assessed: 09/17/23 Dental Screening Dental Screen Date: 09/17/23 HPI [facility] 7 Hypokalemia, hypomagnesemia, Ileus HPI Details Patient is brought in today by his parents for his HDF follow up visit He was admitted to the hospital at [facility] last month for recurrent vomiting and abdominal distension Workups done in the ER revealed leukocytosis of 14,[address] showed marked distention of the bowel loops in the abdomen and pelvis He was treated medically with gradual resolution of his symptoms Surgery was consulted but was advise to continue with medical management and no surgical indication His family states that since his discharge from hospital, patient has been doing well He has been moving his bowels regularly on his current regimen of Linzess and Lactulose, and he has been eating well without any issues He has had no nausea or vomiting lately and no other acute complaints or symptoms are noted [facility] Medical History (Updated 11/08/23 @ 05:47 by Williams Cotter MD) Annual physical exam Chronic idiopathic constipation Cyndie syndrome Diarrhea Constipation Respiratory infection Abscess of neck Scalp abscess Cellulitis of scalp Arthralgia COVID-19 Cellulitis of great toe of left foot Encounter for medical clearance for patient hold Small bowel obstruction due to adhesions Paralytic ileus Seronegative rheumatoid arthritis SARS-CoV-2 positive (~08/16/21) Presence of intrathecal baclofen pump Epilepsy Spastic quadriplegic cerebral palsy Surgical History H/O colonoscopy History of intestinal surgery H/O exploratory laparotomy History of incision and drainage Social History Household Members: Family Housing: House Do 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 How often do you have a drink containing alcohol?: Never Total Score: 0 Score Reviewed/Action Taken: Yes CURT-7 AMB Questionnaire CURT-7 Date CURT - 7 assessed: 09/17/23 Source: Developed by Drs. Quan Quinn, Magdalena Hyman, Paul Shipley and colleagues, with an educational deana from [employer]. Review of Systems Const Details: ROS is limited and obtained primarily from patient's family as patient is unable to provide any information due to his significant cognitive impairment Denies chills and Denies fever(s) ENT Denies dysphagia, Denies nasal discharge and Denies sore throat Card Denies chest pain, Denies palpitations and Denies dyspnea Resp Denies cough and Denies dyspnea GI Denies abdominal pain, Denies hematochezia, Denies constipation (controlled on his current Rx regimen), Denies dysphagia, Denies heartburn, Denies nausea and Denies vomiting Denies dysuria and Reports urinary incontinence Musc Denies arthralgias and Denies joint swelling Skin/Breast Denies rash Endo Denies palpitations Physical exam (Primary Care) Vital Signs: Last Vital Signs Pulse 64 11/07/23 12:34 BP 96/62 11/07/23 12:34 Pulse Ox 94 11/07/23 12:34 Oxygen Delivery Method Room Air 11/07/23 12:34 Tobacco/Smoking Status: Tobacco use Status Tobacco use date assessed 09/17/23 11/07/23 12:35 Patient Tobacco Use Status Never used Tobacco 11/07/23 12:35 e-Cigarette/Vaping Use Never Used 11/07/23 12:35 Thrive Assessment: Date of Thrive Assessment Date Thrive assessed 10/05/23 11/07/23 12:35 Const Other: Physical exam is limited due to patient's wheelchair-bound condition and inability to cooperate with exam - has significant cognitive impairment General: no acute distress Orientation/consciousness: Other orientation findings ((+) significant cognitive impairment) Limitations: physical limitations and wheelchair HENMT Mouth: Normal oral and palatal mucosa present Throat: Yes posterior oropharynx normal and Yes tonsils normal Neck Neck: Yes no lymphadenopathy Thyroid: Thyroid normal Resp Auscultation: clear to auscultation bilaterally, no crackles, no rales and no wheezes Cardio Rate: regular rate Rhythm: regular rhythm Heart sounds: no murmurs GI Palpation (GI): Soft to palpation, no guarding and not rigid Back/Spine/Pelvis Other: Is wheelchair-bound Skin Rashes: no rashes Neuro Other: (+) significant cognitive impairment - unable to assess neurologically Extrem Other: (+) spastic and atrophic upper and lower extremities; no joint swelling noted General: Yes no pedal edema Assessment and Plan Assessment & Plan (1) Paralytic ileus: Comment: Multiple recurring from [id number] Code(s): K56.0 - Paralytic ileus Plan: Resolved - patient has been eating well and moving his bowels regularly lately, per his parents Will have him recheck his labs in few months for follow-up - have advised his parents to help patient get his labs done just before he returns for his annual physical in a few months Continue Linzess 290 mcg QD and Lactulose 20 mg BID Follow up with GI as scheduled (2) Spastic quadriplegic cerebral palsy: Code(s): G80.0 - Spastic quadriplegic cerebral palsy Plan: Continue Baclofen 10 mg QID PRN; patient also has an intrathecal Baclofen pump and continues to follow up with the intrathecal clinic and with neurosurgery in [place] ([facility]) regularly (3) Epilepsy: Code(s): G40.909 - Epilepsy, unspecified, not intractable, without status epilepticus Qualifiers: Epilepsy type: unspecified Intractability: not intractable Status epilepticus: without status epilepticus Qualified Code(s): G40.909 - Epilepsy, unspecified, not intractable, without status epilepticus Plan: Continue Carbamazepine 100 mg 4 tablets daily in AM, 3 tablets daily in PM and 4 tablets daily at night AND Dilantin ER 100 mg TID Follow up with neurology as scheduled (4) Seronegative rheumatoid arthritis: Comment: -ve RF -ve CCP dx 08/2022 SSZ 08/29 effective MTX couldn't be used as there is concern of reduced efficacy of phenytoin went folic acid is given Code(s): M06.00 - Rheumatoid arthritis without rheumatoid factor, unspecified site Plan: Continue Sulfasalazine 500 mg 2 tablets BID - per rheumatology, appears to be doing well on Rx Follow up with rheumatology as scheduled (5) Schizophrenia: Code(s): F20.9 - Schizophrenia, unspecified Qualifiers: Schizophrenia type: unspecified Qualified Code(s): F20.9 - Schizophrenia, unspecified Plan: Continue Quetiapine 25 mg Q HS and Geodon 80 mg BID Follow up with psychiatry as scheduled Plan To return as scheduled in summer 2023 for his next annual physical examination Orders: Orders Lipid Panel 03/18/24 E78.00 - Pure hypercholesterolemia, unspecified, Z00.00 - Encounter for general adult medical examination without abnormal findings Hemoglobin A1c 03/18/24 R73.9 - Hyperglycemia, unspecified, Z00.00 - Encounter for general adult medical examination without abnormal findings Complete Blood Count Auto Diff 03/18/24 D64.9 - Anemia, unspecified, G40.909 - Epilepsy, unspecified, not intractable, without status epilepticus, Z00.00 - Encounter for general adult medical examination without abnormal findings Comprehensive [place]. Panel Fast 03/18/24 E78.00 - Pure hypercholesterolemia, unspecified, G40.909 - Epilepsy, unspecified, not intractable, without status epilepticus, Z00.00 - Encounter for general adult medical examination without abnormal findings TSH reflex Free T4 03/18/24 E78.00 - Pure hypercholesterolemia, unspecified, Z00.00 - Encounter for general adult medical examination without abnormal findings UA CC w/rflx Micro + Cult 03/18/24 R30.0 - Dysuria, Z00.00 - Encounter for general adult medical examination without abnormal findings Phenytoin Dilantin 03/18/24 G40.909 - Epilepsy, unspecified, not intractable, without status epilepticus, Z00.00 - Encounter for general adult medical examination without abnormal findings Carbamazepine Tegretol 03/18/24 G40.909 - Epilepsy, unspecified, not intractable, without status epilepticus, Z00.00 - Encounter for general adult medical examination without abnormal findings Medications: New nut.tx.impaired digest fxn (Ensure Clear Therapeutic) Drink 1 box orally QD; 30 multiple units 11RF 30 days K56.50 - Intestinal adhesions [bands], unspecified as to partial versus complete obstruction, R62.7 - Adult failure to thrive Refilled benzoyl peroxide 5% 1 appl topical DAILY 142 grams 0RF Coding Level of Care Code Est Pt Level 4 (66515) Diagnoses Paralytic ileus K56.0 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 Nonintractable epilepsy without status epilepticus, unspecified epilepsy type G40.909 Epilepsy type: unspecified Intractability: not intractable Status epilepticus: without status epilepticus Seronegative rheumatoid arthritis M06.00 Schizophrenia, unspecified type F20.9 Schizophrenia type: unspecified
== END 2023-11-07 13:47 | disposition home or self-care (01) ==
PROVIDERS: PCP Internal Medicine; Visit Provider Internal Medicine
DX: K56.0 Paralytic ileus (principal); G80.0 Spastic quadriplegic cerebral palsy; G40.909 Epilepsy, unspecified, not intractable, without status epilepticus; M06.00 Rheumatoid arthritis without rheumatoid factor, unspecified site
CPT/HCPCS: 99214

== ENCOUNTER 2024-01-08 17:58 | Emergency (ER) | payer OTHER, SELFPAY ==
[2024-01-08 18:10] VITALS: BP 139/101; PULSE 99; RESP 18; TEMP 37.6; O2SAT 96; BMI 25.0
--- NOTE | 2024-01-08 18:12 | ED.GENADULT ---
HPI - General Adult General Chief complaint: Skin/Abscess/Foreign Body Stated complaint: ? pressure sore Time Seen by Provider: 01/08/24 22:24 Source: patient and family Mode of arrival: wheelchair Limitations: other (Cerebral palsy) History of Present Illness ED Provider: Dr. Mary Jo Tijerina HPI narrative: [facility] father. Patient has cerebral palsy and is unable to give any history at all. According to the patient's father, 2 days ago they noted that the patient had a blister over his right buttocks, today after his day program when they change his diaper they noticed that the blister had grown in size and had pus. According to the patient's dad, the patient has not had any fever. Also, today they noted the patient has a hemorrhoid Related Data Home Medications ?Medication ?Instructions ?Recorded ?Confirmed carbamazepine 200 mg tablet 300 mg PO DAILY@1500 10/05/23 11/07/23 carbamazepine 200 mg tablet 400 mg PO BID 10/05/23 11/07/23 cetirizine 10 mg tablet 10 mg PO DAILY 10/05/23 11/07/23 phenytoin sodium extended 100 mg 100 mg PO TID 10/05/23 11/07/23 capsule quetiapine 25 mg tablet 25 mg PO BEDTIME 10/26/23 11/07/23 ziprasidone HCl 80 mg capsule 80 mg PO BID 10/26/23 11/07/23 Previous Rx's ?Medication ?Instructions ?Recorded ADULT BRIEFS (Medium) - 8 units/day #240 ea 12/21/21 DISPOSABLE GLOVES (large) #400 ea 12/21/21 UNDERPADS #120 ea 12/21/21 baclofen 20 mg tablet 20 mg PO QID PRN muscle spasms 30 10/06/22 days #120 tabs starch (thickening) (Thick-It oral See Rx Instructions PO .COMPLEX 03/19/23 powder) dysphagia/aspiration #6,120 grams cholecalciferol (vitamin D3) 50 50 mcg PO DAILY 90 days #90 caps 09/17/23 mcg (2,000 unit) capsule ibuprofen 200 mg tablet 200 mg PO Q6H PRN fever or pain 30 09/17/23 days #120 tabs bisacodyl 5 mg tablet,delayed 10 mg (2 x 5 mg) PO BEDTIME PRN 11/01/23 release (Dulcolax (bisacodyl)) Constipation #60 tabs lactulose 20 gram/30 mL oral 20 g (30 mL) PO BID #1,200 mL 11/01/23 solution linaclotide 290 mcg capsule 290 mcg PO DAILY #30 caps 11/01/23 (Linzess) benzoyl peroxide 5 % topical 1 appl topical DAILY #142 grams 11/07/23 cleanser nut.tx.impaired digest fxn 0.035 See Rx Instructions PO .QD 30 days 11/07/23 gram-1 kcal/mL oral liquid (Ensure #30 multiple units Clear Therapeutic) sulfasalazine 500 mg tablet 1,000 mg (2 x 500 mg) PO BID #360 12/24/23 tabs doxycycline hyclate 100 mg tablet 100 mg PO BID #14 tabs 01/08/24 phenylephrine-witch caitlin 0.25 1 appl topical BID PRN rectal 01/08/24 %-50 % topical gel (Preparation H discomfort #51 grams (phenylephrine,witch caitlin)) Allergies Allergy/AdvReac Type Severity Reaction Status Date / Time penicillin V Allergy Unknown Hives Verified 01/08/24 18:13 Review of Systems Review of Systems: Constitutional : No Weight loss, No Fever, No Chills, No Night Sweats, No Fatigue, No Malaise ENT/Mouth : No Hearing loss, No Ear Pain, No Nasal Congestion, No Sinus Pain, No Hoarseness, No sore throat, No Rhinorrhea, No Swallowing Difficulty Eyes: No Eye Pain, No Swelling, No Redness, No Foreign Body, No Discharge, No Vision Changes Cardiovascular : No Chest Pain, No SOB, No Dyspnea on Exertion, No Orthopnea, No Edema, No Palpitations Respiratory : No Cough, No Sputum, No Wheezing, No Smoke Exposure, No Dyspnea Gastrointestinal : No Nausea, No Vomiting, No Diarrhea, No Constipation, No abdominal Pain, No Hematochezia, No Melena Genitourinary : no irregular bleeding, No Dysuria, No Urinary Frequency, No Hematuria, No Urinary Incontinence, No Urgency, No Flank Pain, No Urinary Flow Changes, No Hesitancy Musculoskeletal : No joint pain, No Myalgias, No Joint Swelling Skin : There is a hemorrhoid present and there is a 1 cm x 1 cm blister with scant amount of pus Neuro : No Weakness, No Numbness, No Paresthesias, No Loss of Consciousness, No Dizziness, No Headache Psych : No Anxiety/Panic, No Depression, No SI/HI/AH/VH, No Social Issues, Heme/Lymph: No Bruising, No Bleeding,No Lymphadenopathy Endocrine : No Polyuria, No Polydipsia, No Temperature Intolerance [facility] Past Medical History Medical History Annual physical exam Chronic idiopathic constipation [place] syndrome Diarrhea Constipation Respiratory infection Abscess of neck Scalp abscess Cellulitis of scalp Arthralgia COVID-19 Cellulitis of great toe of left foot Encounter for medical clearance for patient hold Small bowel obstruction due to adhesions Paralytic ileus Seronegative rheumatoid arthritis SARS-CoV-2 positive (~08/16/21) Presence of intrathecal baclofen pump Epilepsy Spastic quadriplegic cerebral palsy Surgical History H/O colonoscopy History of intestinal surgery H/O exploratory laparotomy History of incision and drainage Social History Social History Household Members: Family Housing: House Do you presently have 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) Unable to assess alcohol history related to: Unable to respond Alcohol intake: current Alcohol intake frequency: does not drink Comment: pt is bed/chair bound Patient Tobacco Use Status: Never used Tobacco e-Cigarette/Vaping Use: Never Used Second Hand Smoke Exposure: No Advance Directives: No Advance Directives Information Provided: No service: No Current occupational status: disabled Cognitive needs: Yes Hearing needs: No Vision needs: No Physical Exam ED Vital Signs: Vital Signs - 24 hr 01/08/24 18:10 01/08/24 20:57 Temperature 99.6 F 99.7 F Pulse Rate 99 Respiratory Rate 18 Blood Pressure 139/101 H Pulse Oximetry 96 Oxygen Delivery Method Room Air BMI result Body Mass Index 25.0 Const Other: Appearance: Alert. Eyes: Pupils equal, round and reactive to light. ENT: Pharynx normal. Neck: Normal inspection. Neck supple. No lymph nodes noted. No crepitus CVS: Normal heart rate and rhythm. Pulses normal. Normal S1 and S2 Respiratory: No respiratory distress. Breath sounds normal. No Wheezing. No rales Abdomen: Soft and nontender. No rigidity. No distention. Small external hemorrhoid, nonthrombosed Skin: Over the right buttocks, there is 1 cm x 1 cm blister which is already draining, small amount of pus, no surrounding erythema Extremities: No lower extremity edema. No Lacerations. No Rash Neuro: Oriented X 3. No motor deficit. No sensory deficit. Moving all extremities. No slurred speech. CN 2 through 12 grossly intact Psych: calm, cooperative, normal affect Course Course Course Narrative: RME, this is a rapid medical exam performed by Ariel Carmichael please refer to primary provider for complete H&P- 38 old male with history of severe spastic quadriplegic cerebral palsy presents for evaluation of a possible pressure ulcer. The patient's father noticed it 2 days ago when he reports that his bigger today. Plan for labs, will defer imaging until the patient can get into a bed and properly evaluated Medical Decision Making Medical Decision Making [facility] Narrative: Overall, patient seems that he is very well taken care of by his parents. There is a small pressure ulcer on his buttocks which drained by itself. Patient was given the 1st dose of doxycycline in the ED. Patient's father states that the patient has allergy to penicillin, unclear if the patient has just hives versus anaphylaxis -overall, the wound is draining, with a bit of pressure with drain scant amount of pus. Differential Diagnosis Differential Diagnoses: The differential diagnosis associated with the presentation includes (Abscess, cellulitis, blister, hemorrhoids) Lab Data [facility] Lab Attestation statement: I reviewed the patient's lab results. 01/08/24 18:35 01/08/24 18:35 Labs: Lab Results 01/08/24 Range/Units 18:35 WBC 14.8 H (4.8-10.8) X10*3/uL RBC 4.34 L (4.60-5.80) X10*6/uL Hgb 13.1 L (14.0-18.0) g/dl Hct 39.0 L (42.0-52.0) % MCV 89.9 (80.0-98.0) fL MCH 30.2 (27.0-33.0) pg MCHC 33.6 (31.0-36.0) g/dl RDW 13.4 (11.0-16.0) % Plt Count 353 (160-400) X10*3/uL MPV 9.4 (9.4-12.4) fL Immature Gran % (Auto) 0.3 (0.0-0.4) % Neut % (Auto) 86.3 H (45-73) % Lymph % (Auto) 7.8 L (20-40) % Jay % (Auto) 5.5 (2-11) % Eos % (Auto) 0.0 (0-4) % Baso % (Auto) 0.1 (0-2) % Lymph # (Auto) 1.2 (1.2-4.9) X10*3/uL Jay # (Auto) 0.8 (0.1-1.2) X10*3/uL Eos # (Auto) 0.0 (0.0-0.4) X10*3/uL Baso # (Auto) 0.0 (0.0-0.2) X10*3/uL Abs Immat Gran (auto) 0.05 H (0.00-0.03) X10*3/uL Absolute Neuts (auto) 12.8 H (2.0-8.3) x10*3/uL Absolute Nucleated RBC 0.000 (0.0-0.012) X10*3/uL Nucleated RBC % (auto) 0.0 (0.0-0.2) /100WBC ESR 8 (0-15) MM/HR Sodium 138 (135-145) mmol/L Potassium 3.7 (3.3-5.1) mmol/L Chloride 103 (96-108) mmol/L Carbon Dioxide 26 (22-29) mmol/L Anion Gap 13 (12-20) BUN 6 L (9-16) mg/dL Creatinine 0.55 (0.5-1.4) mg/dL Estim Creat Clear Calc 155.3 Estimated GFR > 60 Random Glucose 134 H (60-115) mg/dL Calcium 9.6 D (8.4-10.2) mg/dL Total Bilirubin < 0.5 (0.0-1.0) mg/dL AST 28 (5-37) U/L ALT 75 H (0-40) U/L Alkaline Phosphatase 94 (39-117) U/L C-Reactive Protein 9.60 H (< or = 0.50) mg/dL Total Protein 7.4 (6.5-8.0) g/dL Albumin 4.3 (3.5-5.0) g/dL Discharge Plan Discharge Clinical Impression: Pressure ulcer, Hemorrhoid Patient Disposition: Home, Self-Care Instructions: Hemorrhoids (ED), Pressure Injury (ED) Additional Instructions: Please follow-up with your primary care physician tomorrow. If you have any worsening or new symptoms, please return to the emergency room or call 911 Prescriptions: New doxycycline hyclate 100 mg tablet 100 mg PO BID Qty: 14 0RF Preparation H(pe, witroxanna caitlin) 0.25-50 % gel 1 appl topical BID PRN (Reason: rectal discomfort) Qty: 51 0RF No Action (DME) ADULT BRIEFS (Medium) - 8 units/day XL See Rx Instructions .Route .MEDSUPPLY Qty: 240 12RF Rx Instructions: As directed up to 8 units per day (DME) DISPOSABLE GLOVES (large) LARGE See Rx Instructions .Route .MEDSUPPLY Qty: 400 12RF Rx Instructions: As directed (DME) UNDERPADS See Rx Instructions .Route .MEDSUPPLY Qty: 120 12RF Rx Instructions: As directed baclofen 20 mg tablet 20 mg PO QID PRN (Reason: muscle spasms) 30 Days Qty: 120 3RF Thick-It Powder See Rx Instructions PO .COMPLEX Qty: 6120 12RF Rx Instructions: Mix with all drinks 3 to 5 times throughout the day as needed orally sulfasalazine 500 mg tablet 1,000 mg PO BID Qty: 360 1RF phenytoin sodium extended 100 mg capsule 100 mg PO TID carbamazepine 200 mg tablet 400 mg PO BID carbamazepine 200 mg tablet 300 mg PO DAILY@1500 cetirizine 10 mg Tablet 10 mg PO DAILY ibuprofen 200 mg tablet 200 mg PO Q6H PRN (Reason: fever or pain) 30 Days Qty: 120 5RF Rx Instructions: Take with food cholecalciferol (vitamin D3) 50 mcg (2,000 unit) capsule 50 mcg PO DAILY 90 Days Qty: 90 3RF ziprasidone HCl 80 mg capsule 80 mg PO BID quetiapine 25 mg tablet 25 mg PO BEDTIME Ensure Clear Therapeutic 0.035-1 gram-kcal/mL liquid See Rx Instructions PO .QD 30 Days Qty: 30 11RF Rx Instructions: Drink 1 box orally QD; benzoyl peroxide 5 % cleanser 1 appl topical DAILY Qty: 142 0RF lactulose 20 gram/30 mL solution 20 g PO BID Qty: 1200 12RF Linzess 290 mcg capsule 290 mcg PO DAILY Qty: 30 6RF bisacodyl [Dulcolax (bisacodyl)] 5 mg tablet,delayed release (DR/EC) 10 mg PO BEDTIME PRN (Reason: Constipation) Qty: 60 6RF Print Language: Lithuanian
[2024-01-08 18:41] LABS: MANUAL DIFF FLAG NO
[2024-01-08 18:42] LABS: Basophils Percent Auto 0.1 % (0-2); Hemoglobin 13.1 g/dl (14.0-18.0); Imm Gran Abs Auto 0.05 X10*3/uL (0.00-0.03); Imm Gran Pct Auto 0.3 % (0.0-0.4); Lymphocytes Absolute Auto 1.2 X10*3/uL (1.2-4.9); Lymphocytes Percent Auto 7.8 % (20-40); Mean Corpuscular HGB Conc 33.6 g/dl (31.0-36.0); Mean Corpuscular Hemoglobin 30.2 pg (27.0-33.0); Mean Corpuscular Volume 89.9 fL (80.0-98.0); Mean Platelet Volume 9.4 fL (9.4-12.4); Monocytes Absolute Auto 0.8 X10*3/uL (0.1-1.2); Monocytes Percent Auto 5.5 % (2-11); Neutrophils Absolute Auto 12.8 x10*3/uL (2.0-8.3); Neutrophils Percent Auto 86.3 % (45-73); Platelet Count 353 X10*3/uL (160-400); Red Blood Count 4.34 X10*6/uL (4.60-5.80); Red Cell Distribution Width 13.4 % (11.0-16.0); White Blood Count 14.8 X10*3/uL (4.8-10.8)
[2024-01-08 19:07] LABS: Alanine Aminotransferase 75 U/L (0-40); Albumin Level 4.3 g/dL (3.5-5.0); Alkaline Phosphatase 94 U/L (39-117); Anion Gap 13 (12-20); Aspartate Amino Transferase 28 U/L (5-37); Bilirubin Total < 0.5 mg/dL (0.0-1.0); Blood Urea Nitrogen 6 mg/dL (9-16); Calcium 9.6 mg/dL (8.4-10.2); Carbon Dioxide 26 mmol/L (22-29); Chloride 103 mmol/L (96-108); Creatinine Clr Calc Pharmacy 155.3; Estimated Glomerular Filt Rate > 60; Glucose Random 134 mg/dL (60-115); Potassium 3.7 mmol/L (3.3-5.1); Sodium 138 mmol/L (135-145); Total Protein 7.4 g/dL (6.5-8.0)
[2024-01-08 19:28] LABS: Erythrocyte Sedimentation Rate 8 MM/HR (0-15)
[2024-01-08 20:57] VITALS: TEMP 37.6
--- NOTE | 2024-01-08 22:37 | PC.NURSE ---
Pt is non verbal. Wheelchair bound. Very contracted. Father at bedside, stating that sml area of open skin on right buttocks has been present for aprox 2 days. Are is very shallow, no eschgar, no blood. no SQ tissue visable.
[2024-01-08] MEDS: Doxycycline Monohydrate 100 MG CAPSULE PO (22:52)
[2024-01-08 22:57] VITALS: BP 120/85; PULSE 85; RESP 18; TEMP 37.6; O2SAT 97
== END 2024-01-08 22:59 | disposition home or self-care (01) ==
PROVIDERS: Physician Assistant; Emergency Provider Emergency Medicine; PCP Internal Medicine
DX: L98.419 Non-pressure chronic ulcer of buttock with unspecified severity (principal); K64.9 Unspecified hemorrhoids; R47.01 Aphasia; H54.8 Legal blindness, as defined in USA; G80.0 Spastic quadriplegic cerebral palsy; Z79.899 Other long term (current) drug therapy
CPT/HCPCS: 36415; 80053; 85025; 85652; 86140; 99282; 99283

== ENCOUNTER 2024-02-01 15:52 | Outpatient (REF) | payer OTHER, SELFPAY ==
[2024-02-01 16:17] LABS: MANUAL DIFF FLAG NO
[2024-02-01 16:25] LABS: Basophils Percent Auto 0.5 % (0-2); Eosinophils Absolute Auto 0.1 X10*3/uL (0.0-0.4); Eosinophils Percent Auto 2.1 % (0-4); Hematocrit 36.7 % (42.0-52.0); Hemoglobin 11.7 g/dl (14.0-18.0); Imm Gran Abs Auto 0.01 X10*3/uL (0.00-0.03); Imm Gran Pct Auto 0.2 % (0.0-0.4); Lymphocytes Absolute Auto 2.3 X10*3/uL (1.2-4.9); Lymphocytes Percent Auto 51.8 % (20-40); Mean Corpuscular HGB Conc 31.9 g/dl (31.0-36.0); Mean Corpuscular Hemoglobin 29.8 pg (27.0-33.0); Mean Corpuscular Volume 93.6 fL (80.0-98.0); Mean Platelet Volume 9.8 fL (9.4-12.4); Monocytes Absolute Auto 0.5 X10*3/uL (0.1-1.2); Monocytes Percent Auto 10.3 % (2-11); Neutrophils Absolute Auto 1.5 x10*3/uL (2.0-8.3); Neutrophils Percent Auto 35.1 % (45-73); Platelet Count 297 X10*3/uL (160-400); Red Blood Count 3.92 X10*6/uL (4.60-5.80); White Blood Count 4.4 X10*3/uL (4.8-10.8)
[2024-02-01 16:56] LABS: Alanine Aminotransferase 136 U/L (0-40); Albumin Level 4.1 g/dL (3.5-5.0); Alkaline Phosphatase 73 U/L (39-117); Anion Gap 9 (12-20); Aspartate Amino Transferase 66 U/L (5-37); Bilirubin Total 0.3 mg/dL (0.0-1.0); Blood Urea Nitrogen 8 mg/dL (9-16); C Reactive Protein 0.36 mg/dL (< or = 0.50); Calcium 9.5 mg/dL (8.4-10.2); Carbon Dioxide 27 mmol/L (22-29); Chloride 105 mmol/L (96-108); Estimated Glomerular Filt Rate > 60; Glucose Random 81 mg/dL (60-115); Potassium 4.3 mmol/L (3.3-5.1); Sodium 137 mmol/L (135-145); Total Protein 6.7 g/dL (6.5-8.0)
[2024-02-01 17:08] LABS: Erythrocyte Sedimentation Rate 2 MM/HR (0-15)
== END 2024-02-01 15:53 | disposition home or self-care (01) ==
LOC: HO.LAB 15:52
PROVIDERS: PCP Internal Medicine; Visit Provider Student in an Organized Health Care Education/Training Program
DX: M06.00 Rheumatoid arthritis without rheumatoid factor, unspecified site (principal)
CPT/HCPCS: 36415; 80053; 85025; 85652; 86140

== ENCOUNTER 2024-02-04 14:43 | Outpatient (AMB) | payer OTHER, SELFPAY ==
--- NOTE | 2024-02-04 14:49 | A.OFFVIS_ITS ---
Vital Signs 02/04/24 14:52 Height 4 ft 11 in BMI Reason not done Patient refused/unable Respiration 18 Pulse 78 Pulse Source Pulse Oximeter Pulse Oximetry (%) 95 Oxygen Delivery Method Room Air Comment unable to take blood pressure Intake Visit Reasons: RA/LM Intake Note: Patient presents for RA. Allergies penicillin V Allergy (Unknown, Verified 02/04/24 14:52) Hives Medication List - Last Reconciled 02/04/24 by Rebecca Aggarwal MD [ADULT BRIEFS (Medium) - 8 units/day As directed up to 8 units per day] baclofen 20 mg PO QID PRN 30 days benzoyl peroxide 5% 1 appl topical DAILY bisacodyl (Dulcolax (bisacodyl)) 10 mg (2 x 5 mg) PO BEDTIME PRN carbamazepine 400 mg PO BID carbamazepine 300 mg PO DAILY@1500 cetirizine 10 mg PO DAILY cholecalciferol (vitamin D3) 50 mcg PO DAILY 90 days [DISPOSABLE GLOVES (large) As directed] doxycycline hyclate 100 mg PO BID ibuprofen 200 mg PO Q6H PRN 30 days lactulose 20 grams (30 mL) PO BID linaclotide (Linzess) 290 mcg PO DAILY nut.tx.impaired digest fxn (Ensure Clear Therapeutic) Drink 1 box orally QD; 30 days phenylephrine-witch caitlin 0.25-50 % (Preparation H (phenylephrine,witch caitlin)) 1 appl topical BID PRN phenytoin sodium extended 100 mg PO TID quetiapine 25 mg PO BEDTIME starch (thickening) (Thick-It oral powder) Mix with all drinks 3 to 5 times throughout the day as needed orally sulfasalazine 1,000 mg (2 x 500 mg) PO BID [UNDERPADS As directed] ziprasidone HCl 80 mg PO BID HPI Comments Details: 38-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 On sulfasalazine 1000 mg Twice daily. For father, patient has been doing quite well overall , no swollen joints. States that patient has been happy recently. Denies any recent medication changes or illnesses. Initial history: This is a 37-year-old male with spastic quadriplegic cerebral palsy who presents for evaluation of diffuse joint pain. Persist her about 1 year ago patient started having episodes of stiffness of his hands, he would flex his elbows, wrists and hands. She also noticed swelling and redness of his knees. They have been giving him ibuprofen with some improvement. He went to the emergency room last year after a wound to his left big toe. At that time he was prescribed antibiotics and prednisone with significant improvement. Her sister patient's PMR specialist told them that patient might have rheumatoid arthritis. There is no known family history of autoimmune rheumatic disease. [facility] Medical History Annual physical exam Chronic idiopathic constipation [place] syndrome Diarrhea Constipation Respiratory infection Abscess of neck Scalp abscess Cellulitis of scalp Arthralgia COVID-19 Cellulitis of great toe of left foot Encounter for medical clearance for patient hold Small bowel obstruction due to adhesions Paralytic ileus Seronegative rheumatoid arthritis SARS-CoV-2 positive (~08/16/21) Presence of intrathecal baclofen pump Epilepsy Spastic quadriplegic cerebral palsy Surgical History H/O colonoscopy History of intestinal surgery H/O exploratory laparotomy History of incision and drainage Social History Household Members: Family Housing: House Do you 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) Unable to assess alcohol history related to: Unable to respond Alcohol intake: current Alcohol intake frequency: does not drink Comment: pt is bed/chair bound Patient Tobacco Use Status: Never used Tobacco e-Cigarette/Vaping Use: Never Used Second Hand Smoke Exposure: No service: No Current occupational status: disabled Cognitive needs: Yes Hearing needs: No Vision needs: No Review of Systems Const Details: ROS is obtained from patient's family Musc Denies arthralgias, Denies joint swelling and Denies stiffness Physical Exam Vital Signs: Last Vital Signs Pulse 78 02/04/24 14:52 Resp 18 02/04/24 14:52 Pulse Ox 95 02/04/24 14:52 Oxygen Delivery Method Room Air 02/04/24 14:52 Const Other: Quadriplegic in a wheelchair Resp Effort & Inspection: normal respiratory effort Extrem Other: Patient is spastic quadriplegic in a wheelchair. Flexion contracture of his elbows, wrists, hands, fingers, feet Wrists are nontender to palpation today. Knees are not warm, swollen or tender, Ankles are not warm or tender to palpation. Negative MCP squeeze test. Negative MTP squeeze test Normal nailfold capillaroscopy Assessment & Plan Assessment & Plan (1) Seronegative rheumatoid arthritis: Comment: -ve RF -ve CCP dx 08/2022 SSZ 08/29 effective MTX couldn't be used as there is concern of reduced efficacy of phenytoin when folic acid is given Code(s): M06.00 - Rheumatoid arthritis without rheumatoid factor, unspecified site Category: Medical Plan: This is a 38-year-old spastic quadriplegic cerebral palsy male with seronegative RA who returns for follow-up with his father. On sulfasalazine 1000 mg Twice daily. There is no synovitis on exam. RA well controlled. Inflammatory markers are normal. Labs however showed transaminitis, may be related to sulfasalazine versus other causes. Reduce sulfasalazine to 500 mg Twice daily. Check labs in one-month Infectious screening: Hepatitis panel and T spot -ve 2022 Labs before next visit in 4 months (2) GARFIELD positive: Code(s): R76.8 - Other specified abnormal immunological findings in serum Category: Medical Plan: Positive GARFIELD 1-80 in a nucleolar pattern but comprehensive sub serology is negative and no signs of overlap with other connective tissue diseases. (3) On sulfasalazine therapy: Code(s): Z79.899 - Other nursing home (current) drug therapy Category: Medical Plan: Monitor safety labs Plan I spent 26 minutes reviewing patient's chart, evaluating patient, ordering diagnostic workup, counseling patient's father and documenting in the chart Orders: Orders Complete Blood Count Auto Diff 1 Month M06.00 - Rheumatoid arthritis without rheumatoid factor, unspecified site Comprehensive Met. Panel 1 Month M06.00 - Rheumatoid arthritis without rheumatoid factor, unspecified site C Reactive Protein 1 Month M06.00 - Rheumatoid arthritis without rheumatoid factor, unspecified site Erythrocyte Sedimentation Rate 1 Month M06.00 - Rheumatoid arthritis without rheumatoid factor, unspecified site Coding Level of Care Code Est Pt Level 4 (14381) Complex EM visit Add On G2211 Diagnoses Seronegative rheumatoid arthritis M06.00 GARFIELD positive R76.8 On sulfasalazine therapy Z79.899
[2024-02-04 14:52] VITALS: PULSE 78; RESP 18; O2SAT 95
== END 2024-02-04 15:04 | disposition home or self-care (01) ==
LOC: HO.RHE 14:44
PROVIDERS: PCP Internal Medicine; Visit Provider Student in an Organized Health Care Education/Training Program
DX: M06.00 Rheumatoid arthritis without rheumatoid factor, unspecified site (principal); R76.8 Other specified abnormal immunological findings in serum; Z79.899 Other long term (current) drug therapy
CPT/HCPCS: 99214; G2211

== ENCOUNTER → 2024-02-04 14:43 | Outpatient (BNVA) | payer OTHER, SELFPAY | PROVIDERS: PCP Internal Medicine; Visit Provider Student in an Organized Health Care Education/Training Program | DX: M06.00 Rheumatoid arthritis without rheumatoid factor, unspecified site (principal); G80.0 Spastic quadriplegic cerebral palsy; R74.8 Abnormal levels of other serum enzymes; R76.8 Other specified abnormal immunological findings in serum; Z79.899 Other long term (current) drug therapy | CPT/HCPCS: 99212 ==

== ENCOUNTER 2024-03-26 10:16 | Outpatient (AMB) | payer OTHER, SELFPAY ==
[2024-03-26 10:29] VITALS: BP 128/80
--- NOTE | 2024-03-26 10:29 | MHC.PC.OV ---
Vital Signs 03/26/24 10:29 Height 4 ft 11 in BMI Reason not done Patient refused/unable BP 128/80 Blood Pressure Location Lt brachial Position Sitting Pulse Source Pulse Oximeter Oxygen Delivery Method Room Air Intake Visit Reasons: PE Medical Coder Required: No Accompanied by: Self / Same As Patient Allergies penicillin V Allergy (Unknown, Verified 03/26/24 11:12) Hives Medication List - Last Reconciled 03/26/24 by Williams Cotter MD [ADULT BRIEFS (Medium) - 8 units/day As directed up to 8 units per day] baclofen 20 mg PO QID PRN 30 days benzoyl peroxide 5% 1 appl topical DAILY bisacodyl (Dulcolax (bisacodyl)) 10 mg (2 x 5 mg) PO BEDTIME PRN carbamazepine 400 mg PO BID carbamazepine 300 mg PO DAILY@1500 cetirizine 10 mg PO DAILY cholecalciferol (vitamin D3) 50 mcg PO DAILY 90 days [DISPOSABLE GLOVES (large) As directed] doxycycline hyclate 100 mg PO BID ibuprofen 200 mg PO Q6H PRN 30 days lactulose 20 grams (30 mL) PO BID linaclotide (Linzess) 290 mcg PO DAILY nut.tx.impaired digest fxn (Ensure Clear Therapeutic) Drink 1 box orally QD; 30 days phenylephrine-witch caitlin 0.25-50 % (Preparation H (phenylephrine,witch caitlin)) 1 appl topical BID PRN phenytoin sodium extended 100 mg PO TID quetiapine 25 mg PO BEDTIME starch (thickening) (Thick-It oral powder) Mix with all drinks 3 to 5 times throughout the day as needed orally sulfasalazine 1,000 mg (2 x 500 mg) PO BID [UNDERPADS As directed] ziprasidone HCl 80 mg PO BID Tobacco use date assessed: 03/26/24 Dental Screening Dental Screen Date: 03/26/24 Did you have a dental visit in the last 12 months?: Yes Did you have a dental problem in the last 6 months where you did not have access to dental care?: No Was dental information given to patient?: Patient has dentist HPI PE HPI Details Patient comes in today for his annual physical examination - is accompanied by his parents, who provides all of his pertinent information as patient is unable to communicate due to his cognitive deficiencies His parents states that patient is doing well and does not appear to have any acute issues currently He's had no issues recently with headaches, any cough/cold symptoms, difficulty swallowing, chest pains or SOB He has been reportedly eating well lately with no nausea/vomiting States that he has been moving his bowels regularly but his mother notices that despite regular bowel movements, his stomach seems to be distended ( getting bigger ) often lately He is incontinent of urine and wears adult pull ups but family has not noticed anything unusual in his stool lately Patient was seen by rheumatology for follow up for his seronegative RA a few weeks ago - they were advised that he currently has no signs or symptoms of inflammatory joint disease and his Sulfasalazine dose was lowered from 1000 mg to 500 mg BID and was instructed to get some follow up labs done in a month, which he has not been able to do yet He has not yet gotten his previously ordered labs done and his parents were instructed to help him get them done [facility] Medical History (Updated 03/26/24 @ 14:19 by Williams Cotter MD) Spastic quadriplegic cerebral palsy Annual physical exam Chronic idiopathic constipation [place] syndrome Diarrhea Constipation Respiratory infection Abscess of neck Scalp abscess Cellulitis of scalp Arthralgia COVID-19 Cellulitis of great toe of left foot Encounter for medical clearance for patient hold Small bowel obstruction due to adhesions Paralytic ileus Seronegative rheumatoid arthritis SARS-CoV-2 positive (~08/16/21) Presence of intrathecal baclofen pump Epilepsy Surgical History H/O colonoscopy History of intestinal surgery H/O exploratory laparotomy History of incision and drainage Social History Household Members: Family Housing: House Do you presently have visiting nurse or 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 1. Little interest or pleasure in doing things: not at all 2. Feeling down, depressed, or hopeless: not at all 3. Trouble falling or staying asleep, or sleeping too much: not at all 4. Feeling tired or having little energy: not at all 5. Poor appetite or overeating: not at all 6. Feeling bad about yourself - or that you are a failure or have let yourself or your family down: not at all 7. Trouble concentrating on things, such as reading the newspaper or watching television: not at all 8. Moving or speaking so slowly that other people could have noticed. Or the opposite - being so fidgety or restless that you have been moving around a lot more than usual: not at all 9. Thoughts that you would be better off or of hurting yourself in some way: not at all Total score: 0 Depression Screening Interpretation: Negative Depression Screening Done: Yes 99947 - PHQ-9 Billing: Yes Source: Developed by Drs. Quan Quinn, Magdalena Hyman, Paul Shipley and colleagues, with an educational deana from [employer]. Thrive Questionnaire Date Thrive assessed: 03/26/24 I am a: Patient What is your living situation today?: I have a steady place to live Within the past 12 months, did the food you bought not last and you didn't have the money to get more?: Never true Within the past 12 months, did you worry whether your food would run out before you got money to buy more?: Never true Do you have trouble paying for medicines?: No Do you have trouble getting transportation to medical appointments?: No Do you have trouble paying your heating and electricity bill?: No Do you have trouble taking care of your child, family member or friend?: No Do you have trouble with day-to-day activities such as bathing, preparing meals, shopping, managing finances, etc.?: No Are you currently unemployed and looking for a job?: No Are you interested in more education?: No Please select the resources that you would like help with: None Currently or been in a relationship where the following occur: No concerns reported THRIVE Score: 0 AUDIT C Alcohol Use Questionnaire (AUDIT-C) 1. How often do you have a drink containing alcohol?: Never 3. How often do you have six or more drinks on one occasion?: Never Total Score: 0 Score Reviewed/Action Taken: Yes CURT-7 AMB Questionnaire CURT-7 Date CURT - 7 assessed: 03/26/24 Feeling nervous, anxious, or on edge: 0 = Not at all Not being able to stop or control worryin = Not at all Worrying too much about different things: 0 = Not at all Trouble relaxin = Not at all Being so restless that it is hard to sit still: 0 = Not at all Becoming easily annoyed or irritable: 0 = Not at all Feeling afraid as if something awful might happen: 0 = Not at all Total CURT-7 score (0-4 normal; 5-9 mild; 10-14 moderate; 15-21 severe): 0 Source: Developed by Drs. Quan Quinn, Magdalena Hyman, Paul Shipley and colleagues, with an educational deana from [employer]. Review of Systems Const Details: ROS is limited and obtained primarily from patient's family as patient is unable to provide any information due to his significant cognitive impairment Denies chills, Denies fever(s) and Denies headache(s) Eyes Denies eye discharge ENT Denies dysphagia, Denies headache(s), Denies hearing loss, Denies nasal congestion, Denies nasal discharge, Denies sinus pain and Denies sore throat Card Denies chest pain, Denies palpitations and Denies dyspnea Resp Denies chest congestion, Denies cough and Denies dyspnea GI Denies abdominal pain, Denies hematochezia, Denies dysphagia, Denies heartburn, Denies diarrhea, Denies nausea and Denies vomiting Denies dysuria Musc Denies arthralgias and Denies joint swelling Skin/Breast Denies rash Neuro Denies headache(s) Endo Denies palpitations Physical exam (Primary Care) Vital Signs: Last Vital Signs BP 128/80 03/26/24 10:29 Oxygen Delivery Method Room Air 03/26/24 10:29 Tobacco/Smoking Status: Tobacco use Status Tobacco use date assessed 03/26/24 03/26/24 10:37 Patient Tobacco Use Status Never used Tobacco 03/26/24 10:37 e-Cigarette/Vaping Use Never Used 03/26/24 10:37 PHQ-9: PHQ-9 Score PHQ-9: Total score 0 03/26/24 12:56 Depression Screening Interpretation: Negative Thrive Assessment: Date of Thrive Assessment Date Thrive assessed 03/26/24 03/26/24 10:37 Currently or been in a relationship where the following occur: No concerns reported Const Other: Physical exam is limited due to patient's wheelchair-bound condition and inability to cooperate with exam - has significant cognitive impairment General: no acute distress Orientation/consciousness: Other orientation findings ((+) significant cognitive impairment) Limitations: physical limitations and wheelchair HENMT Ears: TM's normal bilaterally and EAC's normal General nose exam: no nasal discharge noted Throat: Yes posterior oropharynx normal and Yes tonsils normal Neck Neck: No lymphadenopathy Thyroid: Thyroid normal Resp Auscultation: clear to auscultation bilaterally, no crackles, no rales and no wheezes Cardio Rate: regular rate Rhythm: regular rhythm Heart sounds: no murmurs GI Palpation (GI): Soft to palpation, no guarding and not rigid Percussion: Yes tympanic to percussion Auscultation: normal bowel sounds Back/Spine/Pelvis Other: Wheelchair-bound Skin Rashes: no rashes Neuro Other: (+) significant cognitive impairment - unable to assess neurologically Extrem Other: (+) spastic and atrophic upper and lower extremities; no joint swelling noted General: Yes no pedal edema Coding Level of Care Code Est Pt Prev Care 40-64y(53818) Diagnoses Annual physical exam Z00.00 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 Nonintractable epilepsy without status epilepticus, unspecified epilepsy type G40.909 Epilepsy type: unspecified Intractability: not intractable Status epilepticus: without status epilepticus Seronegative rheumatoid arthritis M06.00 Dysphagia, unspecified type R13.10 Dysphagia type: unspecified Additional Codes PHQ-9 - 01021 - PHQ-9 Billing: Yes ([id number]) Assessment & Plan Assessment & Plan (1) Annual physical exam: Code(s): Z00.00 - Encounter for general adult medical examination without abnormal findings Category: Medical Plan: Check labs - his labs were previously ordered and will be updated today (2) Spastic quadriplegic cerebral palsy: Code(s): G80.0 - Spastic quadriplegic cerebral palsy Category: Medical Plan: Continue Baclofen 10 mg QID PRN Patient also has an intrathecal Baclofen pump and continues to follow up with the intrathecal clinic and with neurosurgery at [facility] in [place] regularly (3) Epilepsy: Code(s): G40.909 - Epilepsy, unspecified, not intractable, without status epilepticus Category: Medical Qualifiers: Epilepsy type: unspecified Intractability: not intractable Status epilepticus: without status epilepticus Qualified Code(s): G40.909 - Epilepsy, unspecified, not intractable, without status epilepticus Plan: Continue Carbamazepine 100 mg 4 tablets daily in AM, 3 tablets daily in PM and 4 tablets daily at night AND Dilantin ER 100 mg TID Will recheck his Phenytoin and Tegretol serum levels for follow up Follow up with neurology as scheduled (4) Seronegative rheumatoid arthritis: Comment: -ve RF -ve CCP dx 08/2022 SSZ 08/29 effective MTX couldn't be used as there is concern of reduced efficacy of phenytoin when folic acid is given Code(s): M06.00 - Rheumatoid arthritis without rheumatoid factor, unspecified site Category: Medical Plan: Per rheumatology, he appears to be doing well with no signs or symptoms of inflammatory joint disease Continue Sulfasalazine but his dose was lowered to 500 mg BID and he was supposed to get some follow up labs done for rheumatology in a month but he has not yet gotten done Follow up with rheumatology as scheduled (5) Dysphagia: Code(s): R13.10 - Dysphagia, unspecified Category: Medical Qualifiers: Dysphagia type: unspecified Qualified Code(s): R13.10 - Dysphagia, unspecified Plan: RESOLVED - he had a swallow evaluation done at [facility] last year and this reportedly came back normal but he was recommended to have his liquids thickened as a precautionary measure He now has Rx for Thick-It powder to use with all of his daily oral liquids as needed / as instructed Plan Follow up in 6 months
== END 2024-03-26 11:26 | disposition home or self-care (01) ==
PROVIDERS: PCP Internal Medicine; Visit Provider Internal Medicine
DX: Z00.00 Encounter for general adult medical examination without abnormal findings (principal); G80.0 Spastic quadriplegic cerebral palsy; G40.909 Epilepsy, unspecified, not intractable, without status epilepticus; M06.00 Rheumatoid arthritis without rheumatoid factor, unspecified site; R13.10 Dysphagia, unspecified

== ENCOUNTER → 2024-03-26 10:16 | Outpatient (BNVA) | payer OTHER, SELFPAY | PROVIDERS: PCP Internal Medicine; Visit Provider Internal Medicine | DX: Z00.00 Encounter for general adult medical examination without abnormal findings (principal); R32 Unspecified urinary incontinence; G80.0 Spastic quadriplegic cerebral palsy; G40.909 Epilepsy, unspecified, not intractable, without status epilepticus; M06.00 Rheumatoid arthritis without rheumatoid factor, unspecified site; R13.10 Dysphagia, unspecified | CPT/HCPCS: 96127; 99396 ==

== ENCOUNTER 2024-05-30 16:40 | Outpatient (REF) | payer OTHER, SELFPAY ==
[2024-05-30 17:14] LABS: MANUAL DIFF FLAG NO
[2024-05-30 17:21] LABS: Basophils Percent Auto 0.5 % (0-2); Eosinophils Absolute Auto 0.1 X10*3/uL (0.0-0.4); Eosinophils Percent Auto 1.1 % (0-4); Hematocrit 38.9 % (42.0-52.0); Hemoglobin 12.8 g/dl (14.0-18.0); Imm Gran Abs Auto 0.01 X10*3/uL (0.00-0.03); Imm Gran Pct Auto 0.2 % (0.0-0.4); Lymphocytes Percent Auto 34.9 % (20-40); Mean Corpuscular HGB Conc 32.9 g/dl (31.0-36.0); Mean Corpuscular Volume 91.1 fL (80.0-98.0); Mean Platelet Volume 9.7 fL (9.4-12.4); Monocytes Absolute Auto 0.6 X10*3/uL (0.1-1.2); Monocytes Percent Auto 10.6 % (2-11); Neutrophils Percent Auto 52.7 % (45-73); Platelet Count 282 X10*3/uL (160-400); Red Blood Count 4.27 X10*6/uL (4.60-5.80); Red Cell Distribution Width 13.7 % (11.0-16.0); White Blood Count 5.7 X10*3/uL (4.8-10.8)
[2024-05-30 17:40] LABS: Estimated Average Glucose 80 mg/dL; Hemoglobin A1C 85.2275 umol/L; Hemoglobin A1c % 4.4 % (<6.0); Total Hemoglobin (HGBA1C) 3402.0029 umol/L
[2024-05-30 18:01] LABS: Alanine Aminotransferase 29 U/L (0-40); Alkaline Phosphatase 64 U/L (39-117); Anion Gap 9 (12-20); Aspartate Amino Transferase 21 U/L (5-37); Bilirubin Total 0.3 mg/dL (0.0-1.0); Blood Urea Nitrogen 10 mg/dL (9-16); C Reactive Protein 1.21 mg/dL (< or = 0.50); Carbon Dioxide 25 mmol/L (22-29); Chloride 105 mmol/L (96-108); Cholesterol 142 mg/dL (<200); Estimated Glomerular Filt Rate > 60; Glucose Fasting 106 mg/dL (60-99); Glucose Random 105 mg/dL (60-115); HDL Cholesterol 47 mg/dL (>40); LDL Cholesterol Calculated 84 mg/dL (<100); Potassium 4.3 mmol/L (3.3-5.1); Sodium 135 mmol/L (135-145); Total Protein 7.1 g/dL (6.5-8.0); Triglycerides 59 mg/dL (<150)
[2024-05-30 18:09] LABS: TSH reflex Free T4 1.96 uIU/mL (0.32-4.0)
[2024-05-30 18:35] LABS: Erythrocyte Sedimentation Rate 2 MM/HR (0-15)
[2024-06-02 15:53] LABS: TS Negative Control Passed; TS Panel A 0; TS Panel B 0; TS Positive Control Passed; TSpotTB Negative (Negative)
== END 2024-05-30 16:41 | disposition home or self-care (01) ==
LOC: HO.LAB 16:40
PROVIDERS: Absent Provider Internal Medicine; PCP Internal Medicine; Visit Provider Student in an Organized Health Care Education/Training Program
DX: Z00.00 Encounter for general adult medical examination without abnormal findings (principal); R14.0 Abdominal distension (gaseous); E78.00 Pure hypercholesterolemia, unspecified; G40.909 Epilepsy, unspecified, not intractable, without status epilepticus; Z11.1 Encounter for screening for respiratory tuberculosis; R73.9 Hyperglycemia, unspecified; D64.9 Anemia, unspecified; M06.00 Rheumatoid arthritis without rheumatoid factor, unspecified site
CPT/HCPCS: 36415; 80053; 80061; 83036; 84443; 85025; 85652; 86140; 86481

== ENCOUNTER 2024-07-07 17:05 | Outpatient (REF) | payer OTHER, SELFPAY ==
[2024-07-07 17:12] LABS: Appearance Urine Clear; Color Urine Dark Yellow; Glucose Urine UA Negative (Negative); Leukocyte Esterase Urine Small (1+) (Negative); Nitrite Urine Positive (Negative); PH 5.5 (5.0-9.0); Specific Gravity - Urine 1.025 (1.005-1.025); UMIC TRIGGER UACC YES; Urine Blood Negative (Negative); Urine Ketones Negative (Negative); Urine Protein Negative (Neg-Trace)
[2024-07-07 17:17] LABS: Bacteria Urine 4+ (None Seen); Hyaline Casts Urine 0-2 /LPF (0-2); RBC Urine 0-2 /HPF (0-2); Squamous Epithelial Cell Urine 0-2 /HPF (0-2); UACC Culture Trigger YES
== END 2024-07-07 17:06 | disposition home or self-care (01) ==
LOC: HO.LNP 17:05
PROVIDERS: Visit Provider Internal Medicine
DX: Z00.00 Encounter for general adult medical examination without abnormal findings (principal); R30.0 Dysuria
CPT/HCPCS: 81001; 87086; 87088; 87186

== ENCOUNTER 2024-09-02 10:05 | Outpatient (AMB) | payer OTHER, SELFPAY ==
--- NOTE | 2024-09-02 10:13 | A.OFFVIS_ITS ---
Vital Signs 09/02/24 10:17 Height 4 ft 11 in BMI Reason not done Patient refused/unable Intake Visit Reasons: f/u cic paralytic ileus Intake Note: Demarcus presents in the office as a follow up for CIC and paralytic Ileus. CC: very uncomfortable in his stomach - eating okay but having bloating in the stomach. 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 Required: Yes Allergies penicillin V Allergy (Unknown, Verified 09/02/24 10:14) Hives HPI HPI f/u cic paralytic ileus: Details: Assessment & Plan (1) Small bowel obstruction due to adhesions: Comment: Two thousand nine, with laparoscopy x2 any adhesions removed including a central band adhesion Code(s): K56.50 - Intestinal adhesions [bands], unspecified as to partial versus complete obstruction Category: Medical (2) Paralytic ileus: Comment: Multiple recurring from [id number] Code(s): K56.0 - Paralytic ileus Category: Medical (3) Chronic idiopathic constipation: Code(s): K59.04 - Chronic idiopathic constipation Category: Medical Plan He is here today with his mother and his brother who are the primary caretakers. So far he has been doing well there was only once they had to give him a suppository because they were fearful he had not moved his bowels. He is continuing with the Linzess 290 micro g, bisacodyl, lactulose, and his suppositories. Because the problem seems to be mostly with the small-bowel we might consider a dose of Reglan going forward if we can keep this problem [place]. Because he seems to have bowel obstructions occurring at about six-month intervals bring him back in 3 months and of course they should call me sooner if he has any worsening symptoms Medications: New linaclotide (Linzess) 290 mcg PO DAILY 30 caps 6RF bisacodyl (Dulcolax (bisacodyl)) 10 mg (2 x 5 mg) PO BEDTIME PRN 60 tabs 6RF Constipation Refilled lactulose 20 grams (30 mL) PO BID 1,200 mL 12RF TODAY'S VISIT He is here today with his mother who is his primary mobile crane operator. He is in discomfort today, but has been out of LInzess for 2 days. Given his disabilities it is difficult to know what is bothering him. Also he is having trouble swallowing the past 2 days - already on pureed diet. She feels that the LInzess at 290mcg works well when he has it. She also is utilizing the bisacodyl suppositories any had a bowel movement yesterday with this. However his belly does seem to be bloated today. ROV 6mos if pharmacy does not have ([facility]) consider different pharmacy temporally. [facility] Medical History (Updated 09/02/24 @ 10:27 by ORION Ramirez) Encounter for wheelchair assessment Annual physical exam Spastic quadriplegic cerebral palsy Chronic idiopathic constipation [place] syndrome Diarrhea Constipation Respiratory infection Abscess of neck Scalp abscess Cellulitis of scalp Arthralgia COVID-19 Cellulitis of great toe of left foot Encounter for medical clearance for patient hold Small bowel obstruction due to adhesions Paralytic ileus Seronegative rheumatoid arthritis SARS-CoV-2 positive (~08/16/21) Presence of intrathecal baclofen pump Epilepsy Surgical History H/O colonoscopy History of intestinal surgery H/O exploratory laparotomy History of incision and drainage Social History Household Members: Family Housing: House Do you presently have 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) Unable to assess alcohol history related to: Unable to respond Alcohol intake: current Alcohol intake frequency: does not drink Comment: pt is bed/chair bound Patient Tobacco Use Status: Never used Tobacco e-Cigarette/Vaping Use: Never Used Second Hand Smoke Exposure: No service: No Current occupational status: disabled Cognitive needs: Yes Hearing needs: No Vision needs: No Review of Systems Const Denies fever(s), Denies night sweats, Denies poor appetite and Denies weight loss ENT Reports dysphagia GI Details: Reports bloating, Reports constipation, Reports dysphagia and Denies vomiting Musc Reports abnormal gait, Reports deformity and Reports limited range of motion Skin/Breast Denies pruritus, Denies lesions, Denies rash and Denies jaundice Neuro Reports abnormal gait and Reports behavioral changes Psych Reports behavioral changes Physical Exam Const General: in distress (Unable to determine due disability she cries out in pain) and well groomed Nutritional Appearance: thin Orientation/consciousness: oriented to person Limitations: behavioral limitations, physical limitations, wheelchair and other limitations HEENT Head: Yes normocephalic and Yes atraumatic Eyes General: appearance normal, both eyes and all related structures Pupils: Equal, round and reactive pupils present Neck Neck: Yes normal visual inspection and Yes no lymphadenopathy Thyroid: Thyroid normal Resp Effort & Inspection: normal respiratory effort GI Inspection: Yes distended and No Abdominal panniculus present Palpation (GI): Soft to palpation, nontender, no guarding, not rigid and No hepatosplenomegaly present Percussion: Yes tympanic to percussion Auscultation: Hyperactive bowel sounds present Rectal Exam - Male: Yes deferred Skin General skin exam: no rashes or lesions noted Rashes: no rashes Neuro General: oriented to person Cranial nerves: Yes Equal, round and reactive pupils present Extrem Other: Generalized contractures and dysmorphic limbs General: No edema and Yes Dysmorphic Psych Appearance: well kempt Mental Status: other Speech and movement: Mute speech present Affect: Other affect and mood findings present Attitude: Other attitude/behavior findings present (Psych) Thought process: Other thought process findings present Thought content: other Insight: Poor insight present (Psych) Judgement: Poor judgement present (Psych) Assessment & Plan Assessment & Plan (1) Chronic idiopathic constipation: Code(s): K59.04 - Chronic idiopathic constipation Category: Medical (2) Paralytic ileus: Comment: Multiple recurring from [id number] Code(s): K56.0 - Paralytic ileus Category: Medical (3) Spastic quadriplegic cerebral palsy: Code(s): G80.0 - Spastic quadriplegic cerebral palsy Category: Medical (4) Small bowel obstruction due to adhesions: Comment: Two thousand nine, with laparoscopy x2 any adhesions removed including a central band adhesion Code(s): K56.50 - Intestinal adhesions [bands], unspecified as to partial versus complete obstruction Category: Medical (5) Nonverbal: Code(s): R47.01 - Aphasia Category: Medical Plan He is here today with his mother who is his primary mobile crane operator. He is in discomfort today, but has been out of LInzess for 2 days. Given his disabilities it is difficult to know what is bothering him. Also he is having trouble swallowing the past 2 days - already on pureed diet. She feels that the LInzess at 290mcg works well when he has it. She also is utilizing the bisacodyl suppositories any had a bowel movement yesterday with this. However his belly does seem to be bloated today. ROV 6mos if pharmacy does not have ([facility]) consider different pharmacy temporally. Medications: New lactulose 30 mL PO BID 1,200 mL 6RF Refilled bisacodyl 10 mg (2 x 5 mg) PO BEDTIME 60 tabs 6RF linaclotide (Linzess) 290 mcg PO DAILY 30 caps 6RF Coding Level of Care Code Est Pt Level 3 (13512) Diagnoses Chronic idiopathic constipation K59.04 Paralytic ileus K56.0 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 Small bowel obstruction due to adhesions K56.50 Nonverbal R47.01
== END 2024-09-02 10:42 | disposition home or self-care (01) ==
LOC: HO.HGI 10:06
PROVIDERS: PCP Internal Medicine; Visit Provider Nurse Practitioner
DX: K59.04 Chronic idiopathic constipation (principal); K56.0 Paralytic ileus; G80.0 Spastic quadriplegic cerebral palsy; K56.50 Intestinal adhesions [bands], unspecified as to partial versus complete obstruction; R47.01 Aphasia
CPT/HCPCS: 99213

== ENCOUNTER → 2024-09-02 10:05 | Outpatient (BNVA) | payer OTHER, SELFPAY | PROVIDERS: PCP Internal Medicine; Visit Provider Nurse Practitioner | DX: K56.0 Paralytic ileus (principal); K59.04 Chronic idiopathic constipation; G80.0 Spastic quadriplegic cerebral palsy; K56.50 Intestinal adhesions [bands], unspecified as to partial versus complete obstruction; R47.01 Aphasia | CPT/HCPCS: 99212 ==

== ENCOUNTER 2024-11-06 14:59 | Outpatient (AMB) | payer OTHER, SELFPAY ==
[2024-11-06 15:02] VITALS: BP 120/60; PULSE 63; O2SAT 100
--- NOTE | 2024-11-06 15:02 | A.OFFVIS_ITS ---
Vital Signs 11/06/24 15:02 Height 4 ft 11 in BMI Reason not done Patient refused/unable BP 120/60 Blood Pressure Location Lt brachial Position Sitting Pulse 63 Pulse Source Pulse Oximeter Pulse Oximetry (%) 100 Oxygen Delivery Method Room Air Intake Visit Reasons: RA Intake Note: Patient last seen by Doctor Rebecca Aggarwal on 02/04/24. Presents today for RA follow up and test results. Accompanied by: Father Allergies penicillin V Allergy (Unknown, Verified 11/06/24 15:05) Hives Medication List - Last Reconciled 11/06/24 by Carrol Sofia MD [ADULT BRIEFS (Medium) - 8 units/day As directed up to 8 units per day] baclofen 20 mg PO QID PRN 30 days benzoyl peroxide 5% 1 appl topical DAILY benzoyl peroxide 10% topical bisacodyl 10 mg (2 x 5 mg) PO BEDTIME carbamazepine 400 mg PO BID carbamazepine 300 mg PO DAILY@1500 cetirizine 10 mg PO DAILY cholecalciferol (vitamin D3) 50 mcg PO DAILY 90 days [DISPOSABLE GLOVES (large) As directed] linaclotide (Linzess) 290 mcg PO DAILY nut.tx.impaired digest fxn (Ensure Clear Therapeutic) Drink 1 box orally QD; 30 days phenylephrine-witch caitlin 0.25-50 % (Preparation H (phenylephrine,witch caitlin)) 1 appl topical BID PRN phenytoin sodium extended 100 mg PO TID quetiapine 25 mg PO BEDTIME starch (thickening) (Thick-It oral powder) Mix with all drinks 3 to 5 times throughout the day as needed orally sulfasalazine 1,000 mg (2 x 500 mg) PO BID triamcinolone acetonide 0.1% topical [UNDERPADS As directed] ziprasidone HCl 80 mg PO BID HPI Comments Details: Patient is a 39-year-old male with spastic quadriplegic cerebral palsy, epilepsy, schizophrenia, mood disorder, failure to thrive in the stalled, chronic idiopathic constipation, history of small-bowel obstruction due to adhesions and paralytic ileus, legally blind and seronegative rheumatoid arthritis here today for follow up Interval History: Patient last seen 02/04/[address] Aggarwal - On SSZ 1000mg bid - At appt with father - No complaints Today, - On SSZ 1000mg bid - At appt with father - No complaints Rheumatologic History: Initial history: This is a 37-year-old male with spastic quadriplegic cerebral palsy who presents for evaluation of diffuse joint pain. Persist her about 1 year ago patient started having episodes of stiffness of his hands, he would flex his elbows, wrists and hands. She also noticed swelling and redness of his knees. They have been giving him ibuprofen with some improvement. He went to the emergency room last year after a wound to his left big toe. At that time he was prescribed antibiotics and prednisone with significant improvement. Her sister patient's PMR specialist told them that patient might have rheumatoid arthritis. There is no known family history of autoimmune rheumatic disease. Current Rheumatology Medication(s): Sulfasalazine 1000mg bid [facility] Medical History (Updated 09/02/24 @ 10:27 by ORION Ramirez) Encounter for wheelchair assessment Annual physical exam 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 Diarrhea Constipation Respiratory infection Abscess of neck Scalp abscess Cellulitis of scalp Arthralgia COVID-19 Cellulitis of great toe of left foot Encounter for medical clearance for patient hold Small bowel obstruction due to adhesions Paralytic ileus Seronegative rheumatoid arthritis SARS-CoV-2 positive (~08/16/21) Presence of intrathecal baclofen pump Epilepsy Surgical History H/O colonoscopy History of intestinal surgery H/O exploratory laparotomy History of incision and drainage Social History Household Members: Family Housing: House Do you presently have visiting nurse or other home services: No ([facility]) Unable to assess alcohol history related to: Unable to respond Alcohol intake: current Alcohol intake frequency: does not drink Comment: pt is bed/chair bound Patient Tobacco Use Status: Never used Tobacco e-Cigarette/Vaping Use: Never Used Second Hand Smoke Exposure: No service: No Current occupational status: disabled Cognitive needs: Yes Hearing needs: No Vision needs: No Review of Systems Const Unobtainable due to mental condition Physical Exam Exam Exam: Vital signs reviewed Physical Examination CONSTITUITIONAL Examined in wheel chair MSK Hands * Hands held in fist without evidence of swelling or TTP Wrists * Wrists with limited ROM. No swelling or TTP Elbows * Elbows held in flexion without TTP or swelling Shoulders * UNable to examine due to spasticity Knees * Knees held in flexion. No swelling or TTP Feet * Right foot: Negative squeeze test * Left foot: Negative squeeze test Vital Signs: Last Vital Signs Pulse 63 11/06/24 15:02 BP 120/60 11/06/24 15:02 Pulse Ox 100 11/06/24 15:02 Oxygen Delivery Method Room Air 11/06/24 15:02 Results Reviewed Results Reviewed: Laboratory Tests 02/01/24 05/30/24 16:15 17:12 WBC 5.7 RBC 4.27 L Hgb 12.8 L Hct 38.9 L Plt Count 282 ESR 2 Sodium 135 Potassium 4.3 Chloride 105 Carbon Dioxide 25 BUN 10 Creatinine 0.46 L AST 21 ALT 29 C-Reactive Protein 0.36 1.21 H Assessment & Plan Assessment & Plan (1) Seronegative rheumatoid arthritis: Comment: -ve RF -ve CCP dx 08/2022 SSZ 08/29 effective MTX couldn't be used as there is concern of reduced efficacy of phenytoin when folic acid is given Code(s): M06.00 - Rheumatoid arthritis without rheumatoid factor, unspecified site Category: Medical Plan: #RA Patient is a 39 y.o. male with spastic quadraplegic cerebral palsy here today to follow up seronegative RA Currently in remission Plan - SSZ 1000mg bid - Labs today: CBC, CMP, ESR, CRP - RTC 6 months (2) Encounter for monitoring sulfasalazine therapy: Code(s): Z51.81 - Encounter for therapeutic drug level monitoring; Z79.899 - Other fpc (current) drug therapy Plan: #Long-term Use of Sulfasalazine Discussed with patient the risks and benefits of sulfasalazine in the management of the rheumatic condition Benefits include: - Reduced pain, reduce mortality, maintenance of remission then reduction of flares Risks include: - GI upset, hemolysis (especially if G6PD deficiency), eosinophilia, headache, dizziness, rash, elevated LFTs Plan I spent 25 minutes reviewing the record and labs, taking a history, examining the patient, discussing the treatment plan, ordering diagnostic work up and documenting in the medical record Orders: Orders Complete Blood Count Auto Diff Today M06.00 - Rheumatoid arthritis without rheumatoid factor, unspecified site Comprehensive Met. Panel Today M06.00 - Rheumatoid arthritis without rheumatoid factor, unspecified site C Reactive Protein Today M06.00 - Rheumatoid arthritis without rheumatoid factor, unspecified site Erythrocyte Sedimentation Rate Today M06.00 - Rheumatoid arthritis without rheumatoid factor, unspecified site Medications: Refilled sulfasalazine 1,000 mg (2 x 500 mg) PO BID 360 tabs 1RF M06.00 - Rheumatoid arthritis without rheumatoid factor, unspecified site Coding Level of Care Code Est Pt Level 3 (05010) Complex EM visit Add On G2211 Diagnoses Seronegative rheumatoid arthritis M06.00 Encounter for monitoring sulfasalazine therapy Z51.81; Z79.899
== END 2024-11-06 15:29 | disposition home or self-care (01) ==
LOC: HO.RHE 15:00
PROVIDERS: PCP Internal Medicine; Visit Provider Student in an Organized Health Care Education/Training Program
DX: M06.00 Rheumatoid arthritis without rheumatoid factor, unspecified site (principal); Z51.81 Encounter for therapeutic drug level monitoring; Z79.899 Other long term (current) drug therapy
CPT/HCPCS: 99213

== ENCOUNTER 2024-11-06 14:59 | Outpatient (REF) | payer OTHER, SELFPAY ==
--- OUTSIDE RECORDS SUMMARY | 2024-11-06 15:38 | XMS_ITS | Encounter Summary ---
Author Organization [facility] Address [address] [place] [id number] Phone Care Team Providers Care Batch Records Clerk Name Role Phone Williams Cotter MD Primary Care Provider [phone] Encounter Details Date Type Department Care Team (Late st Contact Info) Description 02/13/2022 Transcribe Orders Virtual Department [address] [place] [address] Williams Cotter MD [address] [place] [address] Dr Bird [address] [place] [id number] Spastic quadriplegic cerebral palsy (Primary Dx); Dysphagia, unspecified type Social History Tobacco Use Types Packs/Day Years Used Date Smoking Tobacco: Never Assessed Sex and Gender Information Value Date Recorded Sex Assigned at Not on file Legal Sex Male 9:17 PM EDT Gender Identity Not on file Sexual Orientation Not on file documented as of this encounter Plan of Treatment Not on file documented as of this encounter Results * FL (Speech) Video Swallow Study (03/28/2022 10:09 AM EST) Anatomical Region Laterality Modality Radio Fluoroscop y 03/28/2022 12:5 3 PM EST Impressions 03/28/2022 12:56 PM EST Oral phase dysmotility without evidence of epiglottic penetration of liquids or semisolid material. The results of this examination were reviewed with the speech pathologist. FLUOROSCOPY TIME: 2 min. 49 sec; 1394 IMAGES/FRAMES POS - [id number] Narrative 03/28/2022 12:56 PM EST COMPARISON: None FINDINGS: A preliminary lateral view the neck reveals small ventral osteophytes at the C5- 6 level. Study was technically difficult as the patient could not fully cooperate. Thin liquid barium was presented by teaspoon and cup sip with tongue pumping noted and overflow from the tongue base into the valleculae and piriform sinuses prior to initiation of the swallows. Once the swallows were triggered no epiglottic penetration, nasopharyngeal reflux, or cricopharyngeal achalasia were detected. Applesauce with barium paste was then presented with lingual dysmotility again without epiglottic penetration demonstrated. Nicholls thickened barium was presented via cup with tongue base overflow but no epiglottic penetration noted. Procedure Note Armani Hubbard MD - 03/28/2022 COMPARISON: None FINDINGS: A preliminary lateral view the neck reveals small ventral osteophytes atthe C5-6 level. Study was technically difficult as the patient could notfully cooperate. Thin liquid barium was presented by teaspoon and cup sip with tonguepumping noted and overflow from the tongue base into the valleculae andpiriform sinuses prior to initiation of the swallows. Once the swallowswere triggered no epiglottic penetration, nasopharyngeal reflux, orcricopharyngeal achalasia were detected. Applesauce with barium paste wasthen presented with lingual dysmotility again without epiglotticpenetration demonstrated. Nicholls thickened barium was presented via cupwith tongue base overflow but no epiglottic penetration noted. IMPRESSION: Oral phase dysmotility without evidence of epiglottic penetration ofliquids or semisolid material. The results of this examination were reviewed with the speechpathologist. FLUOROSCOPY TIME: 2 min. 49 sec; 1394 IMAGES/FRAMES POS - [id number] Williams Cotter MD IMG FL EXAMS Final Res ult documented in this encounter Visit Diagnoses Diagnosis Spastic quadriplegic cerebral palsy- Primary Quadriplegic infantile cerebral palsy Dysphagia, unspecified type Dysphagia, unspecified type- Primary Spastic quadriplegic cerebral palsy Quadriplegic infantile cerebral palsy documented in this encounter Care Teams Batch Records Clerk Relationship Specialty Start Date End Date Williams Cotter MD [address] [place] [address] [place] [address] PCP - General Internal Medicine 05/15/18 documented as of this encounter Additional Source Comments The information contained in this document represents components of the legal health record. It is not the complete legal health record.[facility]
[2024-11-06 15:50] LABS: MANUAL DIFF FLAG NO
[2024-11-06 16:22] LABS: Hematocrit 37.5 % (42.0-52.0); Hemoglobin 12.8 g/dl (14.0-18.0); Imm Gran Abs Auto 0.02 X10*3/uL (0.00-0.03); Imm Gran Pct Auto 0.3 % (0.0-0.4); Lymphocytes Absolute Auto 2.2 X10*3/uL (1.2-4.9); Mean Corpuscular HGB Conc 34.1 g/dl (31.0-36.0); Mean Corpuscular Hemoglobin 30.6 pg (27.0-33.0); Mean Corpuscular Volume 89.7 fL (80.0-98.0); NRBC Abs Auto 0.000 X10*3/uL (0.0-0.012); NRBC Pct Auto 0.0 /100WBC (0.0-0.2); Platelet Count 283 X10*3/uL (160-400); Red Blood Count 4.18 X10*6/uL (4.60-5.80); White Blood Count 7.0 X10*3/uL (4.8-10.8)
[2024-11-06 16:48] LABS: Alanine Aminotransferase 52 U/L (0-40); Albumin Level 4.2 g/dL (3.5-5.0); Alkaline Phosphatase 74 U/L (39-117); Anion Gap 13 (12-20); Aspartate Amino Transferase 30 U/L (5-37); Blood Urea Nitrogen 14 mg/dL (9-16); Calcium 8.5 mg/dL (8.4-10.2); Carbon Dioxide 28 mmol/L (22-29); Chloride 104 mmol/L (96-108); Estimated Glomerular Filt Rate > 60; Potassium 3.8 mmol/L (3.3-5.1); Sodium 141 mmol/L (135-145); Total Protein 6.7 g/dL (6.5-8.0)
== END 2024-11-06 15:00 | disposition home or self-care (01) ==
LOC: HO.LAB 14:59
PROVIDERS: PCP Internal Medicine; Visit Provider Student in an Organized Health Care Education/Training Program
DX: Z51.81 Encounter for therapeutic drug level monitoring (principal); M06.00 Rheumatoid arthritis without rheumatoid factor, unspecified site; Z79.69 Long term (current) use of other immunomodulators and immunosuppressants; Z79.899 Other long term (current) drug therapy
CPT/HCPCS: 36415; 80053; 85025; 85652; 86140; 99212

== ENCOUNTER 2025-02-27 09:00 | Emergency (ER) | payer OTHER, SELFPAY ==
[2025-02-27] VITALS (7 sets, daily range): BP systolic 0; BP diastolic 0; PULSE 70–98; RESP 18–24; TEMP 36.6; O2SAT 92–95; BMI 23.2
--- NOTE | ~2025-02-27 | CT_ITS ---
EXAMINATION: CT ABDOMEN AND PELVIS WITHOUT CONTRAST CLINICAL INFORMATION: Painful urination, evaluate for stones COMPARISON: October 04, 2023 TECHNIQUE: Multidetector volumetric imaging was performed from the superior aspect of the liver through the pubic symphysis. Sagittal and coronal reformatted images were obtained on the technologist's workstation. This CT examination was performed using dose optimization techniques as appropriate, variously including the following: *Automated exposure control *Adjustment of mA and/or kV according to patient size (this includes techniques or standardized protocols for targeted exams where dose is matched to indication/reason for exam; i.e. extremities or head) *Use of iterative reconstruction technique FINDINGS: LUNG BASES: The visualized lung bases are unremarkable. LIVER, GALLBLADDER, AND BILIARY TREE: The liver is normal in size, shape, and attenuation. No focal hepatic lesion or biliary ductal dilatation is present. Again seen are partially calcified stones layering in the gallbladder. There is obscured by motion and streak artifact. PANCREAS: Unremarkable. SPLEEN: Unremarkable. ADRENAL GLANDS: Unremarkable. KIDNEYS AND URETERS: The kidneys are normal in size, shape, and attenuation. No hydronephrosis, hydroureter, or calculi seen. No perinephric stranding. BLADDER: Unremarkable. GASTROINTESTINAL TRACT: Large amount stool is present in the rectum. Otherwise, there is moderate gaseous distention of the colon and fluid in the small bowel loops, overall improvement when compared to the prior. The appendix is not clearly identifiable. ABDOMINAL WALL: No significant hernia is appreciated. LYMPH NODES: Normal. VASCULAR: Unremarkable. PELVIC VISCERA: Unremarkable. OSSEOUS STRUCTURES: Again seen is C-shaped curvature of the thoracal lumbar spine measuring 46 degrees. There is also prominent lordosis of the lumbar spine resulting in anterior tilt of the pelvis. 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 There is also moderate degenerative change in the left hip. CT/CT abdomen pelvis wo IV con IMPRESSION: Moderate fluid and gas distends the small and large bowel. Additionally, there is a large amount stool in the rectum suggesting chronic hypomotility. Overall, distention is decreased from the prior examination Cholelithiasis. No kidney stones or hydronephrosis is identified. Moderate dextroscoliosis. Fleischner guidelines were followed. Electronically signed by: Jamison Soni MD 02/27/2025 11:45 AM EST
--- NOTE | ~2025-02-27 | XR_ITS ---
EXAMINATION: XR CHEST CLINICAL INFORMATION: cp sob COMPARISON: March 29, 2019. TECHNIQUE: Portable AP view of the chest was obtained. FINDINGS: Elevated left hemidiaphragm, old. Prominence of the interstitial markings in the left lung and to a lesser extent right lung. There is a gas-filled distended left hemicolon and splenic colonic flexure. Arty mediastinal silhouette size is normal. Multilevel spondylosis. Degenerative changes in the left glenohumeral joint. XR/XR chest 1V IMPRESSION: Concerning ileus versus bowel obstruction among other intra-abdominal processes. No gross acute airspace disease. Electronically signed by: Brayden Kearns MD 02/27/2025 09:48 AM EST
--- NOTE | 2025-02-27 09:22 | ECG_ITS ---
Test Reason : cp Blood Pressure : */* mmHG Vent. Rate : 94 BPM Atrial Rate : 94 BPM P-R Int : 130 ms QRS Dur : 70 ms QT Int : 342 ms P-R-T Axes : 47 37 45 degrees QTcB Int : 427 ms Normal sinus rhythm Right atrial enlargement Moderate voltage criteria for LVH, may be normal variant ( R in aVL , Sokolow-Palacios ) Abnormal ECG When compared with ECG of 29-Mar-2019 21:57, ST no longer depressed in Inferior leads ST no longer depressed in Lateral leads Nonspecific T wave abnormality, improved in Lateral leads Referred By: Adilene Persaud Electronically Signed By: GEORGE DALTON
--- NOTE | 2025-02-27 09:53 | ED.MALEGU ---
HPI - Male Genitourinary General Chief complaint: Urogenital-Male Stated complaint: blood in urine Time Seen by Provider: 02/27/25 09:22 Source: family Mode of arrival: wheelchair Limitations: no limitations History of Present Illness ED Provider: YADIRA Persaud HPI Narrative: Chief Complaint: ?Blood in urine for three days.? History of Present Illness: 40-year-old non-verbal male with severe cerebral palsy, epilepsy, spasticity managed with an implanted Baclofen pump (refill visit yesterday in [place]), presents with caregiver reporting gross hematuria beginning Sunday (three days ago). Initial urine appeared frankly bloody with small clots; color has ?faded? somewhat but remains red (not pink). No visible hematuria noted this morning according to caregiver. Caregiver observes patient appears to strain and show discomfort during urination. No known fevers or chills. Appetite reported as normal. Last bowel movement last night without difficulty. No current chest pain reported. Caregiver feels patient is ?off? but unable to specify further. Patient is always wheelchair-bound. Related Data Home Medications ?Medication ?Instructions ?Recorded ?Confirmed carbamazepine 200 mg tablet 300 mg PO DAILY@1500 10/05/23 03/26/24 carbamazepine 200 mg tablet 400 mg PO BID 10/05/23 11/06/24 cetirizine 10 mg tablet 10 mg PO DAILY 10/05/23 11/06/24 phenytoin sodium extended 100 mg 100 mg PO TID 10/05/23 11/06/24 capsule quetiapine 25 mg tablet 25 mg PO BEDTIME 10/26/23 11/06/24 ziprasidone HCl 80 mg capsule 80 mg PO BID 10/26/23 11/06/24 benzoyl peroxide 10 % topical topical 09/02/24 11/06/24 cleanser triamcinolone acetonide 0.1 % topical 09/02/24 11/06/24 lotion Previous Rx's ?Medication ?Instructions ?Recorded ADULT BRIEFS (Medium) - 8 units/day #240 ea 12/21/21 DISPOSABLE GLOVES (large) #400 ea 12/21/21 UNDERPADS #120 ea 12/21/21 baclofen 20 mg tablet 20 mg PO QID PRN muscle spasms 30 10/06/22 days #120 tabs cholecalciferol (vitamin D3) 50 50 mcg PO DAILY 90 days #90 caps 09/17/23 mcg (2,000 unit) capsule benzoyl peroxide 5 % topical 1 appl topical DAILY #142 grams 11/07/23 cleanser nut.tx.impaired digest fxn 0.035 See Rx Instructions PO .QD 30 days 11/07/23 gram-1 kcal/mL oral liquid (Ensure #30 multiple units Clear Therapeutic) phenylephrine-witch caitlin 0.25 1 appl topical BID PRN rectal 01/08/24 %-50 % topical gel (Preparation H discomfort #51 grams (phenylephrine,witch caitlin)) starch (thickening) (Thick-It oral See Rx Instructions PO .COMPLEX 07/22/24 powder) dysphagia/aspiration #6,120 grams linaclotide 290 mcg capsule 290 mcg PO DAILY #30 caps 09/02/24 (Linzess) bisacodyl 5 mg tablet,delayed 10 mg (2 x 5 mg) PO BEDTIME #60 10/21/24 release tabs sulfasalazine 500 mg tablet 1,000 mg (2 x 500 mg) PO BID #360 11/06/24 tabs lactulose 10 gram/15 mL oral 30 ml PO BID #1,200 mL 11/19/24 solution cephalexin 500 mg tablet 500 mg PO BID 7 days #14 tabs 02/27/25 Allergies Allergy/AdvReac Type Severity Reaction Status Date / Time penicillin V Allergy Unknown Hives Verified 02/27/25 09:11 Review of Systems Review of Systems: Yes Unobtainable due to mental status PMFSH Past Medical History Attestation statement: The following information was validated with the patient. 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 Diarrhea Constipation Respiratory infection Abscess of neck Scalp abscess Cellulitis of scalp Arthralgia COVID-19 Cellulitis of great toe of left foot Encounter for medical clearance for patient hold Small bowel obstruction due to adhesions Paralytic ileus Seronegative rheumatoid arthritis SARS-CoV-2 positive (~08/16/21) Presence of intrathecal baclofen pump Epilepsy Surgical History H/O colonoscopy History of intestinal surgery H/O exploratory laparotomy History of incision and drainage Social History Social History Household Members: Family Housing: House Do you presently have 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) Alcohol intake: current Alcohol intake frequency: does not drink Comment: pt is bed/chair bound Patient Tobacco Use Status: Never used Tobacco Smoked in Last 30 Days: No e-Cigarette/Vaping Use: Never Used Second Hand Smoke Exposure: No Use of substances other than those prescribed or required for medical reasons: No Advance Directives: No Advance Directives Information Provided: No service: No Current occupational status: disabled Cognitive needs: Yes Hearing needs: No Vision needs: No Physical Exam Exam: Exam: Appearance: Non-verbal male in wheelchair, appears uncomfortable during evaluation. Head: Normocephalic, atraumatic, no step-offs or deformities Eyes: Pupils equal, round and reactive to light.? ENT: Pharynx normal.? Neck: Normal inspection.? Neck supple.? CVS: Normal heart rate and rhythm.? Pulses normal.? Respiratory: No respiratory distress.? Breath sounds normal.? Abdomen: Soft, nontender slightly distended Skin: Skin warm and dry.? Normal skin color.? Normal skin turgor.? Extremities: No lower extremity edema.? No calf ttp. Patient is contracted to upper and lower extremities bilaterally difficult to test strength. Back: No midline tenderness, no C-spine tenderness, full range of motion, no CVA tenderness bilaterally Neuro: Patient does not follow commands nonverbal at baseline difficult to obtain neurological assessment. Vital Signs: Vital Signs: Last Vital Signs Pulse 98 02/27/25 15:30 Resp 18 02/27/25 15:30 Pulse Ox 94 02/27/25 15:30 O2 Del Method Room Air 02/27/25 15:30 BMI result Body Mass Index 23.2 vss Course Reevaluation(s) Reevaluation #1: Leukopenia with a normocytic anemia. Chemistry unremarkable. Negative troponin. UA with infection. Will give antibiotics at this time. X-ray showed concerning ileus versus bowel obstruction along with other intra-abdominal processes. CT abdomen and pelvis demonstrating moderate fluid and gas distending in the bowel and large amount of stool in the rectum suggesting chronic hypomotility. According to parents patient had a bowel movement today. Cholelithiasis noted. No kidney stones or hydronephrosis identified. I did discuss this case with the hospitalist as patient is nonverbal mother and father both state that he has been making noises to suggest he may be in pain. Possible p.o. intake is decreased slightly. Will admit for antibiotics at this time and give 1st dose of ceftriaxone here in the emergency department. Time: 14:51 Reevaluation #2: Patient was evaluated by the hospitalist who recommends soapsuds enema. Metronidazole and cephalosporin. They do not feel like patient needs admission at this time patient to be discharged home with the following antibiotics. Educated patient on diagnosis and treatment plan, answered all question, patient verbalizes understanding. At this time patient will be discharged home, advised to return with new or worsening symptoms. Educated on worrisome signs and symptoms and when to return. At this time I feel comfortable discharge home. Time: 15:34 Medications Administered Discontinued Medications Generic Name Dose Route Start Last Admin Trade Name Freq PRN Reason Stop Dose Admin Ceftriaxone Sodium 1 gm/ 50 mls @ 100 mls/hr 02/27/25 14:51 02/27/25 15:28 Sodium Chloride IV 02/27/25 15:20 100 mls/hr ONCE ONE Administration Morphine Sulfate 4 mg 02/27/25 09:52 02/27/25 10:11 Morphine Sulfate 4 Mg/Ml Cartridge IVPUSH 02/27/25 09:53 4 mg ONCE ONE Administration Protocol Medical Decision Making Medical Decision Making MDM Narrative: 40- year-old male with severe cerebral palsy and Baclofen pump presents with three-day history of gross hematuria and dysuria behaviors. Problem #1: Hematuria ? rule out kidney stone Assessment: Gross hematuria with small clots, discomfort noted when voiding. No fever reported. Kidney stone high on differential. Plan: CT abdomen/pelvis ordered. Low-dose analgesia PRN for comfort while in ED. Reassess following imaging and urinalysis to determine further management. Problem #2: Spasticity ? Baclofen pump Assessment: Baclofen pump refilled yesterday; pump typically used for spasticity management. Plan: TT to Dr. Melara Problem #3: Chronic conditions ? Cerebral palsy & epilepsy Assessment: Baseline severe cerebral palsy with legal blindness, spasticity, seizure disorder. No acute issues related to seizures reported today. Plan: To be followed by out patient providers Differential Diagnosis Differential Diagnoses: The differential diagnosis associated with the presentation includes Admission/Observation Consideration of admission/observation: Escalation of care including admission/observation considered Lab Data MDM Lab Attestation statement: I reviewed the patient's lab results. 02/27/25 10:06 02/27/25 10:06 Labs: Lab Results 02/27/25 02/27/25 Range/Units 10:06 14:03 WBC 4.5 L (4.8-10.8) X10*3/uL RBC 4.59 L (4.60-5.80) X10*6/uL Hgb 13.7 L (14.0-18.0) g/dl Hct 41.5 L (42.0-52.0) % MCV 90.4 (80.0-98.0) fL MCH 29.8 (27.0-33.0) pg MCHC 33.0 (31.0-36.0) g/dl RDW 12.9 (11.0-16.0) % Plt Count 263 (160-400) X10*3/uL MPV 9.6 (9.4-12.4) fL Immature Gran % (Auto) 0.2 (0.0-0.4) % Neut % (Auto) 52.0 (45-73) % Lymph % (Auto) 36.7 (20-40) % [place] % (Auto) 9.6 (2-11) % Eos % (Auto) 1.1 (0-4) % Baso % (Auto) 0.4 (0-2) % Lymph # (Auto) 1.6 (1.2-4.9) X10*3/uL [place] # (Auto) 0.4 (0.1-1.2) X10*3/uL Eos # (Auto) 0.1 (0.0-0.4) X10*3/uL Baso # (Auto) 0.0 (0.0-0.2) X10*3/uL Abs Immat Gran (auto) 0.01 (0.00-0.03) X10*3/uL Absolute Neuts (auto) 2.3 (2.0-8.3) x10*3/uL Absolute Nucleated RBC 0.000 (0.0-0.012) X10*3/uL Nucleated RBC % (auto) 0.0 (0.0-0.2) /100WBC PT 12.0 (11.2-13.5) SEC INR 1.0 (0.9-1.1) D-Dimer High Sensitivty < 150 NG/ML Sodium 140 (135-145) mmol/L Potassium 3.9 (3.3-5.1) mmol/L Chloride 105 (96-108) mmol/L Carbon Dioxide 28 (22-29) mmol/L Anion Gap 11 L (12-20) BUN 7 L (9-16) mg/dL Creatinine 0.48 L (0.5-1.4) mg/dL Estim Creat Clear Calc 135.2 Estimated GFR > 60 Random Glucose 116 H (60-115) mg/dL Calcium 9.5 D (8.4-10.2) mg/dL Total Bilirubin 0.3 (0.0-1.0) mg/dL AST 33 (5-37) U/L ALT 50 H (0-40) U/L Alkaline Phosphatase 72 (39-117) U/L Troponin I High Sens < 2.7 (<3.5-35.0) ng/L Total Protein 7.5 (6.5-8.0) g/dL Albumin 4.7 (3.5-5.0) g/dL Lipase 19 (8-78) U/L Urine Color Yellow Urine Appearance Clear Urine pH 7.5 (5.0-9.0) Ur Specific [place] 1.015 (1.005-1.025) Urine Protein Negative (Neg-Trace) mg/dL Urine Glucose (UA) Negative (Negative) mg/dL Urine Ketones Negative (Negative) mg/dL Urine Blood Negative (Negative) Urine Nitrite Negative (Negative) Ur Leukocyte Esterase Trace H (Negative) Urine RBC 0-2 (0-2) /HPF Urine WBC 0-5 (0-5) /HPF Ur Squamous Epith Cells 0-2 (0-2) /HPF Urine Bacteria 4+ (None Seen) Hyaline Casts 0-2 (0-2) /LPF Critical Care Time Critical Care Time Critical Care Time: Yes Total Critical Care Time: 35 Attestation: I attest to this time spent taking care of the patient, obtaining history, physical, reviewing labs, imaging, treatment of patients condition +/- specialist/hospitalist consult +/- procedure Discharge Plan Discharge Clinical Impression: UTI (urinary tract infection), Abdominal pain, Colitis Patient Disposition: Home, Self-Care Instructions: Urinary Tract Infection in Men (ED), Acute Nausea and Vomiting (DC), Abdominal Pain (ED), Colitis (ED), Enteritis (ED) Additional Instructions: Take your medications as prescribed. If you were prescribed antibiotics today, it is important that you take your medication to their entirety, do not skip any doses, do not finish them early. Follow-up with your primary care provider this week. Return to the emergency department with new or worsening symptoms. Such as fevers, chills, chest pain, shortness of breath, nausea, vomiting, dizziness, headache, vision changes, lethargy In case of emergency call 911 Prescriptions: New cephalexin 500 mg tablet 500 mg PO BID 7 Days Qty: 14 0RF No Action (DME) ADULT BRIEFS (Medium) - 8 units/day XL See Rx Instructions .Route .MEDSUPPLY Qty: 240 12RF Rx Instructions: As directed up to 8 units per day (DME) DISPOSABLE GLOVES (large) LARGE See Rx Instructions .Route .MEDSUPPLY Qty: 400 12RF Rx Instructions: As directed (DME) UNDERPADS See Rx Instructions .Route .MEDSUPPLY Qty: 120 12RF Rx Instructions: As directed baclofen 20 mg tablet 20 mg PO QID PRN (Reason: muscle spasms) 30 Days Qty: 120 3RF Thick-It Powder See Rx Instructions PO .COMPLEX Qty: 6120 12RF Rx Instructions: Mix with all drinks 3 to 5 times throughout the day as needed orally bisacodyl 5 mg tablet,delayed release (DR/EC) 10 mg PO BEDTIME Qty: 60 4RF lactulose 10 gram/15 mL solution 30 ml PO BID Qty: 1200 6RF phenytoin sodium extended 100 mg capsule 100 mg PO TID carbamazepine 200 mg tablet 400 mg PO BID carbamazepine 200 mg tablet 300 mg PO DAILY@1500 cetirizine 10 mg Tablet 10 mg PO DAILY Preparation H(dean calvo) 0.25-50 % gel 1 appl topical BID PRN (Reason: rectal discomfort) Qty: 51 0RF cholecalciferol (vitamin D3) 50 mcg (2,000 unit) capsule 50 mcg PO DAILY 90 Days Qty: 90 3RF ziprasidone HCl 80 mg capsule 80 mg PO BID quetiapine 25 mg tablet 25 mg PO BEDTIME Ensure Clear Therapeutic 0.035-1 gram-kcal/mL liquid See Rx Instructions PO .QD 30 Days Qty: 30 11RF Rx Instructions: Drink 1 box orally QD; benzoyl peroxide 5 % cleanser 1 appl topical DAILY Qty: 142 0RF sulfasalazine 500 mg tablet 1,000 mg PO BID Qty: 360 1RF benzoyl peroxide 10 % cleanser topical triamcinolone acetonide 0.1 % lotion topical Linzess 290 mcg capsule 290 mcg PO DAILY Qty: 30 6RF Referrals: Williams Cotter MD [Primary Care Provider, Internal Medicine] Print Language: Bulgarian
--- OUTSIDE RECORDS SUMMARY | 2025-02-27 09:56 | XMS_ITS | Encounter Summary ---
Author Organization [facility] Address [address] [facility] [address] [place] [id number] Phone Care Team Providers Care Wad Lubricator Name Role Phone Williams Cotter MD Primary Care Provider [phone] Encounter Details Date Type Department Care Team (Late st Contact Info) Description 02/13/2022 Transcribe Orders Virtual Department [address] [place] [address] Williams Cotter MD [address] [place] [address] [address] [place] [id number] Spastic quadriplegic cerebral palsy (Primary Dx); Dysphagia, [...] min. 49 sec; 1394 IMAGES/FRAMES POS - [id number] Narrative 03/28/2022 12:56 PM EST COMPARISON: None [...] lingual dysmotility again without epiglottic penetration demonstrated. [place] thickened barium was presented via cup with [...] with lingual dysmotility again without epiglotticpenetration demonstrated. [place] thickened barium was presented via cupwith tongue base overflow but no epiglottic penetration noted. IMPRESSION: Oral phase dysmotility without evidence of epiglottic penetration ofliquids or semisolid material. The results of this examination were reviewed with the speechpathologist. FLUOROSCOPY TIME: 2 min. 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 It is not the complete legal health record.[facility]
--- OUTSIDE RECORDS SUMMARY | 2025-02-27 09:56 | XMS_ITS | Encounter Summary ---
Author Organization [facility] Address [address] [place] [id number] Phone Care Team Providers Care Service Station Manager Name Role Phone Williams Cotter MD Primary Care Provider [phone] Reason for Referral * Occupational Therapy (Routine) - Closed Specialty Diagnoses / Procedures Referred By Roshan wen Referred To Contact Occupational Therapy Diagnoses CP (cerebral palsy), spastic, quadriplegic System, Provider Not In, [facility] [id number] [place] [address] Phone: tel: Referral ID Status Reason Start Date Expiration Date Visits Re quested Visits Authorized [id number] Closed 05/17/2018 04/08/2019 9 9 Encounter Details Date Type Department Care Team (Latest Contact Info) Description 05/17/2018 Transcribe Orders [facility] [address] [place] [address] Williams Cotter MD [address] [place] [address] [facility] [place] [address] CP (cerebral palsy), spastic, quadriplegic (Primary Dx) Social History Tobacco Use Types Packs/Day Years Used Date Smoking Tobacco: Never Assessed Sex and Gender Information Value Date Recorded Sex Assigned at Not on file Legal Sex Male 9:17 PM EDT Gender Identity Not on file Sexual Orientation Not on file documented as of this encounter Plan of Treatment Scheduled Referrals Name Type Priority Associated Diagnoses Orde r Schedule Ambulatory referral to [facility] Occupational Therapy Outpatient Referral Routine CP (cerebral palsy), spastic, quadriplegic Ordered: 05/17/2018 documented as of this encounter Visit Diagnoses Diagnosis CP (cerebral palsy), spastic, quadriplegic- Primary Quadriplegic infantile cerebral palsy documented in this encounter Care Teams Service Station Manager Relationship Specialty Start Date End Date Williams Cotter MD [address] [place] [address] [place] [address] PCP - General Internal Medicine 05/15/18 documented as of this encounter Additional Source Comments The information contained in this document represents components of the legal health record. It is not the complete legal health record.[facility]
--- OUTSIDE RECORDS SUMMARY | 2025-02-27 09:56 | XMS_ITS | Clinical Summary ---
Author Organization [facility] Address [address] [place], [place] [id number] Phone Care Team Providers Care Boil Off Machine Operator Cloth Name Role Phone Williams Cotter MD Primary Care Provider [phone] Social History Tobacco Use Types Packs/Day Years Used Date Smoking Tobacco: Never Assessed Education Answer Date Recorded Are you interested in more education? Not on elsa e 08/04/2022 Are you concerned about learning? Not on file 08/04/2022 No 08/04/2022 No 08/04/2022 Digital Access Answer Date Recorded No 09/04/2022 No 09/04/2022 No 09/04/2022 Reliable internet access at home? Not on file 09/04/2022 Device with a working camera? Not on file Sex and Gender Information Value Date Recorded Sex Assigned at Not on file Legal Sex Male 9:17 PM EDT Gender Identity Not on file Sexual Orientation Not on file Plan of Treatment Health Maintenance Due Date Last Done Comments LIPID PANEL 1983 DEPRESSION SCREENING 1995 SMOKING Hx and SMOKELESS TOB ACCO SCREENING 02/21/1996 HEPATITIS C SCREENING 2001 HIV ONE-TIME SCREENING (18-6 5 YEARS) 2001 INFLUENZA VACCINE (#1) 2024 COVID-19 VACCINE (2024-2 6 season) 2024 Adult Td,Tdap Booster 07/13/2026 07/13/2016 HEPATITIS A VACCINES Aged Out No long er eligible based on patient's age to complete this topic HIB VACCINES Aged Out No longer eligi ble based on patient's age to complete this topic MENINGOCOCCAL VACCINES (ACWY) Aged Out No longer eligible based on patient's age to complete this topic MENINGOCOCCAL VACCINES (B) Aged Out N o longer eligible based on patient's age to complete this topic PNEUMOCOCCAL VACCINES (0-49 years) Aged Out No longer eligible based on patient's age to complete this topic Medical Devices Not on file [place] [address] [place] [address] [place] [address] [place] [address] [place] [address] [place] [address] ACO Care Teams Boil Off Machine Operator Cloth Relationship Specialty Start Date End Date Williams Cotter MD [address] [place] [address] [place] [address] PCP - General Internal Medicine 05/15/18 Additional Source Comments The information contained in this document represents components of the legal health record. It is not the complete legal health record.[facility]
[2025-02-27 10:16] LABS: MANUAL DIFF FLAG NO
[2025-02-27 10:20] LABS: Hematocrit 41.5 % (42.0-52.0); Hemoglobin 13.7 g/dl (14.0-18.0); Imm Gran Abs Auto 0.01 X10*3/uL (0.00-0.03); Imm Gran Pct Auto 0.2 % (0.0-0.4); Lymphocytes Absolute Auto 1.6 X10*3/uL (1.2-4.9); Mean Corpuscular HGB Conc 33.0 g/dl (31.0-36.0); Mean Corpuscular Hemoglobin 29.8 pg (27.0-33.0); Mean Corpuscular Volume 90.4 fL (80.0-98.0); NRBC Abs Auto 0.000 X10*3/uL (0.0-0.012); NRBC Pct Auto 0.0 /100WBC (0.0-0.2); Platelet Count 263 X10*3/uL (160-400); Red Blood Count 4.59 X10*6/uL (4.60-5.80); White Blood Count 4.5 X10*3/uL (4.8-10.8)
[2025-02-27 10:23] LABS: INTERNATIONAL NORM RATIO 1.0 (0.9-1.1); Prothrombin Time 12.0 SEC (11.2-13.5)
[2025-02-27 10:30] LABS: D Dimer High Sensitivity < 150 NG/ML
[2025-02-27 10:39] LABS: Alanine Aminotransferase 50 U/L (0-40); Albumin Level 4.7 g/dL (3.5-5.0); Alkaline Phosphatase 72 U/L (39-117); Anion Gap 11 (12-20); Aspartate Amino Transferase 33 U/L (5-37); Blood Urea Nitrogen 7 mg/dL (9-16); Calcium 9.5 mg/dL (8.4-10.2); Carbon Dioxide 28 mmol/L (22-29); Chloride 105 mmol/L (96-108); Creatinine Clr Calc Pharmacy 135.2; Estimated Glomerular Filt Rate > 60; Potassium 3.9 mmol/L (3.3-5.1); Sodium 140 mmol/L (135-145); Total Protein 7.5 g/dL (6.5-8.0)
[2025-02-27 10:43] LABS: Troponin-I High Sensitivity < 2.7 ng/L (<3.5-35.0)
[2025-02-27 14:11] LABS: Appearance Urine Clear; Glucose Urine UA Negative (Negative); PH 7.5 (5.0-9.0); Specific Gravity - Urine 1.015 (1.005-1.025); UMIC TRIGGER UACC YES
--- NOTE | 2025-02-27 14:50 | PC.NURSE ---
Per MD- Lactic/Blood Cultures not needed, okay to give IV abx. Abx infusing per MAR.
[2025-02-27 15:02] LABS: Lipase 19 U/L (8-78)
--- NOTE | 2025-02-27 15:28 | P.EN_ITS ---
Event Note Date of Service: 02/27/25 Event Note: 40-year-old male, with a background history of severe spastic quadriplegic cerebral palsy, bed-bound nonverbal, history of small-bowel obstruction 2/2 adhesions, paralytic ileus, spasticity on intrathecal baclofen pump, epilepsy, brought into hospital by family members with not acting at baseline & small mucoid bleed [place]. The patient and family were seen by bedside. No fevers, chills or rigors, obtundation, change in mental status noted. Physical examination unremarkable, at neurocognitive baseline, nonverbal, groaning and moaning. Patient experienced some groaning and moaning with palpation of the abdomen. Dull to percussion left upper and lower quadrant. Examination otherwise unremarkable without concerning or red flag features After family members saw mucoid bleed the presented to the emergency room for further evaluation-suspicion was that it was urinary. Vital signs stable on presentation and during ED course Lab work reviewed revealing chronic leukopenia, chronic anemia, normal creatinine, normal electrolytes. Urinalysis unremarkable, without evidence of blood, nitrites or ketones. CT abdomen and pelvis performed, revealing significant stool burden. Impression: Uncomplicated stercoral colitis in the setting of severe const ipation PLAN - recommend enema soapsuds to relieve the patient of severe constipation - monitor for bleeding - metronidazole 500 mg b.i.d. p.o. and cephalexin 500 mg b.i.d. p.o. for empiric coverage of stercoral colitis - follow up with primary care provider Time Spent With Patient Time: Total time managing care of this patient today 30 minutes.
--- NOTE | 2025-02-27 16:58 | ED.MALEGU ---
HPI - Male Genitourinary General Chief complaint: Urogenital-Male Stated complaint: blood in urine Time Seen by Provider: 02/27/25 09:22 Source: family Mode of arrival: wheelchair Limitations: no limitations Related Data Home Medications ?Medication ?Instructions ?Recorded ?Confirmed carbamazepine 200 mg tablet 300 mg PO DAILY@1500 10/05/23 03/26/24 carbamazepine 200 mg tablet 400 mg PO BID 10/05/23 11/06/24 cetirizine 10 mg tablet 10 mg PO DAILY 10/05/23 11/06/24 phenytoin sodium extended 100 mg 100 mg PO TID 10/05/23 11/06/24 capsule quetiapine 25 mg tablet 25 mg PO BEDTIME 10/26/23 11/06/24 ziprasidone HCl 80 mg capsule 80 mg PO BID 10/26/23 11/06/24 benzoyl peroxide 10 % topical topical 09/02/24 11/06/24 cleanser triamcinolone acetonide 0.1 % topical 09/02/24 11/06/24 lotion Previous Rx's ?Medication ?Instructions ?Recorded ADULT BRIEFS (Medium) - 8 units/day #240 ea 12/21/21 DISPOSABLE GLOVES (large) #400 ea 12/21/21 UNDERPADS #120 ea 12/21/21 baclofen 20 mg tablet 20 mg PO QID PRN muscle spasms 30 10/06/22 days #120 tabs cholecalciferol (vitamin D3) 50 50 mcg PO DAILY 90 days #90 caps 09/17/23 mcg (2,000 unit) capsule benzoyl peroxide 5 % topical 1 appl topical DAILY #142 grams 11/07/23 cleanser nut.tx.impaired digest fxn 0.035 See Rx Instructions PO .QD 30 days 11/07/23 gram-1 kcal/mL oral liquid (Ensure #30 multiple units Clear Therapeutic) phenylephrine-witch caitlin 0.25 1 appl topical BID PRN rectal 01/08/24 %-50 % topical gel (Preparation H discomfort #51 grams (phenylephrine,witch caitlin)) starch (thickening) (Thick-It oral See Rx Instructions PO .COMPLEX 07/22/24 powder) dysphagia/aspiration #6,120 grams linaclotide 290 mcg capsule 290 mcg PO DAILY #30 caps 09/02/24 (Linzess) bisacodyl 5 mg tablet,delayed 10 mg (2 x 5 mg) PO BEDTIME #60 10/21/24 release tabs sulfasalazine 500 mg tablet 1,000 mg (2 x 500 mg) PO BID #360 11/06/24 tabs lactulose 10 gram/15 mL oral 30 ml PO BID #1,200 mL 11/19/24 solution cephalexin 500 mg tablet 500 mg PO BID 7 days #14 tabs 02/27/25 Allergies Allergy/AdvReac Type Severity Reaction Status Date / Time penicillin V Allergy Unknown Hives Verified 02/27/25 09:11 [facility] Past Medical History Medical History Encounter for wheelchair assessment Annual physical exam 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 Diarrhea Constipation Respiratory infection Abscess of neck Scalp abscess Cellulitis of scalp Arthralgia COVID-19 Cellulitis of great toe of left foot Encounter for medical clearance for patient hold Small bowel obstruction due to adhesions Paralytic ileus Seronegative rheumatoid arthritis SARS-CoV-2 positive (~08/16/21) Presence of intrathecal baclofen pump Epilepsy Surgical History H/O colonoscopy History of intestinal surgery H/O exploratory laparotomy History of incision and drainage Social History Social History Household Members: Family Housing: House Do you presently have visiting nurse or other home services: 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) Alcohol intake: current Alcohol intake frequency: does not drink Comment: pt is bed/chair bound Patient Tobacco Use Status: Never used Tobacco e-Cigarette/Vaping Use: Never Used Second Hand Smoke Exposure: No service: No Current occupational status: disabled Cognitive needs: Yes Hearing needs: No Vision needs: No Physical Exam Vital Signs: Vital Signs: Last Vital Signs Temp 97.9 F 02/27/25 16:24 Pulse 98 02/27/25 16:24 Resp 18 02/27/25 16:24 BP 0/0 L 02/27/25 16:24 Pulse Ox 94 02/27/25 16:24 O2 Del Method Room Air 02/27/25 16:24 BMI result Body Mass Index 23.2 Medications Administered Discontinued Medications Generic Name Dose Route Start Last Admin Trade Name Freq PRN Reason Stop Dose Admin Ceftriaxone Sodium 1 gm/ 50 mls @ 100 mls/hr 02/27/25 14:51 02/27/25 16:00 Sodium Chloride IV 02/27/25 15:20 Infused ONCE ONE Infusion Morphine Sulfate 4 mg 02/27/25 09:52 02/27/25 10:11 Morphine Sulfate 4 Mg/Ml Cartridge IVPUSH 02/27/25 09:53 4 mg ONCE ONE Administration Protocol Medical Decision Making Lab Data 02/27/25 10:06 02/27/25 10:06 Labs: Lab Results 02/27/25 02/27/25 Range/Units 10:06 14:03 WBC 4.5 L (4.8-10.8) X10*3/uL RBC 4.59 L (4.60-5.80) X10*6/uL Hgb 13.7 L (14.0-18.0) g/dl Hct 41.5 L (42.0-52.0) % MCV 90.4 (80.0-98.0) fL MCH 29.8 (27.0-33.0) pg MCHC 33.0 (31.0-36.0) g/dl RDW 12.9 (11.0-16.0) % Plt Count 263 (160-400) X10*3/uL MPV 9.6 (9.4-12.4) fL Immature Gran % (Auto) 0.2 (0.0-0.4) % Neut % (Auto) 52.0 (45-73) % Lymph % (Auto) 36.7 (20-40) % Wharton % (Auto) 9.6 (2-11) % Eos % (Auto) 1.1 (0-4) % Baso % (Auto) 0.4 (0-2) % Lymph # (Auto) 1.6 (1.2-4.9) X10*3/uL Wharton # (Auto) 0.4 (0.1-1.2) X10*3/uL Eos # (Auto) 0.1 (0.0-0.4) X10*3/uL Baso # (Auto) 0.0 (0.0-0.2) X10*3/uL Abs Immat Gran (auto) 0.01 (0.00-0.03) X10*3/uL Absolute Neuts (auto) 2.3 (2.0-8.3) x10*3/uL Absolute Nucleated RBC 0.000 (0.0-0.012) X10*3/uL Nucleated RBC % (auto) 0.0 (0.0-0.2) /100WBC PT 12.0 (11.2-13.5) SEC INR 1.0 (0.9-1.1) D-Dimer High Sensitivty < 150 NG/ML Sodium 140 (135-145) mmol/L Potassium 3.9 (3.3-5.1) mmol/L Chloride 105 (96-108) mmol/L Carbon Dioxide 28 (22-29) mmol/L Anion Gap 11 L (12-20) BUN 7 L (9-16) mg/dL Creatinine 0.48 L (0.5-1.4) mg/dL Estim Creat Clear Calc 135.2 Estimated GFR > 60 Random Glucose 116 H (60-115) mg/dL Calcium 9.5 D (8.4-10.2) mg/dL Total Bilirubin 0.3 (0.0-1.0) mg/dL AST 33 (5-37) U/L ALT 50 H (0-40) U/L Alkaline Phosphatase 72 (39-117) U/L Troponin I High Sens < 2.7 (<3.5-35.0) ng/L Total Protein 7.5 (6.5-8.0) g/dL Albumin 4.7 (3.5-5.0) g/dL Lipase 19 (8-78) U/L Urine Color Yellow Urine Appearance Clear Urine pH 7.5 (5.0-9.0) Ur Specific Fitzpatrick 1.015 (1.005-1.025) Urine Protein Negative (Neg-Trace) mg/dL Urine Glucose (UA) Negative (Negative) mg/dL Urine Ketones Negative (Negative) mg/dL Urine Blood Negative (Negative) Urine Nitrite Negative (Negative) Ur Leukocyte Esterase Trace H (Negative) Urine RBC 0-2 (0-2) /HPF Urine WBC 0-5 (0-5) /HPF Ur Squamous Epith Cells 0-2 (0-2) /HPF Urine Bacteria 4+ (None Seen) Hyaline Casts 0-2 (0-2) /LPF Discharge Plan Discharge Clinical Impression: UTI (urinary tract infection), Abdominal pain, Colitis Patient Disposition: Home, Self-Care Instructions: Urinary Tract Infection in Men (ED), Acute Nausea and Vomiting (DC), Abdominal Pain (ED), Colitis (ED) Additional Instructions: Take your medications as prescribed. If you were prescribed antibiotics today, it is important that you take your medication to their entirety, do not skip any doses, do not finish them early. Follow-up with your primary care provider this week. Return to the emergency department with new or worsening symptoms. Such as fevers, chills, chest pain, shortness of breath, nausea, vomiting, dizziness, headache, vision changes, lethargy In case of emergency call 911 Prescriptions: New cephalexin 500 mg tablet 500 mg PO BID 7 Days Qty: 14 0RF No Action (DME) ADULT BRIEFS (Medium) - 8 units/day XL See Rx Instructions .Route .MEDSUPPLY Qty: 240 12RF Rx Instructions: As directed up to 8 units per day (DME) DISPOSABLE GLOVES (large) LARGE See Rx Instructions .Route .MEDSUPPLY Qty: 400 12RF Rx Instructions: As directed (DME) UNDERPADS See Rx Instructions .Route .MEDSUPPLY Qty: 120 12RF Rx Instructions: As directed baclofen 20 mg tablet 20 mg PO QID PRN (Reason: muscle spasms) 30 Days Qty: 120 3RF Thick-It Powder See Rx Instructions PO .COMPLEX Qty: 6120 12RF Rx Instructions: Mix with all drinks 3 to 5 times throughout the day as needed orally bisacodyl 5 mg tablet,delayed release (DR/EC) 10 mg PO BEDTIME Qty: 60 4RF lactulose 10 gram/15 mL solution 30 ml PO BID Qty: 1200 6RF phenytoin sodium extended 100 mg capsule 100 mg PO TID carbamazepine 200 mg tablet 400 mg PO BID carbamazepine 200 mg tablet 300 mg PO DAILY@1500 cetirizine 10 mg Tablet 10 mg PO DAILY Preparation H(dean calvo) 0.25-50 % gel 1 appl topical BID PRN (Reason: rectal discomfort) Qty: 51 0RF cholecalciferol (vitamin D3) 50 mcg (2,000 unit) capsule 50 mcg PO DAILY 90 Days Qty: 90 3RF ziprasidone HCl 80 mg capsule 80 mg PO BID quetiapine 25 mg tablet 25 mg PO BEDTIME Ensure Clear Therapeutic 0.035-1 gram-kcal/mL liquid See Rx Instructions PO .QD 30 Days Qty: 30 11RF Rx Instructions: Drink 1 box orally QD; benzoyl peroxide 5 % cleanser 1 appl topical DAILY Qty: 142 0RF sulfasalazine 500 mg tablet 1,000 mg PO BID Qty: 360 1RF benzoyl peroxide 10 % cleanser topical triamcinolone acetonide 0.1 % lotion topical Linzess 290 mcg capsule 290 mcg PO DAILY Qty: 30 6RF Referrals: Williams Cotter MD [Primary Care Provider, Internal Medicine] Stand Alone Forms: Work/School Release Interventions: ED Discharge Assessment Last Done: 02/27/25 16:24 Discharge Date/Time: 02/27/25 16:45 Print Language: Chinese
== END 2025-02-27 16:45 | disposition home or self-care (01) ==
PROVIDERS: Physician Assistant; Emergency Provider Emergency Medicine; PCP Internal Medicine
DX: N39.0 Urinary tract infection, site not specified (principal); K52.9 Noninfective gastroenteritis and colitis, unspecified; R31.9 Hematuria, unspecified; R07.89 Other chest pain; R10.22 Pelvic and perineal pain left side; Z79.899 Other long term (current) drug therapy
CPT/HCPCS: 36415; 71045; 74176; 80053; 81001; 83690; 84484; 85025; 85379; 85610; 93005; 96365; 96375; 99285; J0696; J2270

== ENCOUNTER → 2025-02-27 09:22 | Outpatient (BNV) | payer OTHER, SELFPAY | PROVIDERS: Emergency Provider Emergency Medicine; PCP Internal Medicine; Visit Provider Internal Medicine | DX: I51.7 Cardiomegaly (principal) | CPT/HCPCS: 93010 ==

== ENCOUNTER → 2025-02-27 09:24 | Outpatient (BNV) | payer OTHER, SELFPAY | PROVIDERS: PCP Internal Medicine; Visit Provider Radiology Diagnostic Radiology | DX: K80.20 Calculus of gallbladder without cholecystitis without obstruction (principal); R14.0 Abdominal distension (gaseous); R07.9 Chest pain, unspecified; R06.02 Shortness of breath | CPT/HCPCS: 71045; 74176 ==

== ENCOUNTER 2025-03-04 11:53 | Outpatient (AMB) | payer OTHER, SELFPAY ==
--- NOTE | 2025-03-04 11:56 | MHC.OFFVIS ---
Vital Signs 03/04/25 11:58 Height 4 ft 11 in Weight 125 lb BMI 25.2 BP 132/78 Blood Pressure Location Rt radial Position Semi Ramos's Pulse 86 Pulse Source Pulse Oximeter Pulse Oximetry (%) 96 Oxygen Delivery Method Room Air Intake Visit Reasons: 6 mo f/u [facility] Intake Note: Est pt for mgmt of [facility]. CC; C/O hemorrhoid flare up which resulted in pt being admitted to ED recently per wellness coordinator. No additional sx at this time. Family/Residence Director does have questions regarding a new probiotic. After School Program Assistant Required: No Accompanied by: Finished Goods Inspector Allergies penicillin V Allergy (Unknown, Verified 03/04/25 11:56) Hives HPI HPI 6 mo f/u [facility]: Details: Assessment & Plan (1) Chronic idiopathic constipation: Code(s): K59.04 - Chronic idiopathic constipation Category: Medical (2) Paralytic ileus: Comment: Multiple recurring from [id number] Code(s): K56.0 - Paralytic ileus Category: Medical (3) Spastic quadriplegic cerebral palsy: Code(s): G80.0 - Spastic quadriplegic cerebral palsy Category: Medical (4) Small bowel obstruction due to adhesions: Comment: Two thousand nine, with laparoscopy x2 any adhesions removed including a central band adhesion Code(s): K56.50 - Intestinal adhesions [bands], unspecified as to partial versus complete obstruction Category: Medical (5) Nonverbal: Code(s): R47.01 - Aphasia Category: Medical Plan He is here today with his mother who is his primary wellness coordinator. He is in discomfort today, but has been out of LInzess for 2 days. Given his disabilities it is difficult to know what is bothering him. Also he is having trouble swallowing the past 2 days - already on pureed diet. She feels that the LInzess at 290mcg works well when he has it. She also is utilizing the bisacodyl suppositories any had a bowel movement yesterday with this. However his belly does seem to be bloated today. ROV 6mos if pharmacy does not have ([facility]) consider different pharmacy temporally. 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 Diarrhea Constipation Respiratory infection Abscess of neck Scalp abscess Cellulitis of scalp Arthralgia COVID-19 Cellulitis of great toe of left foot Encounter for medical clearance for patient hold Small bowel obstruction due to adhesions Paralytic ileus Seronegative rheumatoid arthritis SARS-CoV-2 positive (~08/16/21) Presence of intrathecal baclofen pump Epilepsy Surgical History H/O colonoscopy History of intestinal surgery H/O exploratory laparotomy History of incision and drainage Social History Household Members: Family Housing: House Do you presently have 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) Alcohol intake: current Alcohol intake frequency: does not drink Comment: pt is bed/chair bound Patient Tobacco Use Status: Never used Tobacco e-Cigarette/Vaping Use: Never Used Second Hand Smoke Exposure: No service: No Current occupational status: disabled Cognitive needs: Yes Hearing needs: No Vision needs: No Review of Systems Const Denies fatigue, Denies fever(s), Denies night sweats, Denies poor appetite, Reports weakness and Denies weight loss ENT Denies dental pain, Denies dysphagia, Denies hearing loss, Denies mouth pain, Denies odynophagia, Denies throat swelling, Denies tongue swelling and Reports other (Dentition adequate) Card Reports no additional complaints Resp Reports no additional complaints GI Details: Denies abdominal pain, Denies melena, Denies bloating, Denies hematochezia, Reports constipation, Denies GI cramping, Denies dysphagia, Denies excessive flatus, Denies early satiety, Denies heartburn, Denies diarrhea, Denies nausea, Denies odynophagia, Denies vomiting and Denies hematemesis Reports hematuria Musc Reports atrophy, Reports deformity, Reports muscle weakness and Reports stiffness Skin/Breast Denies pruritus, Denies lesions, Denies rash and Denies jaundice Neuro Reports Sensory deficit (Neuro) and Reports weakness Endo Denies fatigue Aller/Immun Denies throat swelling and Denies tongue swelling Physical Exam Vital Signs: Last Vital Signs Pulse 86 03/04/25 11:58 BP 132/78 03/04/25 11:58 Pulse Ox 96 03/04/25 11:58 Oxygen Delivery Method Room Air 03/04/25 11:58 BMI result Body Mass Index 25.2 Const General: cooperative, no acute distress and well groomed Nutritional Appearance: well nourished and thin Orientation/consciousness: oriented to person Limitations: behavioral limitations, No language barrier, physical limitations, wheelchair and other limitations HEENT Head: Yes normocephalic and Yes atraumatic Eyes General: appearance normal, both eyes and all related structures Pupils: Equal, round and reactive pupils present Neck Neck: Yes normal visual inspection and Yes no lymphadenopathy Thyroid: Thyroid normal Resp Effort & Inspection: normal respiratory effort and able to speak in complete sentences GI Inspection: No distended and No Abdominal panniculus present Palpation (GI): Soft to palpation, nontender, no guarding, not rigid, No hepatosplenomegaly present and Hepatosplenomegaly present Percussion: Yes normal to percussion Auscultation: normal bowel sounds Rectal Exam - Male: Yes deferred Back/Spine/Pelvis Thoracic/Lumbar Spine: No thoracic and lumbar spine normal to inspection and Thoracic/lumbar scoliosis Skin General skin exam: no rashes or lesions noted, turgor normal, skin not dry, no jaundice, No spider nevi and no striae Rashes: no rashes Nails: normal Neuro General: oriented to person Cranial nerves: Yes Equal, round and reactive pupils present Speech: Global aphasia present Sensory Exam: Sensory deficit (Neuro) Extrem Other: Contractures of upper and lower extremities General: Yes normal to inspection, No edema, Yes Dysmorphic, Yes muscle atrophy and Yes muscle hypertrophy Psych Appearance: well kempt Mental Status: other Speech and movement: Mute speech present Affect: normal affect Attitude: Other attitude/behavior findings present (Psych) Thought process: Other thought process findings present Thought content: other Insight: Poor insight present (Psych) Judgement: Poor judgement present (Psych) Assessment & Plan Assessment & Plan (1) Chronic idiopathic constipation: Code(s): K59.04 - Chronic idiopathic constipation Category: Medical (2) Paralytic ileus: Comment: Multiple recurring from [id number] Code(s): K56.0 - Paralytic ileus Category: Medical (3) Failure to thrive in adult: Code(s): R62.7 - Adult failure to thrive Category: Medical (4) Hematuria: Code(s): R31.9 - Hematuria, unspecified Category: Medical Plan HIS CURRENT GI REGIMEN IS LACTULOSE, BISACODYL, and Linzess. Subjective Caregiver reports recent episode of blood noted in brief; initially thought to be rectal bleeding but clarified as blood in the urine. Patient was evaluated in the ER on Sunday with blood and urine tests and was discharged home; started on an antibiotic (cephalexin) given concern for possible urinary tract infection when urine culture results were not yet available. No pain reported. History of constipation with known hemorrhoids on prior colonoscopy; moving bowels on current regimen (lactulose, linaclotide, bisacodyl). Caregiver notes a possible episode of minor urethral/penile trauma associated with an erection and subsequent handling at program, which may have contributed to hematuria. Relevant Past Medical, Social, and Family History Chronic constipation with hemorrhoids documented on colonoscopy. No catheter use. Objective - Reviewed ER records: CT scan reported no evidence of colitis. - ER documentation indicated hematuria. - Brief external inspection revealed no alarming anorectal findings. Assessment & Plan Hematuria: Episode of gross hematuria; ER treated empirically with cephalexin pending culture that was not available at the time. Differential discussed includes urinary tract infection, nephrolithiasis, and minor urethral/penile trauma. No catheter use. - Continue and complete current antibiotic course as provided by ER. - Probiotic may be taken during antibiotic therapy to reduce antibiotic-associated diarrhea. - Monitor for recurrence of hematuria, dysuria, fever, flank pain, or urinary retention; if hematuria recurs or persists, pursue urology referral for further evaluation. Constipation with hemorrhoids: Chronic constipation with known hemorrhoids; currently moving bowels on lactulose, linaclotide, and bisacodyl. No concerning findings on brief external inspection today. - Refill lactulose, linaclotide, and bisacodyl. - For hemorrhoid symptom flares or to reduce bleeding risk, use OTC hemorrhoidal suppository (e.g., Preparation H) intermittently, such as a few times per week as needed. - Continue bowel regimen and monitor stooling patterns. Follow-up: Return in 6 months, or sooner for recurrent hematuria or worsening anorectal symptoms. Medications: Refilled linaclotide (Linzess) 290 mcg PO DAILY 30 caps 6RF lactulose 30 mL PO BID 1,200 mL 6RF bisacodyl 10 mg (2 x 5 mg) PO BEDTIME 60 tabs 4RF Coding Level of Care Code Est Pt Level 3 (14612) Diagnoses Chronic idiopathic constipation K59.04 Paralytic ileus K56.0 Failure to thrive in adult R62.7 Hematuria R31.9
[2025-03-04 11:58] VITALS: BP 132/78; PULSE 86; O2SAT 96; BMI 25.2
--- OUTSIDE RECORDS SUMMARY | 2025-03-04 15:06 | XMS_ITS | Encounter Summary ---
Author Organization [facility] Address [address] [place] [id number] Phone Care Team Providers Care Bench Worker Apprentice Name Role Phone Williams Cotter MD Primary Care Provider [phone] Reason for Referral * Occupational Therapy (Routine) - Closed Specialty Diagnoses / Procedures Referred By Roshan wen Referred To Contact Occupational Therapy Diagnoses CP (cerebral palsy), spastic, quadriplegic System, Provider Not In, [facility] [id number] [place] [id number] Phone: tel: Referral ID Status Reason Start Date Expiration Date Visits Re quested Visits Authorized [id number] Closed 05/17/2018 04/08/2019 9 9 Encounter Details Date Type Department Care Team (Latest Contact Info) Description 05/17/2018 Transcribe Orders [facility] [address] [place] [address] Williams Cotter MD [address] [place] [address] [facility] [place] [address] CP (cerebral palsy), spastic, quadriplegic (Primary Dx) [...] Diagnoses Orde r Schedule Ambulatory referral to [facility] Occupational Therapy Outpatient Referral Routine CP (cerebral palsy), spastic, quadriplegic Ordered: 05/17/2018 documented as of this encounter Visit Diagnoses Diagnosis CP (cerebral palsy), spastic, quadriplegic- Primary Quadriplegic infantile cerebral palsy documented in this encounter Care Teams Bench Worker Apprentice Relationship Specialty Start Date End Date Williams Cotter MD [address] [place] [address] [place] [address] PCP - General Internal Medicine 05/15/18 documented as of this encounter Additional Source Comments The information contained in this document represents components of the legal health record. It is not the complete legal health record.[facility]
--- OUTSIDE RECORDS SUMMARY | 2025-03-04 15:06 | XMS_ITS | Encounter Summary ---
Author Organization [facility] Address [address] [facility] [address] [place] [address] Phone Care Team Providers Care Pulley Mortiser Operator Name Role Phone Williams Cotter MD Primary Care Provider [phone] [phone] Encounter Details Date Type Department Care Team (Late st Contact Info) Description 02/13/2022 Transcribe Orders Virtual Department 30 [place] [address] Williams Cotter MD [address] [place] [address] [place] [address] Spastic quadriplegic cerebral palsy (Primary Dx); Dysphagia, [...] min. 49 sec; 1394 IMAGES/FRAMES POS - [id number] Narrative 03/28/2022 12:56 PM EST COMPARISON: None [...] lingual dysmotility again without epiglottic penetration demonstrated. [place] thickened barium was presented via cup with [...] with lingual dysmotility again without epiglotticpenetration demonstrated. [place] thickened barium was presented via cupwith tongue base overflow but no epiglottic penetration noted. IMPRESSION: Oral phase dysmotility without evidence of epiglottic penetration ofliquids or semisolid material. The results of this examination were reviewed with the speechpathologist. FLUOROSCOPY TIME: 2 min. 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 It is not the complete legal health record.[facility]
--- OUTSIDE RECORDS SUMMARY | 2025-03-04 15:06 | XMS_ITS | Clinical Summary ---
Author Organization [facility] Address [address] [place], [place] [id number] Phone Care Team Providers Care Technical Customer Support Specialist Name Role Phone Williams Cotter MD Primary Care Provider [phone] [phone] Social History Tobacco Use Types Packs/Day Years [...] Medical Devices Not on file Insurance [place] [address] [place] [address] ACO [employer] [place] [address] [place] [address] [employer] [address] [place] [place] [address] ACO Care Teams Technical Customer Support Specialist Relationship Specialty Start Date End Date Williams Cotter MD [address] [place] [address] [place] [address] PCP - General Internal Medicine 05/15/18 Additional Source Comments The information contained in this document represents components of the legal health record. It is not the complete legal health record.[facility]
== END 2025-03-04 12:22 | disposition home or self-care (01) ==
LOC: HO.HGI 11:54
PROVIDERS: PCP Internal Medicine; Visit Provider Nurse Practitioner
DX: K59.04 Chronic idiopathic constipation (principal); K56.0 Paralytic ileus; R62.7 Adult failure to thrive; R31.9 Hematuria, unspecified
CPT/HCPCS: 99213

== ENCOUNTER → 2025-03-04 11:53 | Outpatient (BNVA) | payer OTHER, SELFPAY | PROVIDERS: PCP Internal Medicine; Visit Provider Nurse Practitioner | DX: K59.04 Chronic idiopathic constipation (principal); K56.50 Intestinal adhesions [bands], unspecified as to partial versus complete obstruction; K56.0 Paralytic ileus; K64.9 Unspecified hemorrhoids; G80.0 Spastic quadriplegic cerebral palsy; R47.01 Aphasia; R62.7 Adult failure to thrive; R31.9 Hematuria, unspecified; Z79.899 Other long term (current) drug therapy | CPT/HCPCS: 99212 ==

== ENCOUNTER 2025-03-31 08:55 | Outpatient (AMB) | payer OTHER, SELFPAY ==
--- NOTE | 2025-03-31 08:56 | A.OFFPC_ITS ---
Vital Signs 03/31/25 08:57 Height 4 ft 11 in BMI Reason not done Patient refused/unable BP 110/80 Blood Pressure Location Lt brachial Position Sitting Pulse 67 Pulse Source Pulse Oximeter Pulse Oximetry (%) 96 Oxygen Delivery Method Room Air Intake Visit Reasons: Annual Exam Academic Affairs Manager Required: No Accompanied by: Self / Same As Patient Allergies penicillin V Allergy (Unknown, Verified 03/31/25 09:28) Hives Medication List - Last Reconciled 03/31/25 by Williams Cotter MD [ADULT BRIEFS (Medium) - 8 units/day As directed up to 8 units per day] baclofen 20 mg PO QID PRN 30 days benzoyl peroxide 10% topical bisacodyl 10 mg (2 x 5 mg) PO BEDTIME carbamazepine 400 mg PO BID carbamazepine 300 mg PO DAILY@1500 cetirizine 10 mg PO DAILY cholecalciferol (vitamin D3) 50 mcg PO DAILY 90 days [DISPOSABLE GLOVES (large) As directed] [DISPOSABLE WIPES As directed] lactulose 30 mL PO BID linaclotide (Linzess) 290 mcg PO DAILY nut.tx.impaired digest fxn (Ensure Clear Therapeutic) Drink 1 box orally QD; 30 days phenylephrine-witch caitlin 0.25-50 % (Preparation H (phenylephrine,witch caitlin)) 1 appl topical BID PRN phenytoin sodium extended 100 mg PO TID quetiapine 25 mg PO BEDTIME starch (thickening) (Thick-It oral powder) Mix with all drinks 3 to 5 times throughout the day as needed orally sulfasalazine 1,000 mg (2 x 500 mg) PO BID triamcinolone acetonide 0.1% topical [UNDERPADS As directed] ziprasidone HCl 80 mg PO BID Tobacco use date assessed: 03/31/25 Dental Screening Dental Screen Date: 03/31/25 Did you have a dental visit in the last 12 months?: Yes Did you have a dental problem in the last 6 months where you did not have access to dental care?: No Was dental information given to patient?: Patient has dentist HPI Annual Exam HPI Details Patient comes in today for his annual physical examination He is accompanied by his parents, as usual, and his parents provide all of his pertinent information as patient is unable to communicate due to his cognitive issues His parents state that aside from his ER visit a couple of months ago for abdominal pain and constipation, patient has been doing well and currently has no other acute issues He's had no headaches, cough/cold symptoms, difficulty swallowing, chest pains or SOB lately He is reportedly eating well at present without any nausea/vomiting States that he has been moving his bowels regularly now but his mother states that he is on a lot of medications just so he can keep his bowels moving He is also following up with GI regularly for this issue He is incontinent of urine and wears adult pull ups Patient was seen by rheumatology for follow up for his seronegative RA a few months ago - they were advised that he has no signs or symptoms of inflammatory joint disease and his Sulfasalazine dose was lowered from 1000 mg to 500 mg BID He had some labs done at the ER when he was there last month; otherwise has no routine labs drawn recently States that he also needs Rx refills for his underpads and wipes as part of his incontinence supplies [facility] Medical History (Updated 03/31/25 @ 12:30 by Williams Cotter MD) Vitamin D deficiency Annual physical exam Encounter for wheelchair assessment 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 Diarrhea Constipation Respiratory infection Abscess of neck Scalp abscess Cellulitis of scalp Arthralgia COVID-19 Cellulitis of great toe of left foot Encounter for medical clearance for patient hold Small bowel obstruction due to adhesions Paralytic ileus Seronegative rheumatoid arthritis SARS-CoV-2 positive (~08/16/21) Presence of intrathecal baclofen pump Epilepsy Surgical History H/O colonoscopy History of intestinal surgery H/O exploratory laparotomy History of incision and drainage Social History Household Members: Family Housing: House Do you presently have visiting nurse or other home services: No (HOSPITALITY DIRECTOR) Alcohol intake: current Alcohol intake frequency: does not drink Comment: pt is bed/chair bound Patient Tobacco Use Status: Never used Tobacco e-Cigarette/Vaping Use: Never Used Second Hand Smoke Exposure: No service: No Current occupational status: disabled Cognitive needs: Yes Hearing needs: No Vision needs: No Questionnaire PHQ-9 Over the last 2 weeks, how often have you been bothered by any of the following problems? 1. Little interest or pleasure in doing things: not at all 2. Feeling down, depressed, or hopeless: not at all 3. Trouble falling or staying asleep, or sleeping too much: several days 4. Feeling tired or having little energy: several days 5. Poor appetite or overeating: not at all 6. Feeling bad about yourself - or that you are a failure or have let yourself or your family down: not at all 7. Trouble concentrating on things, such as reading the newspaper or watching television: not at all 8. Moving or speaking so slowly that other people could have noticed. Or the opposite - being so fidgety or restless that you have been moving around a lot more than usual: nearly every day 9. Thoughts that you would be better off or of hurting yourself in some way: not at all Total score: 5 Depression Screening Interpretation: Positive Depression Screening Follow-up: Existing condition and In treatment Depression Screening Done: Yes 38943 - PHQ-9 Billing: Yes Source: Developed by Drs. Quan Quinn, Magdalena Hyman, Paul Shipley and colleagues, with an educational deana from [employer]. Thrive Questionnaire Date Thrive assessed: 03/31/25 I am a: Parent/Caregiver What is your living situation today?: I have a steady place to live Within the past 12 months, did the food you bought not last and you didn't have the money to get more?: I choose not to answer this question Within the past 12 months, did you worry whether your food would run out before you got money to buy more?: I choose not to answer this question Do you have trouble paying for medicines?: No Do you have trouble getting transportation to medical appointments?: No Do you have trouble paying your heating and electricity bill?: No Do you have trouble taking care of your child, family member or friend?: No Do you have trouble with day-to-day activities such as bathing, preparing meals, shopping, managing finances, etc.?: Yes Are you currently unemployed and looking for a job?: No Are you interested in more education?: No Please select the resources that you would like help with: None Currently or been in a relationship where the following occur: I choose not to answer THRIVE Score: 0 AUDIT C Alcohol Use Questionnaire (AUDIT-C) 1. How often do you have a drink containing alcohol?: Never 3. How often do you have six or more drinks on one occasion?: Never Total Score: 0 Score Reviewed/Action Taken: Yes CURT-7 AMB Questionnaire CURT-7 Date CURT - 7 assessed: 03/31/25 Feeling nervous, anxious, or on edge: 0 = Not at all Not being able to stop or control worryin = Not at all Worrying too much about different things: 0 = Not at all Trouble relaxin = Not at all Being so restless that it is hard to sit still: 0 = Not at all Becoming easily annoyed or irritable: 0 = Not at all Feeling afraid as if something awful might happen: 0 = Not at all Total CURT-7 score (0-4 normal; 5-9 mild; 10-14 moderate; 15-21 severe): 0 Source: Developed by Drs. Quan Quinn, Magdalena Hyman, Paul Shipley and colleagues, with an educational deana from [employer]. Review of Systems Const Details: ROS is limited and obtained primarily from patient's family as patient is unable to provide any information due to his significant cognitive impairment Unobtainable due to mental condition Denies chills, Denies fever(s) and Denies headache(s) ENT Denies dysphagia, Denies headache(s), Denies nasal congestion, Denies nasal discharge and Denies sore throat Card Denies chest pain, Denies palpitations and Denies dyspnea Resp Denies chest congestion, Denies cough and Denies dyspnea GI Denies abdominal pain, Denies hematochezia, Denies dysphagia, Denies diarrhea, Denies nausea and Denies vomiting Denies hematuria and Reports urinary incontinence Musc Denies arthralgias and Denies joint swelling Skin/Breast Denies rash Neuro Denies headache(s) Endo Denies palpitations Michael/Lymph Denies easy bruising Physical exam (Primary Care) Vital Signs: Last Vital Signs Pulse 67 03/31/25 08:57 BP 110/80 03/31/25 08:57 Pulse Ox 96 03/31/25 08:57 Oxygen Delivery Method Room Air 03/31/25 08:57 Tobacco/Smoking Status: Tobacco use Status Tobacco use date assessed 03/31/25 03/31/25 09:07 Patient Tobacco Use Status Never used Tobacco 03/31/25 09:07 e-Cigarette/Vaping Use Never Used 03/31/25 09:07 PHQ-9: PHQ-9 Score PHQ-9: Total score 5 03/31/25 09:37 Depression Screening Interpretation: Positive Depression Screening Follow-up: Existing condition and In treatment Thrive Assessment: Date of Thrive Assessment Date Thrive assessed 03/31/25 03/31/25 09:07 Currently or been in a relationship where the following occur: I choose not to answer Const Other: Physical exam is limited due to patient's wheelchair-bound condition and inability to cooperate with exam - has significant cognitive impairment General: comfortable and no acute distress Orientation/consciousness: Other orientation findings ((+) significant cognitive impairment) Limitations: physical limitations and wheelchair HENMT Ears: TM's normal bilaterally and EAC's normal General nose exam: no nasal discharge noted Mouth: Normal oral and palatal mucosa present Throat: Yes posterior oropharynx normal and Yes tonsils normal Neck Neck: No lymphadenopathy Thyroid: Thyroid normal Resp Auscultation: clear to auscultation bilaterally, no crackles, no rales and no wheezes Cardio Rate: regular rate Rhythm: regular rhythm Heart sounds: no murmurs GI Palpation (GI): Soft to palpation, no guarding and not rigid Percussion: Yes tympanic to percussion Auscultation: normal bowel sounds Back/Spine/Pelvis Other: Wheelchair-bound Skin Rashes: no rashes Neuro Other: (+) significant cognitive impairment - unable to assess neurologically Extrem Other: (+) spastic and atrophic upper and lower extremities; no joint swelling noted General: Yes no pedal edema Results Reviewed Results Reviewed: Laboratory Tests 02/27/25 02/27/25 10:06 14:03 WBC 4.5 L Hgb 13.7 L Hct 41.5 L Plt Count 263 Sodium 140 Potassium 3.9 Creatinine 0.48 L Estimated GFR > 60 Random Glucose 116 H Calcium 9.5 D AST 33 ALT 50 H Ur Specific [place] 1.015 Urine Protein Negative Urine Glucose (UA) Negative Urine Blood Negative Urine Nitrite Negative Ur Leukocyte Esterase Trace H Coding Level of Care Code Est Pt Prev Care 40-64y(00509) Diagnoses Annual physical exam Z00.00 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 Nonintractable epilepsy without status epilepticus, unspecified epilepsy type G40.909 Epilepsy type: unspecified Intractability: not intractable Status epilepticus: without status epilepticus Seronegative rheumatoid arthritis M06.00 Chronic idiopathic constipation K59.04 Dysphagia, unspecified type R13.10 Dysphagia type: unspecified Vitamin D deficiency E55.9 Additional Codes PHQ-9 - 30007 - PHQ-9 Billing: Yes ([id number]) Assessment & Plan Assessment & Plan (1) Annual physical exam: Code(s): Z00.00 - Encounter for general adult medical examination without abnormal findings Category: Medical Plan: Check labs ANDREA to complete his annual exam today (2) Spastic quadriplegic cerebral palsy: Code(s): G80.0 - Spastic quadriplegic cerebral palsy Category: Medical Plan: Continue Baclofen 10 mg QID PRN Patient has an intrathecal Baclofen pump and continues to follow up with the intrathecal clinic and with neurosurgery at [facility] in [place] regularly (3) Epilepsy: Code(s): G40.909 - Epilepsy, unspecified, not intractable, without status epilepticus Category: Medical Qualifiers: Epilepsy type: unspecified Intractability: not intractable Status epilepticus: without status epilepticus Qualified Code(s): G40.909 - Epilepsy, unspecified, not intractable, without status epilepticus Plan: Continue Carbamazepine 100 mg 4 tablets daily in AM, 3 tablets daily in PM and 4 tablets daily at night AND Dilantin ER 100 mg TID Will recheck his Phenytoin and Tegretol serum levels for follow up Follow up with neurology as scheduled (4) Seronegative rheumatoid arthritis: Comment: -ve RF -ve CCP dx 08/2022 SSZ 08/29 effective MTX couldn't be used as there is concern of reduced efficacy of phenytoin when folic acid is given Code(s): M06.00 - Rheumatoid arthritis without rheumatoid factor, unspecified site Category: Medical Plan: Per rheumatology, he appears to be doing well with no signs or symptoms of inflammatory joint disease Continue Sulfasalazine 500 mg BID Follow up with rheumatology as scheduled (5) Chronic idiopathic constipation: Code(s): K59.04 - Chronic idiopathic constipation Category: Medical Plan: Patient was brought to the ER last month for increasing abdominal pain and constipation and was diagnosed with paralytic ileus on work ups His family states that this has resolved and he is now moving his bowels regularly although he takes a lot of medications just to get his bowels moving Continue Lactulose 30 mg BID, Linaclotide 290 mcg QD and Bisacodyl 10 mg Q HS Follow up with GI as scheduled (6) Dysphagia: Code(s): R13.10 - Dysphagia, unspecified Category: Medical Qualifiers: Dysphagia type: unspecified Qualified Code(s): R13.10 - Dysphagia, unspecified Plan: RESOLVED - he had a swallow evaluation done at [facility] last year and this reportedly came back normal but he was recommended to have his liquids thickened as a precautionary measure He now has Rx for Thick-It powder to use with all of his daily oral liquids as needed / as instructed (7) Vitamin D deficiency: Code(s): E55.9 - Vitamin D deficiency, unspecified Category: Medical Plan: Continue Vitamin D3 2000 units QD Plan Follow up in 6 months Orders: Orders Comprehensive [place]. Panel Fast Today E78.00 - Pure hypercholesterolemia, unspecified, Z00.00 - Encounter for general adult medical examination without abnormal findings Lipid Panel Today E78.00 - Pure hypercholesterolemia, unspecified, Z00.00 - Encounter for general adult medical examination without abnormal findings TSH reflex Free T4 Today E78.00 - Pure hypercholesterolemia, unspecified, Z00.00 - Encounter for general adult medical examination without abnormal findings Vitamin B12 and Folate Today E53.8 - Deficiency of other specified B group vitamins, Z00.00 - Encounter for general adult medical examination without abnormal findings Phenytoin Dilantin Today G40.909 - Epilepsy, unspecified, not intractable, without status epilepticus Carbamazepine Tegretol Today G40.909 - Epilepsy, unspecified, not intractable, without status epilepticus Complete Blood Count Auto Diff Today D64.9 - Anemia, unspecified, Z00.00 - Encounter for general adult medical examination without abnormal findings Vitamin D 25-OH Total Today E55.9 - Vitamin D deficiency, unspecified, Z00.00 - Encounter for general adult medical examination without abnormal findings Medications: New [DISPOSABLE WIPES] As directed 100 ea 12RF G80.0 - Spastic quadriplegic cerebral palsy, R32 - Unspecified urinary incontinence, Z99.3 - Dependence on wheelchair Refilled [UNDERPADS] As directed 120 ea 12RF G40.909 - Epilepsy, unspecified, not intractable, without status epilepticus, G80.0 - Spastic quadriplegic cerebral p alsy
[2025-03-31 08:57] VITALS: BP 110/80; PULSE 67; O2SAT 96
--- OUTSIDE RECORDS SUMMARY | 2025-03-31 09:18 | XMS_ITS | Encounter Summary ---
Author Organization [facility] Address [address] [facility] [address] [place] [address] Phone Care Team Providers Care Load Out Worker Name Role Phone Williams Cotter MD Primary Care Provider [phone] [phone] Encounter Details Date Type Department Care Team (Late st Contact Info) Description 02/13/2022 Transcribe Orders Virtual Department 30 [place] [address] Williams Cotter MD [address] [place] [address] [place] [address] Spastic quadriplegic cerebral palsy (Primary Dx); Dysphagia, [...] min. 49 sec; 1394 IMAGES/FRAMES POS - [id number] Narrative 03/28/2022 12:56 PM EST COMPARISON: None [...] lingual dysmotility again without epiglottic penetration demonstrated. [place] thickened barium was presented via cup with [...] with lingual dysmotility again without epiglotticpenetration demonstrated. [place] thickened barium was presented via cupwith tongue base overflow but no epiglottic penetration noted. IMPRESSION: Oral phase dysmotility without evidence of epiglottic penetration ofliquids or semisolid material. The results of this examination were reviewed with the speechpathologist. FLUOROSCOPY TIME: 2 min. 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 It is not the complete legal health record.[facility]
--- OUTSIDE RECORDS SUMMARY | 2025-03-31 09:18 | XMS_ITS | Clinical Summary ---
Author Organization [facility] Address [address] [place], [place] [phone] Phone Care Team Providers Care Title Search Manager Name Role Phone Williams Cotter MD Primary Care Provider [phone] [phone] Social History Tobacco Use Types Packs/Day Years [...] Medical Devices Not on file [place] [address] [address] [place] [address] [employer] [place] [place] [address] [place] [address] [place] [address] [place] [address] ACO Care Teams Title Search Manager Relationship Specialty Start Date End Date Williams Cotter MD [address] [place] [address] [place] [address] PCP - General Internal Medicine 05/15/18 Additional Source Comments The information contained in this document represents components of the legal health record. It is not the complete legal health record.[facility]
--- OUTSIDE RECORDS SUMMARY | 2025-03-31 09:18 | XMS_ITS | Encounter Summary ---
Author Organization [facility] Address [address] [place] [address] Phone Care Team Providers Care Prototype Engineer Manager Name Role Phone Williams Cotter MD Primary Care Provider [phone] [phone] Reason for Referral * Occupational Therapy (Routine) - Closed Specialty Diagnoses / Procedures Referred By Roshan wen Referred To Contact Occupational Therapy Diagnoses CP (cerebral palsy), spastic, quadriplegic System, Provider Not In, [facility] [id number] [place] [address] Phone: tel: Referral ID Status Reason Start Date Expiration Date Visits Re quested Visits Authorized [id number] Closed 05/17/2018 04/08/2019 9 9 Encounter Details Date Type Department Care Team (Latest Contact Info) Description 05/17/2018 Transcribe Orders [facility] [address] [place] [address] [place] [address] Williams Cotter MD [address] [place] [address] [facility] [place] [address] CP (cerebral palsy), spastic, quadriplegic (Primary Dx) [...] Diagnoses Orde r Schedule Ambulatory referral to [facility] Occupational Therapy Outpatient Referral Routine CP (cerebral palsy), spastic, quadriplegic Ordered: 05/17/2018 documented as of this encounter Visit Diagnoses Diagnosis CP (cerebral palsy), spastic, quadriplegic- Primary Quadriplegic infantile cerebral palsy documented in this encounter Care Teams Prototype Engineer Manager Relationship Specialty Start Date End Date Williams Cotter MD [address] [place] [address] [place] [address] PCP - General Internal Medicine 05/15/18 documented as of this encounter Additional Source Comments The information contained in this document represents components of the legal health record. It is not the complete legal health record.[facility]
== END 2025-03-31 09:42 | disposition home or self-care (01) ==
LOC: HO.HMCH 08:56
PROVIDERS: PCP Internal Medicine; Visit Provider Internal Medicine
DX: Z00.00 Encounter for general adult medical examination without abnormal findings (principal); G80.0 Spastic quadriplegic cerebral palsy; G40.909 Epilepsy, unspecified, not intractable, without status epilepticus; M06.00 Rheumatoid arthritis without rheumatoid factor, unspecified site; K59.04 Chronic idiopathic constipation; R13.10 Dysphagia, unspecified; E55.9 Vitamin D deficiency, unspecified

== ENCOUNTER → 2025-03-31 08:55 | Outpatient (BNVA) | payer OTHER, SELFPAY | PROVIDERS: PCP Internal Medicine; Visit Provider Internal Medicine | DX: Z00.00 Encounter for general adult medical examination without abnormal findings (principal); G80.0 Spastic quadriplegic cerebral palsy; G40.909 Epilepsy, unspecified, not intractable, without status epilepticus; M06.00 Rheumatoid arthritis without rheumatoid factor, unspecified site; K59.04 Chronic idiopathic constipation; R13.10 Dysphagia, unspecified; E55.9 Vitamin D deficiency, unspecified | CPT/HCPCS: 96127; 99396 ==